=== PATIENT | female | born 1985 | race Caucasian/White ===

== ENCOUNTER → 2018-03-26 14:10 | Outpatient (CLI) | payer MEDICAID, SELFPAY ==
[2018-03-26 15:50] LABS: Absolute Lymphocyte Count 3.08 X10^3/ul (0.83-4.51); Basophil# 0.02 X10^3/uL; Basophil% 0.2 % (0-1); Eosinophil# 0.15 X10^3/uL; Eosinophils% 1.3 % (0-5); Hematocrit 43.6 % (37-47); Hemoglobin 14.5 g/dl (12.0-15.0); Lymphocyte # 3.08 X10^3/ul (4.0); Lymphocyte % 25.8 % (19-41); Mean Corp Hgb Conc 33.3 g/gl (32-36); Mean Corpuscular Hgb 30.7 pg (27.0-32.0); Mean Corpuscular Volume 92.4 fL (81-99); Mean Platelet Vol. 10.1 fl (6.2-12.0); Monocyte# 0.68 X10^3/uL; Monocyte% 5.7 % (0-10); Neutrophil # 7.98 X10^3/uL (2.7-7.7); Neutrophil % 66.6 % (47-70); POSITIVE COUNT NO; POSITIVE DIFFERENTIAL NO; POSITIVE MORPHOLOGY NO; Platelet Count 293 K/mm3 (150-450); RBC Distribution Width CV 13.2 % (11.6-14.6); RBC Distribution Width SD 43.8 fl (35.1-43.9); Red Blood Count 4.72 M/mm3 (4.2-5.4)
[2018-03-26 18:23] LABS: BUN 8 mg/dL (7-18); BUN/Creat Ratio 12.9 RATIO (10-20); Creatinine, Serum 0.62 mg/dL (0.55-1.02); EST Glomerular Filtration Rate 119 mL/min (>60); Est Glom Filt Rate - Afr Amer 144 mL/min (>60); Glucose 74 mg/dL (74-106); Protein, Total 7.3 g/dL (6.4-8.2)
[2018-03-26 18:24] LABS: ALB/GLOB Ratio 1.1 RATIO (0.9-2.4); AST(SGOT) 23 U/L (15-37); Alanine Aminotransfer ALT/SGPT 23 U/L (13-56); Albumin, Serum 3.8 g/dL (3.2-5.0); Alkaline Phosphatase 111 U/L (45-117); Anion Gap 10 (5-15); Calcium,Total 8.8 mg/dL (8.5-10.1); Chloride 106 mmol/L (98-107); Globulin 3.5 g/dL (2.2-4.2); Potassium 4.2 mmol/L (3.5-5.1); Sodium Level 140 mmol/L (136-145); Thyroid Stim Hormone (TSH) 4.31 uIU/mL (0.358-3.74)
[2018-03-29 11:41] LABS: EBV Acute VCA IgM < 36.0 U/mL (0.0-35.9)
[2018-03-29 11:42] LABS: EBV Early Antigen IgG <9.0 U/mL (0.0-8.9); EBV Nuclear Antigen IgG 70.6 U/mL (0.0-17.9); EBV-VCA IgG > 600.0 U/mL (0.0-17.9)
== END ==
PROVIDERS: Family Provider Family Medicine; PCP Family Medicine; Visit Provider Family Medicine
DX: R53.83 Other fatigue (principal)
CPT/HCPCS: 36415; 80053; 82306; 84443; 85025; 86663; 86664; 86665

== ENCOUNTER → 2018-03-27 10:20 | Outpatient (CLI) | payer MEDICAID, SELFPAY ==
--- NOTE | 2018-03-27 10:26 | RAD_ITS ---
STUDY: X-RAY - LUMBAR SPINE REASON FOR EXAM: Female, 32 years old. Pain and stiffness TECHNIQUE: 5 view(s) of the lumbar spine were obtained. COMPARISON: None FINDINGS: Normal lumbar lordosis. There is no substantial scoliosis. There is a normal alignment of the vertebrae. Normal vertebral bodies and endplates. Normal disc space heights. The soft tissue structures are unremarkable. RAD/L/S Spine Min 4 Views IMPRESSION: Normal x-ray examination of the lumbar spine. If patient's symptomology persists or there is continuing clinical concern consider CT or MRI to further evaluate. Electronically Signed: Yobani Magana, at 4:31 EDT Tel , Service support ,
--- NOTE | 2018-03-27 10:26 | RAD_ITS ---
STUDY: X-RAY - CERVICAL SPINE REASON FOR EXAM: Female, 32 years old. Pain and stiffness TECHNIQUE: 5 view(s) of the cervical spine were obtained. COMPARISON: None FINDINGS: Normal anterior atlantoaxial articulation. Normal odontoid process. There is straightening of the normal cervical lordosis. Normal vertebral bodies and endplates. Normal disc space heights. Normal visualized intervertebral neuroforamina. The soft tissue structures are unremarkable. RAD/Cerv Spine 4 or 5 Views IMPRESSION: Normal x-ray examination of the visualized cervical spine. If patient's symptomology persists or there is continuing clinical concern correlate with MRI or CT scan. Electronically Signed: Yobani Magana, at 4:32 EDT Tel , Service support ,
== END ==
PROVIDERS: Family Provider Family Medicine; PCP Family Medicine; Visit Provider Chiropractor
DX: M54.12 Radiculopathy, cervical region (principal); S39.012A Strain of muscle, fascia and tendon of lower back, initial encounter; X58.XXXA Exposure to other specified factors, initial encounter
CPT/HCPCS: 72050; 72110

== ENCOUNTER → 2018-04-15 06:33 | Outpatient (CLI) | payer MEDICAID, SELFPAY ==
--- OUTSIDE RECORDS SUMMARY | 2018-04-15 06:36 | XMS RPT_ITS ---
:1985 Author Organization OHIP Care Team Providers Name Role Phone MikeDyllan Attending Unavailable Dyllan Wyman Primary Care Unavailable Ron Bowen Attending Unavailable Ron Bowen Referring Unavailable Dyllan Wyman Primary Care Unavailable Dyllan Wyman Attending Unavailable Dyllan Wyman Referring Unavailable Dyllan Wyman Primary Care Unavailable Jaren Dubon Attending Unavailable Jaren Dubon Attending Unavailable Dyllan Wyman Primary Care Unavailable Yobani Dawkins Attending Unavailable Jaren Dubon Attending Unavailable Dyllan Wyman Primary Care Unavailable Jaren Dubon Attending Unavailable PROBLEMS PROBLEMS DATE TYPE CONDITION / ATTENDING STATUS SOURCE CODE 03/27/2018 Unknown M54.12 - Ron Bowen Active [facility] Radiculopathy, [facility] cervical region Hospital / Repository M54.12(ICD-10) 03/27/2018 Unknown S33.5XXA - Ron Bowen Active [facility] Sprain of [facility] lumbar spine, Repository initial encounter / S33.5XXA(ICD-10 ) 03/26/2018 Unknown R53.83 - Other Dyllan Wyman Active [facility] fatigue / Community R53.83(ICD-10) Hospital Repository 08/16/2017 Admitting Unknown / Jacky Dubon Medical diagnosis UNK(Unknown) [facility] Repository PROCEDURES PROCEDURES No Procedure Records FoundRESULTS RESULTS L/S SPINE MIN 4 Observed: 03/27/2018 Status: F Source: [place] VIEWS 10:26 AM [facility] [id number] [place], [place] [address]O/S Spine Min 4 ViewsMR#: [id number] Acct: [id number]: ALEAH WYMAN Rep #: [id number]: 1985 F 32 From: Yobani Magana MDPCP: Dyllan Wyman MD Status: REG CLIStudy: L/S Spine Min 4 Views Date of Exam: 03/27/18Exam# [id number] Ordering Dr: Kashif BowenTUDY: X-RAY - LUMBAR SPINEREASON FOR EXAM: Female, 32 years old. Pain and stiffnessTECHNIQUE: 5 view(s) of the lumbar spine were obtained.COMPARISON: None FINDINGS:Normal lumbar lordosis. There is no substantial scoliosis. There is anormal alignment of the vertebrae.Normal vertebral bodies and endplates. Normal disc space heights.The soft tissue structures are unremarkable. ORDER #: [id number] RAD/L/S Spine Min 4 ViewsIMPRESSION:Normal x-ray examination of the lumbar spine. If patient's symptomologypersists or there is continuing clinical concern consider CT or MRI tofurther evaluate.Electronically Signed:Yobani Magana, at 4:31 EDTTel , Service support , JT: Ron Bowen; Dyllan Wyman MD Oven Drier Tender:Signed CERV SPINE 4 OR 5 Observed: 03/27/2018 Status: F Source: [place] VIEWS 10:26 AM [facility] RE[facility]ITORY [facility] [id number] [place] [address]Epqs Spine 4 or 5 ViewsMR#: [id number] Acct: [id number]: ALEAH WYMAN Rep #: [id number]: 1985 F 32 From: Yobani Magana MDPCP: Dyllan Wyman MD Status: REG CLIStudy: Cerv Spine 4 or 5 Views Date of Exam: 03/27/18Exam# [id number] Ordering Dr: Kashif BowenTUDY: X-RAY - CERVICAL SPINEREASON FOR EXAM: Female, 32 years old. Pain and stiffnessTECHNIQUE: 5 view(s) of the cervical spine were obtained.COMPARISON: None FINDINGS:Normal anterior atlantoaxial articulation. Normal odontoid process.There is straightening of the normal cervical lordosis. Normal vertebralbodies and endplates. Normal disc space heights. Normal visualizedintervertebral neuroforamina.The soft tissue structures are unremarkable. ORDER #: [id number] RAD/Cerv Spine 4 or 5 ViewsIMPRESSION:Normal x-ray examination of the visualized cervical spine. If patient'ssymptomology persists or there is continuing clinical concern correlatewith MRI or CT scan.Electronically Signed:Yobani Magana, at 4:32 EDTTel , Service support , WG: Ron Bowen; Dyllan Wyman MD Oven Drier Tender:Signed CBC W/DIFF, AUTOMATED Collected: 03/26/2018 Status: F Source: [place] 2:12 PM [facility] REPOSITORY TYPE CODE TESTS RESULT OUT OF RANGE REFERENCE UNITS LAB L100.1000 High 4.4-11.0 K/mm3 WBC 12.0 LAB L100.1200 Normal 4.2-5.4 M/mm3 RBC 4.72 LAB L100.1300 Normal 12.0-15.0 g/dl HGB 14.5 LAB L100.1400 Normal 37-47 % HCT 43.6 LAB L100.1500 Normal 81-99 fL MCV 92.4 LAB L100.1600 Normal 27.0-32.0 pg MCH 30.7 LAB L100.1700 Normal 32-36 g/gl MCHC 33.3 LAB L100.1810 Normal 11.6-14.6 % RDW 13.2 CV LAB L100.1820 Normal 35.1-43.9 fl RDW 43.8 SD LAB L100.1900 Normal 150-450 K/mm3 PLT 293 LAB L100.2000 Normal 6.2-12.0 fl MPV 10.1 LAB L100.2100 Normal 47-70 % NEUT% 66.6 LAB L100.2200 Normal 19-41 % LY% 25.8 LAB L100.2300 Normal 0-10 % MONO% 5.7 LAB L100.2400 Normal 0-5 % EO% 1.3 LAB L100.2500 Normal 0-1 % BASO% 0.2 LAB L100.2550 Normal 0.0-0.9 % IM 0.400 GRAN % Result Comment: IG% - Immature Granulocytes (promyelocytes, myelocytes andmetamyelocytes) > 1% indicates that a LEFT SHIFT is Present. LAB L100.2620 High 2.0-7.7 X10 3/uL Absolute Neut 8.0 LAB L100.2720 Normal 0.83-4.51 X10 3/ul Absolute Lymph 3.08 Performed By: #### L100.0100 ####[facility] [id number] [place], [address] COMPREHENSIVE METABOLIC Collected: 03/26/2018 Status: F Source: [facility] 2:12 PM [facility] REPOSITORY TYPE CODE TESTS RESULT OUT OF RANGE REFERENCE UNITS LAB L501.0100 Normal 74-106 mg/dL GLU 74 Result Comment: Please note revised GLUCOSE reference range apwztxrbm30/02/2018. LAB L501.1000 Normal 7-18 mg/dL BUN 8 LAB L501.1100 Normal 0.55-1.02 mg/dL CREAT,SERUM 0.62 Result Comment: The validity of the calculated GFR AND GFRAA in patients over70 years has not been determined. Clinical correlation isessential. LAB L501.1110 Normal >60 mL/min EST GFR 119 LAB L501.1115 Normal >60 mL/min EST GFR - AA 144 LAB L501.1300 Normal 10-20 RATIO BUN/CRE 12.9 LAB L501.1500 Normal 6.4-8.2 g/dL T PROT 7.3 LAB L501.1800 Normal 3.2-5.0 g/dL ALB 3.8 LAB L501.1950 Normal 2.2-4.2 g/dL GLOB 3.5 LAB L501.2000 Normal 0.9-2.4 RATIO A/G 1.1 LAB L501.2200 Normal 8.5-10.1 mg/dL CA 8.8 LAB L501.4100 Normal 15-37 U/L AST 23 LAB L501.4305 Normal 45-117 U/L ALK P 111 LAB L501.4405 Normal 13-56 U/L ALT 23 LAB L501.4600 Normal 0.20-1.00 mg/dL T BILI 0.20 LAB L501.5300 Normal 136-145 mmol/L NA 140 LAB L501.5600 Normal 3.5-5.1 mmol/L K 4.2 LAB L501.5900 Normal 98-107 mmol/L CL 106 LAB L501.6100 Normal 21.0-32.0 mmol/L CO2 24.0 LAB L501.6200 Normal 5-15 GAP 10 Performed By: #### L500.4050, L501.9520 ####[facility] [id number] [facility]. [place], [place], [address] THYROID STIM HORMONE Collected: 03/26/2018 Status: F Source: [place] (TSH) 2:12 PM [facility] REPOSITORY TYPE CODE TESTS RESULT OUT OF RANGE REFERENCE UNITS LAB L501.9520 High 0.358-3.74 uIU/mL TSH 4.31 Performed By: #### L500.4050, L501.9520 ####[facility] [address] [place], [address] VITAMIN D,25 HYDROXY Collected: 03/26/2018 Status: F Source: [place] 2:12 PM [facility] REPOSITORY TYPE CODE TESTS RESULT OUT OF REFERENCE UNITS RANGE LAB L506.1000 Low 29.95-100.01 ng/mL Vitamin D 28.0 25-OH Result Comment: Vitamin D 25(OH) Status Range Deficiency <20 ng/mL (50nmol/L) Insuffciency 20 - 30 ng/mL (50 - 75 nmol/L) Sufficiency 30 - 100 ng/mL (75 - 250 nmol/L) Toxicity >100 ng/mL (>250 nmol/L) Performed By: #### L506.1000 ####[facility] [address] [place], [place], [address] EBV ACUTE PROF IGG Collected: 03/26/2018 Status: F Source: ALANA / IGM 2:12 PM [facility] REPOSITORY TYPE CODE TESTS RESULT OUT OF RANGE REFERENCE UNITS LAB L3100.5900 Normal 0.0-35.9 U/mL < EB-VCA 36.0 [id number] Result Comment: Negative <36.0 Equivocal 36.0 - 43.9 Positive >43.9 LAB L3100.6000 Normal 0.0-8.9 U/mL <9.0 EB-EA IgG 60361 Result Comment: Negative < 9.0 Equivocal 9.0 - 10.9 Positive >10.9 LAB L3100.6100 High 0.0-17.9 U/mL EB-VCA [id number] > 600.0 Result Comment: Negative <18.0 Equivocal 18.0 - 21.9 Positive >21.9 LAB L3100.6200 High 0.0-17.9 U/mL EB-NAg [id number] 70.6 Result Comment: Negative <18.0 Equivocal 18.0 - 21.9 Positive >21.9 LAB L3100.6300 Normal . INTERPRETATION Comment Result Comment: EBV Interpretation ChartInterpretation EBV-IgM EA(D)-IgG VCA-IgG EBNA-IgGEBV Seronegative - - - -Early Phase + - - - Acute Primary + +or- + -InfectionConvalescence/Past - +or- + +InfectionReactivated +or- + + +Infection + Antibody Present - Antibody AbsentPerformed at: - [facility] [address] [id number] Director: Toni Monzon PhD, Phone: [phone] Performed By: #### L3100.5850 ####[facility] (refer to report for specific site)refer to report for address and phone number FLUOROSCOPY IN OR/PAIN Observed: 09/06/2017 Status: F Source: [facility] MGT 10:30 AM [facility] FLUOROSCOPY IN OR/PAIN MGTOrdering Physician: Jaren Dubon DO09/06/2017 10:30 AMFLUOROSCOPYClinical Statement: PainComparison: NoneFINDINGS: Two spot fluoroscopic images were saved demonstratingneedle placement at the right sacroiliac joint. A total of 20.5seconds fluoroscopy time was utilized. Please see the orderingclinicians report for full details.IMPRESSION:Documentation of fluoroscopy. ---- Electronic Signature on File ----Signed By: Ivon [email or web address]: 09/06/2017 11: 02 AMSigned: 09/06/2017 11:03 AM Reported By: TRICIA LAZO M.D. Signed By: TRICIA LAZO M.D. ALLERGIES ALLERGIES DATE TYPE / CODE NAME / CODE REACTION SEVERITY SOURCE 04/17/2015 Drug Penicillins/ Unknown Unknown [facility]160 [id number](R [facility] 74324(SNOMED XNORM) Repository CT) 04/17/2015 Drug sulfamethoxa Unknown Unknown [facility] Allergy/4160 zole/[id number] Hospital 62994(SNOMED 827(RXNORM) Repository CT) 04/17/2015 Drug trimethoprim Unknown Unknown [facility] Allergy/4160 /[id number]( Hospital 43735(SNOMED RXNORM) Repository CT) ENCOUNTERS ENCOUNTERS ADMIT/DISCHARGE ACCOUNT ADMITTING ENCOUNTER LOCATION SOURCE NUMBER CLASS 04/15/2018 [id number] [place] [facility] ing:MRI Repository 03/27/2018 [id number] Ambulatory [place] 1 [facility] ing:RAD Repository 03/26/2018 [id number] Ambulatory [place] 2 [facility] ing:MFPLAB Repository 02/20/2018 [id number] Inpatient [facility] 9 [facility]counter [facility] g:H.PM Repository 02/12/2018 [id number] Ambulatory [facility] 1 [facility] g:H.PM Repository 11/14/2017 [id number] Ambulatory [facility] 5 [facility] g:H.PM Repository 09/06/2017 [id number] Inpatient [facility] 0 Encounter [facility] Jack g:H.PM Repository 08/16/2017 [id number] Ambulatory [facility] 3 [facility] g:H.PM Repository PAYERS PAYERS ENCOUNTER GUARANTOR PAYER SUBSCRIBER SOURCE 04/15/2018 ALEAH L Primary ALEAH L [facility] [id number] 1/2 N Insurance:CARESOURCEP MILLERDOB: Critical access hospital [id number] [id number] Repository [address]Bip: (330) Date:2018-04-09P O [phone] () [address]ATTN: [place] [address]YL: 04/15/2018 Secondary NOT GIVENUNK [place] Insurance:SELF PAY [facility] Number: Effective Repository Date:2018-04-09 03/27/2018 ALEAH L Primary ALEAH L [place] [id number] 1/2 N Insurance:CARESOURCEP MILLERDOB: Critical access hospital Number: [id number] [id number] Repository [address]Ixb: ([phone]) Date:2018-03-27P O [phone] () [address]ATTN: [place] [address]XB: 03/27/2018 Secondary NOT GIVENUNK [place] Insurance:SELF PAY [facility] Number: Effective Repository Date:2018-03-27 03/26/2018 ALEAH L Primary ALEAH L [facility] [id number] N Insurance:CARESOURCEP MILLERDOB: Critical access hospital Number: [id number] [id number] Repository [address]Kmw: (330) Date:2018-03-26P O [phone] () [address]ATTN: [place] [address]HV: 03/26/2018 Secondary NOT GIVENUNK [facility] Insurance:SELF PAY [facility] Number: Effective Repository Date:2018-03-26 02/20/2018 ALEAH L Primary [facility] [id number] N Insurance:[facility] Number: Repository [place] [id number]: ([phone]) Date:2015-05-23P.O. [phone] (HP) [address] [place] [address]AY: 02/12/2018 ALEAH L Primary ALEAH [facility] [id number] N Insurance:[facility] Number: Repository [place], [place] [id number]: (330) Date:2015-05-23P.O. [phone] (HP) [address] [place] [address]CN: 11/14/2017 ALEAH L Primary ALEAH [facility] [id number] N Insurance:[facility] Number: Repository [place], [place] [id number] [address]Xly: (330) Date:2015-05-23P.O. [phone] (HP) [address] [place] [address]XO: 09/06/2017 ALEAH L Primary ALEAH [facility] [id number] N Insurance:[facility] Number: Repository [place], [place] [id number]: (330) Date:2015-05-23P.O. [phone] (HP) [address] [place] [address]BX: 08/16/2017 ALEAH L Primary ALEAH [facility] [id number] N Insurance:[facility] Number: [place]ository [place] [id number]: ([phone]) Date:2015-05-23P.O. [phone] (HP) [address] [place] [address]YU:
--- NOTE | 2018-04-15 06:39 | MRI_ITS ---
STUDY: MRI BRAIN WITH AND WITHOUT CONTRAST REASON FOR EXAM: Female, 32 years old. Frequent headaches. Neck pain. Posterior headache and pressure behind eyes. TECHNIQUE: Standardized multiplanar fat and water weighted pulse sequences were obtained. 7 ml of Gadavist contrast material was administered intravenously for the contrast portion of the examination. COMPARISON: None. FINDINGS: Normal size of the ventricles and extra-axial spaces for the patient's age. Normal white matter tracts of the supratentorial brain. Normal bilateral basal ganglia. Normal thalami. There is no extra-axial fluid accumulation. Normal flow voids within the major intracranial circulation suggesting patency by spin echo criteria. Normal venous enhancement. There is no enhancing intra-axial or extra-axial abnormality. Normal sella turcica, pituitary gland, infundibular stalk, optic chiasm and hypothalamus. Normal tectal plate and pineal gland. Normal midbrain, lucien and medulla. Normal cerebellum. Normal basal cisterns. Normal bilateral temporal bones. Normal bilateral internal auditory canals. No demonstrated orbital abnormality, within the constraints of a routine brain study. Normal visualized paranasal sinuses. Normal calvarium and skull base. Normal visualized soft tissue structures. Normal visualized upper cervical spine. MRI/Brain W/WO Contrast IMPRESSION: Normal unenhanced and enhanced MRI of the brain. Electronically Signed: Raudel Robles MD at 14:17 EDT , Service support ,
== END ==
PROVIDERS: Family Provider Family Medicine; PCP Family Medicine; Visit Provider Family Medicine
DX: R51 Headache (principal)
CPT/HCPCS: 70553; A9585

== ENCOUNTER → 2018-06-25 10:15 | Outpatient (CLI) | payer MEDICAID, SELFPAY ==
[2013-08-27 13:35] VITALS: BMI 29.5
[2018-06-25 13:10] LABS: Thyroid Stim Hormone (TSH) 0.16 uIU/mL (0.358-3.74)
== END ==
PROVIDERS: Family Provider Family Medicine; PCP Family Medicine; Visit Provider Family Medicine
DX: E03.9 Hypothyroidism, unspecified (principal)
CPT/HCPCS: 36415; 84443

== ENCOUNTER 2018-08-03 00:28 | Emergency (ER) | payer MEDICAID, SELFPAY ==
[2018-08-03 00:29] VITALS: BP 95/82; PULSE 74; RESP 16; TEMP 36.5; O2SAT 96; BMI 27.4
--- NOTE | 2018-08-03 00:35 | EKG12_ITS ---
Test Reason : CP Blood Pressure : / mmHG Vent. Rate : 067 BPM Atrial Rate : 067 BPM P-R Int : 134 ms QRS Dur : 078 ms QT Int : 392 ms P-R-T Axes : 036 031 020 degrees QTc Int : 414 ms Normal sinus rhythm Low voltage QRS Borderline ECG Confirmed by VINH POON, DIAN ([id number]), makeup editor CHARLENE WYMAN ([id number]) on 08/06/2018 4:36:38 PM Referred By: ELIO Confirmed By:DIAN JUSTICE MD
--- NOTE | 2018-08-03 00:35 | RAD_ITS ---
HISTORY: PT STATED SOB CHEST PAIN RT SIDE UNDER BREAST TONIGHT STATED DX WITH BRONCHITIS FOR 3 WKS COUGH CONGESTION FOR 5 WKSSMOKER 1/2 PPD NO SX PT SHIELDED EXAM: XR Chest 2 Views: COMPARISON: None FINDINGS: EKG leads in place. Normal heart size. No vascular congestion, pleural effusion, or acute pulmonary infiltration. No pneumothorax. The bony thorax appears intact. IMPRESSION: No acute cardiopulmonary disease. at 0144 Reported and signed by: Judson Castellanos MD Electronically Signed: Judson Castellanos, at 1:43 EST Tel , Service support , RAD/Chest PA and Lateral
[2018-08-03 01:08] LABS: Absolute Lymphocyte Count 6.34 X10^3/ul (0.83-4.51); Absolute Neutrophil Count 8.4 X10^3/uL (2.0-7.7); Basophil# 0.05 X10^3/uL; Basophil% 0.3 % (0-1); Differential Indicated SCAN CRITERIA MET; Eosinophil# 0.09 X10^3/uL; Eosinophils% 0.6 % (0-5); Hematocrit 41.9 % (37-47); Hemoglobin 13.6 g/dl (12.0-15.0); Lymphocyte # 6.34 X10^3/ul (4.0); Lymphocyte % 39.3 % (19-41); Mean Corp Hgb Conc 32.5 g/gl (32-36); Mean Corpuscular Hgb 30.4 pg (27.0-32.0); Mean Corpuscular Volume 93.5 fL (81-99); Mean Platelet Vol. 9.3 fl (6.2-12.0); Monocyte# 1.08 X10^3/uL; Monocyte% 6.7 % (0-10); Neutrophil # 8.37 X10^3/uL (2.7-7.7); Neutrophil % 51.8 % (47-70); POSITIVE COUNT NO; POSITIVE DIFFERENTIAL YES; POSITIVE MORPHOLOGY NO; Platelet Count 325 K/mm3 (150-450); RBC Distribution Width CV 14.1 % (11.6-14.6); RBC Distribution Width SD 47.6 fl (35.1-43.9); Red Blood Count 4.48 M/mm3 (4.2-5.4); White Blood Count 16.1 K/mm3 (4.4-11.0)
[2018-08-03] MEDS: Naproxen 500 MG Tablet PO (01:08)
[2018-08-03 01:18] LABS: Anion Gap 8 (5-15); BUN 14 mg/dL (7-18); BUN/Creat Ratio 19.7 RATIO (10-20); Calcium,Total 8.7 mg/dL (8.5-10.1); Chloride 105 mmol/L (98-107); Creatinine, Serum 0.71 mg/dL (0.55-1.02); EST Glomerular Filtration Rate 101 mL/min (>60); Est Glom Filt Rate - Afr Amer 122 mL/min (>60); Estimated Creatinine Clearance 98.23 ml/min; Glucose 92 mg/dL (74-106); Potassium 3.8 mmol/L (3.5-5.1); Sodium Level 140 mmol/L (136-145)
[2018-08-03 01:30] VITALS: BP 134/84; PULSE 87; RESP 16; O2SAT 98
--- NOTE | 2018-08-03 01:37 | ED.DCSUM_ITS ---
- ER Visit Summary Date of Service: 08/03/18 Chief Complaint: Chest pain History of Present Illness: The patient is a 32 F presenting for evaluation secondary to chest pain. Patient reports that over the course of approximately the last month she has been dealing with a respiratory infection. She reports that she let it go too long and it settled in her chest. It has been associated with cough. She went and saw a urgent care about 2 weeks ago who placed her on a course of amoxicillin Tessalon prednisone and albuterol. She reports that she did not really have any improvement, and went back for a subsequent visit and had a negative chest x-ray and was recommended to continue on her albuterol. Patient states that in the course of the last 2 days however she has had worsening chest pain that is worse with taking a deep breath and coughing. It is sharp. She denies any association with hemoptysis. She has no history of PE. She is a smoker. She denies any PE or cardiovascular risk factors. Physical Examination: Vital signs are within normal limits, patient is afebrile. General: Patient is well-nourished well-developed and in no acute distress. Head: Normocephalic, atraumatic Eyes: Pupils equal round and reactive bilaterally, extra occular motion intact bialterally ENT: Moist mucous membranes Neck: Supple, no lymphadenopathy, no JVD, no meningismus CVS: Heart regular rate and rhythm, no murmurs, rubs or gallops, radial pulses 2+ bilaterally Resp: Respirations nondistressed, lung sounds clear bilaterally, chest tenderness just directly under the patient's right breast without any evidence of crepitus or step-offs. This extends somewhat medially towards the sternum. Abdomen: Soft, nontender, nondistended, no palpable masses, normal bowel sounds Back: Nontender Extremities: Nontender, atraumatic, active full range of motion, no peripheral edema Skin: warm, no rashes, no petechia Neuro: Alert and oriented x 4, CN 2-12 intact, no lateralizing neurological defecits Psyc: Normal affect Test Results: EKG demonstrates sinus rhythm [address] segments normal T waves no evidence of acute ischemia or arrhythmia. CBC shows leukocytosis. Chemistry and troponin are found to be negative. Chest x-ray shows no evidence of pneumothorax rib fracture or pneumonia. Emergency Department Course and Treatment: Patient presented secondary to chest wall pain. This seems to be clearly reproducible with palpation movement and coughing. Patient has normal oxygenation and normal heart rate and EKG that shows no signs of PE, so I do not believe the d-dimer is indicated. Patient had a leukocytosis consistent with her prednisone use. Chest x-ray was negative. This point the patient likely has an element of a rib sprain secondary to coughing. Patient will be treated with an incentive spirometer and lidocaine patches. Patient's heart score is low risk. Patient will follow up with her primary care physician next week. Disposition: Discharge Impression: 1. Chest wall pain This note was generated with Mompery dictation software. It may contain incorrect words, spelling, and punctuation that were not noted in review of the chart antonina or to signing ED Disposition - Plan for ED Patient: Disposition: Home or Assisted Living Chief Complaint: Chest Pain Diagnosis: Chest wall pain Instructions: ED Strain Chest Wall Prescriptions: Lidocaine [Lidoderm Patch] 1 patch TOPICAL DAILY #10 patch Referrals: Dyllan Mckeon MD [Primary Care Provider] - 3-5 Days
[2018-08-03 02:04] LABS: Atypical Lymphocyte RARE %; Differential Comment SCANNED; Reactive Lymphocyte RARE
[2018-08-03 02:06] LABS: Platelet Estimate ADEQUATE (ADEQ)
[2018-08-03 02:38] VITALS: BP 118/85; BP 119/85; PULSE 85; RESP 16; O2SAT 98
[2018-08-03] MEDS: Lidocaine 5% Patch 1 PATCH TOPICAL (02:44)
[2018-08-05 14:46] LABS: Pathologist Review Reviewed
== END 2018-08-03 02:45 | disposition home or self-care (01) ==
PROVIDERS: Emergency Provider Emergency Medicine; Family Provider Family Medicine; PCP Family Medicine
DX: R07.89 Other chest pain (principal); F17.200 Nicotine dependence, unspecified, uncomplicated
CPT/HCPCS: 71046; 80048; 84484; 85025; 93005; 99284; A4216

== ENCOUNTER → 2018-08-23 10:56 | Outpatient (CLI) | payer MEDICAID, SELFPAY ==
[2018-08-03 00:29] VITALS: BMI 27.4
[2018-08-23 12:00] LABS: Erythrocyte Sedimentation Rate 17 mm/hr (0-20)
[2018-08-23 12:03] LABS: Absolute Lymphocyte Count 2.51 X10^3/ul (0.83-4.51); Absolute Neutrophil Count 4.4 X10^3/uL (2.0-7.7); Basophil# 0.02 X10^3/uL; Basophil% 0.3 % (0-1); Eosinophil# 0.12 X10^3/uL; Eosinophils% 1.6 % (0-5); Hematocrit 41.8 % (37-47); Hemoglobin 13.4 g/dl (12.0-15.0); Lymphocyte # 2.51 X10^3/ul (4.0); Lymphocyte % 33.2 % (19-41); Mean Corp Hgb Conc 32.1 g/gl (32-36); Mean Corpuscular Hgb 29.6 pg (27.0-32.0); Mean Corpuscular Volume 92.5 fL (81-99); Mean Platelet Vol. 9.2 fl (6.2-12.0); Monocyte# 0.47 X10^3/uL; Monocyte% 6.2 % (0-10); Neutrophil # 4.42 X10^3/uL (2.7-7.7); Neutrophil % 58.6 % (47-70); Platelet Count 332 K/mm3 (150-450); RBC Distribution Width CV 13.3 % (11.6-14.6); RBC Distribution Width SD 45.5 fl (35.1-43.9); Red Blood Count 4.52 M/mm3 (4.2-5.4); White Blood Count 7.6 K/mm3 (4.4-11.0)
[2018-08-23 12:04] LABS: POSITIVE COUNT NO; POSITIVE DIFFERENTIAL NO; POSITIVE MORPHOLOGY NO
== END ==
PROVIDERS: Family Provider Family Medicine; PCP Family Medicine; Visit Provider Family Medicine
DX: D72.829 Elevated white blood cell count, unspecified (principal)
CPT/HCPCS: 36415; 85025; 85652

== ENCOUNTER → 2018-09-02 12:35 | Outpatient (CLI) | payer MEDICAID, SELFPAY ==
[2013-08-27 13:35] VITALS: BMI 29.5
--- NOTE | 2018-09-02 12:38 | CT_ITS ---
STUDY: CT CHEST WITH CONTRAST REASON FOR EXAM: Female, 32 years old. Chest wall pain RADIATION DOSAGE (If Supplied By Facility): CTDIvol = ( 9.86 ) mGy, DLP = ( 499.39 ) mGycm TECHNIQUE: Transaxial imaging was performed following intravenous administration of 100CC ml of Isovue 300 contrast material. Individualized dose optimization techniques were used for this CT. COMPARISON: None. FINDINGS: TRACHEA, THYROID, ESOPHAGUS: No tracheomalacia,stricture or wall thickening. Thyroid and esophagus are normal CARDIOVASCULAR SYSTEM: The thoracic aorta is normal with no focal aneurysm or dissection. There are no abnormal calcifications/metallic densities at the aortic root. The pulmonary trunk and the left and right pulmonary arteries and their lobar and segmental branches all fail to show any abnormal and persistent filling defects to indicate the presence of pulmonary embolism. The heart is normal in size with no demonstration of any right ventricular strain. No developmental vascular anomalies are seen. JARRED AND LYMPH NODES: No hilar masses and no mediastinal, hilar, axillary or supraclavicular adenopathy LUNGS, LOW-ATTENUATION: No traction bronchiectasis, honeycombing,emphysema, lung cysts or cavitations LUNGS, HIGH ATTENUATION: No nodules/masses, ground glass opacities/consolidations or increased interstitial markings. A small 2.1 x 0.8 cm density in the right middle lobe. It is most likely from fibrosis LUNGS, MOSAIC/CRAZY PAVING: Not evident PLEURA AND CHEST WALL: No plural effusions, pneumothoraces,rib fractures or any osteolytic/osteoblastic changes . The soft tissue chest wall including the breasts are normal UPPER ABDOMEN: Unremarkable .. CT/Chest WITH Contrast IMPRESSION: The thoracic aorta is normal. No evidence of pulmonary embolism. A 2.1 x 0.8 cm density in the right middle lobe with features suggestive of fibrosis Electronically Signed: Alfredito Townsend MD at 0:24 EST Tel , Service support ,
== END ==
PROVIDERS: Family Provider Family Medicine; PCP Family Medicine; Referring Provider Family Medicine; Visit Provider Family Medicine
DX: R07.89 Other chest pain (principal)
CPT/HCPCS: 71260; Q9967

== ENCOUNTER → 2020-05-26 | Outpatient (CLI) | payer MEDICAID, SELFPAY | END | disposition home or self-care (01) | LOC: LABSPEC 12:27 | PROVIDERS: PCP Family Medicine; Visit Provider Family Medicine | DX: J01.90 Acute sinusitis, unspecified (principal) | CPT/HCPCS: 87635; U0003 ==

== ENCOUNTER → 2020-12-13 11:40 | Outpatient (CLI) | payer MEDICAID, SELFPAY ==
--- NOTE | 2020-12-13 11:46 | RAD_ITS ---
STUDY: X-RAY - CERVICAL SPINE REASON FOR EXAM: Female, 35 years old. PAIN TECHNIQUE: 5 view(s) of the cervical spine were obtained. COMPARISON: None FINDINGS: Normal anterior atlantoaxial articulation. Normal odontoid process. Normal cervical lordosis. Normal vertebral bodies and endplates. Normal disc space heights. Normal visualized intervertebral neuroforamina. The soft tissue structures are unremarkable. RAD/Cerv Spine 4 or 5 Views IMPRESSION: Normal x-ray examination of the visualized cervical spine. Electronically Signed: Suki Moon MD at 7:40 EDT Tel , Service support ,
[2020-12-13 15:34] LABS: Erythrocyte Sedimentation Rate 38 mm/hr (0-30)
[2020-12-13 15:35] LABS: Vitamin B12 712 pg/mL (211-911)
[2020-12-13 15:36] LABS: Absolute Lymphocyte Count 3.62 X10^3/uL (0.83-4.51); Absolute Neutrophil Count 7.5 X10^3/uL (2.0-7.7); Basophil# 0.06 X10^3/uL; Basophil% 0.5 % (0-1); Eosinophil# 0.23 X10^3/uL; Eosinophils% 1.9 % (0-5); Hematocrit 41.4 % (37-47); Hemoglobin 13.7 g/dL (12.0-15.0); Lymphocyte # 3.62 X10^3/ul (0.83-4.51); Lymphocyte % 29.6 % (19-41); Mean Corp Hgb Conc 33.1 g/dL (32-36); Mean Corpuscular Volume 90.8 fL (81-99); Mean Platelet Vol. 9.6 fl (6.2-12.0); Monocyte# 0.74 X10^3/uL; Monocyte% 6.1 % (0-10); NRBC Flagged by Analyzer 0 % (0-5); Neutrophil # 7.54 X10^3/uL (2.7-7.7); Neutrophil % 61.7 % (47-70); Platelet Count 334 K/mm3 (150-450); RBC Distribution Width CV 13.3 % (11.6-14.6); RBC Distribution Width SD 44.3 fl (35.1-43.9); Red Blood Count 4.56 M/mm3 (4.2-5.4); White Blood Count 12.2 K/mm3 (4.4-11.0)
[2020-12-14 01:37] LABS: ALB/GLOB Ratio 0.9 RATIO (0.9-2.4); AST(SGOT) 18 U/L (15-37); Alanine Aminotransfer ALT/SGPT 21 U/L (13-56); Albumin, Serum 3.5 g/dL (3.2-5.0); Alkaline Phosphatase 125 U/L (45-117); Anion Gap 7 (5-15); BUN 10 mg/dL (7-18); Calcium,Total 9.1 mg/dL (8.5-10.1); Chloride 106 mmol/L (98-107); Cholesterol 255 mg/dL (200); Creatinine, Serum 0.62 mg/dL (0.55-1.02); EST Glomerular Filtration Rate 115 mL/min (>60); Est Glom Filt Rate - Afr Amer 140 mL/min (>60); Globulin 3.8 g/dL (2.2-4.2); Glucose 63 mg/dL (74-106); High Density Lipoprotein 44 mg/dL; Potassium 3.8 mmol/L (3.5-5.1); Protein, Total 7.3 g/dL (6.4-8.2); Rheumatoid Factor < 10.0 IU/mL (<15); Sodium Level 136 mmol/L (136-145); Thyroid Stim Hormone (TSH) 3.99 uIU/mL (0.358-3.74); Triglycerides 117 mg/dL; Very Low Density Lipoprotein 23 mg/dL (5-40)
[2020-12-16 16:51] LABS: CCP IgG Antibodies 3 units (0-19)
[2020-12-16 17:14] LABS: ANTINUCLEAR ANTIBODIES DIRECT Negative (Negative)
== END ==
PROVIDERS: PCP Family Medicine; Referring Provider Family Medicine; Visit Provider Family Medicine
DX: Z13.220 Encounter for screening for lipoid disorders (principal); M13.0 Polyarthritis, unspecified; M54.2 Cervicalgia; R53.83 Other fatigue
CPT/HCPCS: 36415; 72050; 80053; 80061; 82607; 84443; 85025; 85652; 86038; 86140; 86200; 86431

== ENCOUNTER 2021-09-26 11:32 | Outpatient (CLI) | payer MEDICAID, SELFPAY ==
[2021-09-26 15:20] LABS: Absolute Lymphocyte Count 2.94 X10^3/uL (0.83-4.51); Absolute Neutrophil Count 5.5 X10^3/uL (2.0-7.7); Basophil# 0.05 X10^3/uL; Basophil% 0.5 % (0-1); Eosinophil# 0.12 X10^3/uL; Eosinophils% 1.3 % (0-5); Hemoglobin 13.1 g/dL (12.0-15.0); Lymphocyte # 2.94 X10^3/ul (0.83-4.51); Lymphocyte % 32.3 % (19-41); Mean Corp Hgb Conc 32.8 g/dL (32-36); Mean Corpuscular Hgb 30.2 pg (27.0-32.0); Mean Corpuscular Volume 92.2 fL (81-99); Mean Platelet Vol. 9.3 fl (6.2-12.0); Monocyte# 0.53 X10^3/uL; Monocyte% 5.8 % (0-10); NRBC Flagged by Analyzer 0 % (0-5); Neutrophil # 5.45 X10^3/uL (2.7-7.7); Neutrophil % 59.9 % (47-70); Platelet Count 301 K/mm3 (150-450); RBC Distribution Width CV 13.2 % (11.6-14.6); RBC Distribution Width SD 45.1 fl (35.1-43.9); Red Blood Count 4.34 M/mm3 (4.2-5.4); White Blood Count 9.1 K/mm3 (4.4-11.0)
[2021-09-26 16:00] LABS: Anion Gap 5 (5-15); BUN 10 mg/dL (7-18); BUN/Creat Ratio 13.6 RATIO (10-20); Chloride 108 mmol/L (98-107); Creatinine, Serum 0.73 mg/dL (0.55-1.02); EST Glomerular Filtration Rate 95 mL/min (>60); Est Glom Filt Rate - Afr Amer 115 mL/min (>60); Glucose 77 mg/dL (74-106); Sodium Level 137 mmol/L (136-145); Thyroid Stim Hormone (TSH) 3.14 uIU/mL (0.358-3.74)
== END 2021-09-26 23:59 | disposition home or self-care (01) ==
LOC: MTLAB 11:33
PROVIDERS: Referring Provider Nurse Practitioner Family; Visit Provider Nurse Practitioner Family
DX: E03.9 Hypothyroidism, unspecified (principal)
CPT/HCPCS: 36415; 80048; 84443; 85025

== ENCOUNTER → 2021-10-26 10:20 | Outpatient (CLI) | payer MEDICAID, SELFPAY ==
--- NOTE | 2021-10-26 10:30 | RAD_ITS ---
STUDY: X-RAY - LEFT ELBOW REASON FOR EXAM: Female, 36 years old. One-month history of pain. No known injury. TECHNIQUE: 3 view(s) of the elbow. COMPARISON: None. FINDINGS: Normal visualized humerus, radius and ulna. Normal radiocapitellar and ulnotrochlear articulations. The soft tissue structures are unremarkable. RAD/Elbow min 3 Views IMPRESSION: Normal x-ray examination of the elbow. Electronically Signed: Cuco Noe MD at 15:24 EDT ,
== END ==
DX: G89.4 Chronic pain syndrome (principal)
CPT/HCPCS: 73080

== ENCOUNTER → 2022-05-04 | Outpatient (CLI) | payer MEDICAID, SELFPAY ==
[2022-05-04 15:50] LABS: Thyroid Stim Hormone (TSH) 1.74 uIU/mL (0.358-3.74)
== END | disposition home or self-care (01) ==
LOC: MFPLAB 12:01
PROVIDERS: PCP Nurse Practitioner Family; Referring Provider Nurse Practitioner Family; Visit Provider Nurse Practitioner Family
DX: E03.9 Hypothyroidism, unspecified (principal)
CPT/HCPCS: 36415; 84443

== ENCOUNTER → 2023-08-08 | Outpatient (CLI) | payer OTHER, SELFPAY ==
--- OUTSIDE RECORDS SUMMARY | 2023-08-08 12:04 | XMS RPT_ITS | CCD ---
Author Name Unknown Address [address] [place] [id number] Organization [facility] Care Team Providers [facility] Name Role Phone Dyllan Wyman MD Primary Care Provider [phone] Unavailable Primary Care Provider UnavailLOAN Arias Attending Unavailable JAREN ALTAMIRANO Attending Unavailable CONNOR MADRIGAL Attending Unavailable JAREN ALTAMIRANO Admitting Unavailable JAREN ALTAMIRANO Attending Unavailable LOAN ALMAGUER Attending Unavailable LOAN ALMAGUER Attending Unavailable SELF Referring Unavailable SELF Referring Unavailable Allergies Allergy Classification Reported Allergen(s) Allergy Type Date of Onset Reaction(s) Facility (4 sources) Penicillins; Translations: [PENICILLINS] Propensity to adverse reactions 5 Vomiting [facility] (20 sources) Sulfamethoxazole / Trimethoprim; Translations: [SULFAMETHOXAZOLE-TR IMETHOPRIM] Drug Allergy 5 [facility] (20 sources) Penicillins Propensity to adverse reactions 5 [facility] (20 sources) Codeine; Translations: [CODEINE] Drug Allergy 6 Swelling [facility] (20 sources) Sulfamethoxazole; Translations: [SULFAMETHOXAZOLE] Drug Allergy 9 [facility] (13 sources) Trimethoprim; Translations: [TRIMETHOPRIM] Drug Allergy 9 Unknown [facility] Medications Current Medications Medication Drug Class(es) Dates Sig (Normalized) Sig (Original) baclofen 10 mg oral tablet (15 sources) gamma-Aminobutyri c Acid-ergic Agonist Start: 01-18-2023 End: 09-16-2023 take 1 tablet by mouth every eight hours as needed baclofen 10 mg tablet Take 1 tablet by mouth three times a day as needed. 90 tablet 2 06/18/2023 09/16/2023 Active Completed/Discontinued Medications Medication Drug Class(es) Dates Sig (Normalized) Sig (Original) acetaminophen 300 mg / codeine phosphate 30 mg oral tablet (1 source) Opioid Agonist Start: 08-27-2013 End: 10-18-2022 acetaminophen-codei ne (TYLENOL-COD #3) 300-30 mg per tablet Take by mouth. 0 08/27/2013 10/18/2022 Discontinued Problems Active Problems Problem Classification Problem Date Documented Date Episodic/Chronic Headache; including migraine (14 sources) Chronic tension-type headache; Translations: [Chronic tension-type headache, not intractable] Onset: 08-02-2015 10-18-2022 Chronic Other connective tissue disease (20 sources) Myofascial pain syndrome; Translations: [Myalgia, other site] Onset: 02-15-2022 02-15-2022 Episodic Other nervous system disorders (20 sources) Chronic pain syndrome; Translations: [Chronic pain syndrome] Onset: 03-30-2022 Chronic Other nervous system disorders (1 source) Chronic pain syndrome; Translations: [Chronic pain syndrome] Onset: 03-30-2022 Chronic Other non-traumatic joint disorders (14 sources) Snapping right hip; Translations: [Other specific joint derangements of right hip, not elsewhere classified] Onset: 06-24-2015 10-18-2022 Chronic Spondylosis; intervertebral disc disorders; other back problems (20 sources) Degeneration of lumbar intervertebral disc; Translations: [Other intervertebral disc degeneration, lumbar region] Onset: 03-30-2022 03-30-2022 Chronic Substance-related disorders (14 sources) Opioid dependence; Translations: [Opioid dependence, uncomplicated] Onset: 06-24-2015 10-18-2022 Chronic Past or Other Problems Problem Classification Problem Date Documented Da te Episodic/Chronic Nausea and vomiting (14 sources) Nausea, vomiting and diarrhea; Translations: [Nausea with vomiting, unspecified] Onset: 10-18-2022 10-18-2022 Episodic Nonspecific chest pain (14 sources) Chest wall pain; Translations: [Other chest pain] Onset: 10-18-2022 10-18-2022 Episodic Other acquired deformities (14 sources) Acquired unequal leg length; Translations: [Unequal limb length (acquired), unspecified site] Onset: 06-24-2015 10-18-2022 Episodic Other aftercare (20 sources) Taking high risk medication; Translations: [Other termite renewal inspector (current) drug therapy] Onset: 03-30-2022 03-30-2022 Episodic Other aftercare (7 sources) Patient encounter status; Translations: [intermediate (current) use of opiate analgesic] Onset: 07-31-2016 10-18-2022 Episodic Other aftercare (1 source) Other termite renewal inspector (current) drug therapy; Translations: [High risk medication use] Onset: 03-30-2022 Episodic Other connective tissue disease (1 source) Myalgia, other site; Translations: [Myofascial pain syndrome] Onset: 02-15-2022 Episodic Spondylosis; intervertebral disc disorders; other back problems (20 sources) Lumbar radiculopathy; Translations: [Radiculopathy, lumbar region] Onset: 04-04-2017 03-30-2022 Episodic Results Test Name Value Interpretation Reference Range Facil ity Vital Signs Date Time Vital Sign Value Performing Clinician Faci lity 03-21-2023 14:01-0400 Diastolic blood pressure 74 mm[Hg] Jaren Jagdish DO Work Phone: [facility] 03-21-2023 14:01-0400 Systolic blood pressure 130 mm[Hg] Vasquezhuber Altamirano DO Work Phone: [facility] 03-21-2023 14:00-0400 Heart rate 79 /min Vasquezhuber Altamirano DO Work Phone: [facility] 03-21-2023 14:00-0400 Respiratory rate 16 /min Vasquezhuber Altamirano DO Work Phone: [facility] 03-21-2023 14:00-0400 SaO2% (BldA) [Mass fraction] 100 % Vasquezhuber Altamirano DO Work Phone: [facility] 03-21-2023 13:46-0400 Body temperature 98.6 [degF] Jaren Jagdish DO Work Phone: [facility] 02-28-2023 13:27-0400 Body height 164.6 cm [facility] COMPLIANCE REVIEW OFFICER.SEALING MACHINE OPERATOR Work Phone: [facility] 02-28-2023 13:27-0400 Body weight 90.54 kg [facility] COMPLIANCE REVIEW OFFICER.SEALING MACHINE OPERATOR Work Phone: [facility] 02-28-2023 13:27-0400 Diastolic blood pressure 82 mm[Hg] [facility] [place] COMPLIANCE REVIEW OFFICER.SEALING MACHINE OPERATOR Work Phone: [facility] 02-28-2023 13:27-0400 Heart rate 80 /min Loan [place] COMPLIANCE REVIEW OFFICER.SEALING MACHINE OPERATOR Work Phone: [facility] 02-28-2023 13:27-0400 Respiratory rate 18 /min [facility] [place] COMPLIANCE REVIEW OFFICER.SEALING MACHINE OPERATOR Work Phone: [facility] 02-28-2023 13:27-0400 SaO2% (BldA) [Mass fraction] 95 % Loan [place] COMPLIANCE REVIEW OFFICER.SEALING MACHINE OPERATOR Work Phone: [facility] 02-28-2023 13:27-0400 Systolic blood pressure 126 mm[Hg] Loan [place] COMPLIANCE REVIEW OFFICER.SEALING MACHINE OPERATOR Work Phone: [facility] 01-18-2023 10:50-0400 Body height 164.6 cm [facility] [place] COMPLIANCE REVIEW OFFICER.SEALING MACHINE OPERATOR Work Phone: [facility] 01-18-2023 10:50-0400 Body weight 81.65 kg [facility] [place] COMPLIANCE REVIEW OFFICER.SEALING MACHINE OPERATOR Work Phone: [facility] 01-18-2023 10:50-0400 Diastolic blood pressure 92 mm[Hg] Loan [place] COMPLIANCE REVIEW OFFICER.SEALING MACHINE OPERATOR Work Phone: [facility] 01-18-2023 10:50-0400 Heart rate 82 /min Loan [place] COMPLIANCE REVIEW OFFICER.SEALING MACHINE OPERATOR Work Phone: [facility] 01-18-2023 10:50-0400 Respiratory rate 19 /min [facility] [place] COMPLIANCE REVIEW OFFICER.SEALING MACHINE OPERATOR Work Phone: [facility] 01-18-2023 10:50-0400 SaO2% (BldA) [Mass fraction] 98 % Loan [place] COMPLIANCE REVIEW OFFICER.SEALING MACHINE OPERATOR Work Phone: [facility] 01-18-2023 10:50-0400 Systolic blood pressure 143 mm[Hg] [facility] [place] COMPLIANCE REVIEW OFFICER.SEALING MACHINE OPERATOR Work Phone: [facility] 10-18-2022 10:25-0400 Body height 164.6 cm [facility] [place] COMPLIANCE REVIEW OFFICER.SEALING MACHINE OPERATOR Work Phone: [facility] 10-18-2022 10:25-0400 Body weight 88.91 kg [facility] [place] COMPLIANCE REVIEW OFFICER.SEALING MACHINE OPERATOR Work Phone: [facility] 10-18-2022 10:25-0400 Diastolic blood pressure 90 mm[Hg] [facility] [place] COMPLIANCE REVIEW OFFICER.SEALING MACHINE OPERATOR Work Phone: [facility] 10-18-2022 10:25-0400 Heart rate 87 /min [facility] [place] COMPLIANCE REVIEW OFFICER.SEALING MACHINE OPERATOR Work Phone: [facility] 10-18-2022 10:25-0400 Respiratory rate 19 /min [facility] [place] COMPLIANCE REVIEW OFFICER.SEALING MACHINE OPERATOR Work Phone: [facility] 10-18-2022 10:25-0400 SaO2% (BldA) [Mass fraction] 95 % [facility] [place] COMPLIANCE REVIEW OFFICER.SEALING MACHINE OPERATOR Work Phone: [facility] 10-18-2022 10:25-0400 Systolic blood pressure 154 mm[Hg] [facility] [place] COMPLIANCE REVIEW OFFICER.SEALING MACHINE OPERATOR Work Phone: [facility] 10-12-2022 13:42-0400 Diastolic blood pressure 78 mm[Hg] Jaren Altamirano DO Work Phone: [facility] 10-12-2022 13:42-0400 Heart rate 82 /min Jaren Altamirano DO Work Phone: [facility] 10-12-2022 13:42-0400 Respiratory rate 16 /min Jaren Altamirano DO Work Phone: [facility] 10-12-2022 13:42-0400 SaO2% (BldA) [Mass fraction] 98 % Jaren Altamirano DO Work Phone: [facility] 10-12-2022 13:42-0400 Systolic blood pressure 132 mm[Hg] Jaren Altamirano DO Work Phone: [facility] 10-12-2022 13:09-0400 Body temperature 98.1 [degF] Jaren Altamirano DO Work Phone: [facility] 07-27-2022 13:06-0500 Diastolic blood pressure 85 mm[Hg] [place] COMPLIANCE REVIEW OFFICER.SEALING MACHINE OPERATOR Work Phone: [facility] 07-27-2022 13:06-0500 Heart rate 85 /min [facility] COMPLIANCE REVIEW OFFICER.SEALING MACHINE OPERATOR Work Phone: [facility] 07-27-2022 13:06-0500 SaO2% (BldA) [Mass fraction] 97 % [facility] COMPLIANCE REVIEW OFFICER.SEALING MACHINE OPERATOR Work Phone: [facility] 07-27-2022 13:06-0500 Systolic blood pressure 131 mm[Hg] [facility] COMPLIANCE REVIEW OFFICER.SEALING MACHINE OPERATOR Work Phone: [facility] Encounters Encounter Date Encounter Type Care Provider Facility Start: 07-25-2023 End: 07-25-2023 ambulatory CONNOR MADRIGAL Facility:[id number] Start: 07-03-2023 Telephone encounter Connor Madrigal MD Work Phone: Pain Management Procedures Date Procedure Procedure Detail Performing Clinician Start: 03-21-2023 End: 03-21-2023 Injection single/vascular surgery physician trigger point 3/> muscles Jaren Altamirano DO Work Phone: Start: 10-12-2022 End: 10-12-2022 Injection single/vascular surgery physician trigger point 3/> muscles Jaren Altamirano DO Work Phone: Plan of Treatment Date Care Activity Detail Author Start: 03-23-[address] [facility] Start: 01-18-2023 End: 03-20-2023 TOXASSURE FLEX 23, URINE TOXASSURE FLEX 23, URINE Lab Routine High risk medication use Expected: 01/18/2023, Expires: 03/20/2023 [facility] Work Phone: Immunizations Immunization Date Immunization Notes Care Provider Rebecca bergman 02-06-2006 tetanus toxoid, redu stacie diphtheria toxoid, and acellular pertussis vaccine, adsorbed Loan Almaguer Work Phone: [facility] Payers Date Payer Category Payer Unknown DELFINO CORONEL TODD [id number] 2023-Present [phone] [address] [place] [address] Indemnity [id number] 2023 Unknown [id number] 2022 Medicaid [id number] 2020 Medicaid [employer] [id number] 2020-Present [phone] [address] [place] [address] Medicaid [id number] 2020 Medicaid [id number] 2010 Medicaid [place] [employer] [employer] [id number] 2010-Present [phone] [address] [place] [address] Medicaid [id number] Social History Date Type Detail Facility Start: 10-13-2013 End: 03-30-2022 Tobacco smoking status ALIS Smokes tobacco daily [facility] Start: 02-13-2015 End: 04-23-2023 Alcohol intake Current non-drinker of alcohol (finding) [facility] Start: 1985 Sex Assigned At Not on file [facility] Start: 01-16-2022 End: 01-26-2022 Exposure to SARS-CoV-2 (event) Not sure [facility] Start: 10-13-2013 End: 03-30-2022 Tobacco use and exposure Smokeless tobacco non-user [facility] Start: 03-30-2022 Tobacco Comment patient smokes 1-2 cigarettes/day since she became , used to smoke 1 ppd [facility] Start: 01-18-2023 End: 04-23-2023 History of Social function [facility] Start: 01-18-2023 End: 04-23-2023 Tobacco use panel [facility] National Score (1-10 0), lower number is lower risk 71 [facility] Clinical Notes 07-31-2016 to 07-25-2023 Telephone Encounter - Connor Madrigal MD - 07/03/2023 4:01 PM ESTTelephone Encounter - Polly Lopez RN - 07/03/2023 1:24 PM ESTTelephone Encounter - Dea Nielson RN - 06/18/2023 1:07 PM EST Note Date & Type Note Facility 07-25-2023 Note HNO ID: [id number] Author: Connor Madrigal MD Service: ? Author Type: Anesthesiologist Type: Progress Notes Filed: 07/25/2023 2:04 PM Note Text: Oly was used to dictate this note and therefore there may be some typographical errors. I attest to the fact that I spent a total of 20 min with the patient to include: Face to face time and non face to face time such as: Reviewing test's, reviewing medical records, reviewing imaging studies, ordering tests, etc. Patient was last seen on 04/23/[address] Altamirano. This patient has been followed by Dr. Altamirano and her staff. This is a first visit for this patient with me. According to notes, patient is been maintained on tramadol 5 tablets a day, continue with chiropractor, order cervical x-rays, continue TENS unit, try baclofen, and consider cervical MRI in the future. This again is first visit for this patient with me. PE:. Alert and oriented in some discomfort. Mood and affect within normal limits. Vital signs indicated. Tenderness palpation along the cervical paraspinous muscles. Negative Spurling sign bilaterally. 5/5 strength upper extremities. Dx: Cervical DDD, cervical DJD, cervical facet arthropathy, cervical facet syndrome, cervical spondylosis, cervical pain, psoriasis with psoriatic arthritis, myofascial pain syndrome, chronic pain syndrome. Patient is on the above analgesic regimen. Patient denies any systemic side effects. Patient believes the pain meds have helped (as indicated by VAS). Patient has signed Medication Management Agreement and Informed Consent Form ( contract ). I have also utilized the Intractable Pain and Drug Prescription Checklist as promulgated by [facility]. Furthermore, I have adhered to the [facility] Administrative Code 4731-11. The medication clearly improves this patient's functionality and quality of life as evidence by improved social, recreational activities. There is no evidence of any: drug abuse, drug addiction nor drug diversion. The patient has never called in early for a refill, is not particularly focused on pain medication, has never shown up in our office unexpectedly without appointment, nor called in stating a lost prescription. The patient has been instructed not to drive if any SEALING MACHINE OPERATOR side effects to pain medication. The patient has been informed that the analgesics are potentially addicting and need to be taken strictly as prescribed. I have checked an OARRS on this patient which came back as expected. The patient has received an opioid education handout and filled out an opioid screener (SOAPP). I have had the patient submit a random urine drug screen AND the patient does have biological markers which would corroborate and substantiate chronic pain (see prior imaging studies). Additionally I did discuss Narcan with the patient and informed the patient that Narcan is now available at their pharmacy if they so request. Plan: As above, the patient was last seen on 04/23/[address] Altamirano. This patient has been followed by Dr. Altamirano and her staff. This is a first visit for this patient with me. According to notes, patient is been maintained on tramadol 5 tablets a day, continue with chiropractor, order cervical x-rays, continue TENS unit, try baclofen, and consider cervical MRI in the future. This again is first visit for this patient with me. Patient did have cervical x-rays done 01/19/2023. Applied and failed 8 or 9 sessions of chiropractic treatment. She probably does have a cervical MRI scheduled 08/21/2023. She is seeing me next week for trigger point injections. She will follow-up with Flavio early August to review his cervical MRI with her at that time. We may then consider cervical medial branch blocks possible precursor to RFA or even possibly Botox injections depending what the cervical MRI shows. Continue on tramadol and baclofen as prescribed. 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 [facility] 07-03-2023 Miscellaneous Notes Formattin g of this note might be different from the original. ordered Pt calling asking if she would be able to get scheduled for TPI. She had last TPI with Dr Altamirano on 03/21/23. Pt noted that she has been getting headaches due to the stiffness in her neck area. Pt was transferred to to schedule MRI that Dr Altamirano ordered at last office visit on 04/23/23. Polly Lopez RN July 03, 2023 1:38 PM documented in this encounter [facility] 06-18-2023 Miscellaneous Notes Formattin g of this note is different from the original. Patient phones requesting refills as follows: Requested Prescriptions Pending Prescriptions Disp Refills traMADol (ULTRAM) 50 mg tablet 150 tablet 0 Sig: Take 1 tablet by mouth as directed for 30 days. q4-6 hr prn max 5 day baclofen 10 mg tablet 90 tablet 2 Sig: Take 1 tablet by mouth three times a day as needed. Last UDS: No specialty comments available. Summary Report Date Value Ref Range Status 01/18/2023 FINAL Final Comment: == Tapentadol, MS, Ur, RFX Tramadol, MS, Ur RFX Acetaminophen, MS, Ur RFX ToxAssure Flex 23, Ur == Test Result Flag Units Drug Present Tramadol >46648 ng/mg creat O-Desmethyltramadol >43170 ng/mg creat N-Desmethyltramadol >90716 ng/mg creat Source of tramadol is a prescription medication. O-desmethyltramadol and N-desmethyltramadol are expected metabolites of tramadol. Acetaminophen PRESENT == Test Result Flag Units Ref Range Creatinine 42 mg/dL >=20 == Declared Medications: Medication list was not provided. == For clinical consultation, please call . == @FLOW([id number])@ Lab Results Component Value Date SUMM FINAL 01/18/2023 No results found for: SUMMAR Please review and advise. Dea Nielson RN documented in this encounter [facility] 05-20-2023 Miscellaneous Notes Formattin g of this note is different from the original. The following approved medication requests have been transmitted electronically. Requested Prescriptions Pending Prescriptions Disp Refills traMADol (ULTRAM) 50 mg tablet 150 tablet 0 Sig: Take 1 tablet by mouth as directed for 30 days. q4-6 hr prn max 5 day Jaren Altamirano DO Patient phones requesting refills as follows: Requested Prescriptions Pending Prescriptions Disp Refills traMADol (ULTRAM) 50 mg tablet 150 tablet 0 Sig: Take 1 tablet by mouth as directed for 30 days. q4-6 hr prn max 5 day Last UDS: No specialty comments available. Summary Report Date Value Ref Range Status 01/18/2023 FINAL Final Comment: == Tapentadol, MS, Ur, RFX Tramadol, MS, Ur RFX Acetaminophen, MS, Ur RFX ToxAssure Flex 23, Ur == Test Result Flag Units Drug Present Tramadol >74521 ng/mg creat O-Desmethyltramadol >01863 ng/mg creat N-Desmethyltramadol >22201 ng/mg creat Source of tramadol is a prescription medication. O-desmethyltramadol and N-desmethyltramadol are expected metabolites of tramadol. Acetaminophen PRESENT == Test Result Flag Units Ref Range Creatinine 42 mg/dL >=20 == Declared Medications: Medication list was not provided. == For clinical consultation, please call . == @FLOW([id number])@ Lab Results Component Value Date SUMM FINAL 01/18/2023 No results found for: SUMMAR Please review and advise. Dea Nielson RN documented in this encounter [facility] 04-23-2023 Note HNO ID: [id number] Author: Jaren Altamirano, DO Service: ? Author Type: Physician Type: Progress Notes Filed: 04/24/2023 8:02 AM Note Text: Summary: Pain Management follow-up DATE: April 23, 2023 Chief Complaint: back of neck, shoulders _ History of Present Illness: Chelsea Wyman is a 37 year old female being seen at [facility] for a evaluation and/or management of their chronic pain. The patient was last seen in the office on 01/18/2023 by Loan Almaguer NP, and the plan of care was as follows: Continue Tramadol, max 5 tabs per day. This helps patient perform ADL, interact with familly and friends.OARRS reviewed and consistent. UDS reviewed and consistent Order UDS Encouraged to continue with chiropractor Order cervical spine xray Plan to order MRI cervical spine after has enough chiropractor treatments Continue Cymbalta.from PCP Continue TENS use DC zanaflex. Prescribe baclofen 10mg one tab three times a day as needed Followup in 2-3 months She had TPI on 03/21/2023 with 50% relief. She had TPI in 09/2022 with 75% relief. She followed with her chiropractor which is on hold. She had completed a total of 6 chiropractic sessions. She believes her insurance requires her to complete 12 chiropractic sessions in order to have the MRI of her cervical spine completed. We discussed restarting chiropractor as scheduled. She takes the Tramadol and Baclofen with benefit. She denies any side effects. She takes the Cymbalta with benefit from PCP. She continues to use the TENS unit with benefit. Pain level: 09/29 Location: back of neck, shoulder Denies any ED visits or hospitalizations since last office visit Reports pain worse with caring for family and home Reports pain better with laying down,medications,TENS, TPI Describes pain in neck pain as constant ache with hot and tight.Burning. neck stiffness. States pain radiates to both arms and into hands. States has numbness in hands. Weakness: denies. Denies dropping objects with hands. Denies difficulty opening jars. Denies falls. Denies stumbling TENS use 1-2/week with minimal to moderate relief Last UDS: consistent Summary Report Date Value Ref Range Status 01/18/2023 FINAL Final Comment: == Tapentadol, MS, Ur, RFX Tramadol, MS, Ur RFX Acetaminophen, MS, Ur RFX ToxAssure Flex 23, Ur == Test Result Flag Units Drug Present Tramadol >27977 ng/mg creat O-Desmethyltramadol >39585 ng/mg creat N-Desmethyltramadol >67604 ng/mg creat Source of tramadol is a prescription medication. O-desmethyltramadol and N-desmethyltramadol are expected metabolites of tramadol. Acetaminophen PRESENT == Test Result Flag Units Ref Range Creatinine 42 mg/dL >=20 == Declared Medications: Medication list was not provided. == For clinical consultation, please call . == No results found for: SUMMAR Chronic Pain Functional Assessment Tools Pain Disability Index: No flowsheet data found. Pain Enjoyment of Life and General Activity Scale (0-10): PEG: A Three-Item Scale Assessing Pain Intensity and Interference What number best describes your pain on average in the past week?: 7 (02/28/2023 1:00 PM) What number best describes how, during the past week, pain has interfered with your enjoyment of life?: 10 - Completely interferes (02/28/2023 1:00 PM) What number best describes how, during the past week, pain has interfered with your general activity?: 9 (02/28/2023 1:00 PM) REVIEW OF SYSTEMS: GENERAL: No weight loss, malaise or fevers RESPIRATORY: Negative for cough, hemoptysis, wheezing, COPD, dyspnea or shortness of breath. CARDIOVASCULAR: Negative for chest pain, leg swelling, hypertension, CHF or palpitations GI: No nausea, vomiting, or diarrhea. MUSCULOSKELETAL: back of neck, shoulder ____ PAST MEDICAL HISTORY Diagnosis Date Anemia Arthritis Asthma Depression PAST SURGICAL HISTORY Procedure Laterality Date INJECTION right hip- numbing injection TUBAL LIGATION, 2007 FAMILY HISTORY Problem Relation Age of Onset Diabetes Father Heart Father Heart Attack Father Colon Cancer Mother Heart Maternal Grandmother Diabetes Maternal Grandmother (more content not included)... [facility] 04-20-2023 Miscellaneous Notes Formattin g of this note might be different from the original. Items addressed in this encounter: Prior Authorization Tramadol approval letter indexed Able to close encounter. Carrie Prado MA April 20, 2023 1:39 PM 1:39 PM documented in this encounter [facility] 03-21-2023 Surgical operatio n note Summary: Trigger Point Injections PROCEDURE: Trigger point injection at ___B/L cervical paraspinal mm, b/l trapezius mm and rhomboid mm. and b/l supraspinatus mm group . DATE OF SERVICE:March 21, 2023 PREPROCEDURE DIAGNOSIS: 1.Myofascial pain syndrome. POSTPROCEDURE DIAGNOSIS: Same. ANESTHESIA: Local. COMPLICATIONS: None. CONSENT: Risks of the procedure including bleeding, infection, nerve damage, seizure, abscess formation, hematoma formation, headache, failure of the pain to improve and potential worsening of the pain, were explained in full to the patient who verbalized understanding and wishes to proceed with the injection at this time. Written informed consent was thereby obtained. BRIEF HISTORY: See charts. DESCRIPTION OF PROCEDURE: After informed consent was obtained, the patient was taken to the procedure room and placed in the __seated___ position. The patient's muscle groups, described above, were identified and the tender trigger points within the muscles were marked with surgical pen. The muscle groups were then prepped and draped in sterile fashion with ___Chloroprep swabs . A ___25 gauge 1 inch needle was attached to a syringe containing ____25 ml 0.25% Marcaine mixed with Kenalog 40 mg . The tip of the needle was then advanced into the belly of the taut muscle band (trigger point) identified previously and repositioned such that the myofascial pain was maximal. After negative aspiration, a total of __25 ml 0.25% Marcaine and Kenalog 40mg of the above solution was injected into the previously identified muscle groups. The patient tolerated the procedure well and all needles were removed intact. The patient s vitals were monitored for an appropriate time interval and remained stable. The documentation for this encounter was entered by Jessica Young medical insurance collector, for Dr. Jaren Altamirano on March 21, 2023. I, Dr. Jaren Altamirano, personally performed the services described in this documentation. All medical record entries made by the scribe were at my direction and in my presence. I have reviewed the chart and discharge instructions and agree that the record reflects my personal performance and is accurate and complete. Electronically Signed: Dr. Altamirano. March 21, 2023. documented in this encounter [facility] 02-28-2023 Note HNO ID: [id number] Author: Loan Almaguer APRN.SEALING MACHINE OPERATOR Service: ? Author Type: Clinical Nurse Specialist Type: Progress Notes Filed: 02/28/2023 2:05 PM Note Text: SUBJECTIVE: Chelsea Wyman presents to [facility] Department for a follow-up appointment for neck pain Last seen by me on 01/18/23 with following plan of care: Continue Tramadol, max 5 tabs per day. This helps patient perform ADL, interact with familly and friends.OARRS reviewed and consistent. UDS reviewed and consistent Order UDS Encouraged to continue with chiropractor Order cervical spine xray Plan to order MRI cervical spine after has enough chiropractor treatments Continue Cymbalta.from PCP Continue TENS use DC zanaflex. Prescribe baclofen 10mg one tab three times a day as needed Followup in 2-3 months 02/22/23 phone note: request TPI. Told to make an earlier appointment. Last procedure 10/12/22 TPI 75% relief Pain level: 4-5/10 States she had 6 sessions of chiropractor care for neck. Got letter for private care source which is [facility]. Denies any ED visits or hospitalizations since last office visit Reports pain worse with every day life Reports pain better with TPI, laying down,medications,TENS Describes pain in neck pain as constant ache with hot and tight. Sensation States one vertebra feels out of place States pain radiates to both arms States has numbness in hands at times Denies falls TENS use 1-2/week with minimal to modearte relief REVIEW OF SYSTEMS: GENERAL: No weight loss, malaise or fevers. HEENT: Negative for frequent or significant headaches. RESPIRATORY: Negative for cough, wheezing or shortness of breath. CARDIOVASCULAR: Negative for chest pain, leg swelling or palpitations. GI: Negative for abdominal discomfort, blood in stools or black stools or change in bowel habits. :Denies issues Past Medical History: PAST MEDICAL HISTORY Diagnosis Date Anemia Arthritis Asthma Depression Past Surgical History: PAST SURGICAL HISTORY Procedure Laterality Date INJECTION right hip- numbing injection TUBAL LIGATION, 2007 Family History: FAMILY HISTORY Problem Relation Age of Onset Diabetes Father Heart Father Heart Attack Father Colon Cancer Mother Heart Maternal Grandmother Diabetes Maternal Grandmother Diabetes Paternal Grandmother Diabetes Other Social History: Social History Tobacco Use Smoking status: Every Day Types: Cigarettes Smokeless tobacco: Never Tobacco comments: patient smokes 1-2 cigarettes/day since she became , used to smoke 1 ppd Substance Use Topics Alcohol use: No Drug use: No OBJECTIVE: BP 126/82 Pulse 80 Resp 18 Ht 5' 4.803 (1.65m) Wt 199 lb 9.6 oz (90.5kg) SpO2 95% LMP 12/10/2013 BMI 33.42 kg/(m2). PHYSICAL EXAMINATION: General appearance: Well appearing, in no acute distress, alert. Psych: Mood and affect appropriate. Skin: Skin color, texture, turgor normal, no rashes or lesions. Pulm: no conversational shortness of breath or cough GI: Abdomen soft and non-tender. Musculoskeletal: Cervical spine range of motion without restriction but complaints of tenderness. Negative cervical facet tenderness bilaterally. Negative Spurling sign bilaterally. Firm equal graspl 5/5 upper extremity muscle strength. Positive trigger point tenderness in thoracic paraspinal, rhomboid and trapezius muscles bilaterally ASSESSMENT: (M47.812) Arthropathy of cervical facet joint (M54.12) Cervical radiculopathy (M79.18) Myofascial pain syndrome (G89.4) Chronic pain syndrome (Z79.899) High risk medication use PLAN: Continue Tramadol, max 5 tabs per day. This helps patient perform ADL, interact with familly and friends.OARRS reviewed and consistent. UDS reviewed and consistent Sign Pain contract Continue Cymbalta.from PCP Continue TENS use Continue baclofen as needed PA and order TPI Followup in 3 months The above plan and management options were discussed at length with the patient. The patient is in agreement with the above and verbalized understanding. Loan Almaguer APRN.SEALING MACHINE OPERATOR February 28, 2023 [facility] 02-28-2023 Instructions Loan Almaguer APRN.SEALING MACHINE OPERATOR - 02/28/2023 1:48 PM EDT Continue Tramadol, max 5 tabs per day. This helps patient perform ADL, interact with familly and friends.OARRS reviewed and consistent. UDS reviewed and consistent Sign Pain contract Continue Cymbalta.from PCP Continue TENS use Continue baclofen as needed PA and order TPI 01/18/23 cervical spine xray-Straightening of the normal cervical lordosis with multilevel facet arthropathy. Followup in 3 months documented in this encounter [facility] 02-28-2023 History of Presen t illness Narrative SUBJECTIVE: Chelsea Wyman presents to [facility] Department for a follow-up appointment for neck pain Last seen by me on 01/18/23 with following plan of care: Continue Tramadol, max 5 tabs per day. This helps patient perform ADL, interact with familly and friends.OARRS reviewed and consistent. UDS reviewed and consistent Order UDS Encouraged to continue with chiropractor Order cervical spine xray Plan to order MRI cervical spine after has enough chiropractor treatments Continue Cymbalta.from PCP Continue TENS use DC zanaflex. Prescribe baclofen 10mg one tab three times a day as needed Followup in 2-3 months 02/22/23 phone note: request TPI. Told to make an earlier appointment. Last procedure 10/12/22 TPI 75% relief Pain level: 4-5/10 States she had 6 sessions of chiropractor care for neck. Got letter for private care source which is [facility]. Denies any ED visits or hospitalizations since last office visit Reports pain worse with every day life Reports pain better with TPI, laying down,medications,TENS Describes pain in neck pain as constant ache with hot and tight. Sensation States one vertebra feels out of place States pain radiates to both arms States has numbness in hands at times Denies falls TENS use 1-2/week with minimal to modearte relief REVIEW OF SYSTEMS: GENERAL: No weight loss, malaise or fevers. HEENT: Negative for frequent or significant headaches. RESPIRATORY: Negative for cough, wheezing or shortness of breath. CARDIOVASCULAR: Negative for chest pain, leg swelling or palpitations. GI: Negative for abdominal discomfort, blood in stools or black stools or change in bowel habits. :Denies issues Past Medical History: PAST MEDICAL HISTORY Diagnosis Date Anemia Arthritis Asthma Depression Past Surgical History: PAST SURGICAL HISTORY Procedure Laterality Date INJECTION right hip- numbing injection TUBAL LIGATION, 2007 Family History: FAMILY HISTORY Problem Relation Age of Onset Diabetes Father Heart Father Heart Attack Father Colon Cancer Mother Heart Maternal Grandmother Diabetes Maternal Grandmother Diabetes Paternal Grandmother Diabetes Other Social History: Social History Tobacco Use Smoking status: Every Day Types: Cigarettes Smokeless tobacco: Never Tobacco comments: patient smokes 1-2 cigarettes/day since she became , used to smoke 1 ppd Substance Use Topics Alcohol use: No Drug use: No OBJECTIVE: BP 126/82 Pulse 80 Resp 18 Ht 5' 4.803 (1.65m) Wt 199 lb 9.6 oz (90.5kg) SpO2 95% LMP 12/10/2013 BMI 33.42 kg/(m^2). PHYSICAL EXAMINATION: General appearance: Well appearing, in no acute distress, alert. Psych: Mood and affect appropriate. Skin: Skin color, texture, turgor normal, no rashes or lesions. Pulm: no conversational shortness of breath or cough GI: Abdomen soft and non-tender. Musculoskeletal: Cervical spine range of motion without restriction but complaints of tenderness. Negative cervical facet tenderness bilaterally. Negative Spurling sign bilaterally. Firm equal graspl 5/5 upper extremity muscle strength. Positive trigger point tenderness in thoracic paraspinal, rhomboid and trapezius muscles bilaterally ASSESSMENT: (M47.812) Arthropathy of cervical facet joint (M54.12) Cervical radiculopathy (M79.18) Myofascial pain syndrome (G89.4) Chronic pain syndrome (Z79.899) High risk medication use PLAN: Continue Tramadol, max 5 tabs per day. This helps patient perform ADL, interact with familly and friends.OARRS reviewed and consistent. UDS reviewed and consistent Sign Pain contract Continue Cymbalta.from PCP Continue TENS use Continue baclofen as needed PA and order TPI Followup in 3 months The above plan and management options were discussed at length with the patient. The patient is in agreement with the above and verbalized understanding. Loan Almaguer APRN.CNS February 28, 2023 documented in this encounter [facility] 02-22-2023 Miscellaneous Notes Formattin g of this note is different from the original. The following approved medication requests have been transmitted electronically. Requested Prescriptions Signed Prescriptions Disp Refills baclofen 10 mg tablet 90 tablet 0 Sig: Take 1 tablet by mouth three times daily as needed. YAS alarcon Authorizing Provider: LOAN ALMAGUER APRN.CNS Patient phones requesting refills as follows: Requested Prescriptions Pending Prescriptions Disp Refills baclofen 10 mg tablet 90 tablet 0 Sig: Take 1 tablet by mouth three times daily as needed. YAS alarcon Last UDS: Summary Report Date Value Ref Range Status 01/18/2023 FINAL Final Comment: == Tapentadol, MS, Ur, RFX Tramadol, MS, Ur RFX Acetaminophen, MS, Ur RFX ToxAssure Flex 23, Ur == Test Result Flag Units Drug Present Tramadol >84725 ng/mg creat O-Desmethyltramadol >49116 ng/mg creat N-Desmethyltramadol >85737 ng/mg creat Source of tramadol is a prescription medication. O-desmethyltramadol and N-desmethyltramadol are expected metabolites of tramadol. Acetaminophen PRESENT == Test Result Flag Units Ref Range Creatinine 42 mg/dL >=20 == Declared Medications: Medication list was not provided. == For clinical consultation, please call . == @FLOW([id number])@ Lab Results Component Value Date SUMM FINAL 01/18/2023 No results found for: SUMMAR Please review and advise. Polly Lopez RN documented in this encounter [facility] 02-22-2023 Miscellaneous Notes Formattin g of this note might be different from the original. Pt called and notified. Call transferred to cinder pitman. Polly Lopez RN February 22, 2023 1:47 PM She will need earlier appointment to have physical assessment to go along with request for TPI Pt last TPI was 09/2022, she reports 90% x 2.5 months, she said she started chiropractic therapy per recommendation to get MRI approved was advised that it would likely help her pain/discomfort as well, pt reports that chiropractic therapy is not helping her pain as well as TPI, she would like to get TPI, please advise Dea Nielson RN February 22, 2023 1:11 PM documented in this encounter [facility] 02-16-2023 Miscellaneous Notes Formattin g of this note is different from the original. The following approved medication requests have been transmitted electronically. Requested Prescriptions Signed Prescriptions Disp Refills traMADol (ULTRAM) 50 mg tablet 150 tablet 0 Sig: Take 1 tablet by mouth as directed for 30 days. q4-6 hr prn max 5 day Do not start before February 20, 2023. Authorizing Provider: LOAN ALMAGUER APRN.SEALING MACHINE OPERATOR Patient phones requesting refills as follows: Requested Prescriptions Pending Prescriptions Disp Refills traMADol (ULTRAM) 50 mg tablet 150 tablet 0 Sig: Take 1 tablet by mouth as directed for 30 days. q4-6 hr prn max 5 day Last UDS: Summary Report Date Value Ref Range Status 01/18/2023 FINAL Final Comment: == Tapentadol, MS, Ur, RFX Tramadol, MS, Ur RFX Acetaminophen, MS, Ur RFX ToxAssure Flex 23, Ur == Test Result Flag Units Drug Present Tramadol >88751 ng/mg creat O-Desmethyltramadol >37112 ng/mg creat N-Desmethyltramadol >55265 ng/mg creat Source of tramadol is a prescription medication. O-desmethyltramadol and N-desmethyltramadol are expected metabolites of tramadol. Acetaminophen PRESENT == Test Result Flag Units Ref Range Creatinine 42 mg/dL >=20 == Declared Medications: Medication list was not provided. == For clinical consultation, please call . == @FLOW([id number])@ Lab Results Component Value Date SUMM FINAL 01/18/2023 No results found for: SUMMAR Please review and advise. Polly Lopez RN documented in this encounter [facility] 01-18-2023 Note HNO ID: [id number] Author: RT Issa(R) Service: Radiology Author Type: Technologist Type: Progress Notes Filed: 01/18/2023 12:09 PM Note Text: Summary: CERVICAL SPINE Radiology Service Progress Note PATIENT NAME: Chelsea Wyman DATE OF SERVICE: January 18, 2023 TIME: 12:09 PM PATIENT IDENTITY VERIFICATION COMPLETED USING TWO (2) IDENTIFIERS: Name and Date of confirmed by patient verbally. FALL SCREENING: Has the patient had 2 falls in the last year or 1 fall with injury or currently using an Ambulatory Assistive Device (Walker, Cane, Wheelchair, Crutches, etc.)? No PATIENT GENDER DATA: Female. status: : No status: NO. PATIENT RELEVANT IMPLANT DATA REVIEWED: Not Applicable RADIOLOGY DEPARTMENT: General X-ray: Exam(s) Completed: Spine X-Ray(s): Cervical AP / LAT / OBL PERIPHERAL IV DATA: Not applicable SIGNED BY: RT Issa(R) January 18, 2023 12:09 PM [facility] 01-18-2023 Note HNO ID: [id number] Author: Loan Almaguer APRN.SEALING MACHINE OPERATOR Service: ? Author Type: Clinical Nurse Specialist Type: Progress Notes Filed: 01/18/2023 11:17 AM Note Text: SUBJECTIVE: Chelsea Wyman presents to [facility] for a follow-up appointment for neck pain Last seen by me on 10/18/22 with following plan of care: Continue Tramadol, max 5 tabs per day. This helps patient perform ADL, interact with familly and friends. No misuse or aberrant behaviors detected. OARRS reviewed and consistent. UDS reviewed and consistent Continue Cymbalta.from PCP Continue TENS use Continue Zanaflex 4 mg TID PRN. Followup in 3 months Last procedure 10/12/22 TPI 75% relief Pain level: States went to chiropractor yesterday which irritated her neck pain Denies any ED visits or hospitalizations since last office visit Reports pain worse with caring for family and home Reports pain better with laying down,medications,TENS, TPI Describes pain in neck pain as constant ache with hot and tight. States one vertebra is out of place States pain radiates to both arms States has numbness in hands at times Denies falls TENS use 1-2/week with minimal to modearte relief REVIEW OF SYSTEMS: GENERAL: No weight loss, malaise or fevers. HEENT: Negative for frequent or significant headaches. RESPIRATORY: Negative for cough, wheezing or shortness of breath. CARDIOVASCULAR: Negative for chest pain, leg swelling or palpitations. GI: Negative for abdominal discomfort, blood in stools or black stools or change in bowel habits. :denies issues Past Medical History: PAST MEDICAL HISTORY Diagnosis Date Anemia Arthritis Asthma Depression Past Surgical History: PAST SURGICAL HISTORY Procedure Laterality Date INJECTION right hip- numbing injection TUBAL LIGATION, 2007 Family History: FAMILY HISTORY Problem Relation Age of Onset Diabetes Father Heart Father Heart Attack Father Colon Cancer Mother Heart Maternal Grandmother Diabetes Maternal Grandmother Diabetes Paternal Grandmother Diabetes Other Social History: Social History Tobacco Use Smoking status: Every Day Types: Cigarettes Smokeless tobacco: Never Tobacco comments: patient smokes 1-2 cigarettes/day since she became , used to smoke 1 ppd Substance Use Topics Alcohol use: No Drug use: No OBJECTIVE: BP 143/92 Pulse 82 Resp 19 Ht 5' 4.8 (1.65m) Wt 180 lb (81.6kg) SpO2 98% LMP 12/10/2013 BMI 30.14 kg/(m2). PHYSICAL EXAMINATION: General appearance: Well appearing, in no acute distress, alert. Psych: Mood and affect appropriate. Skin: Skin color, texture, turgor normal, no rashes or lesions. Pulm: no conversational shortness of breath or cough GI: Abdomen soft and non-tender. Musculoskeletal: Cervical spine range of motion without restriction but complaints of tenderness. Negative cervical facet tenderness bilaterally. Negative Spurling sign bilaterally. Firm equal graspl 5/5 upper extremity muscle strength. No trigger point tenderness in thoracic muscles or trapezius muscles. ASSESSMENT: (M54.2) Cervicalgia (M54.12) Cervical radiculopathy (G89.4) Chronic pain syndrome (Z79.899) High risk medication use PLAN: Continue Tramadol, max 5 tabs per day. This helps patient perform ADL, interact with familly and friends. No misuse or aberrant behaviors detected. OARRS reviewed and consistent. UDS reviewed and consistent Continue Cymbalta.from PCP Continue TENS use Continue Zanaflex 4 mg TID PRN. Followup in 3 months The above plan and management options were discussed at length with the patient. The patient is in agreement with the above and verbalized understanding. Loan Almaguer APRN.KAZ January 18, 2023 [facility] 01-18-2023 History of Presen t illness Narrative Summary: CERVICAL SPINE Radiology Service Progress Note PATIENT NAME: Chelsea Wyman DATE OF SERVICE: January 18, 2023 TIME: 12:09 PM PATIENT IDENTITY VERIFICATION COMPLETED USING TWO (2) IDENTIFIERS: Name and Date of confirmed by patient verbally. FALL SCREENING: Has the patient had 2 falls in the last year or 1 fall with injury or currently using an Ambulatory Assistive Device (Walker, Cane, Wheelchair, Crutches, etc.)? No PATIENT GENDER DATA: Female. status: : No status: NO. PATIENT RELEVANT IMPLANT DATA REVIEWED: Not Applicable RADIOLOGY DEPARTMENT: General X-ray: Exam(s) Completed: Spine X-Ray(s): Cervical AP / LAT / OBL PERIPHERAL IV DATA: Not applicable SIGNED BY: RT Issa(R) January 18, 2023 12:09 PM documented in this encounter [facility] 01-18-2023 Instructions Loan Almaguer APRN.SEALING MACHINE OPERATOR - 01/18/2023 11:07 AM EDT Continue Tramadol, max 5 tabs per day. This helps patient perform ADL, interact with familly and friends.OARRS reviewed and consistent. UDS reviewed and consistent Order UDS Encouraged to continue with chiropractor Order cervical spine xray Plan to order MRI cervical spine after has enough chiropractor treatments Continue Cymbalta.from PCP Continue TENS use DC zanaflex. Prescribe baclofen 10mg one tab three times a day as needed Followup in 2-3 months documented in this encounter [facility] 01-18-2023 History of Presen t illness Narrative SUBJECTIVE: Chelsea Wyman presents to [facility] Department for a follow-up appointment for neck pain Last seen by me on 10/18/22 with following plan of care: Continue Tramadol, max 5 tabs per day. This helps patient perform ADL, interact with familly and friends. No misuse or aberrant behaviors detected. OARRS reviewed and consistent. UDS reviewed and consistent Continue Cymbalta.from PCP Continue TENS use Continue Zanaflex 4 mg TID PRN. Followup in 3 months Last procedure 10/12/22 TPI 75% relief Pain level: States went to chiropractor yesterday which irritated her neck pain Denies any ED visits or hospitalizations since last office visit Reports pain worse with caring for family and home Reports pain better with laying down,medications,TENS, TPI Describes pain in neck pain as constant ache with hot and tight. States one vertebra is out of place States pain radiates to both arms States has numbness in hands at times Denies falls TENS use 1-2/week with minimal to modearte relief REVIEW OF SYSTEMS: GENERAL: No weight loss, malaise or fevers. HEENT: Negative for frequent or significant headaches. RESPIRATORY: Negative for cough, wheezing or shortness of breath. CARDIOVASCULAR: Negative for chest pain, leg swelling or palpitations. GI: Negative for abdominal discomfort, blood in stools or black stools or change in bowel habits. :denies issues Past Medical History: PAST MEDICAL HISTORY Diagnosis Date Anemia Arthritis Asthma Depression Past Surgical History: PAST SURGICAL HISTORY Procedure Laterality Date INJECTION right hip- numbing injection TUBAL LIGATION, 2007 Family History: FAMILY HISTORY Problem Relation Age of Onset Diabetes Father Heart Father Heart Attack Father Colon Cancer Mother Heart Maternal Grandmother Diabetes Maternal Grandmother Diabetes Paternal Grandmother Diabetes Other Social History: Social History Tobacco Use Smoking status: Every Day Types: Cigarettes Smokeless tobacco: Never Tobacco comments: patient smokes 1-2 cigarettes/day since she became , used to smoke 1 ppd Substance Use Topics Alcohol use: No Drug use: No OBJECTIVE: BP 143/92 Pulse 82 Resp 19 Ht 5' 4.8 (1.65m) Wt 180 lb (81.6kg) SpO2 98% LMP 12/10/2013 BMI 30.14 kg/(m^2). PHYSICAL EXAMINATION: General appearance: Well appearing, in no acute distress, alert. Psych: Mood and affect appropriate. Skin: Skin color, texture, turgor normal, no rashes or lesions. Pulm: no conversational shortness of breath or cough GI: Abdomen soft and non-tender. Musculoskeletal: Cervical spine range of motion without restriction but complaints of tenderness. Negative cervical facet tenderness bilaterally. Negative Spurling sign bilaterally. Firm equal graspl 5/5 upper extremity muscle strength. No trigger point tenderness in thoracic muscles or trapezius muscles. ASSESSMENT: (M54.2) Cervicalgia (M54.12) Cervical radiculopathy (G89.4) Chronic pain syndrome (Z79.899) High risk medication use PLAN: Continue Tramadol, max 5 tabs per day. This helps patient perform ADL, interact with familly and friends. No misuse or aberrant behaviors detected. OARRS reviewed and consistent. UDS reviewed and consistent Continue Cymbalta.from PCP Continue TENS use Continue Zanaflex 4 mg TID PRN. Followup in 3 months The above plan and management options were discussed at length with the patient. The patient is in agreement with the above and verbalized understanding. Loan Almaguer APRN.CNS January 18, 2023 documented in this encounter [facility] 12-20-2022 Miscellaneous Notes Formattin g of this note is different from the original. The following approved medication requests have been transmitted electronically. Requested Prescriptions Signed Prescriptions Disp Refills traMADol (ULTRAM) 50 mg tablet 150 tablet 0 Sig: Take 1 tablet by mouth as directed for 30 days. q4-6 hr prn max 5 day Do not start before December 22, 2022. Authorizing Provider: LOAN ALMAGUER APRN.SEALING MACHINE OPERATOR Patient phones requesting refills as follows: Requested Prescriptions Pending Prescriptions Disp Refills traMADol (ULTRAM) 50 mg tablet 150 tablet 0 Sig: Take 1 tablet by mouth as directed for 30 days. q4-6 hr prn max 5 day Last UDS: Summary Report Date Value Ref Range Status 07/27/2022 FINAL Final Comment: == Tapentadol, MS, Ur, RFX Tramadol, MS, Ur RFX ToxAssure Flex 23, Ur == Test Result Flag Units Drug Present Tramadol >79605 ng/mg creat O-Desmethyltramadol >67756 ng/mg creat N-Desmethyltramadol >25773 ng/mg creat Source of tramadol is a prescription medication. O-desmethyltramadol and N-desmethyltramadol are expected metabolites of tramadol. == Test Result Flag Units Ref Range Creatinine 28 mg/dL >=20 == Declared Medications: Medication list was not provided. == For clinical consultation, please call . == @FLOW([id number])@ Lab Results Component Value Date SUMM FINAL 07/27/2022 No results found for: SUMMAR Please review and advise. Mirna Ralph RN documented in this encounter [facility] 10-18-2022 Note HNO ID: [id number] Author: Loan Almaguer APRN.SEALING MACHINE OPERATOR Service: ? Author Type: Clinical Nurse Specialist Type: Progress Notes Filed: 10/18/2022 10:40 AM Note Text: SUBJECTIVE: Chelsea Wyman presents to [facility] for a follow-up appointment for back and left elbow pain Last seen by me on 07/27/22 with plan of care tramadol, pain contract, TPI, cymbalta from PCP, TENS, zanaflex, UDS Last procedure 10/12/22 TPI Pain level: States at least 75% relief from TPI Denies any ED visits or hospitalizations since last office visit Reports pain worse with activity, keeping up with kids Reports pain better with laying down,medications, massager, TENS, TPI Describes pain in lower back as constant ache with pinching sensation on right side at times States pain radiates to right hip extending to right knee at times States has numbness in feet and hands Denies falls TENS use 1-2/week with minimal to modearte relief REVIEW OF SYSTEMS: GENERAL: No weight loss, malaise or fevers. HEENT: Negative for frequent or significant headaches. RESPIRATORY: Negative for cough, wheezing or shortness of breath. Sinus nasal drainage after did yard work over weekend CARDIOVASCULAR: Negative for chest pain, leg swelling or palpitations. GI: Negative for abdominal discomfort, blood in stools or black stools or change in bowel habits. : denies issues Past Medical History: PAST MEDICAL HISTORY Diagnosis Date Anemia Arthritis Asthma Depression Past Surgical History: PAST SURGICAL HISTORY Procedure Laterality Date INJECTION right hip- numbing injection TUBAL LIGATION, 2008 Family History: FAMILY HISTORY Problem Relation Age of Onset Diabetes Father Heart Father Heart Attack Father Colon Cancer Mother Heart Maternal Grandmother Diabetes Maternal Grandmother Diabetes Paternal Grandmother Diabetes Other Social History: Social History Tobacco Use Smoking status: Every Day Types: Cigarettes Smokeless tobacco: Never Tobacco comments: patient smokes 1-2 cigarettes/day since she became , used to smoke 1 ppd Substance Use Topics Alcohol use: No Drug use: No OBJECTIVE: BP 154/90 Pulse 87 Resp 19 Ht 5' 4.8 (1.65m) Wt 196 lb (88.9kg) SpO2 95% LMP 12/10/2013 BMI 32.81 kg/(m2). PHYSICAL EXAMINATION: General appearance: Well appearing, in no acute distress, alert. Psych: Mood and affect appropriate. Skin: pink, warm, and dry Pulm: no conversational shortness of breath GI: Abdomen soft and non-tender. Musculoskeletal: +5 of 5 motor strength BLE Normal hip flexion to 90?. Negative Vanesa's test bilaterally. Lumbar flexion is 90 degrees and lumbar extension is 10 degrees. Negative trigger points noted at bilateral trapezius and left rhomboid muscle and paraspinal muscles. The cervical paraspinal muscles are improved. Negative toe and heel raise Negative knee bend. tennderness at the right SI joint and right lumbar paraspinal muscle region Unable to see actual sites of trigger point injections. No swelling ASSESSMENT: (M51.36) DDD (degenerative disc disease), lumbar (primary encounter diagnosis) (M47.816) Lumbar facet arthropathy (M54.16) Radiculopathy, lumbar region (G89.4) Chronic pain syndrome (M79.18) Myofascial pain syndrome (Z79.899) High risk medication use PLAN: Continue Tramadol, max 5 tabs per day. This helps patient perform ADL, interact with familly and friends. No misuse or aberrant behaviors detected. OARRS reviewed and consistent. UDS reviewed and consistent Continue Cymbalta.from PCP Continue TENS use Continue Zanaflex 4 mg TID PRN. Followup in 3 months The above plan and management options were discussed at length with the patient. The patient is in agreement with the above and verbalized understanding. Loan Almaguer APRN.CNS October 18, 2022 [facility] 10-18-2022 Instructions Loan Almaguer APRN.CNS - 10/18/2022 10:33 AM EDT Continue Tramadol, max 5 tabs per day. This helps patient perform ADL, interact with familly and friends. No misuse or aberrant behaviors detected. OARRS reviewed and consistent. UDS reviewed and consistent Continue Cymbalta.from PCP Continue TENS use Continue Zanaflex 4 mg TID PRN. Followup in 3 months documented in this encounter [facility] 10-18-2022 History of Presen t illness Narrative SUBJECTIVE: Chelsea Wyman presents to [facility] for a follow-up appointment for back and left elbow pain Last seen by me on 07/27/22 with plan of care tramadol, pain contract, TPI, cymbalta from PCP, TENS, zanaflex, UDS Last procedure 10/12/22 TPI Pain level: States at least 75% relief from TPI Denies any ED visits or hospitalizations since last office visit Reports pain worse with activity, keeping up with kids Reports pain better with laying down,medications, massager, TENS, TPI Describes pain in lower back as constant ache with pinching sensation on right side at times States pain radiates to right hip extending to right knee at times States has numbness in feet and hands Denies falls TENS use 1-2/week with minimal to modearte relief REVIEW OF SYSTEMS: GENERAL: No weight loss, malaise or fevers. HEENT: Negative for frequent or significant headaches. RESPIRATORY: Negative for cough, wheezing or shortness of breath. Sinus nasal drainage after did yard work over weekend CARDIOVASCULAR: Negative for chest pain, leg swelling or palpitations. GI: Negative for abdominal discomfort, blood in stools or black stools or change in bowel habits. : denies issues Past Medical History: PAST MEDICAL HISTORY Diagnosis Date Anemia Arthritis Asthma Depression Past Surgical History: PAST SURGICAL HISTORY Procedure Laterality Date INJECTION right hip- numbing injection TUBAL LIGATION, 2007 Family History: FAMILY HISTORY Problem Relation Age of Onset Diabetes Father Heart Father Heart Attack Father Colon Cancer Mother Heart Maternal Grandmother Diabetes Maternal Grandmother Diabetes Paternal Grandmother Diabetes Other Social History: Social History Tobacco Use Smoking status: Every Day Types: Cigarettes Smokeless tobacco: Never Tobacco comments: patient smokes 1-2 cigarettes/day since she became , used to smoke 1 ppd Substance Use Topics Alcohol use: No Drug use: No OBJECTIVE: BP 154/90 Pulse 87 Resp 19 Ht 5' 4.8 (1.65m) Wt 196 lb (88.9kg) SpO2 95% LMP 12/10/2013 BMI 32.81 kg/(m^2). PHYSICAL EXAMINATION: General appearance: Well appearing, in no acute distress, alert. Psych: Mood and affect appropriate. Skin: pink, warm, and dry Pulm: no conversational shortness of breath GI: Abdomen soft and non-tender. Musculoskeletal: +5 of 5 motor strength BLE Normal hip flexion to 90 . Negative Vanesa's test bilaterally. Lumbar flexion is 90 degrees and lumbar extension is 10 degrees. Negative trigger points noted at bilateral trapezius and left rhomboid muscle and paraspinal muscles. The cervical paraspinal muscles are improved. Negative toe and heel raise Negative knee bend. tennderness at the right SI joint and right lumbar paraspinal muscle region Unable to see actual sites of trigger point injections. No swelling ASSESSMENT: (M51.36) DDD (degenerative disc disease), lumbar (primary encounter diagnosis) (M47.816) Lumbar facet arthropathy (M54.16) Radiculopathy, lumbar region (G89.4) Chronic pain syndrome (M79.18) Myofascial pain syndrome (Z79.899) High risk medication use PLAN: Continue Tramadol, max 5 tabs per day. This helps patient perform ADL, interact with familly and friends. No misuse or aberrant behaviors detected. OARRS reviewed and consistent. UDS reviewed and consistent Continue Cymbalta.from PCP Continue TENS use Continue Zanaflex 4 mg TID PRN. Followup in 3 months The above plan and management options were discussed at length with the patient. The patient is in agreement with the above and verbalized understanding. Loan Almaguer APRN.CNS October 18, 2022 documented in this encounter [facility] 10-12-2022 Surgical operatio n note Summary: Trigger Point Injections Physician Signature: Jaren Altamirano DO PROCEDURE: Trigger point injection at ___B/L cervical paraspinal mm, b/l trapezius mm and rhomboid mm. and b/l supraspinatus mm group . DATE OF SERVICE:October 12, 2022 PREPROCEDURE DIAGNOSIS: 1.Myofascial pain syndrome. POSTPROCEDURE DIAGNOSIS: Same. ANESTHESIA: Local. COMPLICATIONS: None. CONSENT: Risks of the procedure including bleeding, infection, nerve damage, seizure, abscess formation, hematoma formation, headache, failure of the pain to improve and potential worsening of the pain, were explained in full to the patient who verbalized understanding and wishes to proceed with the injection at this time. Written informed consent was thereby obtained. BRIEF HISTORY: See charts. DESCRIPTION OF PROCEDURE: After informed consent was obtained, the patient was taken to the procedure room and placed in the __seated___ position. The patient's muscle groups, described above, were identified and the tender trigger points within the muscles were marked with surgical pen. The muscle groups were then prepped and draped in sterile fashion with ___Chloroprep swabs . A ___25 gauge 1 inch needle was attached to a syringe containing ____25 ml 0.25% Marcaine mixed with Kenalog 40 mg . The tip of the needle was then advanced into the belly of the taut muscle band (trigger point) identified previously and repositioned such that the myofascial pain was maximal. After negative aspiration, a total of __25 ml 0.25% Marcaine and Kenalog 40mg of the above solution was injected into the previously identified muscle groups. The patient tolerated the procedure well and all needles were removed intact. The patient s vitals were monitored for an appropriate time interval and remained stable. POST-PROCEDURE ORDERS: Progressive ambulation as tolerated Condition: Stable Diet as tolerated Disposition: DC IV prior to discharge Additional Blocks Give patient homegoing instructions Additional: Discharge according to approved criteria The documentation for this encounter was entered by Jessica Young, medical insurance collector, for Dr. Jaren Altamirano on October 12, 2022. I, Dr. Jaren Altamirano, personally performed the services described in this documentation. All medical record entries made by the scribe were at my direction and in my presence. I have reviewed the chart and discharge instructions and agree that the record reflects my personal performance and is accurate and complete. Electronically Signed: Dr. Altamirano. October 12, 2022. documented in this encounter [facility] 2022 Miscellaneous Notes Formattin g of this note might be different from the original. TPI built Meir Wing received appeal approval for TPI's please build a case so she can be added for October 12 at 1:00. Thank you, Vivien 2022 8:24 AM documented in this encounter [facility] 09-20-2022 Miscellaneous Notes Formattin g of this note is different from the original. The following approved medication requests have been transmitted electronically. Requested Prescriptions Signed Prescriptions Disp Refills traMADol (ULTRAM) 50 mg tablet 150 tablet 0 Sig: Take 1 tablet by mouth as directed for 30 days. q4-6 hr prn max 5 day Do not start before September 23, 2022. Authorizing Provider: LOAN ALMAGUER APRN.CNS Patient phones requesting refills as follows: Requested Prescriptions Pending Prescriptions Disp Refills traMADol (ULTRAM) 50 mg tablet 150 tablet 0 Sig: Take 1 tablet by mouth as directed for 30 days. q4-6 hr prn max 5 day Last UDS: Summary Report Date Value Ref Range Status 07/27/2022 FINAL Final Comment: == Tapentadol, MS, Ur, RFX Tramadol, MS, Ur RFX ToxAssure Flex 23, Ur == Test Result Flag Units Drug Present Tramadol >15989 ng/mg creat O-Desmethyltramadol >89584 ng/mg creat N-Desmethyltramadol >06317 ng/mg creat Source of tramadol is a prescription medication. O-desmethyltramadol and N-desmethyltramadol are expected metabolites of tramadol. == Test Result Flag Units Ref Range Creatinine 28 mg/dL >=20 == Declared Medications: Medication list was not provided. == For clinical consultation, please call . == @FLOW(,)@ Lab Results Component Value Date SUMM FINAL 07/27/2022 No results found for: SUMMAR Please review and advise. Tiara Guaman RN documented in this encounter [facility] 07-27-2022 Instructions Loan Almaguer APRN.SEALING MACHINE OPERATOR - 07/27/2022 1:23 PM EST Continue Tramadol, max 5 tabs per day. This helps patient perform ADL, interact with familly and friends. No misuse or aberrant behaviors detected. OARRS reviewed and consistent. UDS reviewed and consistent Order UDS Sign Pain contract PA and schedule TPI last done with great relief and patient upset that her insurance will not approve this procedure for her chronic pain needs about every 3 months Continue Cymbalta.from PCP Continue TENS use Continue Zanaflex 4 mg TID PRN. Followup in 3 months documented in this encounter [facility] 07-27-2022 History of Presen t illness Narrative SUBJECTIVE: Chelsea Wyman presents to [facility] for a follow-up appointment for back and left elbow pain Last seen by me on 03/30/22 Last procedure 02/26/22 TPI Pain level:5-7/10 States chronic pain in back is improved with TPI helping patient be able to care for her children and maintain house Denies any ED visits or hospitalizations since last office visit Reports pain worse with activity, keeping up with kids Reports pain better with laying down,medications, massager, TENS, TPI Describes pain in lower back as constant ache with pinching sensation on right side at times States pain radiates to right hip extending to right knee at times States has numbness in feet. Hands at times Denies falls TENS use 2/week with minimal to modearte relief REVIEW OF SYSTEMS: GENERAL: No weight loss, malaise or fevers. HEENT: Negative for frequent or significant headaches. RESPIRATORY: Negative for cough, wheezing or shortness of breath. CARDIOVASCULAR: Negative for chest pain, leg swelling or palpitations. GI: Negative for abdominal discomfort, blood in stools or black stools or change in bowel habits. :denies issues Past Medical History: PAST MEDICAL HISTORY Diagnosis Date Anemia Arthritis Asthma Depression Past Surgical History: PAST SURGICAL HISTORY Procedure Laterality Date INJECTION right hip- numbing injection TUBAL LIGATION, 2007 Family History: FAMILY HISTORY Problem Relation Age of Onset Diabetes Father Heart Father Heart Attack Father Colon Cancer Mother Heart Maternal Grandmother Diabetes Maternal Grandmother Diabetes Paternal Grandmother Diabetes Other Social History: Social History Tobacco Use Smoking status: Every Day Types: Cigarettes Smokeless tobacco: Never Tobacco comments: patient smokes 1-2 cigarettes/day since she became , used to smoke 1 ppd Substance Use Topics Alcohol use: No Drug use: No OBJECTIVE: LMP 12/10/2013 PHYSICAL EXAMINATION: General appearance: Well appearing, in no acute distress, alert. Accompanied by her Psych: Mood and affect appropriate. Skin: Skin color, texture, turgor normal, no rashes or lesions. Pulm: no conversational shortness of breath GI: Abdomen soft and non-tender. Musculoskeletal: +5 of 5 motor strength BLE Normal hip flexion to 90 . Negative Vanesa's test bilaterally. Lumbar flexion is 90 degrees and lumbar extension is 10 degrees. Trigger points noted at bilateral trapezius and left rhomboid muscle and paraspinal muscles. This extends to cervical paraspinal muscles. Negative toe and heel raise Negative knee bend. tennderness at the right SI joint and right lumbar paraspinal muscle region ASSESSMENT: Visit dx Ddd (degenerative disc disease), lumbar (primary encounter diagnosis) Myofascial pain syndrome Radiculopathy, lumbar region Chronic pain syndrome High risk medication use PLAN: Continue Tramadol, max 5 tabs per day. This helps patient perform ADL, interact with familly and friends. No misuse or aberrant behaviors detected. OARRS reviewed and consistent. UDS reviewed and consistent Order UDS Sign Pain contract PA and schedule TPI last done with great relief and patient upset that her insurance will not approve this procedure for her chronic pain needs about every 3 months Continue Cymbalta.from PCP Continue TENS use Continue Zanaflex 4 mg TID PRN. Followup in 3 months The above plan and management options were discussed at length with the patient. The patient is in agreement with the above and verbalized understanding. Loan Almaguer APRN.CNS July 27, 2022 documented in this encounter [facility] 07-25-2022 Miscellaneous Notes Formattin g of this note is different from the original. The following approved medication requests have been transmitted electronically. Requested Prescriptions Signed Prescriptions Disp Refills traMADol (ULTRAM) 50 mg tablet 150 tablet 0 Sig: Take 1 tablet by mouth as directed for 30 days. q4-6 hr prn max 5 day Authorizing Provider: LOAN ALMAGUER APRN.CNS Patient phones requesting refills as follows: Requested Prescriptions Pending Prescriptions Disp Refills traMADol (ULTRAM) 50 mg tablet 75 tablet 0 Sig: Take 1 tablet by mouth as directed for 15 days. q4-6 hr prn max 5 day Please review and advise. Tiara Guaman RN documented in this encounter [facility] 07-13-2022 Miscellaneous Notes Formattin g of this note might be different from the original. Please contact the patient and let her know that her insurance is denying the trigger point injection because she has not had a physical exam within 3 months of her request for trigger point. Therefore, when she sees Loan in the office on July 27 this can be addressed. Please asked the patient to file a complaint against her insurance company that is truly delaying her medical care. Per Dr. Altamirano Pt notified of the above information, TPI's cancelled for 07/26/22. Mirna Ralph RN July 13, 2022 1:15 PM documented in this encounter [facility] 07-05-2022 Miscellaneous Notes Formattin g of this note is different from the original. The following approved medication requests have been transmitted electronically. Requested Prescriptions Signed Prescriptions Disp Refills traMADol (ULTRAM) 50 mg tablet 75 tablet 0 Sig: Take 1 tablet by mouth as directed for 15 days. q4-6 hr prn max 5 day Do not start before July 10, 2022. Authorizing Provider: LOAN ALMAGUER APRN.SEALING MACHINE OPERATOR Patient phones requesting refills as follows: Requested Prescriptions Pending Prescriptions Disp Refills traMADol (ULTRAM) 50 mg tablet 75 tablet 0 Sig: Take 1 tablet by mouth as directed for 15 days. q4-6 hr prn max 5 day Please review and advise. Polly Lopez RN documented in this encounter [facility] 06-21-2022 Miscellaneous Notes Formattin g of this note is different from the original. The following approved medication requests have been transmitted electronically. Requested Prescriptions Signed Prescriptions Disp Refills traMADol (ULTRAM) 50 mg tablet 75 tablet 0 Sig: Take 1 tablet by mouth as directed for 15 days. q4-6 hr prn max 5 day Do not start before June 25, 2022. Authorizing Provider: LOAN ALMAGUER APRN.SEALING MACHINE OPERATOR Patient phones requesting refills as follows: Requested Prescriptions Pending Prescriptions Disp Refills traMADol (ULTRAM) 50 mg tablet 75 tablet 0 Sig: Take 1 tablet by mouth as directed for 15 days. q4-6 hr prn max 5 day Please review and advise. Dea Nielson RN documented in this encounter [facility] 06-21-2022 Miscellaneous Notes Formattin g of this note might be different from the original. Case put in for TPI with Dr Altamirano Summary: call from pt Pt states that she has had 50% improvement until this week and is currently @ 20% improvement from 02-15-22 TPI with steroids. She is requesting to have another TPI. Please place order if within POC. Thank you. Shayna Rodas RN documented in this encounter [facility] 06-07-2022 Miscellaneous Notes Formattin g of this note is different from the original. The following approved medication requests have been transmitted electronically. Requested Prescriptions Signed Prescriptions Disp Refills traMADol (ULTRAM) 50 mg tablet 75 tablet 0 Sig: Take 1 tablet by mouth as directed for 15 days. q4-6 hr prn max 5 day Do not start before June 10, 2022. Authorizing Provider: LOAN ALMAGUER APRN.SEALING MACHINE OPERATOR Patient phones requesting refills as follows: Requested Prescriptions Pending Prescriptions Disp Refills traMADol (ULTRAM) 50 mg tablet 150 tablet 0 Sig: Take 1 tablet by mouth as directed for 30 days. q4-6 hr prn max 5 day Please review and advise. Polly Lopez RN documented in this encounter [facility] 06-06-2022 Miscellaneous Notes Formattin g of this note might be different from the original. Left voicemail for patient to call to reschedule appointment that was cancelled for 06/29/22 due to Provider Loan Almaguer will be out of office. Jeannie Candelario MA June 06, 2022 1:22 PM documented in this encounter [facility] 05-08-2022 Miscellaneous Notes Formattin g of this note is different from the original. The following approved medication requests have been transmitted electronically. Requested Prescriptions Signed Prescriptions Disp Refills traMADol (ULTRAM) 50 mg tablet 150 tablet 0 Sig: Take 1 tablet by mouth as directed for 30 days. q4-6 hr prn max 5 day Authorizing Provider: LOAN ALMAGUER APRN.SEALING MACHINE OPERATOR Patient called the office stating she has had multiple issues with her Tramadol 50mg rx. Written for max 5/day, 15 day supply #90. However, the last rx was written for #90 for 30 day supply with instructions to take max of 5 /day or one tab q 4-6 hours prn. Pharmacy is not refilling the Tramadol since last rx was sent for a 30 day supply. How would you like to correct this? Should the patient have a 30 day supply with #180? Please advise. A new rx will need sent to pharmacy. Tiara Guaman RN documented in this encounter [facility] 03-13-2022 Miscellaneous Notes Formattin g of this note is different from the original. The following approved medication requests have been transmitted electronically. Requested Prescriptions Signed Prescriptions Disp Refills traMADol (ULTRAM) 50 mg tablet 90 tablet 1 Sig: Take 1 tablet by mouth as directed for 15 days. q4-6 hr prn max 5 day Do not start before March 19, 2022. Authorizing Provider: LOAN ALMAGUER APRN.SEALING MACHINE OPERATOR Patient phones requesting refills as follows: Requested Prescriptions Pending Prescriptions Disp Refills traMADol (ULTRAM) 50 mg tablet 90 tablet 1 Sig: Take 1 tablet by mouth as directed for 15 days. q4-6 hr prn max 5 day Please review and advise. Clare Lu RN documented in this encounter [facility] 02-20-2022 Miscellaneous Notes noted Segun pharmacist from [facility] called to say that he updated [facility] for the extra 90 tablets of Tramadol patient received from the refill on 02/13/22 script. Patient will not be due for refill until 02/17/22. Clare Lu RN documented in this encounter [facility] 02-14-2022 Miscellaneous Notes Noted Segun from [facility] called in today just wanting you to know that he thinks the pt. Received an extra Tramadol fill of 90 tabs, he is going to call the pt and will let our office know. Pt received 90 tabs on 01/13, 01/26, 01/31 and 02/13. Just FYI. Mirna Ralph RN documented in this encounter [facility] 02-13-2022 Miscellaneous Notes The following approved medication requests have been transmitted electronically. Signed Prescriptions Disp Refills traMADol (ULTRAM) 50 mg tablet 90 tablet 1 Sig: Take 1 tablet by mouth as directed for 15 days. q4-6 hr prn max 5 day BELLA Class: C-IV Authorizing Provider: LOAN ALMAGUER APRN.CNS Patient phones requesting refills as follows: Pending Prescriptions Disp Refills TRAMADOL 50 MG TABLET 90 tablet 1 Sig: Take 1 tablet by mouth as directed for 15 days. q4-6 hr prn max 5 day BELLA Class: C-IV Please review and advise. Clare Lu RN documented in this encounter [facility] documented as of this encounter (statuses as of 02/28/2023) [facility] History of Past illness Narrative* Problem Noted Date Diagnosed Date Resolved Date Encounter for long-term methadone use 07/31/2016 02/28/2023 documented as of this encounter (statuses as of 03/22/2023) [facility] History of Past illness Narrative* Problem Noted Date Diagnosed Date Resolved Date Encounter for long-term methadone use 07/31/2016 02/28/2023 documented as of this encounter (statuses as of 04/21/2023) [facility] History of Past illness Narrative* Problem Noted Date Diagnosed Date Resolved Date Encounter for long-term methadone use 07/31/2016 02/28/2023 documented as of this encounter (statuses as of 04/21/2023) [facility] History of Past illness Narrative* Problem Noted Date Diagnosed Date Resolved Date Encounter for long-term methadone use 07/31/2016 02/28/2023 documented as of this encounter (statuses as of 05/20/2023) [facility] History of Past illness Narrative* Problem Noted Date Diagnosed Date Resolved Date Encounter for long-term methadone use 07/31/2016 02/28/2023 documented as of this encounter (statuses as of 06/19/2023) [facility] History of Past illness Narrative* Problem Noted Date Diagnosed Date Resolved Date Encounter for long-term methadone use 07/31/2016 02/28/2023 documented as of this encounter (statuses as of 07/04/2023) [facility] Chronic pain syndrome- Primary Myofascial pain syndrome Mylagia and myositis, unspecified [facility] Diagnosis Chronic pain syndrome [facility] Diagnosis Chronic pain syndrome documented in this encounter [facility] note* Diagnosis Myofascial pain syndrome- Primary Mylagia and myositis, unspecified Myofascial pain syndrome Mylagia and myositis, unspecified documented in this encounter [facility] note* Diagnosis Chronic pain syndrome Myofascial pain syndrome Mylagia and myositis, unspecified documented in this encounter [facility] note* Diagnosis DDD (degenerative disc disease), lumbar- Primary Degeneration of lumbar or lumbosacral intervertebral disc Myofascial pain syndrome Mylagia and myositis, unspecified Radiculopathy, lumbar region Thoracic or lumbosacral neuritis or radiculitis, unspecified Chronic pain syndrome High risk medication use Encounter for long-term (current) use of other medications Myofascial pain syndrome Mylagia and myositis, unspecified documented in this encounter [facility] note* Diagnosis Myofascial pain syndrome- Primary Mylagia and myositis, unspecified Myofascial pain syndrome Mylagia and myositis, unspecified documented in this encounter [facility] note* Diagnosis DDD (degenerative disc disease), lumbar- Primary Degeneration of lumbar or lumbosacral intervertebral disc Lumbar facet arthropathy Lumbosacral spondylosis without myelopathy Radiculopathy, lumbar region Thoracic or lumbosacral neuritis or radiculitis, unspecified Chronic pain syndrome Myofascial pain syndrome Mylagia and myositis, unspecified High risk medication use Encounter for long-term (current) use of other medications documented in this encounter [facility] note* Diagnosis Chronic pain syndrome [facility]* Diagnosis Cervicalgia Cervical radiculopathy Brachial neuritis or radiculitis nos Chronic pain syndrome High risk medication use Encounter for long-term (current) use of other medications documented in this encounter [facility] note* Diagnosis Cervicalgia Cervical radiculopathy Brachial neuritis or radiculitis nos documented in this encounter [facility] note* Diagnosis Chronic pain syndrome documented in this encounter [facility] note* Diagnosis Arthropathy of cervical facet joint Cervical spondylosis without myelopathy Cervical radiculopathy Brachial neuritis or radiculitis nos Myofascial pain syndrome Mylagia and myositis, unspecified Chronic pain syndrome High risk medication use Encounter for long-term (current) use of other medications Myofascial pain syndrome Mylagia and myositis, unspecified [facility] Chronic pain syndrome [facility] Diagnosis Myofascial pain syndrome- Primary Mylagia and myositis, unspecified documented in this encounter [facility] for referral (narrative)* Diagnostic Procedure Only (Routine) - Closed Specialty Diagnoses / Procedures Referred By Contac t Referred To Contact XR IMAGING Diagnoses Cervicalgia Cervical radiculopathy Procedures XR CERV OTHER 4V AP/LAT/FLX/EXT RADEX SPINE CERVICAL 4 OR 5 VIEWS Loan Almaguer APRN.SEALING MACHINE OPERATOR [address] [place] [address] Xr Imaging Referral ID Status Reason Start Date Expiration Date V isits Requested Visits Authorized [id number] Closed Auto-Generate d Referral 01/18/2023 02/17/2024 1 1 [facility] for referral (narrative)* Diagnostic Procedure Only (Routine) - Closed Specialty Diagnoses / Procedures Referred By Contac t Referred To Contact XR IMAGING Diagnoses Cervicalgia Cervical radiculopathy Procedures XR CERV OTHER 4V AP/LAT/FLX/EXT RADEX SPINE CERVICAL 4 OR 5 VIEWS Loan Almaguer APRN.SEALING MACHINE OPERATOR [address] [place] [address] Xr Imaging Referral ID Status Reason Start Date Expiration Date V isits Requested Visits Authorized [id number] Closed Auto-Generate d Referral 01/18/2023 02/17/2024 1 1 [facility] for visit Narrative* Diagnostic Procedure Only (Routine) - Closed Specialty Diagnoses / Procedures Referred By Contac t Referred To Contact XR IMAGING Diagnoses Cervicalgia Cervical radiculopathy Procedures XR CERV OTHER 4V AP/LAT/FLX/EXT RADEX SPINE CERVICAL 4 OR 5 VIEWS Loan Almaguer, COMPLIANCE REVIEW OFFICER.SEALING MACHINE OPERATOR [address] [place] [address] Xr Imaging Referral ID Status Reason Start Date Expiration Date V isits Requested Visits Authorized [id number] Closed Auto-Generate d Referral 01/18/2023 02/17/2024 1 1 [facility] Summary Purpose Family History No Family History Records FoundNo Family History Records Found Advance Directives No Advanced Directives Records FoundDocuments on File Type Date Recorded 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 Expl anation Advance Directive(s) 01/26/2022 9:32 AM Documents on File Type Date Recorded 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 Expl anation Advance Directive(s) 01/26/2022 9:32 AM Reason for Referral Specialty Diagnoses / Procedures Referred By Contac t Referred To Contact Diagnoses Chronic pain syndrome Loan Almaguer, COMPLIANCE REVIEW OFFICER.SEALING MACHINE OPERATOR [address] [place] [address] Referral ID Status Reason Start Date Expiration Date Visits Re quested Visits Authorized [id number] Closed 1 1 Referral ID Status Reason Start Date Expiration Date Visits Re quested Visits Authorized [id number] Closed 1 1 Additional Source Comments Source Comments (unrecognize d section and content) In the event this informatio n is protected by the Federal Confidentiality of Alcohol and Drug Abuse Patient Records regulations: The Federal rules restrict any use of the information to criminally investigate or prosecute any alcohol or drug abuse patient.[facility] event this information is protected by the Federal Confidentiality of Alcohol and Drug Abuse Patient Records regulations: The Federal rules restrict any use of the information to criminally investigate or prosecute any alcohol or drug abuse patient.[facility] the event this information is protected by the Federal Confidentiality of Alcohol and Drug Abuse Patient Records regulations: The Federal rules restrict any use of the information to criminally investigate or prosecute any alcohol or drug abuse patient.[facility] the event this information is protected by the Federal Confidentiality of Alcohol and Drug Abuse Patient Records regulations: The Federal rules restrict any use of the information to criminally investigate or prosecute any alcohol or drug abuse patient.[facility] the event this information is protected by the Federal Confidentiality of Alcohol and Drug Abuse Patient Records regulations: The Federal rules restrict any use of the information to criminally investigate or prosecute any alcohol or drug abuse patient.[facility] the event this information is protected by the Federal Confidentiality of Alcohol and Drug Abuse Patient Records regulations: The Federal rules restrict any use of the information to criminally investigate or prosecute any alcohol or drug abuse patient.[facility] the event this information is protected by the Federal Confidentiality of Alcohol and Drug Abuse Patient Records regulations: The Federal rules restrict any use of the information to criminally investigate or prosecute any alcohol or drug abuse patient.[facility] the event this information is protected by the Federal Confidentiality of Alcohol and Drug Abuse Patient Records regulations: The Federal rules restrict any use of the information to criminally investigate or prosecute any alcohol or drug abuse patient.[facility] the event this information is protected by the Federal Confidentiality of Alcohol and Drug Abuse Patient Records regulations: The Federal rules restrict any use of the information to criminally investigate or prosecute any alcohol or drug abuse patient.[facility] the event this information is protected by the Federal Confidentiality of Alcohol and Drug Abuse Patient Records regulations: The Federal rules restrict any use of the information to criminally investigate or prosecute any alcohol or drug abuse patient.[facility] the event this information is protected by the Federal Confidentiality of Alcohol and Drug Abuse Patient Records regulations: The Federal rules restrict any use of the information to criminally investigate or prosecute any alcohol or drug abuse patient.[facility] the event this information is protected by the Federal Confidentiality of Alcohol and Drug Abuse Patient Records regulations: The Federal rules restrict any use of the information to criminally investigate or prosecute any alcohol or drug abuse patient.[facility] the event this information is protected by the Federal Confidentiality of Alcohol and Drug Abuse Patient Records regulations: The Federal rules restrict any use of the information to criminally investigate or prosecute any alcohol or drug abuse patient.[facility] the event this information is protected by the Federal Confidentiality of Alcohol and Drug Abuse Patient Records regulations: The Federal rules restrict any use of the information to criminally investigate or prosecute any alcohol or drug abuse patient.[facility] the event this information is protected by the Federal Confidentiality of Alcohol and Drug Abuse Patient Records regulations: The Federal rules restrict any use of the information to criminally investigate or prosecute any alcohol or drug abuse patient.[facility] the event this information is protected by the Federal Confidentiality of Alcohol and Drug Abuse Patient Records regulations: The Federal rules restrict any use of the information to criminally investigate or prosecute any alcohol or drug abuse patient.[facility] the event this information is protected by the Federal Confidentiality of Alcohol and Drug Abuse Patient Records regulations: The Federal rules restrict any use of the information to criminally investigate or prosecute any alcohol or drug abuse patient.[facility] the event this information is protected by the Federal Confidentiality of Alcohol and Drug Abuse Patient Records regulations: The Federal rules restrict any use of the information to criminally investigate or prosecute any alcohol or drug abuse patient.[facility] the event this information is protected by the Federal Confidentiality of Alcohol and Drug Abuse Patient Records regulations: The Federal rules restrict any use of the information to criminally investigate or prosecute any alcohol or drug abuse patient.[facility] the event this information is protected by the Federal Confidentiality of Alcohol and Drug Abuse Patient Records regulations: The Federal rules restrict any use of the information to criminally investigate or prosecute any alcohol or drug abuse patient.[facility] the event this information is protected by the Federal Confidentiality of Alcohol and Drug Abuse Patient Records regulations: The Federal rules restrict any use of the information to criminally investigate or prosecute any alcohol or drug abuse patient.[facility] the event this information is protected by the Federal Confidentiality of Alcohol and Drug Abuse Patient Records regulations: The Federal rules restrict any use of the information to criminally investigate or prosecute any alcohol or drug abuse patient.[facility] the event this information is protected by the Federal Confidentiality of Alcohol and Drug Abuse Patient Records regulations: The Federal rules restrict any use of the information to criminally investigate or prosecute any alcohol or drug abuse patient.[facility] the event this information is protected by the Federal Confidentiality of Alcohol and Drug Abuse Patient Records regulations: The Federal rules restrict any use of the information to criminally investigate or prosecute any alcohol or drug abuse patient.[facility] the event this information is protected by the Federal Confidentiality of Alcohol and Drug Abuse Patient Records regulations: The Federal rules restrict any use of the information to criminally investigate or prosecute any alcohol or drug abuse patient.[facility] the event this information is protected by the Federal Confidentiality of Alcohol and Drug Abuse Patient Records regulations: The Federal rules restrict any use of the information to criminally investigate or prosecute any alcohol or drug abuse patient.[facility] the event this information is protected by the Federal Confidentiality of Alcohol and Drug Abuse Patient Records regulations: The Federal rules restrict any use of the information to criminally investigate or prosecute any alcohol or drug abuse patient.[facility] the event this information is protected by the Federal Confidentiality of Alcohol and Drug Abuse Patient Records regulations: The Federal rules restrict any use of the information to criminally investigate or prosecute any alcohol or drug abuse patient.[facility] the event this information is protected by the Federal Confidentiality of Alcohol and Drug Abuse Patient Records regulations: The Federal rules restrict any use of the information to criminally investigate or prosecute any alcohol or drug abuse patient.[facility] the event this information is protected by the Federal Confidentiality of Alcohol and Drug Abuse Patient Records regulations: The Federal rules restrict any use of the information to criminally investigate or prosecute any alcohol or drug abuse patient.[facility] the event this information is protected by the Federal Confidentiality of Alcohol and Drug Abuse Patient Records regulations: The Federal rules restrict any use of the information to criminally investigate or prosecute any alcohol or drug abuse patient.[facility] the event this information is protected by the Federal Confidentiality of Alcohol and Drug Abuse Patient Records regulations: The Federal rules restrict any use of the information to criminally investigate or prosecute any alcohol or drug abuse patient.[facility] the event this information is protected by the Federal Confidentiality of Alcohol and Drug Abuse Patient Records regulations: The Federal rules restrict any use of the information to criminally investigate or prosecute any alcohol or drug abuse patient.[facility] the event this information is protected by the Federal Confidentiality of Alcohol and Drug Abuse Patient Records regulations: The Federal rules restrict any use of the information to criminally investigate or prosecute any alcohol or drug abuse patient.[facility] Care Teams (unrecognized sec tion and content) [employer] Relationship Specialty Start Date End Date Dyllan Wyman MD PCP - General 03/01/05 [employer] Relationship Specialty Start Date End Date Dyllan Wyman MD PCP - General 03/01/05 [employer] Relationship Specialty Start Date End Date Dyllan Wyman MD PCP - General 03/01/05 [employer] Relationship Specialty Start Date End Date Dyllan Wyman MD PCP - General 03/01/05 [employer] Relationship Specialty Start Date End Date Dyllan Wyman MD PCP - General 03/01/05 [employer] Relationship Specialty Start Date End Date Dyllan Wyman MD PCP - General 03/01/05 [employer] Relationship Specialty Start Date End Date Dyllan Wyman MD PCP - General 03/01/05 [employer] Relationship Specialty Start Date End Date Dyllan Wyman MD PCP - General 03/01/05 [employer] Relationship Specialty Start Date End Date Dyllan Wyman MD PCP - General 03/01/05 [employer] Relationship Specialty Start Date End Date Dyllan Wyman MD PCP - General 03/01/05 INFORMATION SOURCE (unrecogn ized section and content) DATE CREATED AUTHOR AUTHOR'S ORGANIZ ATION 07/30/2023 [facility] Reason for Visit (unrecogniz ed section and content) Reason Comments Medication Problem Reason Comments Patient Update Reason Onset Date Comments Refill Request 03/13/2022 Reason Onset Date Comments medication issue 05/08/2022 Reason Comments Appointment Reason Onset Date Comments Refill Request 06/07/2022 Reason Onset Date Comments Refill Request 06/21/2022 Reason Comments Patient Question Reason Onset Date Comments Refill Request 07/05/2022 Reason Onset Date Comments Refill Request 07/25/2022 Reason Comments left elbow pain Reason Onset Date Comments Refill Request 09/19/2022 Reason Comments Case Needed Specialty Diagnoses / Procedures Referred By Kavita morgan Referred To Contact Diagnoses Myofascial pain syndrome Procedures TRIGGER POINT INJECTION MULTI 3+ MUSCLE GRP INJECTION TRIGGER POINT THREE OR MORE MUSCLES [facility] [address] [place] [address] Referral ID Status Reason Start Date Expiration Date Visits Re quested Visits Authorized [id number] 1 1 Reason Comments Back Pain Reason Onset Date Comments Refill Request 12/20/2022 Reason Comments Neck Pain Pain (Shoulder Pain) Reason Onset Date Comments Refill Request 02/16/2023 Reason Comments pt inquiring about getting TPI Reason Onset Date Comments Refill Request 02/22/2023 Reason Comments Neck Pain Referral ID Status Reason Start Date Expiration Date Visits Re quested Visits Authorized [id number] 1 1 Reason Comments indexed tramadol approval letter Reason Onset Date Comments Refill Request 05/18/2023 Reason Onset Date Comments Refill Request 06/18/2023 Reason Comments Pt asking for TPI PRN Active and Recently Administ ered Medications (unrecognized section and content) PRN Medication Order 03/19/2023 03/20/2023 03/21/2023 bupivacaine (PF) 0.25 % (2.5 mg/mL) injection (SENSORCAINE MPF) (CANCELED) X (OR/PROCEDURE) PRN, Starting on Sun03/21/23 at 1400, Until Sun03/21/23 at 1401, Intraprocedure 1400 (Given - Provid er: Jaren Altamirano DO) triamcinolone acetonide injection (KeNALog 40) (CANCELED) X (OR/PROCEDURE) PRN, Starting on Sun03/21/23 at 1400, Until Sun03/21/23 at 1401, Intraprocedure 1400 (Given - Provid er: Jaren Altamirano DO) FOR RECORDS PERTAINING TO PATIENTS WHO ARE OR HAVE BEEN ENROLLED IN A CHEMICAL DEPENDENCY/SUBSTANCEABUSE PROGRAM, SOME INFORMATION MAY BE OMITTED. This clinical summary was aggregated from multiple sources. Caution should be exercised in using it in the provision of clinical care. This summary normalizes information from multiple sources, and as a consequence, information in this document may materially change the coding, format and clinical context of patient data. In addition, data may be omitted in some cases. CLINICAL DECISIONS SHOULD BE BASED ON THE PRIMARY CLINICAL RECORDS. [employer] provides no warranty or guarantee of the accuracy or completeness of information in this document.
[2023-08-08 15:15] LABS: Absolute Lymphocyte Count 2.38 X10^3/uL (0.83-4.51); Absolute Neutrophil Count 4.6 X10^3/uL (2.0-7.7); Basophil# 0.06 X10^3/uL; Basophil% 0.8 % (0-1); Eosinophil# 0.07 X10^3/uL; Eosinophils% 0.9 % (0-5); Hematocrit 40.7 % (37-47); Hemoglobin 13.1 g/dL (12.0-15.0); Lymphocyte # 2.38 X10^3/ul (0.83-4.51); Lymphocyte % 31.4 % (19-41); Mean Corp Hgb Conc 32.2 g/dL (32-36); Mean Corpuscular Hgb 29.9 pg (27.0-32.0); Mean Corpuscular Volume 92.9 fL (81-99); Mean Platelet Vol. 9.3 fl (6.2-12.0); Monocyte# 0.45 X10^3/uL; Monocyte% 5.9 % (0-10); NRBC Flagged by Analyzer 0 % (0-5); Neutrophil % 60.9 % (47-70); Platelet Count 344 K/mm3 (150-450); RBC Distribution Width CV 13.4 % (11.6-14.6); RBC Distribution Width SD 45.5 fl (35.1-43.9); Red Blood Count 4.38 M/mm3 (4.2-5.4); White Blood Count 7.6 K/mm3 (4.4-11.0)
[2023-08-08 16:04] LABS: Hemoglobin A1c 5.2 % (3.8-5.6)
[2023-08-08 16:19] LABS: AST(SGOT) 18 U/L (15-37); Alanine Aminotransfer ALT/SGPT 21 U/L (13-56); Albumin, Serum 3.4 g/dL (3.2-5.0); Alkaline Phosphatase 108 U/L (45-117); Anion Gap 5 (5-15); BUN 10 mg/dL (7-18); BUN/Creat Ratio 14.6 RATIO (10-20); Calcium,Total 8.9 mg/dL (8.5-10.1); Chloride 107 mmol/L (98-107); Cholesterol 271 mg/dL (200); Creatinine, Serum 0.68 mg/dL (0.55-1.02); EST Glomerular Filtration Rate 102 mL/min (>60); Est Glom Filt Rate - Afr Amer 124 mL/min (>60); Ferritin 29 ng/mL (8-252); Globulin 3.5 g/dL (2.2-4.2); Glucose 75 mg/dL (74-106); High Density Lipoprotein 51 mg/dL; Protein, Total 6.9 g/dL (6.4-8.2); Sodium Level 139 mmol/L (136-145); T4 Free Direct 0.78 ng/dL (0.76-1.46); Thyroid Stim Hormone (TSH) 2.53 uIU/mL (0.358-3.74); Triglycerides 115 mg/dL; Very Low Density Lipoprotein 23 mg/dL (5-40)
[2023-08-08 16:50] LABS: Vitamin B12 590 pg/mL (211-911); Vitamin D,25 Hydroxy 42.4 ng/mL
== END | disposition home or self-care (01) ==
LOC: MFPLAB 11:51
PROVIDERS: PCP Family Medicine; Visit Provider Family Medicine
DX: E03.9 Hypothyroidism, unspecified (principal); E55.9 Vitamin D deficiency, unspecified; R53.83 Other fatigue
CPT/HCPCS: 36415; 80053; 80061; 82306; 82607; 82728; 83036; 83735; 84439; 84443; 85025

== ENCOUNTER 2023-12-18 12:30 | Outpatient (RCR) | payer OTHER, SELFPAY ==
--- NOTE | 2023-10-29 12:30 | HP.PTEVAL ---
Patient's Visit Information Visit Information Visit Information: ALEAH WYMAN is a 38 year old F referred to Physical Therapy by MAI DAVIS with a diagnosis of NECK PAIN. Date of Evaluation: 10/29/23 Physical Therapist: Vasquez Roland, PT, Cert MDT, OCS Visit Plan Plan: PT INTERVENTIONS POSTURAL EX' S,STRENGTHENING ,HORACE EX'S ,MANUAL THERAPY ( CERVICAL TRACTION) AND MODALITIES NEEDED Subjective Subjective: This 38 y/o female presents to physical therapy with cervical pain right > left.. Patient has neck pain many years with symptoms worsening. Patient has symptoms located occiput to scapular and paresthesia in arms. Seen pain management recommend PT and want to do MRI but denied but needs PT .Patient has pain management for past 4 years. Patient medication tramadol and baclofen. Patient has had x-rays showed DDD. Patient seen chiropractor but stopped ~ 2years. No MRI ever. PT in past made symptoms worse. Aggravating turning ,lifting ,flexion of neck working bending forward and driving.Alleviating factors ice/heat. Patient c/o SNOWDEN frontal ,denies dizziness ,nausea. Patient has not seen staffing operations manager. Patient pain affects sleeping. Patient condition affects QOL and function housework tasks. Patient goals to decrease pain. SOCIAL: VOCATION: home Pain Bilateral Neck: Pain Intensity (Out of 10): 5 Pain Intensity Range: 10 Objective Objective: POSTURE: mild forward posture NEURO: c/o paresthesia in right arm ,reflexes C5-6-7 2/3 PALPATION: tender OA/occiput AROM SHOULDERS: AROM WFL MMT: grossly 4/5 CERVICAL ROM: flexion ,extension ,lateral flexion ,retraction ,rotation WFL Special Tests C/S Radiculapathy - Left Upper limb tension test: Negative C/S Radiculapathy - Right Upper limb tension test: Negative C/S Radiculapathy - Left Spurlings: Negative C/S Radiculapathy - Right Spurlings: Positive C/S Radiculapathy - Left Cervical distraction: Negative C/S Radiculapathy - Right Cervical distraction: Negative C/S Radiculapathy - Left Relief test: Negative C/S Radiculapathy - Right Relief test: Negative C/S Radiculapathy - Valsalva: Negative Sharp Kip: Negative Vertebral Artery Test: Negative Alar Ligament Test: Negative Cervical Sitting: Protrusion - Mechanical Response: No effect Cervical Sitting: Protrusion - Symptoms During Testing: Increases Cervical Sitting: Protrusion - Symptoms After Testing: No worse Cervical Sitting: Retraction - Symptoms During Testing: Increases Cervical Sitting: Retraction - Symptoms After Testing: No worse Cervical Sitting: Retraction-Extension - Mechanical Response: No effect Cerv Sitting: Retraction-Extension - Symptoms During Testing: Increases Cerv Sitting: Retraction-Extension - Symptoms After Testing: No worse Cervical Sitting: Sidebend Right - Mechanical Response: No effect Cervical Sitting: Sidebend Right - Symptoms During Testing: Increases Cervical Sitting: Sidebend Right - Symptoms After Testing: No worse Cervical Sitting: Sidebend Left - Mechanical Response: No effect Cervical Sitting: Sidebend Left - Symptoms During Testing: Increases Cervical Sitting: Sidebend Left - Symptoms After Testing: No effect Cervical Sitting: Rotation Right - Mechanical Response: No effect Cervical Sitting: Rotation Right - Symptoms During Testing: Increases Cervical Sitting: Rotation Right - Symptoms After Testing: No worse Cervical Sitting: Rotation Left - Mechanical Response: No effect Cervical Sitting: Rotation Left - Symptoms During Testing: Increases Cervical Sitting: Rotation Left - Symptoms After Testing: No worse Cervical Sitting: Flexion - Mechanical Response: No effect Cervical Sitting: Flexion - Symptoms During Testing: Increases Cervical Sitting: Flexion - Symptoms After Testing: No worse Balance/Special Test Scores Oswestry Neck Score: 24 Goals Goal 1:: Patient to be I with HEP for cervical Goal Time Frame: 4-6 Weeks Goal 2:: Patient to improve cervical ROM for function of recovery for driving Goal Time Frame: 4-6 Weeks Goal 3:: Patient to demonstrate 50% improvement with less pain and symptom in [place] improved function Goal Time Frame: 4-6 Weeks Goal 4:: Patient to improve neck oswestry score by 5 points to improve QOL and function. Goal Time Frame: 4-6 Weeks Goal 5:: Patient to reduce SNOWDEN by 50$ Goal Time Frame: 4-6 Weeks Rehabilitation Potential Physical Therapy Diagnosis: This patient has cervical pain with possible derangement with pain with positioning and motion testing along with SNOWDEN and numbness in right arm thusb benefit from skilled PT Rehabilitation Potential: Good Anticipated Interventions Therapeutic Exercise to Include: Strength training, Body mechanics, Postural training, Passive ROM, Horace Exercises and Scapular Strength/Stabilization For the Purpose of:: To decrease pain, To improve muscle performance and motor function, To increase tolerance to activity/condition/position, To improve performance and independence with ADL's, To improve ability of physical actions for home/community/work/leisure, To improve health of tissue, To decrease soft tissue restriction and To increase flexibility/ROM Manual Therapy Techniques to Include: Mobilization Comment: CERVICAL TRACTION For the Purpose of:: To decrease pain, To increase ROM, To improve health of tissue and To decrease soft tissue restriction TENS: Yes IF ES: Yes Cryotherapy (ice pack, ice massage): Yes Thermo therapy (hot pack): Yes Ultrasound (thermal/non thermal): Yes Intermittent cervical traction: Yes For the Purpose of:: To decrease pain, To increase ROM, To improve health of tissue, To decrease soft tissue restriction and To increase flexibility/ROM Text: Thank you for the opportunity to evaluate your patient. For Medicare and Medicare HMO plans, please review the plan of care and approve it. It will need to be FAXED BACK to us at [phone] for Medicare purposes. For Medicare only, by signing this I certify the plan of care. Please let me know if there are questions or concerns regarding this plan of care. Physician Signature: Date:
--- NOTE | 2023-12-18 13:14 | HP.PTDCSUM ---
Discharge Summary D/C summary: It has been my pleasure to treat ALEAH WYMAN referred by MAI DAVIS, with the diagnosis of NECK PAIN for a total of 12 visit(s). Discharge Date: Please see the following information for a summary of their discharge status. Subjective Subjective: No better overall .. Plan to pain management Patient gets paresthesia/tingling in hand intermittent Patient gets tightness Pain Bilateral Neck: Pain Intensity (Out of 10): 7 Overall Improvement % Improvement: 15 Objective Objective/Function: POSTURE: mild forward posture NEURO: occasionally paresthesia in right arm ,reflexes C5-6-7 2/3 PALPATION: tender occiput AROM SHOULDERS: AROM WFL MMT: grossly 4/5 CERVICAL ROM: flexion ,extension ,lateral flexion ,retraction ,rotation WFL Special Tests C/S Radiculapathy - Left Upper limb tension test: Negative C/S Radiculapathy - Right Upper limb tension test: Negative C/S Radiculapathy - Left Spurlings: Negative C/S Radiculapathy - Right Spurlings: Positive C/S Radiculapathy - Left Cervical distraction: Negative C/S Radiculapathy - Right Cervical distraction: Negative C/S Radiculapathy - Left Relief test: Negative Goals Goal 1:: Patient to be I with HEP for cervical Goal Progress: Progressing Goal 2:: Patient to improve cervical ROM for function of recovery for driving Goal Progress: Progressing Goal 3:: Patient to demonstrate 50% improvement with less pain and symptom in [place] improved function Goal Progress: Progressing Goal 4:: Patient to improve neck oswestry score by 5 points to improve QOL and function. Goal Progress: Progressing Goal 5:: Patient to reduce SNOWDEN by 50$ Goal Progress: Progressing Plan Plan: RTD possible MRI D/C Information d/c sentence: If there are questions or concerns regarding this patient's physical therapy, please feel free to call me at [phone]. Thank you for the referral of this patient. Sincerely, Vasquez Roland, PT, Cert MDT, OCS Balance/Gait/Functional tests Balance/Special Test Scores Oswestry Neck Score: 24 Improvement % Improvement: 15
== END 2023-12-18 19:00 | disposition home or self-care (01) ==
LOC: PT 12:30
PROVIDERS: PCP Family Medicine
DX: M54.2 Cervicalgia (principal)
CPT/HCPCS: 97012; 97035; 97110; 97140; 97162; 97530

== ENCOUNTER → 2025-02-06 | Outpatient (CLI) | payer OTHER, SELFPAY ==
[2025-02-06 17:52] LABS: Hematocrit 40.4 % (37-47); Hemoglobin 13.1 g/dL (12.0-15.0); Immature Granulocytes Count 0.020 X10^3/uL (0.0-0.0); Mean Corp Hgb Conc 32.4 g/dL (32-36); Mean Corpuscular Volume 88.8 fL (81-99); Mean Platelet Vol. 9.2 fl (6.2-12.0); NRBC Flagged by Analyzer 0 % (0-5); Platelet Count 374 K/mm3 (150-450); RBC Distribution Width CV 13.4 % (11.6-14.6); RBC Distribution Width SD 43.8 fl (35.1-43.9); Red Blood Count 4.55 M/mm3 (4.2-5.4); White Blood Count 9.5 K/mm3 (4.4-11.0)
[2025-02-06 18:42] LABS: Cholesterol 288 mg/dL (<=200); Follicle Stimulating Hormone 8.3 mIU/mL; Low Density Lipoprotein Calc. 208 mg/dL; Triglycerides 99 mg/dL; Very Low Density Lipoprotein 20 mg/dL (5-40); Vitamin B12 527 pg/mL (180-914); Vitamin D,25 Hydroxy 33.8 ng/mL (30-100); cholesterol:hdl ratio screen 4.74
[2025-02-06 18:45] LABS: AST(SGOT) 23 U/L (<=31); Alanine Aminotransfer ALT/SGPT 19 U/L (<=34); Albumin, Serum 4.3 g/dL (3.5-5.0); Alkaline Phosphatase 124 U/L (35-104); Anion Gap 12 (5-15); BUN 10 mg/dL (4-19); BUN/Creat Ratio 14.6 RATIO (10-20); Calcium,Total 9.2 mg/dL (7.6-11.0); Carbon Dioxide 23.4 mmol/L (21.0-32.0); Chloride 103 mmol/L (98-108); Globulin 2.9 g/dL (2.2-4.2); Glucose 90 mg/dL (70-99); Potassium 4.0 mmol/L (3.3-5.1)
[2025-02-10 21:07] LABS: Estrogen, Total, Serum 265 pg/mL (.)
== END | disposition home or self-care (01) ==
LOC: MFPLAB 16:05
PROVIDERS: PCP Family Medicine; Referring Provider Family Medicine; Visit Provider Family Medicine
DX: E03.9 Hypothyroidism, unspecified (principal); E78.00 Pure hypercholesterolemia, unspecified; N91.1 Secondary amenorrhea; N95.1 Menopausal and female climacteric states; Z13.1 Encounter for screening for diabetes mellitus
CPT/HCPCS: 36415; 80053; 80061; 82306; 82607; 82672; 83001; 83002; 83036; 84443; 85025

== ENCOUNTER 2025-06-26 23:02 | Emergency (ER) | payer OTHER, SELFPAY ==
[2025-06-26 23:03] VITALS: PULSE 90; RESP 18; TEMP 36.6; O2SAT 100; BMI 35.2
[2025-06-26] MEDS: Tetracaine 0.5% Ophthalmic Bottle 1 DRP RIGHT EYE (23:35)
--- OUTSIDE RECORDS SUMMARY | 2025-06-26 23:38 | XMS RPT_ITS | CCD ---
Author Organization [facility] Care Team Providers Care Radio Mechanic Apprentice Name Role Phone Dyllan Wyman MD Primary Care Provider [phone] Unavailable Primary Care Provider Unavailabl e Unavailable Primary Care Provider Unavailabl e MAI DAVIS Referring Unavailable Matt Forrest MD Primary Care Provider Matt Forrest MD Primary Care Provider Matt Forrest MD Attending Provider Matt Forrest MD Referring Provider Matt Forrest Referring Unavailable Matt Forrest Attending Unavailable Judah, Chalon Primary Care Unavailable MAI DAVIS Attending Unavailable MAI DAVIS Referring Unavailable MAI DAVIS Attending Unavailable CONNOR TORRES Referring Unavailable JUDAH, CHALON Primary Care Unavailable MAI DAVIS Attending Unavailable MAI DAVIS Referring Unavailable JUDAH, CHALON Primary Care Unavailable MAI DAVIS Attending Unavailable LIZETTE DAVISE M Referring Unavailable JUDAH, CHALON Primary Care Unavailable Allergies Allergy Classification Reported Allergen(s) Allergy Type Date of Onset Reaction(s) Facility (6 sources) Penicillins; Translations: [PENICILLINS] Propensity to adverse reactions 06-16-20 05 Vomiting [facility] (20 sources) Sulfamethoxazole / Trimethoprim; Translations: [SULFAMETHOXAZOLE-TR IMETHOPRIM] Drug Allergy 06-16-20 05 [facility] (20 sources) Penicillins Propensity to adverse reactions 06-16-20 05 Vomiting [facility] (20 sources) Codeine; Translations: [CODEINE] Drug Allergy 08-02-19 16 Swelling [facility] (20 sources) Sulfamethoxazole; Translations: [SULFAMETHOXAZOLE] Drug Allergy 08-03-19 19 Unknown [facility] (15 sources) Trimethoprim Drug Allergy 08-03-19 19 Unknown [facility] (3 sources) Amoxicillin Drug Allergy 03-13-20 19 Rash [facility] (3 sources) Penicillins Allergy to substance 03-13-20 Unknown [facility] (8 sources) Penicillins Propensity to adverse reactions 06-16-20 05 Vomiting [facility] (1 source) Amoxicillin Drug Allergy 03-13-20 [facility] (1 source) Penicillins Drug allergy (disorder) 03-13-20 [facility] (1 source) Sulfamethoxazole Drug Allergy 03-13-20 [facility] (1 source) Trimethoprim Drug Allergy 03-13-20 [facility] Medications Current Medications Medication Drug Class(es) Dates Sig (Normalized) Sig (Original) acetaminophen 325 mg / oxyCODONE hydrochloride 5 mg oral tablet (1 source) Opioid Agonist Start: 03-17-2024 End: 03-21-2024 oxyCODONE-acetaminoph en (PERCOCET) 5-325 mg tablet Indications: Cervical disc disorder with radiculopathy Take 1 tablet by mouth every 6 hours as needed for up to 4 days. For postprocedural pain . max of 4/day x 4 days and off. After stop Percocet, resume tramadol. 16 tablet 03/17/2024 03/21/2024 Active Albuterol Sulfate (Proair Hfa) 8.5 GM Hfa.Aer.Ad (3 sources) Start: 08-20-2013 Albuterol Sulfate (Proair Hfa) 8.5 GM Hfa.Aer.Ad Active 1 - 2 SPRAYS NASAL NEEDED as needed for ALLERGY August 20, 2013 1:00am Start: 08-20-2013 Albuterol Sulf ate (Proair Hfa) 8.5 GM Hfa.Aer.Ad Active 1 - 2 SPRAYS NASAL NEEDED August 20, 2013 12:00am Start: 08-20-2013 Albuterol Sulf ate (Proair Hfa) 8.5 GM Hfa.Aer.Ad Active 1 - 2 SPRAYS NASAL NEEDED August 20, 2013 1:00am baclofen 20 mg oral tablet (20 sources) gamma-Aminobutyric Acid-ergic Agonist Start: 01-01-2024 End: 03-09-2025 take 1 tablet by mouth three times daily as needed baclofen 20 mg tablet Indications: Chronic pain syndrome , Spinal stenosis of cervical region , DDD (degenerative disc disease), cervical Take 1 tablet by mouth three times a day as needed. 90 tablet 2 03/09/2025 Active Start: 01-18-2023 End: 02-12-2024 take 1 tablet by mouth every eight hours as needed baclofen 10 mg tablet Take 1 tablet by mouth three times a day as needed. 90 tablet 2 11/14/2023 01/01/2024 Discontinued (Course of therapy completed) Comment on above: Take 1 tablet by millicent th three times daily as needed. DC zanaflex Take 1 tablet by millicent th three times daily as needed. Take 1 tablet by millicent th three times a day as needed. cefdinir 300 mg oral capsule (20 sources) Cephalosporin Antibacterial Start: 4 take 1 capsule by mouth every twelve hours cefdinir (OMNICEF) 300 mg capsule Take 1 capsule by mouth every 12 hours. 01/14/2024 Active DULoxetine 60 mg delayed release oral capsule (20 sources) Serotonin and Norepinephrine Reuptake Inhibitor Start: 2 DULoxetine (CYMBALTA) 60 mg capsule 03/12/2022 Active Start: 04-17-2015 take 2 capsules by m outh once daily Duloxetine 60 MG capsule Active 120 mg PO DAILY April 17, 2015 12:00am Start: 04-17-2015 take 120 mg by mouth once arthur y Duloxetine Active 120 MG PO DAILY April 16, 2015 11:00pm Start: 08-20-2013 take 3 capsules by m outh at bedtime Duloxetine 30 MG capsule Active 90 mg PO AT BEDTIME August 20, 2013 1:00am Start: 08-20-2013 take 90 mg by mouth at bedtime Duloxetine Active 90 MG PO AT BEDTIME August 20, 2013 12:00am End: 03-21-2022 DULOXETINE HCL (CYMBALTA ORA L) Take 90 mg by mouth. 0 03/21/2022 Discontinued DULOXETINE HCL ( CYMBALTA ORAL) Take 90 mg by mouth. 0 Active Comment on above: Take 90 mg by mouth. levothyroxine sodium 0.05 mg oral tablet (20 sources) l-Thyroxine Start: 2 take 1 tablet by mouth once daily levothyroxine (SYNTHROID) 50 mcg tablet Take 50 mcg by mouth once daily. 02/07/2022 Active Comment on above: Take 50 mcg by mouth once daily. lidocaine 0.05 mg/mg medicated patch (20 sources) Antiarrhythmic, Amide Local Anesthetic Start: 9 lidocaine (LIDODERM) 5 % Apply to affected area. 08/03/2018 Active Start: 08-03-2018 Lidocaine 1 PA TCH patch Active 1 NMA TOPICAL DAILY 10 0 August 03, 2018 1:00am Start: 08-03-2018 apply 1 dose topically once da marilynn Lidocaine Active 1 PATCH TOPICAL DAILY August 03, 2018 12:00am Comment on above: Apply to affected ar ea. loratadine 10 mg oral tablet (20 sources) Start: 08-20-2013 loratadine (CLARITIN) 10 mg tablet Take by mouth. 08/20/2013 Active Start: 08-20-2013 Loratadine 10 MG tablet Active 1 {tbl} PO NEEDED as needed for ALLERGY August 20, 2013 1:00am Start: 08-20-2013 Loratadine Act eladio 1 TABLET PO NEEDED August 20, 2013 12:00am Comment on above: Take by mouth. piroxicam 10 mg oral capsule (20 sources) Nonsteroidal Anti-inflammatory Drug Start: 08-20-19 14 piroxicam (FELDENE) 10 mg capsule Take by mouth. 08/20/2013 Active Comment on above: Take by mouth. rosuvastatin calcium 5 mg oral tablet (20 sources) HMG-CoA Reductase Inhibitor Start: 11-12-19 24 rosuvastatin (CRESTOR) 5 mg tablet 11/12/2023 Active traMADol hydrochloride 50 mg oral tablet (20 sources) Opioid Agonist Start: 01-17-20 25 take 1 tablet by mouth every four to six hours as needed traMADol (ULTRAM) 50 mg tablet Indications: Chronic pain syndrome Take 1 tablet by mouth as directed for 30 days. q4-6 hr prn max 5 day Patient should start on January 16, 2025. 150 tablet 2 01/16/2025 Active Start: 01-16-2025 End: 01-09-2025 take 1 tablet by mouth every four to six hours as needed traMADol (ULTRAM) 50 mg tablet Indications: Chronic pain syndrome Take 1 tablet by mouth as directed for 30 days. q4-6 hr prn max 5 day Patient should start on January 16, 2025. 150 tablet 2 01/16/2025 01/09/2025 Discontinued Start: 01-16-2025 End: 02-15-2025 take 1 tablet by mouth every four to six hours as needed traMADol (ULTRAM) 50 mg tablet Indications: Chronic pain syndrome Take 1 tablet by mouth as directed for 30 days. q4-6 hr prn max 5 day Patient should start on January 16, 2025. 150 tablet 2 01/16/2025 02/15/2025 Active Start: 09-15-2024 End: 01-08-2025 take 1 tablet by mouth every four to six hours as needed traMADol (ULTRAM) 50 mg tablet Indications: Chronic pain syndrome Take 1 tablet by mouth as directed for 30 days. q4-6 hr prn max 5 day Patient should start on October 15, 2024. 150 tablet 2 10/15/2024 01/08/2025 Discontinued Start: 03-13-2024 End: 09-12-2024 take 1 tablet by mouth every four to six hours as needed traMADol (ULTRAM) 50 mg tablet Indications: Chronic pain syndrome Take 1 tablet by mouth as directed for 30 days. q4-6 hr prn max 5 day Patient should start on June 14, 2024. 150 tablet 2 06/14/2024 09/12/2024 Discontinued Start: 03-13-2024 End: 02-28-2024 take 1 tablet by mouth every four to six hours as needed traMADol (ULTRAM) 50 mg tablet Indications: Chronic pain syndrome Take 1 tablet by mouth as directed for 30 days. q4-6 hr prn max 5 day Patient should start on March 13, 2024. 150 tablet 0 03/13/2024 02/28/2024 Discontinued Start: 10-16-2023 End: 04-12-2024 take 1 tablet by mouth every four to six hours as needed traMADol (ULTRAM) 50 mg tablet Indications: Chronic pain syndrome Take 1 tablet by mouth as directed for 30 days. q4-6 hr prn max 5 day Patient should start on March 13, 2024. 150 tablet 0 03/13/2024 04/12/2024 Active Start: 08-15-2023 End: 10-14-2023 traMADol (ULTRAM) 50 mg tabl et Indications: Chronic pain syndrome Take 1 tablet by mouth as directed for 30 days. q4-6 hr prn max 5 day 150 tablet 0 09/14/2023 10/10/2023 Discontinued Start: 12-22-2022 End: 07-18-2023 traMADol (ULTRAM) 50 mg tabl et Indications: Chronic pain syndrome Take 1 tablet by mouth as directed for 30 days. q4-6 hr prn max 5 day 150 tablet 0 06/18/2023 07/18/2023 Active Start: 06-10-2022 End: 12-20-2022 traMADol (ULTRAM) 50 mg tabl et Indications: Chronic pain syndrome Take 1 tablet by mouth as directed for 30 days. q4-6 hr prn max 5 day Do not start before November 22, 2022. 150 tablet 0 11/22/2022 12/20/2022 Discontinued Start: 04-17-2015 End: 06-07-2022 traMADol (ULTRAM) 50 mg tabl et Indications: Chronic pain syndrome Take 1 tablet by mouth as directed for 30 days. q4-6 hr prn max 5 day 150 tablet 0 05/08/2022 06/07/2022 Discontinued Start: 08-20-2013 take 2 tablets by mo [facility] once daily Tramadol (Ultram Er) 100 MG tablet extended release 24 hr Active 50 mg PO DAILY August 20, 2013 1:00am Start: 08-20-2013 take 1 tablet by millicent th once daily Tramadol (Ultram Er) 100 MG Tab.Er.24h Active 50 MG PO DAILY August 20, 2013 1:00am End: 02-13-2022 TRAMADOL HCL (TRAMADOL ORAL) Take by mouth twice daily. 0 02/13/2022 Discontinued TRAMADOL HCL (TR AMADOL ORAL) Take by mouth twice daily. 0 Active Comment on above: Take by mouth twice daily. Take 1 tablet by millicent th as directed for 15 days. q4-6 hr prn max 5 day Take 1 tablet by millicent th as directed for 15 days. q4-6 hr prn max 5 day Do not start before March 19, 2022. Take 1 tablet by millicent th as directed for 30 days. q4-6 hr prn max 5 day Take 1 tablet by millicent th as directed for 15 days. q4-6 hr prn max 5 day Do not start before June 10, 2022. Take 1 tablet by [facility] as directed for 15 days. q4-6 hr prn max 5 day Do not start before June 25, 2022. Take 1 tablet by [facility] as directed for 15 days. q4-6 hr prn max 5 day Do not start before July 10, 2022. Take 1 tablet by [facility] as directed for 30 days. q4-6 hr prn max 5 day Do not start before August 24, 2022. Take 1 tablet by [facility] as directed for 30 days. q4-6 hr prn max 5 day Do not start before September 23, 2022. Take 1 tablet by [facility] as directed for 30 days. q4-6 hr prn max 5 day Do not start before October 23, 2022. Take 1 tablet by [facility] as directed for 30 days. q4-6 hr prn max 5 day Do not start before December 22, 2022. Take 1 tablet by [facility] as directed for 30 days. q4-6 hr prn max 5 day Do not start before November 22, 2022. Take 1 tablet by [facility] as directed for 30 days. q4-6 hr prn max 5 day Do not start before January 21, 2023. Take 1 tablet by [facility] as directed for 30 days. q4-6 hr prn max 5 day Do not start before February 20, 2023. Take 1 tablet by [facility] as directed for 30 days. q4-6 hr prn max 5 day Do not start before March 22, 2023. Take 1 tablet by [facility] as directed for 30 days. q4-6 hr prn max 5 day Do not start before April 21, 2023. Take 1 tablet by [facility] as directed for 30 days. q4-6 hr prn max 5 day Do not start before October 16, 2023. Completed/Discontinued Medications Medication Drug Class(es) Dates Sig (Normalized) Sig (Original) acetaminophen 300 mg / codeine phosphate 30 mg oral tablet (4 sources) Opioid Agonist Start: 08-27-2013 End: 10-18-2022 acetaminophen-codei ne (TYLENOL-COD #3) 300-30 mg per tablet Take by mouth. 0 08/27/2013 10/18/2022 Discontinued Start: 08-27-2013 Acetaminophen- Codeine 1 TABLET tablet Active 1 - 2 {tbl} PO EVERY 6 HOURS NEEDED as needed for Pain 30 0 August 27, 2013 1:00am Start: 08-27-2013 take 1 tablet by millicent th every six hours as needed Acetaminophen-Codeine Active 1 - 2 TABLE T PO EVERY 6 HOURS NEEDED August 27, 2013 12:00am Comment on above: Take by mouth. ALPRAZolam 0.5 mg oral tablet (1 source) Benzodiazepine Start: 03-17-2024 End: 03-17-2024 take 1 dose by mouth once 1.5 mg, ORAL, ONCE, 1 dose, On Sun03/17/24 at 1400 Start: 03-17-2024 End: 03-17-2024 take 1 dose by mouth once 1.5 mg, ORAL, ONCE, 1 dose, On Sun03/17/24 at 1400 meloxicam 15 mg oral tablet (8 sources) Nonsteroidal Anti-inflammatory Drug meloxicam (MOBIC) 15 mg tablet Take 15 mg by mouth as needed. 0 Active Comment on above: Take 15 mg by mouth as needed. tiZANidine 4 mg oral tablet (14 sources) Central alpha-2 Adrenergic Agonist Start: 03-30-20 End: 01-19-20 23 take 1 tablet by mouth every eight hours as needed tiZANidine (ZANAFLEX) 4 mg tablet Take 1 tablet by mouth three times daily as needed. 90 tablet 1 07/27/2022 01/18/2023 Discontinued Comment on above: Take 1 tablet by millicent th three times daily as needed. Problems Active Problems Problem Classification Problem Date Documented Date Episodic/Chronic Headache; including migraine (20 sources) Chronic tension-type headache; Translations: [Chronic tension-type headache, not intractable] Onset: 08-02-2015 10-18-2022 Chronic Other nervous system disorders (20 sources) Chronic pain syndrome; Translations: [Chronic pain syndrome] Onset: 03-30-2022 Chronic Other nervous system disorders (20 sources) Chronic pain; Translations: [Other chronic pain] Onset: 03-30-2022 10-11-2023 Chronic Other nervous system disorders (1 source) Chronic pain syndrome; Translations: [Chronic pain syndrome] Onset: 01-01-2024 Chronic Other nervous system disorders (1 source) Other chronic pain; Translations: [Other chronic pain] Onset: 10-11-2023 Chronic Other non-traumatic joint disorders (20 sources) Snapping right hip; Translations: [Other specific joint derangements of right hip, not elsewhere classified] Onset: 06-24-2015 10-18-2022 Chronic Spondylosis; intervertebral disc disorders; other back problems (20 sources) Degeneration of lumbar intervertebral disc; Translations: [Other intervertebral disc degeneration, lumbar region] Onset: 03-30-2022 03-30-2022 Chronic Substance-related disorders (20 sources) Opioid dependence; Translations: [Opioid dependence, uncomplicated] Onset: 06-24-2015 10-18-2022 Chronic Thyroid disorders (1 source) Hypothyroidism, unspecified; Translations: [Hypothyroidism, unspecified] Onset: 02-11-2025 Chronic Unclassified (2 sources) Autogenerated Problem Onset: 03-09-2025 03-09-2025 Past or Other Problems Problem Classification Problem Date Documented Da te Episodic/Chronic Nausea and vomiting (20 sources) Nausea, vomiting and diarrhea; Translations: [Nausea with vomiting, unspecified] Onset: 10-18-2022 10-18-2022 Episodic Nonspecific chest pain (20 sources) Chest wall pain; Translations: [Other chest pain] Onset: 10-18-2022 10-18-2022 Episodic Other acquired deformities (20 sources) Acquired unequal leg length; Translations: [Unequal limb length (acquired), unspecified site] Onset: 06-24-2015 10-18-2022 Episodic Other aftercare (20 sources) Taking high risk medication; Translations: [Other remote computer terminal operator (current) drug therapy] Onset: 03-30-2022 03-30-2022 Episodic Other aftercare (20 sources) Patient encounter status; Translations: [senior care (current) use of opiate analgesic] Onset: 07-31-2016 10-18-2022 Episodic Other aftercare (1 source) Other remote computer terminal operator (current) drug therapy; Translations: [High risk medication use] Onset: 03-30-2022 Episodic Other aftercare (1 source) Encounter for therapeutic drug level monitoring; Translations: [Encounter for therapeutic drug level monitoring] Onset: 10-11-2023 Episodic Other connective tissue disease (20 sources) Myofascial pain syndrome; Translations: [Myalgia, other site] Onset: 02-15-2022 2 Episodic Other connective tissue disease (1 source) Myalgia, other site; Translations: [Myofascial pain syndrome] Onset: 02-15-2022 Episodic Spondylosis; intervertebral disc disorders; other back problems (20 sources) Lumbar radiculopathy; Translations: [Radiculopathy, lumbar region] Onset: 04-04-2017 03-30-2022 Episodic Results Test Name Value Interpretation Reference Range Facility [facility] 04-28-2025 CNOV Office Visit (NEAL) ---- CHELSEA WYMAN ([id number]) 1985 F T Date Time Provider Department 04/28/25 1:00 PM MAI DAVIS During your visit today, we recorded the following information about you: Pulse Blood pressure Weight Height 92/minute 148/87 90.7 kg 1.626 m Mai Davis, CLASSROOM TECHNOLOGY COACH.METAL FLOW COORDINATOR 04/28/2025 1:41 PM Signed Chief Complaint: Pain History of Present Illness: Chelsea Wyman is a 39 year old year old female being seen at [facility] for a evaluation and/or management of their chronic pain. She states that since the last visit symptoms have been persistent. I last saw this patient in December 2024. The plan following her appointment with me was for her to undergo a C6-C7 cervical epidural injection on as-needed basis. Patient reports she had 60% improvement in pain following the cervical epidural in February 2024. Patient had this improvement for greater than 3 months. Patient reports that her neck pain was a 10/10 and improved to 4/10 for greater than 3 months. Patient reports her neck pain is well controlled. Patient denies any weakness in bilateral upper extremities. Patient denies any imbalance. At this patient's last office visit she was experiencing right sided posterior hip pain. Due to this an SI joint injection was ordered. She reports she has undergone right SI joint injections in the past with greater than 75% improvement for greater than 3 months. Patient reports that her right posterior hip pain has improved overall and therefore she decided not to undergo the injection that I previously ordered at her last office visit. Patient currently rates her pain overall a 2 out of 10. Patient has been evaluated by neurosurgery. No surgical intervention is recommended at this time regarding her neck . Patient is currently also being treated with tramadol and baclofen. Patient is taking these medications without any side effects. Patient reports that the medications are effective in treating her pain. Patient took a dose of Tramadol earlier today. Last UDS: Ordered. Summary Report Date Value Ref Range Status 05/28/2024 FINAL Final Comment: Tramadol, MS, Ur RFX ToxAssure Flex 23, Ur Test Result Flag Units Drug Present Tramadol >2463 ng/mg creat O-Desmethyltramadol >2463 ng/mg creat N-Desmethyltramadol >2463 ng/mg creat Source of tramadol is a prescription medication. O-desmethyltramadol and N-desmethyltramadol are expected metabolites of tramadol. Test Result Flag Units Ref Range Creatinine 203 mg/dL >=20 Declared Medications: Medication list was not provided. For clinical consultation, please call . Lab Results Component Value Date SUMM FINAL 05/28/2024 No results found for: [place] PDMP website checked and validated. [place] report reviewed on 04/28/2025 by Mai Davis APRN.CNP and is consistent with the patients medical history and medication intake. ROS: Review of Systems Constitutional: Negative. Cardiovascular: Negative. Respiratory: Negative. Musculoskeletal: Positive for neck pain and stiffness. Neurological: Negative. Psychiatric/Behavio ral: Negative. 01/08/2025 04/28/2025 Pain Disability Index Family/Home Responsibilities: This category includes chores or duties performed around the house (e.g. yard work), errands or favors for other family members (e.g. driving the children to school) 6 9 Recreation: This category includes hobbies, sports, and other similar leisure time activities 3 0 No disability Social Activity: This category refers to activities which involve participation with friends and acquaintances, other than family members. It includes parties, theater, concerts, dinning out, and other social functions 0 No disability 0 No disability Occupation: This category refers to activities that are a part of or directly related to ones' job. This includes non-paying jobs as well, such as that of a housewife or volunteer worker 8 9 Sexual Behavior: This category refers to the frequency and quality of one's sex life 2 0 No disability Self Care: This category includes activities which involve personal maintenance and independent daily living (e.g. taking a shower, driving, getting dress, etc) 0 No disability 0 No disability Life Support Activity: This category refers to basic-life supporti (more content not included)... [facility] 03-17-2025 KEZIAN Telephone (NEAL) ---- CHELSEA WYMAN ([id number]) 1985 [facility] Date Time Provider Department 03/17/25 MAI DAVIS During your visit today, we recorded the following information about you: Vivien Llanos 03/17/2025 1:34 PM Signed Flavio, Please review the denial below and advise as to how you would like to proceed. Thanks, Vivien Llanos March 17, 2025 1:32 PM May I know when case was denied?: 03/12/2025 Is the peer to peer available? Yes May I have the P2P ph# along with prompts? [phone] opt 1 What is the time frame for the peer to peer? 5 business days Would the peer to peer timeframe cover all services or is it specific for a type of service (surgery - office visit - injections)? N/A Does the P2P have to be scheduled or is it done right away? LVM asking for a call back Is it required for the provider to schedule the P2P or can this be done by his medical office specialist? Anyone from the Dr?s office Who can complete the P2P (Doctor, PA, BELT REPAIRER)? Doctor PA, BELT REPAIRER Would the peer to peer be available if services have been rendered? Yes Is the appeal available? Yes Reason for Denial: Your request for a repeat pain shot (sacroiliac joint injection) cannot be approved. You are 39 years old. You have low back (sacroiliac) pain. The notes show you had a previous pain shot in the same area. They do not show you had significant improvement (75% decrease in pain) of your pain from the previous shot. The request does not meet the guidelines. Mai Davis APRN.KEZIA 03/17/2025 1:52 PM Signed Care source denied this procedure as they indicated that I did not document that the patient had greater than 75% improvement in pain with her last SI joint injection. Please contact patient and find out if she had greater than a 75% improvement in pain. If so then I will complete the peer to peer and we will also have documentation indicating that the patient had greater than a 75% improvement in pain. Please inform me of the patient's response. Thanks Vivien Llanos 03/17/2025 2:03 PM Signed Flavio, I spoke to Chelsea and she stated when Dr Dubon did her last SI Joint injection which was 09/16/2020 she received 95% relief. She stated the pain started again 2 months ago. Thanks, Vivien Llanos March 17, 2025 2:03 PM Mai Davis APRN.[facility] 03/17/2025 4:39 PM Signed [id number] has been scheduled for 03/19/2025 between 3:30 PM and 4 PM with .--- Awaiting call from this physician. Mai Davis APRN.[facility] 03/19/2025 3:23 PM Signed [id number] completed. This procedure has been approved. Vivien Llanos 03/19/2025 3:32 PM Signed I email PAVE and [email or web address] regarding the approval. Vivien Llanos March 19, 2025 3:32 PM Allergies As of Date: 03/17/2025 Noted Allergy Reaction CODEINE 08/02/2015 7 - Swelling PENICILLINS 06/16/2005 11 - Vomiting SEPTRA (SULFAMETHOXAZOLE-T RIMETHO*06/16/2005 Comments: faint, dizziness SULFAMETHOXAZOLE 08/03/2018 16 - Unknown Date Reviewed: 01/08/2025 Reviewed by: Ryan, Jefferie M, CLASSROOM TECHNOLOGY COACH.METAL FLOW COORDINATOR - Fully Assessed Reason for Visit: April 08 procedure denied [Other] Prescriptions as of 03/19/2025 - baclofen 20 mg tablet Take 1 tablet by mouth three times a day as needed. - traMADol (ULTRAM) 50 mg tablet Take 1 tablet by mouth as directed for 30 days. q4-6 hr prn max 5 day Patient should start on January 16, 2025. - cefdinir (OMNICEF) 300 mg capsule Take 1 capsule by mouth every 12 hours. - rosuvastatin (CRESTOR) 5 mg tablet - lidocaine (LIDODERM) 5 % Apply to affected area. - loratadine (CLARITIN) 10 mg tablet Take by mouth. - piroxicam (FELDENE) 10 mg capsule Take by mouth. - levothyroxine (SYNTHROID) 50 mcg tablet Take 50 mcg by mouth once daily. 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] 06/24/2015 Sacroiliac joint dysfunction [M53.3] 04/04/2017 Opioid dependence (HCC) [F11.20] 06/24/2015 Nausea, vomiting, and diarrhea [R11.2, R19.7] 10/18/2022 Encounter for therapeutic drug level monitoring*07/31/19 17 Chronic tension headache [G44.229] 08/02/2015 Chest wall pain [R07.89] 10/18/2022 Arthropathy of cervical facet joint [M47.812] 02/28/2023 Neck pain [M54.2] 10/11/2023 Chronic pain syndrome [G89.4] 01/01/2024 Spinal stenosis of cervical region [M48.02] 01/01/2024 DDD (degenerative disc disease), cervical [M50.*01/01/2024 Radiculopathy, cervical region [M54.12] 01/01/2024 Encounter Number: [id number] (more content not included)... Normal [facility] Estrogen, Total, Serumon ESTROGENS,TOTAL 265 pg/mL Normal . [facility] Comment on above: Order Comment: Order Date: 02/06/25 Order Info: 2254-1 - EST N Result Comment: Prep ubertal < 40 Female Cycle: 1-10 Days 16 - 328 11-20 Days 34 - 501 21-30 Days 48 - 350 Post-Menopausal 40 - 244 Performed at: [facility] [id number] Ekg/Ecg Technician: Pj Rivera MD, Phone: [phone] Performed By: #### L [id number], L501.9985, L3400.0200, L500.4050, L100.0100, L3100.5055, L500.4100 #### [facility] [address] [place], [address] Absolute lymphocyte countOrd ered By: Matt Forrest on 02-06-2025 Lymphocytes Auto (Unsp spec) [#/Vol] 1.94 10*3/uL 0.83-4.51 [facility] Absolute neutrophil countOrd ered By: Matt Forrest on 02-06-2025 Neutrophils (Bld) [#/Vol] 7.0 10*3/uL 2.0-7.7 [facility] Anion gap in Serum or Plasma Ordered By: Matt Forrest on 02-06-2025 Anion gap [Moles/Vol] 12 mmol/L 5-15 [facility] Automated lymphocyte count a s percentage of total leukocytesOrdered By: Matt Forrest on 02-06-2025 Lymphocytes/100 WBC Auto (Unsp spec) 20.5 % 19-41 [facility] BUN/creatinine ratioOrdered By: Matt Forrest on 02-06-2025 Urea nitrogen/Creatinine [Mass ratio] 14.6 mg/mg 10-20 [facility] Basophil percentageOrdered B y: Matt Forrest on 02-06-2025 Basophils/100 WBC (Bld) 0.4 % 0-1 [facility] Bilirubin, totalOrdered By: Matt Forrest on 02-06-2025 Bilirubin [Mass/Vol] mg/dL 0.00-1.30 [facility] CBC W/Diff, Automatedon 01-20 Absolute Lymph 1.94 X10 3/uL Normal 0.83-4.51 [facility] Comment on above: Order Comment: Order Date: 02/06/25 Order Info: 0184-1 - CBCD Performed By: #### L [id number], L501.9985, L3400.0200, L500.4050, L100.0100, L3100.5055, L500.4100 #### [facility] [address] [place], [address] Absolute Neut 7.0 X10 3/uL Normal 2.0-7.7 [facility] Comment on above: Order Comment: Order Date: 02/06/25 Order Info: 0184-1 - CBCD Performed By: #### L [id number], L501.9985, L3400.0200, L500.4050, L100.0100, L3100.5055, L500.4100 #### [facility] [address] [place], [address] Basophils/100 WBC (Bld) 0.4 % Normal 0-1 [facility] Comment on above: Order Comment: Order Date: 02/06/25 Order Info: 0184-1 - CBCD Performed By: #### L [id number], L501.9985, L3400.0200, L500.4050, L100.0100, L3100.5055, L500.4100 #### [facility] [address] [place], [address] Eosinophils/100 WBC (Bld) 0.3 % Normal 0-5 [facility] Comment on above: Order Comment: Order Date: 02/06/25 Order Info: 0184-1 - CBCD Performed By: #### L [id number], L501.9985, L3400.0200, L500.4050, L100.0100, L3100.5055, L500.4100 #### [facility] [address] [place], [address] Erythrocyte distribution width (RBC) [Ratio] 13.4 % Normal 11.6-14.6 [facility] Comment on above: Order Comment: Order Date: 02/06/25 Order Info: 0184- - CBCD Performed By: #### L [id number], L501.9985, L3400.0200, L500.4050, L100.0100, L3100.5055, L500.4100 #### [facility] [address] [place], [place], [phone] (954) Hematocrit (Bld) [Volume fraction] 40.4 % Normal 37-47 [facility] Comment on above: Order Comment: Order Date: 02/06/25 Order Info: 0184- - CBCD Performed By: #### L [id number], L501.9985, L3400.0200, L500.4050, L100.0100, L3100.5055, L500.4100 #### [facility] [address] [place], [address] Hemoglobin (Bld) [Mass/Vol] 13.1 g/dL Normal 12.0-15.0 [facility] Comment on above: Order Comment: Order Date: 02/06/25 Order Info: 0184-1 - CBCD Performed By: #### L [id number], L501.9985, L3400.0200, L500.4050, L100.0100, L3100.5055, L500.4100 #### [facility] [address] [place], [address] IG% 0.200 Normal 0.0-0.9 [facility] Comment on above: Order Comment: Order Date: 02/06/25 Order Info: 0184-1 - CBCD Result Comment: IG% - Immature Granulocytes (promyelocytes, myelocytes and metamyelocytes) > 1% indicates that a LEFT SHIFT is Present. Performed By: #### L 501.9520, L501.9985, L3400.0200, L500.4050, L100.0100, L3100.5055, L500.4100 #### [facility] [address] [place], [address] Lymphocytes/100 WBC (Bld) 20.5 % Normal 19-41 [facility] Comment on above: Order Comment: Order Date: 02/06/25 Order Info: 0184-1 - CBCD Performed By: #### L [id number], L501.9985, L3400.0200, L500.4050, L100.0100, L3100.5055, L500.4100 #### [facility] [address] [place], [address] MCH (RBC) [Entitic mass] 28.8 pg Normal 27.0-32.0 [facility] Comment on above: Order Comment: Order Date: 02/06/25 Order Info: 0184-1 - CBCD Performed By: #### L 501.9520, L501.9985, L3400.0200, L500.4050, L100.0100, L3100.5055, L500.4100 #### [facility] [address] [place], [address] MCHC (RBC) [Mass/Vol] 32.4 g/dL Normal 32-36 [facility] Comment on above: Order Comment: Order Date: 02/06/25 Order Info: 0184-1 - CBCD Performed By: #### L 501.9520, L501.9985, L3400.0200, L500.4050, L100.0100, L3100.5055, L500.4100 #### [facility] [address] [place], [address] MCV (RBC) [Entitic vol] 88.8 fL Normal 81-99 [facility] Comment on above: Order Comment: Order Date: 02/06/25 Order Info: 0184-1 - CBCD Performed By: #### L 501.9520, L501.9985, L3400.0200, L500.4050, L100.0100, L3100.5055, L500.4100 #### [facility] [address] [place], [address] Monocytes/100 WBC (Bld) 4.8 % Normal 0-10 [facility] Comment on above: Order Comment: Order Date: 02/06/25 Order Info: 0184- - CBCD Performed By: #### L 501.9520, L501.9985, L3400.0200, L500.4050, L100.0100, L3100.5055, L500.4100 #### [facility] [address] [facility] [place], [address] Neutrophils/100 WBC (Bld) 73.8 % High 47-70 [facility] Comment on above: Order Comment: Order Date: 02/06/25 Order Info: 0184- - CBCD Performed By: #### L 501.9520, L501.9985, L3400.0200, L500.4050, L100.0100, L3100.5055, L500.4100 #### [facility] [address] [place], [address] Nucleated RBC (Bld) [#/Vol] 0 10*3/uL Normal 0-5 [facility] Comment on above: Order Comment: Order Date: 02/06/25 Order Info: 0184-1 - CBCD Performed By: #### L 501.9520, L501.9985, L3400.0200, L500.4050, L100.0100, L3100.5055, L500.4100 #### [facility] [address] [place], [address] Platelet mean volume (Bld) [Entitic vol] 9.2 fL Normal 6.2-12.0 [facility] Comment on above: Order Comment: Order Date: 02/06/25 Order Info: 0184-1 - CBCD Performed By: #### L 501.9520, L501.9985, L3400.0200, L500.4050, L100.0100, L3100.5055, L500.4100 #### [facility] [address] [place], [address] Platelets (Bld) [#/Vol] 374 10*3/uL Normal 150-450 [facility] Comment on above: Order Comment: Order Date: 02/06/25 Order Info: 0184- - CBCD Performed By: #### L [id number], L501.9985, L3400.0200, L500.4050, L100.0100, L3100.5055, L500.4100 #### [facility] [address] [place], [place], [id number] RBC (Bld) [#/Vol] 4.55 10*6/uL Normal 4.2-5.4 [facility] Comment on above: Order Comment: Order Date: 02/06/25 Order Info: 0184-1 - CBCD Performed By: #### L 501.9520, L501.9985, L3400.0200, L500.4050, L100.0100, L3100.5055, L500.4100 #### [facility] [address] [place], [address] RDW SD 43.8 fl Normal 35.1-43.9 [facility] Comment on above: Order Comment: Order Date: 02/06/25 Order Info: 0184-1 - CBCD Performed By: #### L 501.9520, L501.9985, L3400.0200, L500.4050, L100.0100, L3100.5055, L500.4100 #### [facility] [address] [place], [address] WBC (Bld) [#/Vol] 9.5 10*3/uL Normal 4.4-11.0 [facility] Comment on above: Order Comment: Order Date: 02/06/25 Order Info: 0184-1 - CBCD Performed By: #### L 501.9520, L501.9985, L3400.0200, L500.4050, L100.0100, L3100.5055, L500.4100 #### [facility] [address] [place], [address] Calculated very low density lipoprotein (VLDL) cholesterol measurementOrdered By: Matt Forrest on 02-06-2025 Calculated very low density lipoprotein (VLDL) cholesterol measurement 20 mg/dL 5-40 [facility] Carbon dioxide, total [Moles /volume] in Central venous bloodOrdered By: Matt Forrest on 02-06-2025 CO2 [Moles/Vol] 23.4 mmol/L 21.0-32.0 [facility] Chloride assayOrdered By: Ravindra Forrest on 02-06-2025 Chloride [Moles/Vol] 103 mmol/L 98-108 [facility] Comprehensive Metabolic Prof ilon 02-06-2025 Albumin [Mass/Vol] 4.3 g/dL Normal 3.5-5.0 [facility] Comment on above: Order Comment: Order Date: 02/06/25 Order Info: 0786-1 - CMP Order Info: [id number] - LIPID Order Info: 3016-3 - TSH Order Info: 0553-1 - FSHLH Performed By: #### L 501.9520, L501.9985, L3400.0200, L500.4050, L100.0100, L3100.5055, L500.4100 #### [facility] [address] [place], [place], [address] Albumin/Globulin [Mass ratio] 1.5 {ratio} Normal 0.9-2.4 [facility] Comment on above: Order Comment: Order Date: 02/06/25 Order Info: 86-1 - CMP Order Info: - LIPID Order Info: 3015-09 - TSH Order Info: 53-1 - FSHLH Performed By: #### L 501.9520, L501.9985, L3400.0200, L500.4050, L100.0100, L3100.5055, L500.4100 #### [facility] [address] [place], [address] ALK PHOS 124 U/L High 35-104 [facility] Comment on above: Order Comment: Order Date: 02/06/25 Order Info: 86-1 - CMP Order Info: - LIPID Order Info: 3015-09 - TSH Order Info: 53- - FSHLH Performed By: #### L 501.9520, L501.9985, L3400.0200, L500.4050, L100.0100, L3100.5055, L500.4100 #### [facility] [address] [place], [address] ALT [Catalytic activity/Vol] 19 U/L Normal <=34 [facility] Comment on above: Order Comment: Order Date: 02/06/25 Order Info: 785-1 - CMP Order Info: - LIPID Order Info: 3015-09 - TSH Order Info: 53-1 - FSHLH Performed By: #### L 501.9520, L501.9985, L3400.0200, L500.4050, L100.0100, L3100.5055, L500.4100 #### [facility] [address] [place], [address] AST [Catalytic activity/Vol] 23 U/L Normal <=31 [facility] Comment on above: Order Comment: Order Date: 02/06/25 Order Info: 86-1 - CMP Order Info: - LIPID Order Info: 3015-09 - TSH Order Info: 53-1 - FSHLH Performed By: #### L 501.9520, L501.9985, L3400.0200, L500.4050, L100.0100, L3100.5055, L500.4100 #### [facility] [address] [place], [place], [phone] (006) BUN/CRE 14.6 RATIO Normal 10-20 [facility] Comment on above: Order Comment: Order Date: 02/06/25 Order Info: 86- - CMP Order Info: - LIPID Order Info: 3 - TSH Order Info: 53-1 - FSHLH Performed By: #### L 501.9520, L501.9985, L3400.0200, L500.4050, L100.0100, L3100.5055, L500.4100 #### [facility] [address] [place], [place], [phone] (465) Calcium [Mass/Vol] 9.2 mg/dL Normal 7.6-11.0 [facility] Comment on above: Order Comment: Order Date: 02/06/25 Order Info: 785-07 - CMP Order Info: - LIPID Order Info: 3015-09 - TSH Order Info: 53-1 - FSHLH Performed By: #### L 501.9520, L501.9985, L3400.0200, L500.4050, L100.0100, L3100.5055, L500.4100 #### [facility] [address] [place], [address] Chloride [Moles/Vol] 103 mmol/L Normal 98-108 [facility] Comment on above: Order Comment: Order Date: 02/06/25 Order Info: 785- - CMP Order Info: [id number] - LIPID Order Info: 3 - TSH Order Info: 53-1 - FSHLH Performed By: #### L 501.9520, L501.9985, L3400.0200, L500.4050, L100.0100, L3100.5055, L500.4100 #### [facility] [address] [place], [place], [id number] CO2 [Moles/Vol] 23.4 mmol/L Normal 21.0-32.0 [facility] Comment on above: Order Comment: Order Date: 02/06/25 Order Info: 86-1 - CMP Order Info: [id number] - LIPID Order Info: 3016-3 - TSH Order Info: 0553-1 - FSHLH Performed By: #### L 501.9520, L501.9985, L3400.0200, L500.4050, L100.0100, L3100.5055, L500.4100 #### [facility] [address] [place], [place], [id number] Creatinine [Mass/Vol] 0.68 mg/dL Low 0.70-1.20 [facility] Comment on above: Order Comment: Order Date: 02/06/25 Order Info: 785- - CMP Order Info: [id number] - LIPID Order Info: 3 - TSH Order Info: 0553-1 - FSHLH Performed By: #### L 501.9520, L501.9985, L3400.0200, L500.4050, L100.0100, L3100.5055, L500.4100 #### [facility] [address] [place], [place], [address] GAP 12 Normal 5-15 [facility] Comment on above: Order Comment: Order Date: 02/06/25 Order Info: 785-1 - CMP Order Info: [id number] - LIPID Order Info: 3016-3 - TSH Order Info: 0553-1 - FSHLH Performed By: #### L 501.9520, L501.9985, L3400.0200, L500.4050, L100.0100, L3100.5055, L500.4100 #### [facility] [address] [place], [place], [address] GFR/1.73 sq M.predicted among non-blacks MDRD (S/P/Bld) [Vol rate/Area] 113 mL/min/{1.73_m2} Normal >60 [facility] Comment on above: Order Comment: Order Date: 02/06/25 Order Info: 07 - CMP Order Info: [id number] - LIPID Order Info: 3015-3 - TSH Order Info: 53-1 - FSHLH Result Comment: mL/m in/1.73m2 CKD-EPI Creatinine Equation (2020) Performed By: #### L 501.9520, L501.9985, L3400.0200, L500.4050, L100.0100, L3100.5055, L500.4100 #### [facility] [address] [place], [place], [address] Globulin (S) [Mass/Vol] 2.9 g/dL Normal 2.2-4.2 [facility] Comment on above: Order Comment: Order Date: 02/06/25 Order Info: 785-07 - CMP Order Info: [id number] - LIPID Order Info: 3 - TSH Order Info: 53-1 - FSHLH Performed By: #### L 501.9520, L501.9985, L3400.0200, L500.4050, L100.0100, L3100.5055, L500.4100 #### [facility] [address] [place], [place], [address] Glucose [Mass/Vol] 90 mg/dL Normal 70-99 [facility] Comment on above: Order Comment: Order Date: 02/06/25 Order Info: 785-07 - CMP Order Info: [id number] - LIPID Order Info: 3 - TSH Order Info: 0553-1 - FSHLH Performed By: #### L 501.9520, L501.9985, L3400.0200, L500.4050, L100.0100, L3100.5055, L500.4100 #### [facility] [address] [place], [place], [phone] (273) Potassium [Moles/Vol] 4.0 mmol/L Normal 3.3-5.1 [facility] Comment on above: Order Comment: Order Date: 02/06/25 Order Info: 86-1 - CMP Order Info: [id number] - LIPID Order Info: 3015-3 - TSH Order Info: 53-1 - FSHLH Performed By: #### L 501.9520, L501.9985, L3400.0200, L500.4050, L100.0100, L3100.5055, L500.4100 #### [facility] [address] [place], [address] Sodium [Moles/Vol] 138 mmol/L Normal 133-145 [facility] Comment on above: Order Comment: Order Date: 02/06/25 Order Info: 785- - CMP Order Info: - LIPID Order Info: [id number] - TSH Order Info: 53-1 - FSHLH Performed By: #### L 501.9520, L501.9985, L3400.0200, L500.4050, L100.0100, L3100.5055, L500.4100 #### [facility] [address] [place], [address] T BILI < 0.15 Normal 0.00-1.30 [facility] Comment on above: Order Comment: Order Date: 02/06/25 Order Info: 785- - CMP Order Info: [id number] - LIPID Order Info: 3015-3 - TSH Order Info: 53-1 - FSHLH Performed By: #### L 501.9520, L501.9985, L3400.0200, L500.4050, L100.0100, L3100.5055, L500.4100 #### [facility] [address] [place], [address] T PROT 7.3 g/dL Normal 5.9-8.4 [facility] Comment on above: Order Comment: Order Date: 02/06/25 Order Info: 785-07 - CMP Order Info: - LIPID Order Info: [id number] - TSH Order Info: 552-07 - FSHLH Performed By: #### L 501.9520, L501.9985, L3400.0200, L500.4050, L100.0100, L3100.5055, L500.4100 #### [facility] [address] [place], [address] Urea nitrogen [Mass/Vol] 10 mg/dL Normal - [facility] Comment on above: Order Comment: Order Date: 02/06/25 Order Info: 785-07 - CMP Order Info: - LIPID Order Info: [id number] - TSH Order Info: 552-07 - FSHLH Performed By: #### L 501.9520, L501.9985, L3400.0200, L500.4050, L100.0100, L3100.5055, L500.4100 #### [facility] [address] [place], [address] Eosinophil percentageOrdered By: Matt Forrest on 02-06-2025 Eosinophils/100 WBC (Bld) 0.3 % 0-5 [facility] Erythrocyte distribution wid th ratioOrdered By: Matt Forrest on 02-06-2025 Erythrocyte distribution width (RBC) [Ratio] 13.4 % 11.6-14.6 [facility] Erythrocyte distribution wid th standard deviationOrdered By: Matt Forrest on 02-06-2025 Erythrocyte distribution width (RBC) [Ratio] 43.8 fl 35.1-43.9 [facility] FSH and LHon 02-06-2025 FSH 8.3 mIU/mL Normal [facility] Comment on above: Order Comment: Order Date: 02/06/25 Order Info: 0786 - CMP Order Info: [id number] - LIPID Order Info: [id number] - TSH Order Info: 552-07 - FSHLH Result Comment: FEMA LE: Follicular: 1.4 - 18.1 mIU/mL Midcycle: 3.4 - 33.4 mIU/mL Luteal: 1.5 - 9.1 mIU/mL Post Menopause: 23.0 - 116.3 mIU/mL MALE: 1.4 - 18.1 mIU/mL Performed By: #### L 501.9520, L501.9985, L3400.0200, L500.4050, L100.0100, L3100.5055, L500.4100 #### [facility] [address] [place], [address] LH 15.7 mIU/mL Normal [facility] Comment on above: Order Comment: Order Date: 02/06/25 Order Info: 0786-1 - CMP Order Info: [id number] - LIPID Order Info: 3016-3 - TSH Order Info: 0553-1 - FSHLH Result Comment: FEMA LE: Follicular: 1.9-12.5 mIU/mL Midcycle: 8.7-76.3 mIU/mL Luteal: 0.5-16.9 mIU/mL Post Menopause: 15.9-54.0 mIU/mL MALE: 20-70 Years: 1.5-9.3 mIU/mL >70 Years: 3.1-34.6 mIU/mL Performed By: #### L 501.9520, L501.9985, L3400.0200, L500.4050, L100.0100, L3100.5055, L500.4100 #### [facility] [address] [place], [place], [phone] Glomerular filtration rate ( GFR) estimation/1.73 sq m using serum, plasma, or whole bOrdered By: Matt Forrest on 02-06-2025 GFR/1.73 sq M.predicted among non-blacks MDRD (S/P/Bld) [Vol rate/Area] 113 mL/min/{1.73_m2} >60 [facility] Comment on above: mL/min/1.73m2 CKD-EP I Creatinine Equation (2020) Hematocrit Auto (Bld) [Volum e fraction]Ordered By: Matt Forrest on 02-06-2025 Hematocrit (Bld) [Volume fraction] 40.4 % 37-47 [facility] Hemoglobin A1con 02-06-2025 HbA1c (Bld) [Mass fraction] 5.5 % Normal <=5.6 [facility] Comment on above: Order Comment: Order Date: 02/06/25 Order Info: [id number] - A1C Result Comment: Norm al < 5.7 % Prediabetic 5.7 - 6.4 % Diabetic >or= 6.5 % Please note range changes. Performed By: #### L 501.9520, L501.9985, L3400.0200, L500.4050, L100.0100, L3100.5055, L500.4100 #### [facility] [address] [place] [place], [address] Hemoglobin A1c percentageOrd ered By: Matt Forrest on 02-06-2025 HbA1c (Bld) [Mass fraction] 5.5 % <5.7 [facility] Comment on above: Normal < 5.7 % Predi abetic 5.7 - 6.4 % Diabetic >or= 6.5 % Please note range changes. Hemoglobin measurementOrdere d By: Matt Forrest on 02-06-2025 Hemoglobin (Bld) [Mass/Vol] 13.1 g/dL 12.0-15.0 [facility] Immature granulocytes/100 WB C Auto (Bld)Ordered By: Matt Forrest on 02-06-2025 Immature granulocytes/100 WBC (Bld) 0.200 % 0.0-0.9 [facility] Comment on above: IG% - Immature Granu locytes (promyelocytes, myelocytes and metamyelocytes) > 1% indicates that a LEFT SHIFT is Present. LDL calc ser/plasOrdered By: Matt Forrest on 02-06-2025 Cholesterol in LDL [Mass/Vol] 208 mg/dL [facility] Comment on above: Usxwllzekz=409-675 m g/dL & Higher Agkn=175 mg/dL or greater LH ser/plasOrdered By: Chuck Forrest on 02-06-2025 Lutropin Qn 15.7 m[IU]/mL [facility] Comment on above: FEMALE:Follicular: 1 .9-12.5 mIU/mLMidcycle: 8.7-76.3 mIU/mLLuteal: 0.5-16.9 mIU/mLPost Menopause: 15.9-54.0 mIU/mLMALE:20-70 Years: 1.5-9.3 mIU/mL>70 Years: 3.1-34.6 mIU/mL Laboratory - Chemistry and C hemistry - challengeOrdered By: Matt Forrest on 02-06-2025 AST [Catalytic activity/Vol] 23 U/L <32 [facility] Lipid Profileon 02-06-2025 CHOL:HDL 4.74 Normal [facility] Comment on above: Order Comment: Order Date: 02/06/25 Order Info: 0786-1 - CMP Order Info: [id number] - LIPID Order Info: [id number] - TSH Order Info: 0553-1 - FSHLH Performed By: #### L [id number], L501.9985, L3400.0200, L500.4050, L100.0100, L3100.5055, L500.4100 #### [facility] [address] [place], [address] Cholesterol [Mass/Vol] 288 mg/dL High <=200 [facility] Comment on above: Order Comment: Order Date: 02/06/25 Order Info: [id number] - CMP Order Info: [id number] - LIPID Order Info: 3 - TSH Order Info: 0553-1 - FSHLH Result Comment: Chol esterol level, Desirable <200 mg/dL Borderline high cholesterol 200-239 mg/dL High cholesterol >=240 mg/dL Recommendations of the NCEP Adult Treatment Panel for the following risk-cutoff thresholds for the [place] Stateless population. Performed By: #### L [id number], L501.9985, L3400.0200, L500.4050, L100.0100, L3100.5055, L500.4100 #### [facility] [address] [place], [address] Cholesterol in HDL [Mass/Vol] 61 mg/dL Normal [facility] Comment on above: Order Comment: Order Date: 02/06/25 Order Info: [id number] - CMP Order Info: - LIPID Order Info: [id number] - TSH Order Info: [id number] - FSHLH Result Comment: Misty onal Cholesterol Education Program (NCEP) guidelines: <40 mg/dL: Low HDL-cholesterol (major risk factor for CHD) >= 60 mg/dL: High HDL-cholesterol (negative risk factor for CHD) HDL-cholesterol is affected by a number of factors, e.g. smoking, exercise, hormones, sex and age. Performed By: #### L [id number], L501.9985, L3400.0200, L500.4050, L100.0100, L3100.5055, L500.4100 #### [facility] [address] [place], [address] Cholesterol in LDL [Mass/Vol] 208 mg/dL Normal [facility] Comment on above: Order Comment: Order Date: 02/06/25 Order Info: [id number] - CMP Order Info: - LIPID Order Info: [id number] - TSH Order Info: [id number] - FSHLH Result Comment: Bord arjxpk=277-788 mg/dL Higher Unpw=806 mg/dL or greater Performed By: #### L [id number], L501.9985, L3400.0200, L500.4050, L100.0100, L3100.5055, L500.4100 #### [facility] [address] [place], [place], [id number] (925) Cholesterol in VLDL [Mass/Vol] 20 mg/dL Normal 5-40 [facility] Comment on above: Order Comment: Order Date: 02/06/25 Order Info: [id number] - CMP Order Info: - LIPID Order Info: [id number] - TSH Order Info: [id number] - FSHLH Performed By: #### L [id number], L501.9985, L3400.0200, L500.4050, L100.0100, L3100.5055, L500.4100 #### [facility] [address] [place], [place], [address] Triglyceride [Mass/Vol] 99 mg/dL Normal [facility] Comment on above: Order Comment: Order Date: 02/06/25 Order Info: [id number] - CMP Order Info: [id number] - LIPID Order Info: [id number] - TSH Order Info: [id number] - FSHLH Result Comment: The drugs N-Acetylcysteine and Metamizole may falsely depress this assay. Normal range: <150 mg/dL Borderline High: 150-199 mg/dL High: 200-499 mg/dL Very High: >500 mg/dL Performed By: #### L [id number], L501.9985, L3400.0200, L500.4050, L100.0100, L3100.5055, L500.4100 #### [facility] [address] [place], [address] MCV (mean corpuscular volume ) determinationOrdered By: Matt Forrest on 02-06-2025 MCV (RBC) [Entitic vol] 88.8 fL 81-99 [facility] Mean corpuscular hemoglobin (MCH) determinationOrdered By: Matt Forrest on 02-06-2025 MCH (RBC) [Entitic mass] 28.8 pg 27.0-32.0 [facility] Mean corpuscular hemoglobin concentration (MCHC) determinationOrdered By: Matt Forrest on 02-06-2025 MCHC (RBC) [Mass/Vol] 32.4 g/dL 32-36 [facility] Mean platelet volume determi nationOrdered By: Matt Forrest on 02-06-2025 Platelet mean volume (Bld) [Entitic vol] 9.2 fL 6.2-12.0 [facility] Monocyte percentageOrdered B y: Matt Forrest on 02-06-2025 Monocytes/100 WBC (Bld) 4.8 % 0-10 [facility] Neutrophil percentageOrdered By: Matt Forrest on 02-06-2025 Neutrophils/100 WBC (Bld) 73.8 % High 47-70 [facility] Nucleated red blood cell per centageOrdered By: Matt Forrest on 02-06-2025 Nucleated RBC/100 WBC (Bld) [Ratio] 0 % 0-5 [facility] Platelet countOrdered By: Ravindra Forrest on 02-06-2025 Platelets (Bld) [#/Vol] 374 10*3/uL 150-450 [facility] Potassium measurement (mass/ volume)Ordered By: Matt Forrest on 02-06-2025 Potassium (Unsp spec) [Mass/Vol] 4.0 mmol/L 3.3-5.1 [facility] RBC Auto (Bld) [#/Vol]Ordere d By: Matt Forrest on 02-06-2025 RBC (Bld) [#/Vol] 4.55 10*6/uL 4.2-5.4 [facility] Screening total cholesterol/ high density lipoprotein (HDL) cholesterol ratioOrdered By: Matt Forrest on 02-06-2025 Cholesterol.total/Cholest gordo in HDL [Mass ratio] 4.74 {ratio} [facility] Serum creatinine measurement (mass/volume)Ordered By: Matt Forrest on 02-06-2025 Creatinine [Mass/Vol] 0.68 mg/dL Low 0.70-1.20 [facility] Serum globulin measurementOr dered By: Matt Forrest on 02-06-2025 Globulin (S) [Mass/Vol] 2.9 g/dL 2.2-4.2 [facility] Serum glucose measurement (m ass/volume)Ordered By: Matt Forrest on 02-06-2025 Glucose [Mass/Vol] 90 mg/dL 70-99 [facility] Serum or plasma alanine hu otransferase (ALT) measurementOrdered By: Matt Forrest on 02-06-2025 ALT [Catalytic activity/Vol] 19 U/L <35 [facility] Serum or plasma albumin taiwo urement (mass/volume)Ordered By: Matt Forrest on 02-06-2025 Albumin [Mass/Vol] 4.3 g/dL 3.5-5.0 [facility] Serum or plasma albumin/glob ulin mass ratioOrdered By: Matt Forrest on 02-06-2025 Albumin/Globulin [Mass ratio] 1.5 {ratio} 0.9-2.4 [facility] Serum or plasma alkaline hailey sphatase measurementOrdered By: Matt Forrest on 02-06-2025 ALP [Catalytic activity/Vol] 124 U/L High 35-104 [facility] Serum or plasma calcium taiwo urement (mass/volume)Ordered By: Matt Forrest on 02-06-2025 Calcium [Mass/Vol] 9.2 mg/dL 7.6-11.0 [facility] Serum or plasma cholesterol in HDL measurement (mass/volume)Ordered By: Matt Forrest on 02-06-2025 Cholesterol in HDL [Mass/Vol] 61 mg/dL >40 [facility] Comment on above: National Cholesterol Education Program (NCEP) guidelines:<40 mg/dL: Low HDL-cholesterol (major risk factor for CHD)>= 60 mg/dL: High HDL-cholesterol (negative risk factor for CHD)HDL-cholesterol is affected by a number of factors, e.g. smoking, exercise, hormones, sex and age. Serum or plasma cholesterol measurement (mass/volume)Ordered By: Matt Forrest on 02-06-2025 Cholesterol [Mass/Vol] 288 mg/dL High <201 [facility] Comment on above: Cholesterol level, D esirable <200 mg/dLBorderline high cholesterol 200-239 mg/dLHigh cholesterol >=240 mg/dLRecommendations of the NCEP Adult Treatment Panel for the following risk-cutoff thresholds for the [place] Stateless population. Serum or plasma estrogen romaine surement (mass/volume)Ordered By: Matt Forrest on 02-06-2025 Estrogen [Mass/Vol] 265 pg/mL . [facility] Comment on above: Prepubertal < 40 Fem jaqueline Cycle: 1-10 Days 16 - 328 11-20 Days 34 - 501 21-30 Days 48 - 350 Post-Menopausal 40 - 244Performed at: [facility] [id number] Director: Pj Rivera MD, Phone: [phone] Serum or plasma urea nitroge n measurement (mass/volume)Ordered By: Matt Forrest on 02-06-2025 Urea nitrogen [Mass/Vol] 10 mg/dL 4-19 [facility] Sodium levelOrdered By: Breezy Forrest on 02-06-2025 Sodium [Moles/Vol] 138 mmol/L 133-145 [facility] TSH DL <= 0.005 mIU/L QnOrde red By: Matt Forrest on 02-06-2025 TSH Qn 4.660 uIU/mL High 0.300-4.200 [facility] Thyroid Stim Hormone (TSH)on 02-06-2025 TSH 4.660 uIU/mL High 0.300-4.200 [facility] Comment on above: Order Comment: Order Date: 02/06/25 Order Info: [id number] - CMP Order Info: - LIPID Order Info: [id number] - TSH Order Info: [id number] - FSHLH Performed By: #### L [id number], L501.9985, L3400.0200, L500.4050, L100.0100, L3100.5055, L500.4100 #### [facility] [address] [place], [place], [address] Total proteinOrdered By: Lynda Forrest on 02-06-2025 Protein [Mass/Vol] 7.3 g/dL 5.9-8.4 [facility] Triglycerides measurementOrd ered By: Matt Forrest on 02-06-2025 Triglyceride [Mass/Vol] 99 mg/dL <199 [facility] Comment on above: The drugs N-Acetylcy steine and Metamizole may falsely depress this assay. Normal range: <150 mg/dLBorderline High: 150-199 mg/dLHigh: 200-499 mg/dLVery High: >500 mg/dL Vitamin B12on 02-06-2025 Cobalamin (Vitamin B12) [Mass/Vol] 527 pg/mL Normal 180-914 [facility] Comment on above: Order Comment: Order Date: 02/06/25 Order Info: [id number] - CMP Order Info: - LIPID Order Info: [id number] - TSH Order Info: [id number] - FSHLH Performed By: #### L 506.1001, L503.0106 #### [facility] [address] [place], [place], [address] Vitamin B12 ser/plasOrdered By: Matt Forrest on 02-06-2025 Cobalamin (Vitamin B12) [Mass/Vol] 527 pg/mL 180-914 [facility] Vitamin D,25 Hydroxyon 02-06 Vitamin D 25-OH 33.8 ng/mL Normal 30-100 [facility] Comment on above: Order Comment: Order Date: 02/06/25 Order Info: [id number] - CMP Order Info: [id number] - LIPID Order Info: [id number] - TSH Order Info: [id number] - FSHLH Result Comment: Corina min D Status Deficiency: <20 ng/mL (50nmol/L) Insufficiency: 20-30 ng/mL (50-75 nmol/L) Sufficiency: 30-100 ng/mL (75-250 nmol/L) Toxicity: >100 ng/mL (>250 nmol/L) Performed By: #### L 506.1001, L503.0106 #### [facility] [address] [place], [place], [address] White blood cell (WBC) count Ordered By: Matt Forrest on 02-06-2025 WBC (Bld) [#/Vol] 9.5 10*3/uL 4.4-11.0 [facility] CHELSEA WYMAN ([id number]) 1985 F CHT Date Time Provider Department 01/09/25 MAI DAVIS During your visit today, we recorded the following information about you: Jeannie Candelario MA 01/09/2025 6:20 AM Signed Tramadol 50mg Pa approved via [facility] Prior authorization approved [facility] Note from payer: Approved. Approval Details Authorized from December 08, 2024 to July 10, 2025 Electronic appeal: Not supported Jeannie Candelario MA January 09, 2025 6:20 AM Allergies As of Date: 01/09/2025 Noted Allergy Reaction CODEINE 08/02/2015 7 - Swelling PENICILLINS 06/16/2005 11 - Vomiting SEPTRA (SULFAMETHOXAZOLE-T RIMETHO*06/16/2005 Comments: faint, dizziness SULFAMETHOXAZOLE 08/03/2018 16 - Unknown Date Reviewed: 01/08/2025 Reviewed by: Mai Davis APRN.METAL FLOW COORDINATOR - Fully Assessed Reason for Visit: tramadol PA approval [Other] Prescriptions as of 01/09/2025 - traMADol (ULTRAM) 50 mg tablet Take 1 tablet by mouth as directed for 30 days. q4-6 hr prn max 5 day Patient should start on January 16, 2025. - baclofen 20 mg tablet Take 1 tablet by mouth three times a day as needed. - cefdinir (OMNICEF) 300 mg capsule Take 1 capsule by mouth every 12 hours. - rosuvastatin (CRESTOR) 5 mg tablet - lidocaine (LIDODERM) 5 % Apply to affected area. - loratadine (CLARITIN) 10 mg tablet Take by mouth. - piroxicam (FELDENE) 10 mg capsule Take by mouth. - levothyroxine (SYNTHROID) 50 mcg tablet Take 50 mcg by mouth once daily. 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] 06/24/2015 Sacroiliac joint dysfunction [M53.3] 04/04/2017 Opioid dependence (HCC) [F11.20] 06/24/2015 Nausea, vomiting, and diarrhea [R11.2, R19.7] 10/18/2022 Encounter for therapeutic drug level monitoring*07/31/19 17 Chronic tension headache [G44.229] 08/02/2015 Chest wall pain [R07.89] 10/18/2022 Arthropathy of cervical facet joint [M47.812] 02/28/2023 Neck pain [M54.2] 10/11/2023 Chronic pain syndrome [G89.4] 01/01/2024 Spinal stenosis of cervical region [M48.02] 01/01/2024 DDD (degenerative disc disease), cervical [M50.*01/01/2024 Radiculopathy, cervical region [M54.12] 01/01/2024 Encounter Status:Closed by JEANNIE CANDELARIO on 01/09/25 [facility] CNPN Telephone (NEAL) ---- CHELSEA WYMAN ([id number]) 1985 F T Date Time Provider Department 01/09/25 MAI DAVIS During your visit today, we recorded the following information about you: Shayna Rodas RN 01/09/2025 1:46 PM Signed Returned call to pt from [facility] careline message requesting call back about pharmacy: Pt states that [facility] in [place] is closing on 01-16-25. Pt requests tramadol 'script be sent to [facility] in [place]. Please resend 'script. Thank you, Shayna Rodas RN January 09, 2025 1:46 PM Danielle Mitchell PA-C 01/09/2025 4:11 PM Signed Prescription sent to the [facility]. Please cancel the prescription at [facility] Thanks Clare Carmona RN 01/12/2025 12:39 PM Signed Called and cancelled script at [facility] Clare Carmona RN Allergies As of Date: 01/09/2025 Noted Allergy Reaction CODEINE 08/02/2015 7 - Swelling PENICILLINS 06/16/2005 11 - Vomiting SEPTRA (SULFAMETHOXAZOLE-T RIMETHO*06/16/2005 Comments: faint, dizziness SULFAMETHOXAZOLE 08/03/2018 16 - Unknown Date Reviewed: 01/08/2025 Reviewed by: Mai Davis APRN.METAL FLOW COORDINATOR - Fully Assessed Reason for Visit: Patient Update [1234] Medication Problem [65] Visit Diagnosis:Chronic pain syndrome [G89.4] Order(s):[START ON 01/16/2025] traMADol (ULTRAM) 50 mg tabletTake 1 tablet by mouth as directed for 30 days. q4-6 hr prn max 5 day Patient should start on January 16, 2025.Disp: 150 tabletRfl: 2 Prescriptions as of 01/12/2025 - traMADol (ULTRAM) 50 mg tablet Take 1 tablet by mouth as directed for 30 days. q4-6 hr prn max 5 day Patient should start on January 16, 2025. - baclofen 20 mg tablet Take 1 tablet by mouth three times a day as needed. - cefdinir (OMNICEF) 300 mg capsule Take 1 capsule by mouth every 12 hours. - rosuvastatin (CRESTOR) 5 mg tablet - lidocaine (LIDODERM) 5 % Apply to affected area. - loratadine (CLARITIN) 10 mg tablet Take by mouth. - piroxicam (FELDENE) 10 mg capsule Take by mouth. - levothyroxine (SYNTHROID) 50 mcg tablet Take 50 mcg by mouth once daily. 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] 06/24/2015 Sacroiliac joint dysfunction [M53.3] 04/04/2017 Opioid dependence (HCC) [F11.20] 06/24/2015 Nausea, vomiting, and diarrhea [R11.2, R19.7] 10/18/2022 Encounter for therapeutic drug level monitoring*07/31/19 17 Chronic tension headache [G44.229] 08/02/2015 Chest wall pain [R07.89] 10/18/2022 Arthropathy of cervical facet joint [M47.812] 02/28/2023 Neck pain [M54.2] 10/11/2023 Chronic pain syndrome [G89.4] 01/01/2024 Spinal stenosis of cervical region [M48.02] 01/01/2024 DDD (degenerative disc disease), cervical [M50.*01/01/2024 Radiculopathy, cervical region [M54.12] 01/01/2024 Prescriptions ordered this encounter Disp Refills Start End TRAMADOL 50 MG TABLET 150 * 2 01/16/2025 02/15/2025 Route: PO Sig: Take 1 tablet by mouth as directed for 30 days. q4-6 hr prn max 5 day Patient should start on January 16, 2025. Medications Discontinued During This Encounter Prescriptions - traMADol (ULTRAM) 50 mg tablet (Discontinued) Take 1 tablet by mouth as directed for 30 days. q4-6 hr prn max 5 day Patient should start on January 16, 2025. Encounter Status:Closed by CLARE CARMONA on 01/12/25 [facility] Marielena 01-08-2025 CNOV Office Visit (NEAL) ---- CHELSEA WYMAN ([id number]) 1985 F CHT Date Time Provider Department 01/08/25 1:00 PM MAI DAVIS During your visit today, we recorded the following information about you: Pulse Blood pressure 75/minute 118/73 Mai Davis APRN.[facility] 01/08/2025 1:42 PM Signed Chief Complaint: Pain History of Present Illness: Chelsea Wyman is a 39 year old year old female being seen at [facility] [place] for a evaluation and/or management of their chronic pain. She states that since the last visit symptoms have been persistent. I last saw this patient in September 2024. The plan following her appointment with me was for her to undergo a C6-C7 cervical epidural injection. This procedure was scheduled for her to undergo in November 2024 however the patient then canceled this procedure. Patient reports she had 60% improvement in pain following the cervical epidural in February 2024. Patient had this improvement for greater than 3 months. Patient reports that her neck pain was a 10/10 and improved to 4/10 for greater than 3 months. Patient reports her neck pain rains well controlled. Patient denies any weakness in bilateral upper extremities. Patient denies any imbalance. Patient reports she is currently having right posterior hip pain. She reports she has undergone right SI joint injections in the past with greater than 50% improvement for greater than 3 months. Patient reports the right posterior hip pain is a 3/10 but it gets much worse at times. Patient has been evaluated by neurosurgery. No surgical intervention is recommended at this time regarding her neck . Patient is currently also being treated with tramadol and baclofen. Patient is taking these medications without any side effects. Patient reports that the medications are effective in treating her pain. Last UDS: Reviewed, consistent. Summary Report Date Value Ref Range Status 05/28/2024 FINAL Final Comment: Tramadol, MS, Ur RFX ToxAssure Flex 23, Ur Test Result Flag Units Drug Present Tramadol >2463 ng/mg creat O-Desmethyltramadol >2463 ng/mg creat N-Desmethyltramadol >2463 ng/mg creat Source of tramadol is a prescription medication. O-desmethyltramadol and N-desmethyltramadol are expected metabolites of tramadol. Test Result Flag Units Ref Range Creatinine 203 mg/dL >=20 Declared Medications: Medication list was not provided. For clinical consultation, please call . Lab Results Component Value Date SUMM FINAL 05/28/2024 No results found for: [facility] checked and validated. OARRS report reviewed on 01/08/2025 by Mai Davis APRN.[facility] and is consistent with the patients medical history and medication intake. ROS: Review of Systems Constitutional: Negative. Cardiovascular: Negative. Respiratory: Negative. Musculoskeletal: Positive for neck pain and stiffness. Neurological: Negative. Psychiatric/Behavio ral: Negative. 10/09/2024 01/08/2025 Pain Disability Index Family/Home Responsibilities: This category includes chores or duties performed around the house (e.g. yard work), errands or favors for other family members (e.g. driving the children to school) 7 6 Recreation: This category includes hobbies, sports, and other similar leisure time activities 4 3 Social Activity: This category refers to activities which involve participation with friends and acquaintances, other than family members. It includes parties, theater, concerts, dinning out, and other social functions 0 No disability 0 No disability Occupation: This category refers to activities that are a part of or directly related to ones' job. This includes non-paying jobs as well, such as that of a housewife or volunteer worker 7 8 Sexual Behavior: This category refers to the frequency and quality of one's sex life 0 No disability 2 Self Care: This category includes activities which involve personal maintenance and independent daily living (e.g. taking a shower, driving, getting dress, etc) 0 No disability 0 No disability Life Support Activity: This category refers to basic-life supporting behaviors such as eating, sleeping, and breathing 3 0 No disability PDI Score 21 19 PAST MEDICAL HISTORY Diagnosis Date (more content not included)... [facility] Alvin 01-08-2025 JEREMI Telephone (NEAL) ---- CHELSEA WYMAN ([id number]) 1985 F T Date Time Provider Department 01/08/25 MAI DAVIS During your visit today, we recorded the following information about you: eJannie Candelario MA 01/08/2025 2:38 PM Signed Pa submitted via [email or web address] for tramadol Jeannie Candelario MA January 08, 2025 2:38 PM Allergies As of Date: 01/08/2025 Noted Allergy Reaction CODEINE 08/02/2015 7 - Swelling PENICILLINS 06/16/2005 11 - Vomiting SEPTRA (SULFAMETHOXAZOLE-T RIMETHO*06/16/2005 Comments: faint, dizziness SULFAMETHOXAZOLE 08/03/2018 16 - Unknown Date Reviewed: 01/08/2025 Reviewed by: Mai Davis, CLASSROOM TECHNOLOGY COACH.METAL FLOW COORDINATOR - Fully Assessed Reason for Visit: pa submitted tramadol [Other] Prescriptions as of 01/08/2025 - traMADol (ULTRAM) 50 mg tablet Take 1 tablet by mouth as directed for 30 days. q4-6 hr prn max 5 day Patient should start on January 16, 2025. - baclofen 20 mg tablet Take 1 tablet by mouth three times a day as needed. - cefdinir (OMNICEF) 300 mg capsule Take 1 capsule by mouth every 12 hours. - rosuvastatin (CRESTOR) 5 mg tablet - lidocaine (LIDODERM) 5 % Apply to affected area. - loratadine (CLARITIN) 10 mg tablet Take by mouth. - piroxicam (FELDENE) 10 mg capsule Take by mouth. - levothyroxine (SYNTHROID) 50 mcg tablet Take 50 mcg by mouth once daily. 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] 06/24/2015 Sacroiliac joint dysfunction [M53.3] 04/04/2017 Opioid dependence (HCC) [F11.20] 06/24/2015 Nausea, vomiting, and diarrhea [R11.2, R19.7] 10/18/2022 Encounter for therapeutic drug level monitoring*07/31/19 17 Chronic tension headache [G44.229] 08/02/2015 Chest wall pain [R07.89] 10/18/2022 Arthropathy of cervical facet joint [M47.812] 02/28/2023 Neck pain [M54.2] 10/11/2023 Chronic pain syndrome [G89.4] 01/01/2024 Spinal stenosis of cervical region [M48.02] 01/01/2024 DDD (degenerative disc disease), cervical [M50.*01/01/2024 Radiculopathy, cervical region [M54.12] 01/01/2024 Encounter Status:Closed by JEANNIE CANDELARIO on 01/08/25 [facility] Marielena 10-09-2024 [facility] Office Visit (NEAL) ---- CHELSEA WYMAN ([id number]) 1985 F T Date Time Provider Department 10/09/24 9:30 AM MAI DAVIS During your visit today, we recorded the following information about you: Pulse Blood pressure 95/minute 129/84 Mai Davis, CLASSROOM TECHNOLOGY COACH.METAL FLOW COORDINATOR 10/09/2024 10:05 AM Signed Chief Complaint: Pain History of Present Illness: Chelsea Wyman is a 39 year old year old female being seen at [facility] for a evaluation and/or management of their chronic pain. She states that since the last visit symptoms have been improving. I last saw this patient in May 2024. The plan following her appointment with me was for her to undergo a C6-C7 cervical epidural injection on as needed basis for the management of cervical radicular symptoms. Patient reports she had 60% improvement in pain following the cervical epidural in February 2024. Patient had this improvement for greater than 3 months. Patient reports that her neck pain was a 10/10 and improved to 4/10 for greater than 3 months. Reports that pain is now starting to recur. Patient reports that she is having neck pain that radiates into bilateral upper extremities. Patient denies any weakness in bilateral upper extremities. Patient denies any imbalance. Following the last office visit the patient did get evaluated by neurosurgery for her neck pain. No surgical intervention is recommended at this time Patient is currently also being treated with tramadol and baclofen. Patient is taking these medications without any side effects. Patient reports that the medications are effective in treating her pain. Last UDS: Reviewed, consistent. Summary Report Date Value Ref Range Status 05/28/2024 FINAL Final Comment: Tramadol, MS, Ur RFX ToxAssure Flex 23, Ur Test Result Flag Units Drug Present Tramadol >2463 ng/mg creat O-Desmethyltramadol >2463 ng/mg creat N-Desmethyltramadol >2463 ng/mg creat Source of tramadol is a prescription medication. O-desmethyltramadol and N-desmethyltramadol are expected metabolites of tramadol. Test Result Flag Units Ref Range Creatinine 203 mg/dL >=20 Declared Medications: Medication list was not provided. For clinical consultation, please call . Lab Results Component Value Date SUMM FINAL 05/28/2024 No results found for: [place] PDMP website checked and validated. OARRS report reviewed on 10/09/2024 by Mai Davis APRN.CNP and is consistent with the patients medical history and medication intake. ROS: Review of Systems Constitutional: Negative. Cardiovascular: Negative. Respiratory: Negative. Musculoskeletal: Positive for neck pain and stiffness. Neurological: Negative. Psychiatric/Behavio ral: Negative. 05/28/2024 10/09/2024 Pain Disability Index Family/Home Responsibilities: This category includes chores or duties performed around the house (e.g. yard work), errands or favors for other family members (e.g. driving the children to school) 10 Total Disability 7 Recreation: This category includes hobbies, sports, and other similar leisure time activities 10 Total disability 4 Social Activity: This category refers to activities which involve participation with friends and acquaintances, other than family members. It includes parties, theater, concerts, dinning out, and other social functions 10 Total disability 0 No disability Occupation: This category refers to activities that are a part of or directly related to ones' job. This includes non-paying jobs as well, such as that of a housewife or volunteer worker 10 Total disability 7 Sexual Behavior: This category refers to the frequency and quality of one's sex life 0 No disability 0 No disability Self Care: This category includes activities which involve personal maintenance and independent daily living (e.g. taking a shower, driving, getting dress, etc) 0 No disability 0 No disability Life Support Activity: This category refers to basic-life supporting behaviors such as eating, sleeping, and breathing 8 3 PDI Score 48 21 PAST MEDICAL HISTORY Diagnosis Date Anemia Arthritis Asthma Depression PAST SURGICAL HISTORY Procedure Laterality Date INJECTION right hip- numbing injection TUBAL LIGATI (more content not included)... [facility] 06-25-2024 JEREMI Telephone (NEAL) ---- CHELSEA WYMAN ([id number]) 1985 F [facility] Date Time Provider Department 06/25/24 CONNOR TORRES During your visit today, we recorded the following information about you: Cass Egan RN 06/25/2024 2:58 PM Signed Pre- Procedure Telephone Instructions Patient called to remind them of their appointment on 07/01/2024 with Patient instructed to arrive at 12:45 PM Spoke with: Patient Instructions given: 1. If you take insulin, contact your prescribing physician for specific instructions if adjustments need to be made. 2. Take routine medications, including heart, blood pressure, or seizure medications with water. 3. Are you currently taking Antibiotics: Yes or No 4. Please reschedule if you are ill, have an infection, a fever, or cannot make the appointment by calling [phone] (Option 5) Allergies As of Date: 06/25/2024 Noted Allergy Reaction CODEINE 08/02/2015 7 - Swelling PENICILLINS 06/16/2005 11 - Vomiting SEPTRA (SULFAMETHOXAZOLE-T RIMETHO*06/16/2005 Comments: faint, dizziness SULFAMETHOXAZOLE 08/03/2018 16 - Unknown Date Reviewed: 05/28/2024 Reviewed by: Michaela Ballesteros MA - Fully Assessed Prescriptions as of 06/25/2024 - traMADol (ULTRAM) 50 mg tablet Take 1 tablet by mouth as directed for 30 days. q4-6 hr prn max 5 day Patient should start on June 14, 2024. - baclofen 20 mg tablet Take 1 tablet by mouth three times a day as needed. - cefdinir (OMNICEF) 300 mg capsule Take 1 capsule by mouth every 12 hours. - rosuvastatin (CRESTOR) 5 mg tablet - lidocaine (LIDODERM) 5 % Apply to affected area. - loratadine (CLARITIN) 10 mg tablet Take by mouth. - piroxicam (FELDENE) 10 mg capsule Take by mouth. - levothyroxine (SYNTHROID) 50 mcg tablet Take 50 mcg by mouth once daily. 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] 06/24/2015 Sacroiliac joint dysfunction [M53.3] 04/04/2017 Opioid dependence (HCC) [F11.20] 06/24/2015 Nausea, vomiting, and diarrhea [R11.2, R19.7] 10/18/2022 Encounter for therapeutic drug level monitoring*07/31/19 17 Chronic tension headache [G44.229] 08/02/2015 Chest wall pain [R07.89] 10/18/2022 Arthropathy of cervical facet joint [M47.812] 02/28/2023 Neck pain [M54.2] 10/11/2023 Chronic pain syndrome [G89.4] 01/01/2024 Spinal stenosis of cervical region [M48.02] 01/01/2024 DDD (degenerative disc disease), cervical [M50.*01/01/2024 Radiculopathy, cervical region [M54.12] 01/01/2024 Encounter Status:Closed by CASS EGAN on 06/25/24 [facility] 06-10-2024 JEREMI Telephone (NEAL) ---- CHELSEA WYMAN ([id number]) 1985 F [facility] Date Time Provider Department 06/10/24 CONNOR TORRES During your visit today, we recorded the following information about you: Mirna Ralph, RN 06/10/2024 11:29 AM Signed Pre- Procedure Telephone Instructions Patient called to remind them of their appointment on 06/17/2024 with Patient instructed to arrive at 1:00 Spoke with:Patient Instructions given: 1. If you take insulin, contact your prescribing physician for specific instructions if adjustments need to be made. 2. Take routine medications, including heart, blood pressure, or seizure medications with water. 3. Are you currently taking Antibiotics: Yes or No 4. Please reschedule if you are ill, have an infection, a fever, or cannot make the appointment by calling [phone] (Option 5) Mirna Ralph RN June 10, 2024 11:29 AM Allergies As of Date: 06/10/2024 Noted Allergy Reaction CODEINE 08/02/2015 7 - Swelling PENICILLINS 06/16/2005 11 - Vomiting SEPTRA (SULFAMETHOXAZOLE-T RIMETHO*06/16/2005 Comments: faint, dizziness SULFAMETHOXAZOLE 08/03/2018 16 - Unknown Date Reviewed: 05/28/2024 Reviewed by: Michaela Ballesteros MA - Fully Assessed Reason for Visit: Pre-procedure call [Other] Prescriptions as of 06/10/2024 - traMADol (ULTRAM) 50 mg tablet Take 1 tablet by mouth as directed for 30 days. q4-6 hr prn max 5 day Patient should start on June 14, 2024. - baclofen 20 mg tablet Take 1 tablet by mouth three times a day as needed. - cefdinir (OMNICEF) 300 mg capsule Take 1 capsule by mouth every 12 hours. - rosuvastatin (CRESTOR) 5 mg tablet - lidocaine (LIDODERM) 5 % Apply to affected area. - loratadine (CLARITIN) 10 mg tablet Take by mouth. - piroxicam (FELDENE) 10 mg capsule Take by mouth. - levothyroxine (SYNTHROID) 50 mcg tablet Take 50 mcg by mouth once daily. 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] 06/24/2015 Sacroiliac joint dysfunction [M53.3] 04/04/2017 Opioid dependence (HCC) [F11.20] 06/24/2015 Nausea, vomiting, and diarrhea [R11.2, R19.7] 10/18/2022 Encounter for therapeutic drug level monitoring*07/31/19 17 Chronic tension headache [G44.229] 08/02/2015 Chest wall pain [R07.89] 10/18/2022 Arthropathy of cervical facet joint [M47.812] 02/28/2023 Neck pain [M54.2] 10/11/2023 Chronic pain syndrome [G89.4] 01/01/2024 Spinal stenosis of cervical region [M48.02] 01/01/2024 DDD (degenerative disc disease), cervical [M50.*01/01/2024 Radiculopathy, cervical region [M54.12] 01/01/2024 Encounter Status:Closed by MIRNA RALPH on 06/10/24 [facility] Marielena 05-28-2024 [facility] Office Visit (NEAL) ---- CHELSEA WYMAN ([id number]) 1985 F [facility] Date Time Provider Department 05/28/24 1:30 PM MAI DAVIS During your visit today, we recorded the following information about you: Pulse Respiration Blood pressure Weight 82/minute 16/minute 124/86 88.2 kg Height 1.626 m Mai Davis, CLASSROOM TECHNOLOGY COACH.METAL FLOW COORDINATOR 05/28/2024 2:02 PM Signed Chief Complaint: Pain History of Present Illness: Chelsea Wyman is a 38 year old year old female being seen at [facility] for a evaluation and/or management of their chronic pain. She states that since the last visit symptoms have been improving. I last saw this patient in December 2023. I last saw this patient in February 2024. The plan following her appointment with me was for her to undergo a C7- T1 cervical epidural injection for the management of cervical radicular symptoms. Patient reports that since undergoing the cervical epidural that she is no longer experiencing radiation of the pain from her neck into her bilateral upper extremities. Patient reports she had 60% improvement in pain following the cervical epidural. Patient reports that her neck pain was a 10/10 and improved to 4/10. Patient reports that although the radicular symptoms into bilateral upper extremities have resolved since undergoing this an epidural that she is still experiencing significant amount of muscular soreness and tenderness of the cervical paraspinal muscles and shoulder stabilizer muscle groups bilaterally. Patient has undergone trigger point injections with steroids in the past and experienced significant proved in pain. Patient would like to undergo trigger point injections with steroids to the cervical paraspinals and shoulder stabilizer muscle groups. Patient does currently take tramadol and baclofen for chronic pain and tolerates this medication without any side effects. Patient reports this medication is partially effective. Following the last office visit the patient did get evaluated by neurosurgery for her neck pain. No surgical intervention is recommended at this time Last UDS: Reviewed, consistent. Summary Report Date Value Ref Range Status 10/10/2023 FINAL Final Comment: Tramadol, MS, Ur RFX Acetaminophen, MS, Ur RFX ToxAssure Flex 23, Ur Test Result Flag Units Drug Present Tramadol >11222 ng/mg creat O-Desmethyltramadol >06537 ng/mg creat N-Desmethyltramadol >97257 ng/mg creat Source of tramadol is a prescription medication. O-desmethyltramadol and N-desmethyltramadol are expected metabolites of tramadol. Acetaminophen PRESENT Test Result Flag Units Ref Range Creatinine 42 mg/dL >=20 Declared Medications: Medication list was not provided. For clinical consultation, please call . Lab Results Component Value Date SUMM FINAL 10/10/2023 No results found for: [place] PDMP website checked and validated. OARRS report reviewed on May by Mai Davis APRN.METAL FLOW COORDINATOR and is consistent with the patients medical history and medication intake. ROS: Review of Systems Constitutional: Negative. Cardiovascular: Negative. Respiratory: Negative. Musculoskeletal: Positive for neck pain and stiffness. Neurological: Negative. Psychiatric/Behavio ral: Negative. 07/25/2023 02/26/2024 Pain Disability Index Family/Home Responsibilities: This category includes chores or duties performed around the house (e.g. yard work), errands or favors for other family members (e.g. driving the children to school) 7 2 Recreation: This category includes hobbies, sports, and other similar leisure time activities 7 2 Social Activity: This category refers to activities which involve participation with friends and acquaintances, other than family members. It includes parties, theater, concerts, dinning out, and other social functions 7 2 Occupation: This category refers to activities that are a part of or directly related to ones' job. This includes non-paying jobs as well, such as that of a housewife or volunteer worker 0 No disability 2 Sexual Behavior: This category refers to the frequency and quality of one's sex life 7 2 Self Care: This category includes activities which involve personal maintenance and independent daily living (e.g. taking a shower, driving, getting dress, etc) 7 2 Life Support Ac (more content not included)... [facility] 05-28-2024 KEZIA Telephone (NEAL) ---- CHELSEA WYMAN ([id number]) 1985 [facility] Date Time Provider Department 05/28/24 MAI DAVIS During your visit today, we recorded the following information about you: José Manuel West MA 05/28/2024 1:56 PM Signed Tramadol pa sent through the hub. José Manuel West MA May 28, 2024 1:56 PM Allergies As of Date: 05/28/2024 Noted Allergy Reaction CODEINE 08/02/2015 7 - Swelling PENICILLINS 06/16/2005 11 - Vomiting SEPTRA (SULFAMETHOXAZOLE-T RIMETHO*06/16/2005 Comments: faint, dizziness SULFAMETHOXAZOLE 08/03/2018 16 - Unknown Date Reviewed: 05/28/2024 Reviewed by: Michaela Ballesteros MA - Fully Assessed Reason for Visit: tramadol pa [Other] Prescriptions as of 05/28/2024 - traMADol (ULTRAM) 50 mg tablet Take 1 tablet by mouth as directed for 30 days. q4-6 hr prn max 5 day Patient should start on June 14, 2024. - baclofen 20 mg tablet Take 1 tablet by mouth three times a day as needed. - cefdinir (OMNICEF) 300 mg capsule Take 1 capsule by mouth every 12 hours. - rosuvastatin (CRESTOR) 5 mg tablet - lidocaine (LIDODERM) 5 % Apply to affected area. - loratadine (CLARITIN) 10 mg tablet Take by mouth. - piroxicam (FELDENE) 10 mg capsule Take by mouth. - levothyroxine (SYNTHROID) 50 mcg tablet Take 50 mcg by mouth once daily. 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] 06/24/2015 Sacroiliac joint dysfunction [M53.3] 04/04/2017 Opioid dependence (HCC) [F11.20] 06/24/2015 Nausea, vomiting, and diarrhea [R11.2, R19.7] 10/18/2022 Encounter for therapeutic drug level monitoring*07/31/19 17 Chronic tension headache [G44.229] 08/02/2015 Chest wall pain [R07.89] 10/18/2022 Arthropathy of cervical facet joint [M47.812] 02/28/2023 Neck pain [M54.2] 10/11/2023 Chronic pain syndrome [G89.4] 01/01/2024 Spinal stenosis of cervical region [M48.02] 01/01/2024 DDD (degenerative disc disease), cervical [M50.*01/01/2024 Radiculopathy, cervical region [M54.12] 01/01/2024 Encounter Status:Closed by JOSÉ MANUEL WEST on 05/28/24 [facility] CNPN Telephone (NEAL) ---- CHELSEA WYMAN ([id number]) 1985 F [facility] Date Time Provider Department 05/28/24 MAI DAVIS During your visit today, we recorded the following information about you: Jeannie Candelario MA 05/28/2024 2:51 PM Signed Tramadol approved via [facility] Prior authorization approved Payer: [facility] Case ID: [id number] Note from payer: Approved. Approval Details Authorized from April 27, 2024 to November 25, 2024 Jeannie Candelario MA May 28, 2024 2:51 PM Allergies As of Date: 05/28/2024 Noted Allergy Reaction CODEINE 08/02/2015 7 - Swelling PENICILLINS 06/16/2005 11 - Vomiting SEPTRA (SULFAMETHOXAZOLE-T RIMETHO*06/16/2005 Comments: faint, dizziness SULFAMETHOXAZOLE 08/03/2018 16 - Unknown Date Reviewed: 05/28/2024 Reviewed by: Michaela Ballesteros MA - Fully Assessed Reason for Visit: tramadol approved [Other] Prescriptions as of 05/28/2024 - traMADol (ULTRAM) 50 mg tablet Take 1 tablet by mouth as directed for 30 days. q4-6 hr prn max 5 day Patient should start on June 14, 2024. - baclofen 20 mg tablet Take 1 tablet by mouth three times a day as needed. - cefdinir (OMNICEF) 300 mg capsule Take 1 capsule by mouth every 12 hours. - rosuvastatin (CRESTOR) 5 mg tablet - lidocaine (LIDODERM) 5 % Apply to affected area. - loratadine (CLARITIN) 10 mg tablet Take by mouth. - piroxicam (FELDENE) 10 mg capsule Take by mouth. - levothyroxine (SYNTHROID) 50 mcg tablet Take 50 mcg by mouth once daily. 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] 06/24/2015 Sacroiliac joint dysfunction [M53.3] 04/04/2017 Opioid dependence (HCC) [F11.20] 06/24/2015 Nausea, vomiting, and diarrhea [R11.2, R19.7] 10/18/2022 Encounter for therapeutic drug level monitoring*07/31/19 17 Chronic tension headache [G44.229] 08/02/2015 Chest wall pain [R07.89] 10/18/2022 Arthropathy of cervical facet joint [M47.812] 02/28/2023 Neck pain [M54.2] 10/11/2023 Chronic pain syndrome [G89.4] 01/01/2024 Spinal stenosis of cervical region [M48.02] 01/01/2024 DDD (degenerative disc disease), cervical [M50.*01/01/2024 Radiculopathy, cervical region [M54.12] 01/01/2024 Encounter Status:Closed by JEANNIE CANDELARIO on 05/28/24 [facility] MRI CERVICAL SPINE WO IVCONo n 02-06-2024 MRI CERVICAL SPINE WO IVCON * * *Final Report* * * DATE OF EXAM: Feb 06 2024 3:00PM LDM 0297 - MRI CERVICAL SPINE WO IVCON / PROCEDURE REASON: multiple diagnoses * * * * Physician Interpretation * * * * EXAMINATION: MRI CERVICAL SPINE WO IVCON CLINICAL HISTORY: Spinal stenosis of cervical region DDD (degenerative disc disease), cervical TECHNIQUE: Routine cervical spine MR protocol without gadolinium. MQ: [id number] COMPARISON: None. RESULT: Counting reference: Craniocervical junction. Anatomic Variants: None. Localizer images: Unremarkable. Alignment: There is straightening of the normal cervical spine curvature. Craniocervical junction: Craniocervical junction is normal. Cord: The visualized cord is within normal limits of signal intensity and morphology. Bone marrow signal/fracture: No evidence of pathologic marrow infiltration. No evidence of prior fracture. Cervical soft tissues: The paraspinal soft tissues are within normal limits. C2-3: The central canal is maintained. There is mild left foraminal stenosis secondary to facet and uncovertebral joint hypertrophy. The right neural foramen is patent. C3-4: There is mild facet hypertrophy. No significant central canal or foraminal stenosis. C4-5: Unremarkable. C5-6: There is a subtle disc bulge indenting the thecal sac. The central canal is maintained. There is mild to moderate left foraminal stenosis secondary to facet and uncovertebral joint hypertrophy. The right neural foramen is patent. C6-7: There is a disc bulge indenting the thecal sac. The central canal is maintained. Foramina widely patent. C7-T1: Unremarkable. IMPRESSION: Mild spondylosis resulting in foraminal narrowing of varying degrees as outlined above. No evidence of a focal disc herniation or high-grade central canal stenosis at any level. Intrinsic cord signal is normal. Anatomic Variant: None. Assume 7 cervical vertebrae with counting from the craniocervical junction. [employer] Accounts Supervisor: PSCB Transcribe Date/Time: Feb 07 2024 7:52A Dictated by : ANNE VYAS MD This examination was interpreted and the report reviewed and electronically signed by: ANNE VYAS MD on Feb 07 2024 7:54AM EST [id number] Normal [facility] Absolute lymphocyte countOrd ered By: Sania Pérez on 08-08-2023 Lymphocytes Auto (Unsp spec) [#/Vol] 2.38 10*3/uL 0.83-4.51 [facility] Automated lymphocyte count a s percentage of total leukocytesOrdered By: Sania Pérez on 08-08-2023 Lymphocytes/100 WBC Auto (Unsp spec) 31.4 % 19-41 [facility] Basophil percentageOrdered B y: Sania Pérez on 08-08-2023 Basophils/100 WBC (Bld) 0.8 % 0-1 [facility] Bilirubin [Mass/Vol] 0.20 mg/dL 0.20-1.00 [facility] Comment on above: For patients on eltr ombopag therapy, use of Dimension [place] TBIL is not recommended. Chloride [Moles/Vol] 107 mmol/L 98-107 [facility] Cholesterol [Mass/Vol] 271 mg/dL <200 [facility] Comment on above: <200 mg/dL Desirable 200-240 mg/dL Borderline >240 mg/dL High Risk Eosinophils/100 WBC (Bld) 0.9 % 0-5 [facility] Glucose [Mass/Vol] 75 mg/dL 74-106 [facility] Hemoglobin (Bld) [Mass/Vol] 13.1 g/dL 12.0-15.0 [facility] Monocytes/100 WBC (Bld) 5.9 % 0-10 [facility] Neutrophils (Bld) [#/Vol] 4.6 10*3/uL 2.0-7.7 [facility] Neutrophils/100 WBC (Bld) 60.9 % 47-70 [facility] Potassium [Moles/Vol] 4.0 mmol/L 3.5-5.1 [facility] Protein [Mass/Vol] 6.9 g/dL 6.4-8.2 [facility] Sodium [Moles/Vol] 139 mmol/L 136-145 [facility] Triglyceride [Mass/Vol] 115 mg/dL <199 [facility] Comment on above: The drugs N-Acetylcy steine and Metamizole may falsely depress this assay.Serum Triglycerides Reference Interval Normal <150 mg/dL Borderline high 150 - 199 mg/dL High 200 - 499 mg/dL Very High > or = 500 mg/dL WBC (Bld) [#/Vol] 7.6 10*3/uL 4.4-11.0 [facility] Determination of erythrocyte mean corpuscular volume (MCV)Ordered By: Sania Pérez on 08-08-2023 MCV (RBC) [Entitic vol] 92.9 fL 81-99 [facility] Erythrocyte distribution wid th ratioOrdered By: Sania Pérez on 08-08-2023 Erythrocyte distribution width (RBC) [Ratio] 13.4 % 11.6-14.6 [facility] Erythrocyte distribution wid th standard deviationOrdered By: Sania Pérez on 08-08-2023 Erythrocyte distribution width (RBC) [Entitic vol] 45.5 fL 35.1-43.9 [facility] Hematocrit Auto (Bld) [Volum e fraction]Ordered By: Sania Pérez on 08-08-2023 Hematocrit (Bld) [Volume fraction] 40.7 % 37-47 [facility] High density lipoprotein (HD L) measurementOrdered By: Sania Pérez on 08-08-2023 Cholesterol in HDL (Body fld) [Mass/Vol] 51 mg/dL >40 [facility] Comment on above: The drugs N-Acetylcy steine and Metamizole may falsely depress this assay. Reference Range HDL <40 mg/dL Low HDL Cholesterol HDL >or= 60 mg/dL High HDL Cholesterol Immature granulocytes/100 WB C Auto (Bld)Ordered By: Sania Pérez on 08-08-2023 Immature granulocytes/100 WBC (Bld) 0.100 % 0.0-0.9 [facility] Comment on above: IG% - Immature Granu locytes (promyelocytes, myelocytes and metamyelocytes) > 1% indicates that a LEFT SHIFT is Present. Laboratory - Chemistry and C hemistry - challengeOrdered By: Sania Pérez on 08-08-2023 Albumin/Globulin [Mass ratio] 1.0 {ratio} 0.9-2.4 [facility] ALP [Catalytic activity/Vol] 108 U/L 45-117 [facility] ALT [Catalytic activity/Vol] 21 U/L 13-56 [facility] CO2 [Moles/Vol] 27.0 mmol/L 21.0-32.0 [facility] Cobalamin (Vitamin B12) [Mass/Vol] 590 pg/mL 211-911 [facility] Ferritin [Mass/Vol] 29 ng/mL 8-252 [facility] Globulin (S) [Mass/Vol] 3.5 g/dL 2.2-4.2 [facility] Magnesium [Mass/Vol] 2.0 mg/dL 1.6-2.6 [facility] Urea nitrogen/Creatinine [Mass ratio] 14.6 mg/mg 10-20 [facility] Laboratory - Hematology and Cell countsOrdered By: Sania Pérez on 08-08-2023 MCH (RBC) [Entitic mass] 29.9 pg 27.0-32.0 [facility] MCHC (RBC) [Mass/Vol] 32.2 g/dL 32-36 [facility] Nucleated RBC/100 WBC (Bld) [Ratio] 0 % 0-5 [facility] Platelets (Bld) [#/Vol] 344 10*3/uL 150-450 [facility] Low density lipoprotein (LDL ) cholesterol measurementOrdered By: Sania Pérez on 08-08-2023 Cholesterol in LDL (Body fld) [Moles/Vol] 197 mg/dL 0-130 [facility] No Panel InformationOrdered By: Sania Pérez on 08-08-2023 Estimated GFR (MDRD) Amer 124 mL/min >60 [facility] Comment on above: GFR Calc Estimated GFR (MDRD) Non-Af Amer 102 mL/min >60 [facility] Comment on above: Non- GFR Calc Vitamin D 25-Hydroxy 42.4 ng/mL [facility] Comment on above: Vitamin D 25(OH) Sta tus Range Deficiency <20 ng/mL (50nmol/L) Insufficiency 20 - 30 ng/mL (50 - 75 nmol/L) Sufficiency 30 - 100 ng/mL (75 - 250 nmol/L) Toxicity >100 ng/mL (>250 nmol/L) Platelet mean volume Nick-Ec ker (Bld) [Entitic vol]Ordered By: Sania Pérez on 08-08-2023 Platelet mean volume (Bld) [Entitic vol] 9.3 fL 6.2-12.0 [facility] RBC Auto (Bld) [#/Vol]Ordere d By: Sania Pérez on 08-08-2023 RBC (Bld) [#/Vol] 4.38 10*6/uL 4.2-5.4 [facility] Serum or plasma calcium taiwo urement (mass/volume)Ordered By: Sania Pérez on 08-08-2023 Calcium [Mass/Vol] 8.9 mg/dL 8.5-10.1 [facility] Serum or plasma creatinine m easurement (mass/volume)Ordered By: Sania Pérez on 08-08-2023 Creatinine [Mass/Vol] 0.68 mg/dL 0.55-1.02 [facility] Comment on above: The validity of the calculated GFR & GFRAA in patients over 70 years has not been determined. Clinical correlation is essential. Serum or plasma thyroid stim ulating hormone (TSH) measurement (units/volume)Ordered By: Sania Pérez on 08-08-2023 TSH Qn 2.53 uIU/mL 0.358-3.74 [facility] Serum or plasma urea nitroge n measurement (mass/volume)Ordered By: Sania Pérez on 08-08-2023 Urea nitrogen [Mass/Vol] 10 mg/dL 7-18 [facility] Thin prep Papanicolaou smear with manual screeningOrdered By: Sania Pérez on 08-08-2023 Thin prep Papanicolaou smear with manual screening 3.4 g/dL 3.2-5.0 [facility] Thin prep Papanicolaou smear with manual screening 18 U/L 15-37 [facility] Thin prep Papanicolaou smear with manual screening 5 5-15 [facility] Thin prep Papanicolaou smear with manual screening 0.78 ng/dL 0.76-1.46 [facility] Very low density lipoprotein (VLDL) cholesterol measurementOrdered By: Sania Pérez on 08-08-2023 Cholesterol in VLDL Calc [Moles/Vol] 23 mg/dL 5-40 [facility] Whole blood hemoglobin A1c/t otal hemoglobin ratio (mass fraction)Ordered By: Sania Pérez on 08-08-2023 HbA1c (Bld) [Mass fraction] 5.2 % 3.8-5.6 [facility] Comment on above: Normal < 5.7 % Predi abetic 5.7 - 6.4 % Diabetic >or= 6.5 % Please note range changes. No Panel Informationon 05-04 Thyroid Stimulating Hormone (TSH) 1.74 uIU/mL 0.358-3.74 [facility] Work Phone: FLUOROSCOPY IN OR/PAIN MGTon 09-16-2020 FLUOROSCOPY IN OR/PAIN MGT FLUOROSCOPY IN OR/PAIN MGT Ordering Physician: Jaren Dubon DO 09/16/2020 11:30 AM FLUOROSCOPY Clinical Statement: Sacrococcygeal disorders Comparison: None FINDINGS: Two spot fluoroscopic images were saved demonstrating needle placement and contrast injection at the right sacroiliac joint. A total of 10.9 seconds fluoroscopy time was utilized. Please see the ordering clinicians report for full details. IMPRESSION: Documentation of fluoroscopy. ---- Electronic Signature on File ---- Signed By: Selina Watt MD [email or web address] Dictated: 09/16/2020 12:32 PM Signed: 09/16/2020 12:33 PM Reported By: SELINA WATT M.D. Signed By: SELINA WATT M.D. [facility] Vital Signs Date Time Vital Sign Value Performing Clinician Rachel armstrong 01-08-2025 13:07-0400 Diastolic blood pressure 73 mm[Hg] Mai Davis APRN.CNP Work Phone: [facility] 01-08-2025 13:07-0400 Heart rate 75 /min Mai Davis APRN.CNP Work Phone: [facility] 01-08-2025 13:07-0400 SaO2% (BldA) [Mass fraction] 98 % Mai Daivs APRN.CNP Work Phone: [facility] 01-08-2025 13:07-0400 Systolic blood pressure 118 mm[Hg] Mai Davis APRN.METAL FLOW COORDINATOR Work Phone: [facility] 10-09-2024 09:12-0400 Diastolic blood pressure 84 mm[Hg] Mai Davis APRN.METAL FLOW COORDINATOR Work Phone: [facility] 10-09-2024 09:12-0400 Heart rate 95 /min Mai Davis APRN.METAL FLOW COORDINATOR Work Phone: [facility] 10-09-2024 09:12-0400 SaO2% (BldA) [Mass fraction] 97 % Mai Davis [employer] TECHNOLOGY COACH.METAL FLOW COORDINATOR Work Phone: [facility] 10-09-2024 09:12-0400 Systolic blood pressure 129 mm[Hg] Mai Davis APRN.METAL FLOW COORDINATOR Work Phone: [facility] 05-28-2024 13:24-0500 Body height 162.6 cm Mai Davis APRN.METAL FLOW COORDINATOR Work Phone: [facility] 05-28-2024 13:24-0500 Body mass index (BMI) [Ratio] 33.37 kg/m2 Mai Davis APRN.METAL FLOW COORDINATOR Work Phone: [facility] 05-28-2024 13:24-0500 Body weight 88.18 kg Mai Davis APRN.METAL FLOW COORDINATOR Work Phone: [facility] 05-28-2024 13:24-0500 Diastolic blood pressure 86 mm[Hg] Mai Davis APRN.METAL FLOW COORDINATOR Work Phone: [facility] 05-28-2024 13:24-0500 Heart rate 82 /min Mai Davis APRN.METAL FLOW COORDINATOR Work Phone: [facility] 05-28-2024 13:24-0500 Respiratory rate 16 /min Mai Davis APRN.METAL FLOW COORDINATOR Work Phone: [facility] 05-28-2024 13:24-0500 SaO2% (BldA) [Mass fraction] 99 % Mai Davis APRN.METAL FLOW COORDINATOR Work Phone: [facility] 05-28-2024 13:24-0500 Systolic blood pressure 124 mm[Hg] Mai Davis APRN.METAL FLOW COORDINATOR Work Phone: [facility] 04-10-2024 15:01-0400 Body height 162.6 cm Lindsay Jewell MD Work Phone: [facility] 04-10-2024 15:01-0400 Body mass index (BMI) [Ratio] 33.3 kg/m2 Lindsay Jewell MD Work Phone: [facility] 04-10-2024 15:01-0400 Body weight 88 kg Lindsay Jewell MD Work Phone: [facility] 04-10-2024 15:01-0400 Heart rate 81 /min Lindsay Jewell MD Work Phone: [facility] 04-10-2024 15:01-0400 SaO2% (BldA) [Mass fraction] 97 % Lindsay Jewell MD Work Phone: [facility] 03-17-2024 14:58-0400 Diastolic blood pressure 70 mm[Hg] Connor Torres MD Work Phone: [facility] 03-17-2024 14:58-0400 Heart rate 73 /min Connor Torres MD Work Phone: [facility] 03-17-2024 14:58-0400 Respiratory rate 15 /min Connor Torres MD Work Phone: [facility] 03-17-2024 14:58-0400 SaO2% (BldA) [Mass fraction] 99 % Connor Torres MD Work Phone: [facility] 03-17-2024 14:58-0400 Systolic blood pressure 112 mm[Hg] Connor Torres MD Work Phone: [facility] 02-26-2024 10:26-0400 Body height 164.6 cm Mai Davis [employer]SROOM TECHNOLOGY COACH.METAL FLOW COORDINATOR Work Phone: [facility] 02-26-2024 10:26-0400 Body mass index (BMI) [Ratio] 32.48 kg/m2 Mai Davis APRN.METAL FLOW COORDINATOR Work Phone: [facility] 02-26-2024 10:26-0400 Body weight 88 kg Mai Davis APRN.METAL FLOW COORDINATOR Work Phone: [facility] 02-26-2024 10:26-0400 Diastolic blood pressure 85 mm[Hg] Mai Davis APRN.METAL FLOW COORDINATOR Work Phone: [facility] 02-26-2024 10:26-0400 Heart rate 80 /min Mai Davis APRN.METAL FLOW COORDINATOR Work Phone: [facility] 02-26-2024 10:26-0400 Respiratory rate 19 /min Mai Davis APRN.METAL FLOW COORDINATOR Work Phone: [facility] 02-26-2024 10:26-0400 SaO2% (BldA) [Mass fraction] 98 % Mai Davis APRN.METAL FLOW COORDINATOR Work Phone: [facility] 02-26-2024 10:26-0400 Systolic blood pressure 123 mm[Hg] Mai Davis APRN.METAL FLOW COORDINATOR Work Phone: [facility] 01-01-2024 09:23-0400 Body height 164.6 cm Mai Davis APRN.METAL FLOW COORDINATOR Work Phone: [facility] 01-01-2024 09:23-0400 Body mass index (BMI) [Ratio] 32.32 kg/m2 Mai Davis CL[employer]SROOM TECHNOLOGY COACH.METAL FLOW COORDINATOR Work Phone: [facility] 01-01-2024 09:23-0400 Body weight 87.54 kg Mai Davis APRN.METAL FLOW COORDINATOR Work Phone: [facility] 01-01-2024 09:23-0400 Diastolic blood pressure 83 mm[Hg] Mai Davis APRN.METAL FLOW COORDINATOR Work Phone: [facility] 01-01-2024 09:23-0400 Heart rate 86 /min Jefferie Ryan CLASSROOM TECHNOLOGY COACH.METAL FLOW COORDINATOR Work Phone: [facility] 01-01-2024 09:23-0400 Respiratory rate 19 /min Jefferie Ryan CLASSROOM TECHNOLOGY COACH.METAL FLOW COORDINATOR Work Phone: [facility] 01-01-2024 09:23-0400 SaO2% (BldA) [Mass fraction] 98 % Jefferie Ryan CLASSROOM TECHNOLOGY COACH.METAL FLOW COORDINATOR Work Phone: [facility] 01-01-2024 09:23-0400 Systolic blood pressure 152 mm[Hg] Jefferie Ryan CLASSROOM TECHNOLOGY COACH.METAL FLOW COORDINATOR Work Phone: [facility] 10-10-2023 16:23-0400 Diastolic blood pressure 78 mm[Hg] Jefferie Ryan CLASSROOM TECHNOLOGY COACH.METAL FLOW COORDINATOR Work Phone: [facility] 10-10-2023 16:23-0400 Heart rate 83 /min Jefferie Ryan CLASSROOM TECHNOLOGY COACH.METAL FLOW COORDINATOR Work Phone: [facility] 10-10-2023 16:23-0400 Respiratory rate 16 /min Jefferie Ryan CLASSROOM TECHNOLOGY COACH.METAL FLOW COORDINATOR Work Phone: [facility] 10-10-2023 16:23-0400 SaO2% (BldA) [Mass fraction] 98 % Jefferie Ryan CLASSROOM TECHNOLOGY COACH.METAL FLOW COORDINATOR Work Phone: [facility] 10-10-2023 16:23-0400 Systolic blood pressure 125 mm[Hg] Jefferie Ryan CLASSROOM TECHNOLOGY COACH.METAL FLOW COORDINATOR Work Phone: [facility] 03-21-2023 14:01-0400 Diastolic blood pressure 74 mm[Hg] Jaren Dubon DO Work Phone: [facility] 03-21-2023 14:01-0400 Systolic blood pressure 130 mm[Hg] Jaren Dubon DO Work Phone: [facility] 03-21-2023 14:00-0400 Heart rate 79 /min Jaren Dubon DO Work Phone: [facility] 03-21-2023 14:00-0400 Respiratory rate 16 /min Jaren Dubon DO Work Phone: [facility] 03-21-2023 14:00-0400 SaO2% (BldA) [Mass fraction] 100 % Jaren Dubon DO Work Phone: [facility] 03-21-2023 13:46-0400 Body temperature 98.6 [degF] Jaren Dubon DO Work Phone: [facility] 02-28-2023 13:27-0400 Body height 164.6 cm Mecca Lansdowne CLASSROOM TECHNOLOGY COACH.[employer] Work Phone: [facility] 02-28-2023 13:27-0400 Body weight 90.54 kg Mecca Rowena [employer]SROOM TECHNOLOGY COACH.[employer] Work Phone: [facility] 02-28-2023 13:27-0400 Diastolic blood pressure 82 mm[Hg] Mecca Lansdowne CLASSROOM TECHNOLOGY COACH.[employer] Work Phone: [facility] 02-28-2023 13:27-0400 Heart rate 80 /min Mecca Rowena [employer]SROOM TECHNOLOGY COACH.[employer] Work Phone: [facility] 02-28-2023 13:27-0400 Respiratory rate 18 /min Mecca Lansdowne CLASSROOM TECHNOLOGY COACH.[employer] Work Phone: [facility] 02-28-2023 13:27-0400 SaO2% (BldA) [Mass fraction] 95 % Mecca Rowena [employer]OOM TECHNOLOGY COACH.[employer] Work Phone: [facility] 02-28-2023 13:27-0400 Systolic blood pressure 126 mm[Hg] Mecca Rowena [employer]SROOM TECHNOLOGY COACH.[employer] Work Phone: [facility] 01-18-2023 10:50-0400 Body height 164.6 cm Mecca Lansdowne [employer]SROOM TECHNOLOGY COACH.[employer] Work Phone: [facility] 01-18-2023 10:50-0400 Body weight 81.65 kg Mecca Lansdowne [employer]SROOM TECHNOLOGY COACH.[employer] Work Phone: [facility] 01-18-2023 10:50-0400 Diastolic blood pressure 92 mm[Hg] Mecca Rowena [employer]SROOM TECHNOLOGY COACH.[employer] Work Phone: [facility] 01-18-2023 10:50-0400 Heart rate 82 /min Mecca Rowena [employer]SROOM TECHNOLOGY COACH.[employer] Work Phone: [facility] 01-18-2023 10:50-0400 Respiratory rate 19 /min Mecca Lansdowne CLASSROOM TECHNOLOGY COACH.[employer] Work Phone: [facility] 01-18-2023 10:50-0400 SaO2% (BldA) [Mass fraction] 98 % Mecca Rowena [employer]OOM TECHNOLOGY COACH.[employer] Work Phone: [facility] 01-18-2023 10:50-0400 Systolic blood pressure 143 mm[Hg] Mecca Lansdowne CLASSROOM TECHNOLOGY COACH.[employer] Work Phone: [facility] 10-18-2022 10:25-0400 Body height 164.6 cm [facility] Rowena [employer]SROOM TECHNOLOGY COACH.[employer] Work Phone: [facility] 10-18-2022 10:25-0400 Body weight 88.91 kg [facility] Lansdowne [employer]SROOM TECHNOLOGY COACH.[employer] Work Phone: [facility] 10-18-2022 10:25-0400 Diastolic blood pressure 90 mm[Hg] Mecca Lansdowne CL[employer]OOM TECHNOLOGY COACH.[employer] Work Phone: [facility] 10-18-2022 10:25-0400 Heart rate 87 /min Mecca Lansdowne CL[employer]SROOM TECHNOLOGY COACH.[employer] Work Phone: [facility] 10-18-2022 10:25-0400 Respiratory rate 19 /min Mecca Lansdowne CL[employer]SROOM TECHNOLOGY COACH.[employer] Work Phone: [facility] 10-18-2022 10:25-0400 SaO2% (BldA) [Mass fraction] 95 % Mecca Lansdowne [employer] TECHNOLOGY COACH.[employer] Work Phone: [facility] 10-18-2022 10:25-0400 Systolic blood pressure 154 mm[Hg] Mecca Rowena [employer] TECHNOLOGY COACH.[employer] Work Phone: [facility] 10-12-2022 13:42-0400 Diastolic blood pressure 78 mm[Hg] Jaren Dubon DO Work Phone: [facility] 10-12-2022 13:42-0400 Heart rate 82 /min Jaren Dubon DO Work Phone: [facility] 10-12-2022 13:42-0400 Respiratory rate 16 /min Jaren Dubon DO Work Phone: [facility] 10-12-2022 13:42-0400 SaO2% (BldA) [Mass fraction] 98 % Jaren Dubon DO Work Phone: [facility] 10-12-2022 13:42-0400 Systolic blood pressure 132 mm[Hg] Jaren Dubon DO Work Phone: [facility] 10-12-2022 13:09-0400 Body temperature 98.1 [degF] Jaren Dubon DO Work Phone: [facility] 07-27-2022 13:06-0500 Diastolic blood pressure 85 mm[Hg] Mecca Lansdowne CL[employer]SROOM TECHNOLOGY COACH.[employer] Work Phone: [facility] 07-27-2022 13:06-0500 Heart rate 85 /min Mecca Rowena CLASSROOM TECHNOLOGY COACH.[employer] Work Phone: [facility] 07-27-2022 13:06-0500 SaO2% (BldA) [Mass fraction] 97 % Mecca Rowena [employer]SROOM TECHNOLOGY COACH.[employer] Work Phone: [facility] 07-27-2022 13:06-0500 Systolic blood pressure 131 mm[Hg] Mecca Rowena CL[employer]SROOM TECHNOLOGY COACH.[employer] Work Phone: [facility] Encounters Encounter Date Encounter Type Care Provider Facility Start: 04-28-2025 End: 04-28-2025 ambulatory MAI DAVIS Facility:[id number] Start: 03-17-2025 End: 03-19-2025 Telephone encounter Mai Davis CLASSROOM TECHNOLOGY COACH.METAL FLOW COORDINATOR Work Phone: [facility] Management Comment on above: April 08 procedu re denied Start: 03-09-2025 End: 03-09-2025 Refill Mai Davis APRN.METAL FLOW COORDINATOR Work Phone: [facility] Management Comment on above: Refill Request Start: 02-06-2025 End: 02-06-2025 ambulatory Matt Forrest MD Work Phone: -Laboratory [facility] Start: 02-06-2025 End: 02-06-[address] Matt Forrest MD -Laboratory [facility] Start: 02-06-2025 End: 02-06-2025 ambulatory Matt Forrest Facility:[facility] Start: 01-09-2025 End: 01-12-2025 Telephone encounter Mai Davis APRN.[facility] Work Phone: Pain Management Comment on above: tramadol PA approval Patient Update; Medi cation Problem Start: 01-08-2025 End: 01-09-2025 Patient encounter procedure [facility] Provider [facility] Department Start: 01-08-2025 End: 01-09-2025 Refill Mai Davis APRN.[facility] Work Phone: Pain Management Comment on above: Med Change Request Start: 01-08-2025 End: 01-08-2025 Telephone encounter Mai Davis APRN.METAL FLOW COORDINATOR Work Phone: Pain Management Comment on above: pa submitted tramado l Start: 01-08-2025 End: 01-08-2025 Office outpatient visit 25 minutes Mai Davis APRN.METAL FLOW COORDINATOR Work Phone: Pain Management Comment on above: Other chronic pain ( Primary Dx); Chronic pain syndrome; Sacroiliitis; Radiculopathy, cervical region; Arthropathy of cervical facet joint; DDD (degenerative disc disease), cervical; High risk medication use Start: 01-08-2025 End: 01-08-2025 ambulatory MAI DAVIS Facility:[id number] Start: 10-09-2024 End: 10-09-2024 Office outpatient visit 25 minutes Mai Davis APRN.METAL FLOW COORDINATOR Work Phone: Pain Management Comment on above: Other chronic pain ( Primary Dx); Radiculopathy, cervical region; Chronic pain syndrome; Spinal stenosis of cervical region; DDD (degenerative disc disease), cervical; High risk medication use Start: 10-09-2024 End: 10-09-2024 ambulatory MAI DAVIS Facility:[id number] Start: 09-12-2024 End: 09-15-2024 Refill Mai Davis APRN.METAL FLOW COORDINATOR Work Phone: Pain Management Comment on above: Refill Request Start: 07-21-2024 End: 07-28-2024 Refill Mai Davis APRN.METAL FLOW COORDINATOR Work Phone: Pain Management Comment on above: Refill Request Start: 07-20-2024 End: 07-21-2024 Refill Mai Davis APRN.METAL FLOW COORDINATOR Work Phone: Pain Management Comment on above: Refill Request Start: 06-25-2024 End: 06-25-2024 Telephone encounter Connor Torres MD Work Phone: Pain Management Start: 06-10-2024 End: 06-10-2024 Telephone encounter Connor Torres MD Work Phone: Pain Management Comment on above: Pre-procedure call Start: 05-28-2024 End: 05-28-2024 Patient encounter procedure [facility] Provider [facility] Department Start: 05-28-2024 End: 05-28-2024 Telephone encounter Mai Davis APRN.METAL FLOW COORDINATOR Work Phone: Pain Management Comment on above: tramadol pa tramadol approved Start: 05-28-2024 End: 05-28-2024 Office outpatient visit 25 minutes Mai Davis APRN.METAL FLOW COORDINATOR Work Phone: Pain Management Comment on above: Other chronic pain ( Primary Dx); Chronic pain syndrome; Myofascial pain syndrome; Encounter for therapeutic drug level monitoring; Radiculopathy, cervical region; DDD (degenerative disc disease), cervical; High risk medication use Start: 05-28-2024 End: 05-28-2024 ambulatory LIZETTEVenkat Damian RYAN Facility:[id number] Start: 05-16-2024 End: 05-16-2024 Refill Mai Damian Ryan [employer] TECHN[employer]Y COACH.METAL FLOW COORDINATOR Work Phone: Pain Management Comment on above: Refill Request Start: 04-23-2024 End: 04-23-2024 Refill Mai Damian Ryan [employer] TECHNOLOGY COACH.METAL FLOW COORDINATOR Work Phone: Pain Management Comment on above: Refill Request Start: 04-14-2024 End: 04-15-2024 Refill Mai Damian Ryan [employer]OOM TECHNOLOGY COACH.METAL FLOW COORDINATOR Work Phone: Pain Management Comment on above: Refill Request Start: 04-10-2024 End: 04-10-2024 Office outpatient new 30 minutes Lindsay Cota MD Work Phone: [facility] [employer] [facility] Comment on above: Cervical disc disord er with radiculopathy Start: 04-10-2024 End: 04-10-2024 Subsequent hospital visit by physician [facility] Comment on above: Radiculopathy, cervi everardo region [M54.12] Start: 04-09-2024 End: 04-09-2024 Telephone encounter Lindsay Cota MD Work Phone: [facility] [employer] Comment on above: Appointment Start: 03-28-2024 End: 03-31-2024 Refill Flaviojacki Damian Ryan [employer]AS[employer]OOM TECHNOLOGY COACH.METAL FLOW COORDINATOR Work Phone: Pain Management Comment on above: Refill Request Start: 03-17-2024 End: 03-17-2024 Orders Only Connor Torres MD Work Phone: Pain Management Comment on above: Cervical disc disord er with radiculopathy (Primary Dx) Radiculopathy, cervi everardo region [M54.12] Start: 03-10-2024 End: 03-10-2024 Telephone encounter Connor Torres MD Work Phone: Pain Management Start: 02-28-2024 Telephone encounter Mai Davis APRN.CNP Work Phone: Pain Management Comment on above: Medication Problem Start: 02-26-2024 End: 02-26-2024 Office outpatient visit 25 minutes Mai Davis APRN.METAL FLOW COORDINATOR Work Phone: Pain Management Comment on above: Other chronic pain ( Primary Dx); Radiculopathy, cervical region; DDD (degenerative disc disease), cervical; Neck pain; Chronic pain syndrome; High risk medication use Start: 02-12-2024 Refill Mai ramirez APRN.CNP Work Phone: Pain Management Comment on above: Refill Request Start: 02-08-2024 Telephone encounter Mai Davis APRN.CNP Work Phone: Pain Management Comment on above: Results Start: 02-06-2024 [facility] Start: 02-06-2024 End: 02-06-2024 Subsequent hospital visit by physician [facility] Comment on above: Spinal stenosis of c ervical region [M48.02] Start: 01-01-2024 End: 01-01-2024 Office outpatient visit 25 minutes Mai Davis APRN.METAL FLOW COORDINATOR Work Phone: Pain Management Comment on above: Other chronic pain ( Primary Dx); Radiculopathy, cervical region; Chronic pain syndrome; Spinal stenosis of cervical region; DDD (degenerative disc disease), cervical; High risk medication use Start: 12-18-2023 Patient encounter procedure [facility] Provider [facility] Department Start: 12-11-2023 Refill Mai ramirez APRN.CNP Work Phone: Pain Management Comment on above: Refill Request Start: 11-14-2023 Refill Mai ramirez APRN.METAL FLOW COORDINATOR Work Phone: Pain Management Comment on above: Refill Request tramadol pa Other (Tramadol approved from October 20, 2023 to May 12, 2024) Start: 10-10-2023 End: 10-10-2023 Office outpatient visit 25 minutes Mai Davis [employer] TECHNOLOGY COACH.METAL FLOW COORDINATOR Work Phone: [facility] Comment on above: Other chronic pain ( Primary Dx); Chronic pain syndrome; Neck pain; Encounter for therapeutic drug level monitoring; Myofascial pain syndrome; High risk medication use Start: 09-14-2023 Refill Connor pacheco MD Work Phone: Pain Management Comment on above: Refill Request Start: 08-08-2023 End: 08-08-2023 ambulatory [facility] Work Phone: Start: 08-08-2023 End: 08-08-2023 Patient encounter procedure [facility] Start: 07-03-2023 Telephone encounter Connor Torres MD Work Phone: Pain Management Comment on above: Pt asking for TPI Start: 06-18-2023 Refill Connor pacheco MD Work Phone: Pain Management Comment on above: Refill Request Start: 05-18-2023 Refill Jaren Monsivais DO Work Phone: Pain Management Comment on above: Refill Request Start: 04-20-2023 Patient encounter procedure [facility] Provider [facility] Department Start: 04-20-2023 Telephone encounter Jaren Dubon DO Work Phone: Pain [facility] [place] Comment on above: indexed tramadol sherman roval letter Start: 03-21-2023 End: 03-21-2023 Subsequent hospital visit by physician Jaren Dubon DO Work Phone: MR PAIN MANAGEMENT Comment on above: Myofascial pain synd hayley [M79.18] Start: 02-28-2023 End: 02-28-2023 Office outpatient visit 25 minutes Mecca Guaman CLASSROOM TECHNOLOGY COACH.[employer] Work Phone: Pain Management Comment on above: Arthropathy of cervi everardo facet joint; Cervical radiculopathy; Myofascial pain syndrome; Chronic pain syndrome; High risk medication use Start: 02-22-2023 Telephone encounter Mecca altamirano APRN.[employer]ATORY [employer]ICI[employer] Work Phone: Pain Management Comment on above: pt inquiring about g etting TPI Refill Request Start: 02-16-2023 Refill Mecca Guaman APRN.[employer]ICI[employer] Work Phone: Pain Management Comment on above: Refill Request Start: 01-18-2023 End: 01-18-2023 Subsequent hospital visit by physician Xr [facility] 2 RADIO GEN [facility] Comment on above: Cervicalgia [M54.2] Start: 01-18-2023 End: 01-18-2023 Office outpatient visit 25 minutes Mecca Guaman APRN.[employer]ICAL [employer]ORATORY TE[employer]ICI[employer] Work Phone: Pain Management Comment on above: Cervicalgia; Cervical radiculopathy; Chronic pain syndrome; High risk medication use Start: 12-20-2022 Refill Mecca Guaman APRN.[employer]ICI[employer] Work Phone: Pain Management Comment on above: Refill Request Start: 10-18-2022 End: 10-18-2022 Office outpatient visit 25 minutes Mecca Guaman APRN.[employer]ORY [employer]ICI[employer] Work Phone: Pain Management Comment on above: DDD (degenerative di sc disease), lumbar (Primary Dx); Lumbar facet arthropathy; Radiculopathy, lumbar region; Chronic pain syndrome; Myofascial pain syndrome; High risk medication use Start: 10-12-2022 End: 10-12-2022 Subsequent hospital visit by physician Jaren Dubon DO Work Phone: MR PAIN MANAGEMENT Comment on above: Myofascial pain synd hayley [M79.18] Start: 2022 Telephone encounter Mecca altamirano APRN.[employer]ICI[employer] Work Phone: MR PAIN MANAGEMENT Comment on above: Case Needed Start: 09-19-2022 Refill Mecca Guaman APRN.[employer] Work Phone: Pain Management Comment on above: Refill Request Start: 07-27-2022 End: 07-27-2022 Office outpatient visit 25 minutes Mecca Guaman CLASSROOM TECHNOLOGY COACH.[employer] Work Phone: Pain Management Comment on above: DDD (degenerative di sc disease), lumbar (Primary Dx); Myofascial pain syndrome; Radiculopathy, lumbar region; Chronic pain syndrome; High risk medication use Start: 07-25-2022 Refill Mecca Guaman CLASSROOM TECHNOLOGY COACH.[employer] Work Phone: Pain Management Comment on above: Refill Request Start: 07-13-2022 Telephone encounter Jaren Dillon Jagdish DO Work Phone: Pain Management Comment on above: Patient Update Start: 07-05-2022 Refill Mecca Rowena CLASSROOM TECHNOLOGY COACH.[employer] Work Phone: Pain Management Comment on above: Refill Request Start: 06-21-2022 Refill Mecca Guaman CLASSROOM TECHNOLOGY COACH.[employer] Work Phone: Pain Management Comment on above: Refill Request Patient Question Start: 06-07-2022 Refill Mecca Lansdowne CLASSROOM TECHNOLOGY COACH.[employer]ATORY [employer]ICI[employer] Work Phone: Pain Management Comment on above: Refill Request Start: 06-06-2022 Telephone encounter Mecca altamirano CLASSROOM TECHNOLOGY COACH.[employer]IC[employer] Work Phone: Pain Management Comment on above: Appointment Start: 05-08-2022 Telephone encounter Mecca altamirano CLASSROOM TECHNOLOGY COACH.[employer] Work Phone: Pain Management Comment on above: medication issue Start: 05-04-2022 End: 05-04-2022 ambulatory [facility] Work Phone: Start: 05-04-2022 End: 05-04-2022 Patient encounter procedure [facility] Start: 03-21-2022 Chart abstracting Mecca farooq CLASSROOM TECHNOLOGY COACH.[employer]ORY [employer]IC[employer] Work Phone: Pain Management Start: 03-13-2022 Refill Mecca Guaman CLASSROOM TECHNOLOGY COACH.[employer] Work Phone: Pain Management Comment on above: Refill Request Start: 02-17-2022 Telephone encounter Mecca altamirano CLASSROOM TECHNOLOGY COACH.[employer] Work Phone: Pain Management Comment on above: Patient Update Start: 02-14-2022 Telephone encounter Mecca Iyerbryan altamirano APRN.[employer]ICAL [employer]ORY [employer]ICI[employer] Work Phone: Pain Management Comment on above: Medication Problem Start: 02-13-2022 Refill Mecca Guaman APRN.[employer]ORY [employer]ICI[employer] Work Phone: Pain Management Comment on above: Refill Request Start: 12-26-2021 End: 12-26-2021 Subsequent hospital visit by physician Mecca Guaman APRN.[employer]ICAL [employer]ATORY [employer]ICI[employer] Work Phone: [facility] Comment on above: FOLLOW UP Start: 10-24-2021 End: 10-24-2021 Subsequent hospital visit by physician Mecca Guaman APRN.[employer] Work Phone: [facility] Comment on above: FOLLOW UP Start: 07-26-2021 End: 07-26-2021 Subsequent hospital visit by physician Mecca Guaman Work Phone: [facility] Comment on above: FOLLOW UP Procedures Date Procedure Procedure Detail Performing Clinician Start: 02-06-2025 Follicle stimulating hormone measurement Matt Forrest MD Work Phone: Comment on above: FEMALE:Follicular: 1 .4 - 18.1 mIU/mLMidcycle: 3.4 - 33.4 mIU/mLLuteal: 1.5 - 9.1 mIU/mLPost Menopause: 23.0 - 116.3 mIU/mLMALE: 1.4 - 18.1 mIU/mL Start: 02-06-2025 Vitamin D, 25-hydrox y measurement Matt Forrest MD Work Phone: Comment on above: Vitamin D StatusDefi ciency: <20 ng/mL (50nmol/L)Insufficiency: 20-30 ng/mL (50-75 nmol/L)Sufficiency: 30-100 ng/mL (75-250 nmol/L)Toxicity: >100 ng/mL (>250 nmol/L) Start: 03-17-2024 End: 03-17-2024 Njx dx/ther sbst intrlmnr crv/thrc w/img gdn Connor Torres MD Work Phone: Start: 03-21-2023 End: 03-21-2023 Injection single/capsule filler trigger point 3/> muscles Jaren Santana Jagdish DO Work Phone: Start: 10-12-2022 End: 10-12-2022 Injection single/capsule filler trigger point 3/> muscles Jraen Dubon DO Work Phone: Plan of Treatment Date Care Activity Detail Author Start: 04-28-2025 End: 04-28-2025 Patient encounter procedure 04/28/2025 1:00 PM EDT Office Visit Pain Management [address] [place] [address] Mai Davis, CLASSROOM TECHNOLOGY COACH.METAL FLOW COORDINATOR [address] [place] [address] 3 month follow up Pain Management Comment on above: 3 month follow up Start: 04-08-2025 End: 04-08-2025 Admission to same day surgery center 04/08/2025 10:15 AM EDT - 04/08/2025 10:30 AM EDT Surgery [address] [place] [address] Anshul Key MD [address] [place] [address] Right SI joint injection [facility] Comment on above: Right SI joint injec tion Start: 04-08-2025 End: 04-08-2025 Inject si joint arthrgrphy&/anes/steroid w/thompson INJECTION SACROILIAC JOINT THERAPEUTIC ANESTHETIC / STEROID W/IMAGE GUIDANCE FLUORO OR CT W/ ARTHROGRAPHY Sacroiliitis 04/08/2025 10:15 AM EDT MR PAIN Start: 04-08-2025 Subsequent hospital visit by physician 04/08/2025 10:15 AM EDT Hospital Encounter [place] [address] [place] [address] Anshul Key MD [address] [place] [address] Sacroiliitis [M46.1] [facility] Comment on above: Sacroiliitis [M46.1] Start: 03-23-2025 Influenza vaccination [facility] Start: 01-08-2025 End: 01-08-2025 Patient encounter procedure 01/08/2025 1:00 PM EDT Office Visit Pain Management [address] [place] [address] Mai Davis, CAYETANO.METAL FLOW COORDINATOR [address] [place] [address] 3 month follow up Pain Management Comment on above: 3 month follow up Start: 12-11-2024 End: 12-11-2024 Admission to same day surgery center 12/11/2024 2:30 PM EDT - 12/11/2024 3:00 PM EDT Surgery MR PAIN MANAGEMENT [address] [place] [address] Anshul Key MD [address] [place] [address] C6-C7 CLARISSA MR PAIN MANAGEMENT Comment on above: C6-C7 CLARISSA Start: 12-11-2024 End: 12-11-2024 Njx dx/ther sbst intrlmnr crv/thrc w/img gdn CERVICAL EPIDURAL BLOCK W/INJECTION(S) NON NEUROLYTIC SUBSTANCE(S) W/IMAGE GUIDANCE Radiculopathy, cervical region 12/11/2024 2:30 PM EDT MR PAIN Start: 12-11-2024 Subsequent hospital visit by physician 12/11/2024 2:30 PM EDT Hospital Encounter MR PAIN MANAGEMENT [address] [place] [address] Anshul Key MD [address] [place] [address] Radiculopathy, cervical region [M54.12] MR PAIN MANAGEMENT Comment on above: Radiculopathy, cervi everardo region [M54.12] Start: 10-09-2024 End: 10-09-2024 Patient encounter procedure 10/09/2024 9:30 AM EDT Office Visit Pain Management [address] [place] [address] Mai Davis, CLASSROOM TECHNOLOGY COACH.METAL FLOW COORDINATOR [address] [place] [address] 3 month follow up Pain Management Comment on above: 3 month follow up Start: 09-02-2024 End: 09-02-2024 Patient encounter procedure 09/02/2024 2:00 PM EST Office Visit Pain Management [address] [place] [address] Mai Davis, CLASSROOM TECHNOLOGY COACH.METAL FLOW COORDINATOR [address] [place] [address] 3 month follow up Pain Management Comment on above: 3 month follow up Start: 07-01-2024 End: 07-01-2024 Admission to same day surgery center 07/01/2024 1:00 PM EST - 07/01/2024 1:15 PM EST Surgery MR PAIN MANAGEMENT [address] [place] [address] Connor Torres MD [address] [place] [address] Bilateral Trigger point injection with steroids of cervical parapsinal and shoulder stabilizer muscle groups. MR PAIN MANAGEMENT Comment on above: Bilateral Trigger po int injection with steroids of cervical parapsinal and shoulder stabilizer muscle groups. Start: 07-01-2024 End: 07-01-2024 Injection single/capsule filler trigger point 3/> muscles INJECTION TRIGGER POINT THREE OR MORE MUSCLES Myofascial pain syndrome 07/01/2024 1:00 PM EST MR PAIN Start: 07-01-2024 Subsequent hospital visit by physician 07/01/2024 1:00 PM EST Hospital Encounter MR PAIN MANAGEMENT [address] [place] [address] Connor Torres MD [address] [place] [address] Myofascial pain syndrome [M79.18] MR PAIN MANAGEMENT Comment on above: Myofascial pain synd hayley [M79.18] Start: 06-17-2024 End: 06-17-2024 Admission to same day surgery center 06/17/2024 1:15 PM EST - 06/17/2024 1:30 PM EST Surgery MR PAIN MANAGEMENT [address] [place] [address] Connor Torres MD [address] [place] [address] Bilateral Trigger point injection with steroids of cervical parapsinal and shoulder stabilizer muscle groups. MR PAIN MANAGEMENT Comment on above: Bilateral Trigger po int injection with steroids of cervical parapsinal and shoulder stabilizer muscle groups. Start: 06-17-2024 End: 06-17-2024 Injection single/capsule filler trigger point 3/> muscles INJECTION TRIGGER POINT THREE OR MORE MUSCLES Myofascial pain syndrome 06/17/2024 1:15 PM EST MR PAIN Start: 06-17-2024 Subsequent hospital visit by physician 06/17/2024 1:15 PM EST Hospital Encounter MR PAIN MANAGEMENT [address] [place] [address] Connor Torres MD [address] [place] [address] Myofascial pain syndrome [M79.18] MR PAIN MANAGEMENT Comment on above: Myofascial pain synd hayley [M79.18] Start: 06-04-2024 End: 09-03-2024 TOXASSURE FLEX 23, URINE TOXASSURE FLEX 23, URINE Lab Routine Chronic pain syndrome Myofascial pain syndrome Encounter for therapeutic drug level monitoring Other chronic pain Expected: 06/04/2024, Expires: 09/03/2024 [facility] Work Phone: Comment on above: Expected: 06/04/2024 , Expires: 09/03/2024 Start: 05-28-2024 End: 05-28-2024 Patient encounter procedure 05/28/2024 1:30 PM EST Office Visit Pain Management [address] [place] [address] Mai Davis, CLASSROOM TECHNOLOGY COACH.METAL FLOW COORDINATOR [address] [place] [address] Follow up Pain Management Comment on above: Follow up Start: 04-10-2024 End: 04-10-2024 Patient encounter procedure 04/10/2024 3:15 PM EDT Office Visit [facility] [address] [place] [address] Lindsay Jewell MD [address] [place] [address] Cervical disc disorder with radiculopathy [M50.10] [facility] Comment on above: Cervical disc disord er with radiculopathy [M50.10] Start: 03-23-2024 Covid-19 Vaccine ( season) Covid-19 Vaccine ( season) [facility] Start: 03-23-2024 Covid-19 Vaccine ( season) Covid-19 Vaccine ( season) [facility] Start: 03-23-2024 Influenza vaccination C [facility] Start: 03-17-2024 End: 03-17-2024 Admission to same day surgery center 03/17/2024 1:15 PM EDT - 03/17/2024 1:30 PM EDT Surgery MR PAIN MANAGEMENT [address] [place] [address] Connor Torres MD [address] [place] [address] C7-T1 cervical epidural injection MR PAIN MANAGEMENT Comment on above: C7-T1 cervical epidu ral injection Start: 03-17-2024 End: 03-17-2024 Njx dx/ther sbst intrlmnr crv/thrc w/img gdn MR PAIN Start: 03-17-2024 Subsequent hospital visit by physician 03/17/2024 1:15 PM EDT Hospital Encounter MR PAIN MANAGEMENT [address] [place] [address] Connor Torres MD [address] [place] [address] Radiculopathy, cervical region [M54.12] MR PAIN MANAGEMENT Comment on above: Radiculopathy, cervi everardo region [M54.12] Start: 03-11-2024 End: 03-11-2024 Patient encounter procedure 03/11/2024 10:00 AM EDT Office Visit Pain Management [address] [place] [address] Mai Davis, CLASSROOM TECHNOLOGY COACH.METAL FLOW COORDINATOR [address] [place] [address] Follow Up Pain Management Comment on above: Follow Up Start: 01-16-2024 End: 01-16-2024 Patient encounter procedure 01/16/2024 3:45 PM EDT Office Visit PAIN [facility] [address] [place] [address] Mai Davis, CLASSROOM TECHNOLOGY COACH.METAL FLOW COORDINATOR [address] [place] [address] follow up PAIN [facility] Comment on above: follow up Start: 01-01-2024 End: 01-01-2024 Patient encounter procedure 01/01/2024 9:30 AM EDT Office Visit Pain Management [address] [place] [address] Mai Davis, CLASSROOM TECHNOLOGY COACH.METAL FLOW COORDINATOR [address] [place] [address] follow up Pain Management Comment on above: follow up Start: 10-17-2023 End: 01-16-2024 TOXASSURE FLEX 23, URINE TOXASSURE FLEX 23, URINE Lab Routine Encounter for therapeutic drug level monitoring Expected: 10/17/2023, Expires: 01/16/2024 [facility] Work Phone: Comment on above: Expected: 10/17/2023 , Expires: 01/16/2024 Start: 07-23-2023 Behavioral Health Screening Behavioral Health Screening [facility] Start: 07-23-2023 Depression Assessment Depression Ass essment [facility] Start: 03-23-2023 Covid-19 Vaccine ( season) Covid-19 Vaccine ( season) [facility] Start: 03-23-2023 Influenza vaccination C [facility] Start: 01-18-2023 End: 03-20-2023 TOXASSURE FLEX 23, URINE TOXASSURE FLEX 23, URINE Lab Routine High risk medication use Expected: 01/18/2023, Expires: 03/20/2023 [facility] Work Phone: Comment on above: Expected: 01/18/2023 , Expires: 03/20/2023 Start: 07-27-2022 End: 09-26-2022 TOXASSURE FLEX 23, URINE TOXASSURE FLEX 23, URINE Lab Routine High risk medication use Expected: 07/27/2022, Expires: 09/26/2022 [facility] Work Phone: Comment on above: Expected: 07/27/2022 , Expires: 09/26/2022 Start: 07-23-2022 DEPRESSION ASSESSMENT DEPRESSION ASS [facility] Start: 03-23-2022 Influenza vaccination [facility] Start: 07-23-2021 [facility] Start: 03-23-2021 Influenza vaccination INFLUENZA (#1) [facility] Start: 10-13-2018 PAP TESTING PAP TESTING [facility] Start: 10-13-2018 Screening for malign ant neoplasm of cervix Pap Testing [facility] Start: 10-13-2016 Screening for malign ant neoplasm of cervix Cervical Cancer Screening [facility] Start: 02-07-2016 Urine microalbumin profile [facility] Start: 09-28-2015 HPV TESTING HPV TESTING [facility] Start: 09-28-2015 Screening for malign ant neoplasm of cervix HPV Testing [facility] Start: 2012 HPV Vaccine (1 - 3-d ose SCDM series) HPV Vaccine (1 - 3-dose SCDM series) [facility] Start: 2004 Hepatitis B Vaccine (1 of 3 - 19+ 3-dose series) Hepatitis B Vaccine (1 of 3 - 19+ 3-dose series) [facility] Start: 09-28-2003 Anxiety Screening Anxiety Screening [facility] Start: 09-28-2003 Depression Screening Depression Scre ening [facility] Start: 09-28-2003 HEPATITIS C SCREENING HEPATITIS C [facility] Start: 09-28-2003 Hepatitis C screening Hepatitis C [facility] Start: 09-28-2003 HIV SCREENING HIV SCREENING [facility] Start: 09-28-2003 HIV screening HIV Screening [facility] Start: 1997 Adult depression screening assessment DEPRESSION SCREENING [facility] Start: 09-28-1991 PNEUMOCOCCAL (1 - PCV) PNEUMOCOCCAL (1 - PCV) [facility] Start: 09-28-1991 Pneumococcal vaccination Pneum ococcal Vaccine (1 - PCV) [facility] Start: 1990 COVID-19 VACCINE (#1) COVID-19 VACCI NE (#1) [facility] Start: 1990 COVID-19 VACCINE (1) COVID-19 VACCIN E (1) [facility] Start: 03-30-1986 COVID-19 VACCINE (#1) COVID-19 VACCI NE (#1) [facility] Start: 1985 HEPATITIS B (1 of 3 - 3-dose series) HEPATITIS B (1 of 3 - 3-dose series) [facility] Start: 1985 Hepatitis B Vaccine (1 of 3 - 3-dose series) Hepatitis B Vaccine (1 of 3 - 3-dose series) [facility] End: 01-30-2025 MR Cervical spine WO contrast MRI CERVICAL SPINE WO IVCON Radiology Routine Spinal stenosis of cervical region DDD (degenerative disc disease), cervical 1 Occurrences starting 01/01/2024 until 01/30/2025 [facility] Work Phone: Comment on above: 1 Occurrences starti ng 01/01/2024 until 01/30/2025 MR Cervical spine WO contrast MRI CERVICAL SPINE WO IVCON Radiology Routine Spinal stenosis of cervical region DDD (degenerative disc disease), cervical 02/06/2024 3:00 PM EDT [facility] Work Phone: End: 02-17-2024 Radex spine cervical 4 or 5 views XR CERV OTHER 4V AP/LAT/FLX/EXT Radiology Routine Cervicalgia Cervical radiculopathy 1 Occurrences starting 01/18/2023 until 02/17/2024 [facility] Work Phone: Comment on above: 1 Occurrences starti ng 01/18/2023 until 02/17/2024 End: 01-18-2023 Radex spine cervical 4 or 5 views [facility] Work Phone: Comment on above: 1 Occurrences starti ng 01/18/2023 until 01/18/2023 XR CERV OTHER 4V AP/LAT/FLX/EXT XR CERV OTHER 4V AP/LAT/FLX/EXT Radiology Routine Radiculopathy, cervical region 04/10/2024 2:27 PM EDT [facility] Work Phone: [facility] MR PAIN [facility] MR PAIN [facility] Immunizations Immunization Date Immunization Notes Care Provider Rebecca bergman 02-06-2006 tetanus toxoid, redu stacie diphtheria toxoid, and acellular pertussis vaccine, adsorbed [facility] Work Phone: [facility] Payers Date Payer Category Payer Self-pay [id number] 2023 Private Health Insurance [facility] [id number] 2023 Unknown [employer]D [id number] 2023-Present [phone] [address] [place] [address] Indemnity [id number] 2023 Unknown [id number] 2020 Medicaid [employer] [id number] 2020-Present [phone] [address] [place] [address] Medicaid [id number] 2020 Medicaid [id number] 2010 Medicaid [place] [employer] [employer] [id number] 2010-Present [phone] [address] [place] [address] Medicaid [id number] Unknown [id number] Unknown [employer] [id number] [place] [id number] Unknown [id number] Social History Date Type Detail Facility Start: 10-13-2013 End: 08-02-2018 Tobacco smoking status WVIS Smokes tobacco daily [facility] Start: 02-13-2015 End: 01-08-2025 Alcohol intake Current non-drinker of alcohol (finding) [facility] Start: 1985 [facility] Start: 01-16-2022 End: 01-26-2022 Exposure to SARS-CoV-2 (event) Not sure [facility] Start: 10-13-2013 End: 03-30-2022 Tobacco use and exposure Smokeless tobacco non-user [facility] History of tobacco use Cigarette Smoker [facility] Start: 03-30-2022 Tobacco Comment patient smokes 1-2 cigarettes/day since she became , used to smoke 1 ppd [facility] Start: 12-08-2013 End: 08-03-2018 Tobacco smoking status WVIS Unknown if ever smoked [facility] Start: 1985 Sex Assigned At Female W [facility] Start: 01-18-2023 End: 01-08-2025 History of Social function [facility] Start: 01-18-2023 End: 01-08-2025 Tobacco use panel [facility] Start: 06-23-2012 National Score (1-100), lower number is lower risk 71 [facility] Start: 07-25-2023 Tobacco smoking status NHIS Ex-smoker [facility] History of tobacco use Current smoker [facility] Start: 07-25-2023 Tobacco use and exposure User of smokeless tobacco [facility] Start: 07-25-2023 Tobacco Comment vapepatient sm okes 1-2 cigarettes/day since she became , used to smoke 1 [facility] Goals Date Patient Goal Desired Activity /State Personal health goal Functional Status Date Assessment Result Facility 12-12-2013 Are you deaf, or do you have serious difficulty hearing No 12/12/2013 2:22 PM Odalys Hebert MA No [facility] 12-12-2013 Are you blind, or do you have serious difficulty seeing, even when wearing glasses No 12/12/2013 2:22 PM Odalys Hebert MA No [facility] 12-12-2013 Do you have serious difficulty walking or climbing stairs No 12/12/2013 2:22 PM Odalys Hebert MA No [facility] 12-12-2013 Do you have difficul ty dressing or bathing No 12/12/2013 2:22 PM Odalys Hebert MA No [facility] 12-12-2013 Because of a physica l, mental, or emotional condition, do you have difficulty doing errands alone such as visiting a physician's office or shopping No 12/12/2013 2:22 PM EDT Odalys Reese MA No [facility] Mental Status Date Assessment Result Facility 12-12-2013 Because of a physica l, mental, or emotional condition, do you have serious difficulty concentrating, remembering, or making decisions No 12/12/2013 2:22 PM EDT Odalys Reese MA No [facility] Clinical Notes 07-31-2016 to 04-28-2025 Telephone Encounter - Tameka Llanosmike Helton - 03/19/2025 3:32 PM EDTTelephone Encounter - DoyleblayneTamekaVivien K - 03/19/2025 3:32 PM EDTTelephone Encounter - Doyleblayne Vivien K - 03/17/2025 2:02 PM EDT Note Date & Type Note Facility 04-28-2025 Note HNO ID: [id number] Author: MAI DAVIS APRN.METAL FLOW COORDINATOR Service: ? Author Type: Nurse Practitioner Type: Progress Notes Filed: 04/28/2025 13:41 Note Text: Chief Complaint: Pain ___ History of Present Illness: Chelsea Wyman is a 39 year old year old female being seen at [facility] for a evaluation and/or management of their chronic pain. She states that since the last visit symptoms have been persistent. I last saw this patient in December 2024. The plan following her appointment with me was for her to undergo a C6-C7 cervical epidural injection on as-needed basis. Patient reports she had 60% improvement in pain following the cervical epidural in February 2024. Patient had this improvement for greater than 3 months. Patient reports that her neck pain was a 10/10 and improved to 4/10 for greater than 3 months. Patient reports her neck pain is well controlled. Patient denies any weakness in bilateral upper extremities. Patient denies any imbalance. At this patient's last office visit she was experiencing right sided posterior hip pain. Due to this an SI joint injection was ordered. She reports she has undergone right SI joint injections in the past with greater than 75% improvement for greater than 3 months. Patient reports that her right posterior hip pain has improved overall and therefore shedecided not to undergo the injection that I previously ordered at her last office visit. Patient currently rates her pain overall a 2 out of 10. Patient has been evaluated by neurosurgery. No surgical intervention is recommended at this time regarding her neck . Patient is currently also being treated with tramadol and baclofen. Patient is taking these medications without any side effects. Patient reports that the medications are effective in treating her pain. Patient took a dose of Tramadol earlier today. Last UDS: Ordered. Summary Report Date Value Ref Range Status 05/28/2024 FINAL Final Comment: ==== Tramadol, MS, Ur RFX ToxAssure Flex 23, Ur ==== Test Result Flag Units Drug Present Tramadol >2463 ng/mg creat O-Desmethyltramadol >2463 ng/mg creat N-Desmethyltramadol >2463 ng/mg creat Source of tramadol is a prescription medication. O-desmethyltramadol and N-desmethyltramadol are expected metabolites of tramadol. ==== Test Result Flag Units Ref Range Creatinine 203 mg/dL >=20 ==== Declared Medications: Medication list was not provided. ==== For clinical consultation, please call . ==== Lab Results Component Value Date SUMM FINAL 05/28/2024 No results found for: [place] PDMP website checked and validated. OARRS report reviewed on 04/28/2025 by Mai Davis APRN.METAL FLOW COORDINATOR and is consistent with the patients medical history and medication intake. ROS: Review of Systems Constitutional: Negative. Cardiovascular: Negative. Respiratory: Negative. Musculoskeletal: Positive for neck pain and stiffness. Neurological: Negative. Psychiatric/Behavioral: Negative. 01/08/2025 04/28/2025 Pain Disability Index Family/Home Responsibilities: This category includes chores or duties performed around the house (e.g. yard work), errands or favors for other family members (e.g. driving the children to school) 6 9 Recreation: This category includes hobbies, sports, and other similar leisure time activities 3 0 No disability Social Activity: This category refers to activities which involve participation with friends and acquaintances, other than family members. It includes parties, theater, concerts, dinning out, and other social functions 0 No disability 0 No disability Occupation: This category refers to activities that are a part of or directly related to ones' job. This includes non-paying jobs as well, such as that of a housewife or volunteer worker 8 9 Sexual Behavior: This category refers to the frequency and quality of one's sex life 2 0 No disability Self Care: This category includes activities which involve personal maintenance and independent daily living (e.g. taking a shower, driving, getting dress, etc) 0 No disability 0 No disability Life Support Activity: This category refers to basic-life supporting behaviors such as eating, sleeping, and breathing 0 No disability 0 No disability PDI Score 19 18 PAST MEDICAL HISTORY Diagnosis Date Anemia Arthritis Asthma (HCC) Depression (more content not included)... [facility] 03-19-2025 Telephone encounter Note I email JASON and Yuri regarding the approval. Vivien Llanos March 19, 2025 3:32 PM [facility] 03-19-2025 Miscellaneous Notes I email JASON and Yuri regarding the approval. Vivien Llanos March 19, 2025 3:32 PM [id number] completed. This procedure has been approved. Cymk-xs-dwag has been scheduled for 03/19/2025 between 3:30 PM and 4 PM with .--- Awaiting call from this physician. Flavio, I spoke to Chelsea and she stated when Dr Dubon did her last SI Joint injection which was 09/16/2020 she received 95% relief. She stated the pain started again 2 months ago. Thanks, Vivien Llanos March 17, 2025 2:03 PM Care source denied this procedure as they indicated that I did not document that the patient had greater than 75% improvement in pain with her last SI joint injection. Please contact patient and find out if she had greater than a 75% improvement in pain. If so then I will complete the peer to peer and we will also have documentation indicating that the patient had greater than a 75% improvement in pain. Please inform me of the patient's response. Thanks Flavio, Please review the denial below and advise as to how you would like to proceed. Thanks, Vivien Llanos March 17, 2025 1:32 PM May I know when case was denied?: 03/12/2025 Is the peer to peer available? Yes May I have the P2P ph# along with prompts? [phone] opt 1 What is the time frame for the peer to peer? 5 business days Would the peer to peer timeframe cover all services or is it specific for a type of service (surgery - office visit - injections)? N/A Does the P2P have to be scheduled or is it done right away? LVM asking for a call back Is it required for the provider to schedule the P2P or can this be done by his medical office specialist? Anyone from the Dr s office Who can complete the P2P (Doctor, PA, BELT REPAIRER)? LIONEL Feliz, BELT REPAIRER Would the peer to peer be available if services have been rendered? Yes Is the appeal available? Yes Reason for Denial: Your request for a repeat pain shot (sacroiliac joint injection) cannot be approved. You are 39 years old. You have low back (sacroiliac) pain. The notes show you had a previous pain shot in the same area. They do not show you had significant improvement (75% decrease in pain) of your pain from the previous shot. The request does not meet the guidelines. documented in this encounter [facility] 03-19-2025 Telephone encounter Note [id number] completed. This procedure has been approved. [facility] 03-17-2025 Telephone encounter Note Xdqw-si-buyx has been scheduled for 03/19/2025 between 3:30 PM and 4 PM with .--- Awaiting call from this physician. [facility] 03-17-2025 Telephone encounter Note Flavio, I spoke to Chelsea and she stated when Dr Dubon did her last SI Joint injection which was 09/16/2020 she received 95% relief. She stated the pain started again 2 months ago. Thanks, Vivien Llanos March 17, 2025 2:03 PM [facility] 03-17-2025 Telephone encounter Note Care source denied this procedure as they indicated that I did not document that the patient had greater than 75% improvement in pain with her last SI joint injection. Please contact patient and find out if she had greater than a 75% improvement in pain. If so then I will complete the peer to peer and we will also have documentation indicating that the patient had greater than a 75% improvement in pain. Please inform me of the patient's response. Thanks [facility] 03-17-2025 Telephone encounter Note Flavio, Please review the denial below and advise as to how you would like to proceed. ThanksVivien March 17, 2025 1:32 PM May I know when case was denied?: 03/12/2025 Is the peer to peer available? Yes May I have the P2P ph# along with prompts? [phone] opt 1 What is the time frame for the peer to peer? 5 business days Would the peer to peer timeframe cover all services or is it specific for a type of service (surgery - office visit - injections)? N/A Does the P2P have to be scheduled or is it done right away? LVM asking for a call back Is it required for the provider to schedule the P2P or can this be done by his medical office specialist? Anyone from the Dr s office Who can complete the P2P (Doctor, PA, BELT REPAIRER)? Doctor, PA, BELT REPAIRER Would the peer to peer be available if services have been rendered? Yes Is the appeal available? Yes Reason for Denial: Your request for a repeat pain shot (sacroiliac joint injection) cannot be approved. You are 39 years old. You have low back (sacroiliac) pain. The notes show you had a previous pain shot in the same area. They do not show you had significant improvement (75% decrease in pain) of your pain from the previous shot. The request does not meet the guidelines. [facility] 03-09-2025 Telephone encounter Note Patient phones requesting refills as follows: Requested Prescriptions Pending Prescriptions Disp Refills baclofen 20 mg tablet 90 tablet 2 Sig: Take 1 tablet by mouth three times a day as needed. Last UDS: last uds 05/28/24-consistent pain contract 02/26/24 [facility] Urine Drug Screen Summary Report Date Value Ref Range Status 05/28/2024 FINAL Final Comment: ==== Tramadol, MS, Ur RFX ToxAssure Flex 23, Ur ==== Test Result Flag Units Drug Present Tramadol >2463 ng/mg creat O-Desmethyltramadol >2463 ng/mg creat N-Desmethyltramadol >2463 ng/mg creat Source of tramadol is a prescription medication. O-desmethyltramadol and N-desmethyltramadol are expected metabolites of tramadol. ==== Test Result Flag Units Ref Range Creatinine 203 mg/dL >=20 ==== Declared Medications: Medication list was not provided. ==== For clinical consultation, please call . ==== [facility] Urine Drug Screen and Benzo Confirm Urine Panel: No results found for: UQCANN, UQBNZL, WTP5QUD, UQAMPH, UQMAMP, UQBUPRE, UQNORBUP, UQMTHD, UQEDDP, UQTRAM, UQDTRM, UQFNTL, UQNFTL, UQCODE, UQMORP, UQDCDN, UQHCOD, UQOXYC, UQHMOR, UQOXYM, UQCREA, UQPH, UQSPGR, UQOXID, UQSPQ Last Opioid agreement effective date: 01/08/2025 Recent Visits Date Type Provider Dept 01/08/25 Office Visit Mai Davis APRN.METAL FLOW COORDINATOR [facility] 10/09/24 Office Visit Mai Davis [employer] TECHNOLOGY COACH.METAL FLOW COORDINATOR [facility] 05/28/24 Office Visit Mai Davis APRN.METAL FLOW COORDINATOR [facility] 02/26/24 Office Visit Mai Davis APRN.METAL FLOW COORDINATOR [facility] 01/01/24 Office Visit Mai Davis APRN.METAL FLOW COORDINATOR [facility] 10/10/23 Office Visit Mai Davis APRN.METAL FLOW COORDINATOR [facility] Showing recent visits within past 540 days with a meds authorizing provider and meeting all other requirements Future Appointments Date Type Provider Dept 04/28/25 Appointment Mai Davis APRN.METAL FLOW COORDINATOR [facility] Showing future appointments within next 150 days with a meds authorizing provider and meeting all other requirements Please review and advise. Nimo Rojas MA T [facility] 03-09-2025 Miscellaneous Notes Patient phones requesting refills as follows: Requested Prescriptions Pending Prescriptions Disp Refills baclofen 20 mg tablet 90 tablet 2 Sig: Take 1 tablet by mouth three times a day as needed. Last UDS: last uds 05/28/24-consistent pain contract 02/26/24 [facility] Urine Drug Screen Summary Report Date Value Ref Range Status 05/28/2024 FINAL Final Comment: ==== Tramadol, MS, Ur RFX ToxAssure Flex 23, Ur ==== Test Result Flag Units Drug Present Tramadol >2463 ng/mg creat O-Desmethyltramadol >2463 ng/mg creat N-Desmethyltramadol >2463 ng/mg creat Source of tramadol is a prescription medication. O-desmethyltramadol and N-desmethyltramadol are expected metabolites of tramadol. ==== Test Result Flag Units Ref Range Creatinine 203 mg/dL >=20 ==== Declared Medications: Medication list was not provided. ==== For clinical consultation, please call . ==== [facility] Urine Drug Screen and Benzo Confirm Urine Panel: No results found for: UQCANN, UQBNZL, ONZ8ASR, UQAMPH, UQMAMP, UQBUPRE, UQNORBUP, UQMTHD, UQEDDP, UQTRAM, UQDTRM, UQFNTL, UQNFTL, UQCODE, UQMORP, UQDCDN, UQHCOD, UQOXYC, UQHMOR, UQOXYM, UQCREA, UQPH, UQSPGR, UQOXID, UQSPQ Last Opioid agreement effective date: 01/08/2025 Recent Visits Date Type Provider Dept 01/08/25 Office Visit Mai Davis APRN.METAL FLOW COORDINATOR [facility] 10/09/24 Office Visit Mai Davis APRN.METAL FLOW COORDINATOR [facility] 05/28/24 Office Visit Mai Davis APRN.METAL FLOW COORDINATOR [facility] 02/26/24 Office Visit Mai Davis APRN.METAL FLOW COORDINATOR [facility] 01/01/24 Office Visit Mai Davis APRN.METAL FLOW COORDINATOR [facility] 10/10/23 Office Visit Mai Davis APRN.METAL FLOW COORDINATOR [facility] Showing recent visits within past 540 days with a meds authorizing provider and meeting all other requirements Future Appointments Date Type Provider Dept 04/28/25 Appointment Mai Davis APRN.METAL FLOW COORDINATOR [facility] Showing future appointments within next 150 days with a meds authorizing provider and meeting all other requirements Please review and advise. Nimo Rojas MA documented in this encounter [facility] 01-12-2025 Telephone encounter Note [facility] 01-12-2025 Miscellaneous Notes Called and cancelled script at [facility] Clare Carmona RN Prescription sent to the [facility]. Please cancel the prescription at [facility] Thanks Summary: pharmacy closing Returned call to pt from [facility] message requesting call back about pharmacy: Pt states that [facility] in [place] is closing on 01-16-25. Pt requests tramadol 'script be sent to [facility] in [place]. Please resend 'script. Thank you, Shayna Rodas RN January 09, 2025 1:46 PM documented in this encounter [facility] 01-09-2025 Telephone encounter Note Prescription sent to the [facility]. Please cancel the prescription at [facility] Thanks [facility] 01-09-2025 Telephone encounter Note Summary: pharmacy closing Returned call to pt from [facility] message requesting call back about pharmacy: Pt states that [facility] in [place] is closing on 01-16-25. Pt requests tramadol 'script be sent to [facility] in [place]. Please resend 'script. Thank you, Shayna Rodas RN January 09, 2025 1:46 PM [facility] 01-09-2025 Telephone encounter Note Tramadol 50mg Pa approved via [facility] Prior authorization approved Payer: [facility] Note from payer: Approved. Approval Details Authorized from December 08, 2024 to July 10, 2025 Electronic appeal: Not supported Jeannie Candelario MA January 09, 2025 6:20 AM [facility] 01-09-2025 Miscellaneous Notes Tramadol 50mg Pa approved via [facility] Prior authorization approved Payer: Tony Note from payer: Approved. Approval Details Authorized from December 08, 2024 to July 10, 2025 Electronic appeal: Not supported Jeannie Candelario MA January 09, 2025 6:20 AM documented in this encounter [facility] 01-08-2025 Telephone encounter Note Pa submitted via [email or web address] for tramadol Jeannie Candelario MA January 08, 2025 2:38 PM [facility] 01-08-2025 Miscellaneous Notes Pa submitted via [email or web address] for tramadol Jeannie Candelario MA January 08, 2025 2:38 PM documented in this encounter [facility] 01-08-2025 Instructions Mai Davis, CAYETANO.METAL FLOW COORDINATOR - 01/08/2025 1:35 PM EDT [facility]arrs checked Patient did previously follow with Dr. Dubon and her staff. Low risk per ORT UDS consistent. Plan to repeat C6-C7 epidural injection as needed. Patient would like to hold off on this Patient is current experiencing right SI joint pain on exam. Patient reports she has undergone right SI joint injection in the past. Patient would like to repeat right SI joint injection. Order placed. Patient to schedule prior to leaving. If for some reason this does not improve her pain we will plan to obtain further imaging of right hip and low back. Continue Tramadol as prescribed. This medication helps improve the patient's daily functionality. Patient denies any side effects with current medication regimen. Continue baclofen 20 mg 3 times a day as needed. Patient to notify office with any questions or concerns Patient to follow up with me in office in 3 months. documented in this encounter [facility] 01-08-2025 History of Presen t illness Narrative Chief Complaint: Pain ___ History of Present Illness: Chelsea Wyman is a 39 year old year old female being seen at [facility] for a evaluation and/or management of their chronic pain. She states that since the last visit symptoms have been persistent. I last saw this patient in September 2024. The plan following her appointment with me was for her to undergo a C6-C7 cervical epidural injection. This procedure was scheduled for her to undergo in November 2024 however the patient then canceled this procedure. Patient reports she had 60% improvement in pain following the cervical epidural in February 2024. Patient had this improvement for greater than 3 months. Patient reports that her neck pain was a 10/10 and improved to 4/10 for greater than 3 months. Patient reports her neck pain rains well controlled. Patient denies any weakness in bilateral upper extremities. Patient denies any imbalance. Patient reports she is currently having right posterior hip pain. She reports she has undergone right SI joint injections in the past with greater than 50% improvement for greater than 3 months. Patient reports the right posterior hip pain is a 3/10 but it gets much worse at times. Patient has been evaluated by neurosurgery. No surgical intervention is recommended at this time regarding her neck . Patient is currently also being treated with tramadol and baclofen. Patient is taking these medications without any side effects. Patient reports that the medications are effective in treating her pain. Last UDS: Reviewed, consistent. Summary Report Date Value Ref Range Status 05/28/2024 FINAL Final Comment: ==== Tramadol, MS, Ur RFX ToxAssure Flex 23, Ur ==== Test Result Flag Units Drug Present Tramadol >2463 ng/mg creat O-Desmethyltramadol >2463 ng/mg creat N-Desmethyltramadol >2463 ng/mg creat Source of tramadol is a prescription medication. O-desmethyltramadol and N-desmethyltramadol are expected metabolites of tramadol. ==== Test Result Flag Units Ref Range Creatinine 203 mg/dL >=20 ==== Declared Medications: Medication list was not provided. ==== For clinical consultation, please call . ==== Lab Results Component Value Date SUMM FINAL 05/28/2024 No results found for: [place] PDMP website checked and validated. OARRS report reviewed on 01/08/2025 by Mai Davis APRN.CNP and is consistent with the patients medical history and medication intake. ROS: Review of Systems Constitutional: Negative. Cardiovascular: Negative. Respiratory: Negative. Musculoskeletal: Positive for neck pain and stiffness. Neurological: Negative. Psychiatric/Behavioral: Negative. 10/09/2024 01/08/2025 Pain Disability Index Family/Home Responsibilities: This category includes chores or duties performed around the house (e.g. yard work), errands or favors for other family members (e.g. driving the children to school) 7 6 Recreation: This category includes hobbies, sports, and other similar leisure time activities 4 3 Social Activity: This category refers to activities which involve participation with friends and acquaintances, other than family members. It includes parties, theater, concerts, dinning out, and other social functions 0 No disability 0 No disability Occupation: This category refers to activities that are a part of or directly related to ones' job. This includes non-paying jobs as well, such as that of a housewife or volunteer worker 7 8 Sexual Behavior: This category refers to the frequency and quality of one's sex life 0 No disability 2 Self Care: This category includes activities which involve personal maintenance and independent daily living (e.g. taking a shower, driving, getting dress, etc) 0 No disability 0 No disability Life Support Activity: This category refers to basic-life supporting behaviors such as eating, sleeping, and breathing 3 0 No disability PDI Score 21 19 PAST MEDICAL HISTORY Diagnosis Date Anemia Arthritis Asthma Depression PAST SURGICAL HISTORY Procedure Laterality Date INJECTION right hip- numbing injection TUBAL LIGATION, 2007 FAMILY HISTORY Problem Relation Age of Onset Diabetes Father Heart Father Heart Attack Father Colon Cancer Mother Heart Maternal Grandmother Diabetes Maternal Grandmother Diabetes Paternal Grandmother Diabetes Other Social History Tobacco Use Smoking status: Former Types: Cigarettes Smokeless tobacco: Current Tobacco comments: vape patient smokes 1-2 cigarettes/day since she became , used to smoke 1 ppd Substance Use Topics Alcohol use: No Drug use: No Allergies: Codeine Swelling Penicillins Vomiting Septra [Sulfamethox* Comment:faint, dizziness Sulfamethoxazole Unknown Current Outpatient Medications Medication Sig traMADol (ULTRAM) 50 mg tablet Take 1 tablet by mouth as directed for 30 days. q4-6 hr prn max 5 day Patient should start on October 15, 2024. baclofen 20 mg tablet Take 1 tablet by mouth three times a day as needed. cefdinir (OMNICEF) 300 mg capsule Take 1 capsule by mouth every 12 hours. rosuvastatin (CRESTOR) 5 mg tablet lidocaine (LIDODERM) 5 % Apply to affected area. loratadine (CLARITIN) 10 mg tablet Take by mouth. piroxicam (FELDENE) 10 mg capsule Take by mouth. levothyroxine (SYNTHROID) 50 mcg tablet Take 50 mcg by mouth once daily. DULoxetine (CYMBALTA) 60 mg capsule No current facility-administered medications for this visit. PHYSICAL EXAMINATION: Physical Exam Constitutional: General: She is not in acute distress. Appearance: Normal appearance. She is not ill-appearing, toxic-appearing or diaphoretic. Cardiovascular: Rate and Rhythm: Normal rate and regular rhythm. Pulses: Normal pulses. Heart sounds: Normal heart sounds. No murmur heard. Pulmonary: Effort: Pulmonary effort is normal. No respiratory distress. Breath sounds: Normal breath sounds. Abdominal: General: Bowel sounds are normal. Palpations: Abdomen is soft. Musculoskeletal: Comments: No spinal deformity. Patient does have tenderness upon palpation to cervical paraspinals and shoulder stabilizer muscle groups bilaterally. Negative Spurling test bilaterally. Patient has good range of motion of the cervical spine. 5 out of 5 strength in bilateral upper extremities Patient has tenderness over the right SI joint upon palpation. Positive Vanesa to the right side, positive Gaenslen's side to the right SI joint, positive right SI joint compression test to the right side. Skin: General: Skin is warm and dry. Capillary Refill: Capillary refill takes less than 2 seconds. Neurological: General: No focal deficit present. Mental Status: She is alert and oriented to person, place, and time. Cranial Nerves: No cranial nerve deficit. Sensory: No sensory deficit. Motor: No weakness. Coordination: Coordination normal. Gait: Gait normal. Deep Tendon Reflexes: Reflexes normal. Psychiatric: Mood and Affect: Mood normal. Behavior: Behavior normal. Thought Content: Thought content normal. Judgment: Judgment normal. ASSESSMENT: Patient is stable. Chronic pain is persistent. Medications are helping Chelsea Wyman to have an improved quality of life. Patient compliance with Opioid Contract: patient is compliant Encounter Diagnosis ICD-10-CM 1. Other chronic pain G89.29 2. Chronic pain syndrome G89.4 traMADol (ULTRAM) 50 mg tablet 3. Sacroiliitis M46.1 SURGICAL REQUEST - ELECTIVE (02/2020) 4. Radiculopathy, cervical region M54.12 5. Arthropathy of cervical facet joint M47.812 6. DDD (degenerative disc disease), cervical M50.30 7. High risk medication use Z79.899 PLAN: The patient understands the goal of our treatment is a reduction in pain and/or an improved level of functioning with activities of daily living. If at any time the patient does not feel the medications are helping them to achieve these goals, the medications may be discontinued. The patient reports a reduction in pain and/or an improved level of functioning with activities of daily living, denies any significant adverse effects, is compliant with the pain management agreement and there are no signs of medication misuse, abuse or diversion; therefore, the medications will be continued. Oarrs checked Patient did previously follow with Dr. Dubon and her staff. Low risk per ORT UDS consistent. Plan to repeat C6-C7 epidural injection as needed. Patient would like to hold off on this Patient is current experiencing right SI joint pain on exam. Patient reports she has undergone right SI joint injection in the past. Patient would like to repeat right SI joint injection. Order placed. Patient to schedule prior to leaving. If for some reason this does not improve her pain we will plan to obtain further imaging of right hip and low back. Continue Tramadol as prescribed. This medication helps improve the patient's daily functionality. Patient denies any side effects with current medication regimen. Continue baclofen 20 mg 3 times a day as needed. Patient to notify office with any questions or concerns Patient to follow up with me in office in 3 months. Mai Davis APRN.METAL FLOW COORDINATOR documented in this encounter [facility] 01-08-2025 Note HNO ID: [id number] Author: MAI DAVIS APRN.KEZIA Service: ? Author Type: Nurse Practitioner Type: Progress Notes Filed: 01/08/2025 13:42 Note Text: Chief Complaint: Pain ___ History of Present Illness: Chelsea Wyman is a 39 year old year old female being seen at [facility] for a evaluation and/or management of their chronic pain. She states that since the last visit symptoms have been persistent. I last saw this patient in September 2024. The plan following her appointment with me was for her to undergo a C6-C7 cervical epidural injection. This procedure was scheduled for her to undergo in November 2024 however the patient then canceled this procedure. Patient reports she had 60% improvement in pain following the cervical epidural in February 2024. Patient had this improvement for greater than 3 months. Patient reports that her neck pain was a 10/10 and improved to 4/10 for greater than 3 months. Patient reports her neck pain rains well controlled. Patient denies any weakness in bilateral upper extremities. Patient denies any imbalance. Patient reports she is currently having right posterior hip pain. She reports she has undergone right SI joint injections in the past with greater than 50% improvement for greater than 3 months. Patient reports the right posterior hip pain is a 3/10 but it gets much worse at times. Patient has been evaluated by neurosurgery. No surgical intervention is recommended at this time regarding her neck . Patient is currently also being treated with tramadol and baclofen. Patient is taking these medications without any side effects. Patient reports that the medications are effective in treating her pain. Last UDS: Reviewed, consistent. Summary Report Date Value Ref Range Status 05/28/2024 FINAL Final Comment: ==== Tramadol, MS, Ur RFX ToxAssure Flex 23, Ur ==== Test Result Flag Units Drug Present Tramadol >2463 ng/mg creat O-Desmethyltramadol >2463 ng/mg creat N-Desmethyltramadol >2463 ng/mg creat Source of tramadol is a prescription medication. O-desmethyltramadol and N-desmethyltramadol are expected metabolites of tramadol. ==== Test Result Flag Units Ref Range Creatinine 203 mg/dL >=20 ==== Declared Medications: Medication list was not provided. ==== For clinical consultation, please call . ==== Lab Results Component Value Date SUMM FINAL 05/28/2024 No results found for: SUMMAR PDMP website checked and validated. OARRS report reviewed on 01/08/2025 by Mai Davis APRN.METAL FLOW COORDINATOR and is consistent with the patients medical history and medication intake. ROS: Review of Systems Constitutional: Negative. Cardiovascular: Negative. Respiratory: Negative. Musculoskeletal: Positive for neck pain and stiffness. Neurological: Negative. Psychiatric/Behavioral: Negative. 10/09/2024 01/08/2025 Pain Disability Index Family/Home Responsibilities: This category includes chores or duties performed around the house (e.g. yard work), errands or favors for other family members (e.g. driving the children to school) 7 6 Recreation: This category includes hobbies, sports, and other similar leisure time activities 4 3 Social Activity: This category refers to activities which involve participation with friends and acquaintances, other than family members. It includes parties, theater, concerts, dinning out, and other social functions 0 No disability 0 No disability Occupation: This category refers to activities that are a part of or directly related to ones' job. This includes non-paying jobs as well, such as that of a housewife or volunteer worker 7 8 Sexual Behavior: This category refers to the frequency and quality of one's sex life 0 No disability 2 Self Care: This category includes activities which involve personal maintenance and independent daily living (e.g. taking a shower, driving, getting dress, etc) 0 No disability 0 No disability Life Support Activity: This category refers to basic-life supporting behaviors such as eating, sleeping, and breathing 3 0 No disability PDI Score 21 19 PAST MEDICAL HISTORY Diagnosis Date Anemia Arthritis Asthma Depression PAST SURGICAL HISTORY Procedure Laterality Date INJECTION right hip- numbing injection TUBAL LIGATION, 2007 FAMILY HISTORY Problem Relation Age of Onset Diabetes Father (more content not included)... [facility] 10-09-2024 Instructions Mai Davis APRN.KEZIA - 10/09/2024 9:55 AM EDT Oarrs checked Patient did previously follow with Dr. Dubon and her staff. Low risk per ORT UDS consistent. Plan to repeat C6-C7 epidural injection. Order placed. Patient to schedule prior to leaving office today. Continue Tramadol as prescribed. This medication helps improve the patient's daily functionality. Patient denies any side effects with current medication regimen. Continue baclofen 20 mg 3 times a day as needed. Patient to notify office with any questions or concerns Patient to follow up with me in office in 3 months. Procedure to be done: Epidurals- Cervical A utility worker driver is required: Yes If you are receiving oral sedation, you may eat a light meal. Clothing to wear: Back injections - elastic waist/jogging pants Neck injections - wide neck or button down shirt; please do not wear neck jewelry Plan to take it easy the rest of the day following your procedure. You may resume normal activities 24 hours following your procedure or as otherwise instructed. Please call our office prior to your injection if you are sick or on an antibiotic or have any change in the location of pain. Special Instructions - Blood Thinners - It is imperative that blood thinners be stopped prior to your procedure. There are many blood thinners, but the most common are : Plavix (7 days prior), Coumadin (7 days prior), Aspirin (7 days prior), Eliquis (3 days prior). These medications can NOT be stopped unless we have authorization from your prescribing physician. Anti-inflammatories must be held for 48 hours prior. All vitamins and herbal supplements must be held for 7 days prior. documented in this encounter [facility] 10-09-2024 History of Presen t illness Narrative Chief Complaint: Pain ___ History of Present Illness: Chelsea Wyman is a 39 year old year old female being seen at [facility] for a evaluation and/or management of their chronic pain. She states that since the last visit symptoms have been improving. I last saw this patient in May 2024. The plan following her appointment with me was for her to undergo a C6-C7 cervical epidural injection on as needed basis for the management of cervical radicular symptoms. Patient reports she had 60% improvement in pain following the cervical epidural in February 2024. Patient had this improvement for greater than 3 months. Patient reports that her neck pain was a 10/10 and improved to 4/10 for greater than 3 months. Reports that pain is now starting to recur. Patient reports that she is having neck pain that radiates into bilateral upper extremities. Patient denies any weakness in bilateral upper extremities. Patient denies any imbalance. Following the last office visit the patient did get evaluated by neurosurgery for her neck pain. No surgical intervention is recommended at this time Patient is currently also being treated with tramadol and baclofen. Patient is taking these medications without any side effects. Patient reports that the medications are effective in treating her pain. Last UDS: Reviewed, consistent. Summary Report Date Value Ref Range Status 05/28/2024 FINAL Final Comment: ==== Tramadol, MS, Ur RFX ToxAssure Flex 23, Ur ==== Test Result Flag Units Drug Present Tramadol >2463 ng/mg creat O-Desmethyltramadol >2463 ng/mg creat N-Desmethyltramadol >2463 ng/mg creat Source of tramadol is a prescription medication. O-desmethyltramadol and N-desmethyltramadol are expected metabolites of tramadol. ==== Test Result Flag Units Ref Range Creatinine 203 mg/dL >=20 ==== Declared Medications: Medication list was not provided. ==== For clinical consultation, please call . ==== Lab Results Component Value Date SUMM FINAL 05/28/2024 No results found for: [place] PDMP website checked and validated. OARRS report reviewed on 10/09/2024 by Mai Davis APRN.METAL FLOW COORDINATOR and is consistent with the patients medical history and medication intake. ROS: Review of Systems Constitutional: Negative. Cardiovascular: Negative. Respiratory: Negative. Musculoskeletal: Positive for neck pain and stiffness. Neurological: Negative. Psychiatric/Behavioral: Negative. 05/28/2024 10/09/2024 Pain Disability Index Family/Home Responsibilities: This category includes chores or duties performed around the house (e.g. yard work), errands or favors for other family members (e.g. driving the children to school) 10 Total Disability 7 Recreation: This category includes hobbies, sports, and other similar leisure time activities 10 Total disability 4 Social Activity: This category refers to activities which involve participation with friends and acquaintances, other than family members. It includes parties, theater, concerts, dinning out, and other social functions 10 Total disability 0 No disability Occupation: This category refers to activities that are a part of or directly related to ones' job. This includes non-paying jobs as well, such as that of a housewife or volunteer worker 10 Total disability 7 Sexual Behavior: This category refers to the frequency and quality of one's sex life 0 No disability 0 No disability Self Care: This category includes activities which involve personal maintenance and independent daily living (e.g. taking a shower, driving, getting dress, etc) 0 No disability 0 No disability Life Support Activity: This category refers to basic-life supporting behaviors such as eating, sleeping, and breathing 8 3 PDI Score 48 21 PAST MEDICAL HISTORY Diagnosis Date Anemia Arthritis Asthma Depression PAST SURGICAL HISTORY Procedure Laterality Date INJECTION right hip- numbing injection TUBAL LIGATION, 2007 FAMILY HISTORY Problem Relation Age of Onset Diabetes Father Heart Father Heart Attack Father Colon Cancer Mother Heart Maternal Grandmother Diabetes Maternal Grandmother Diabetes Paternal Grandmother Diabetes Other Social History Tobacco Use Smoking status: Former Types: Cigarettes Smokeless tobacco: Current Tobacco comments: vape patient smokes 1-2 cigarettes/day since she became , used to smoke 1 ppd Substance Use Topics Alcohol use: No Drug use: No Allergies: Codeine Swelling Penicillins Vomiting Septra [Sulfamethox* Comment:faint, dizziness Sulfamethoxazole Unknown Current Outpatient Medications Medication Sig traMADol (ULTRAM) 50 mg tablet Take 1 tablet by mouth as directed for 30 days. q4-6 hr prn max 5 day baclofen 20 mg tablet Take 1 tablet by mouth three times a day as needed. cefdinir (OMNICEF) 300 mg capsule Take 1 capsule by mouth every 12 hours. rosuvastatin (CRESTOR) 5 mg tablet lidocaine (LIDODERM) 5 % Apply to affected area. loratadine (CLARITIN) 10 mg tablet Take by mouth. piroxicam (FELDENE) 10 mg capsule Take by mouth. levothyroxine (SYNTHROID) 50 mcg tablet Take 50 mcg by mouth once daily. DULoxetine (CYMBALTA) 60 mg capsule No current facility-administered medications for this visit. PHYSICAL EXAMINATION: Physical Exam Constitutional: General: She is not in acute distress. Appearance: Normal appearance. She is not ill-appearing, toxic-appearing or diaphoretic. Cardiovascular: Rate and Rhythm: Normal rate and regular rhythm. Pulses: Normal pulses. Heart sounds: Normal heart sounds. No murmur heard. Pulmonary: Effort: Pulmonary effort is normal. No respiratory distress. Breath sounds: Normal breath sounds. Abdominal: General: Bowel sounds are normal. Palpations: Abdomen is soft. Musculoskeletal: Comments: No spinal deformity. Patient does have tenderness upon palpation to cervical paraspinals and shoulder stabilizer muscle groups bilaterally. Negative Spurling test bilaterally. Patient has good range of motion of the cervical spine. 5 out of 5 strength in bilateral upper extremities Skin: General: Skin is warm and dry. Capillary Refill: Capillary refill takes less than 2 seconds. Neurological: General: No focal deficit present. Mental Status: She is alert and oriented to person, place, and time. Cranial Nerves: No cranial nerve deficit. Sensory: No sensory deficit. Motor: No weakness. Coordination: Coordination normal. Gait: Gait normal. Deep Tendon Reflexes: Reflexes normal. Psychiatric: Mood and Affect: Mood normal. Behavior: Behavior normal. Thought Content: Thought content normal. Judgment: Judgment normal. ASSESSMENT: Patient is stable. Chronic pain is persistent. Medications are helping Chelsea Wyman to have an improved quality of life. Patient compliance with Opioid Contract: patient is compliant Encounter Diagnosis ICD-10-CM 1. Other chronic pain G89.29 2. Radiculopathy, cervical region M54.12 SURGICAL REQUEST - ELECTIVE (02/2020) 3. Chronic pain syndrome G89.4 traMADol (ULTRAM) 50 mg tablet baclofen 20 mg tablet 4. Spinal stenosis of cervical region M48.02 baclofen 20 mg tablet 5. DDD (degenerative disc disease), cervical M50.30 baclofen 20 mg tablet 6. High risk medication use Z79.899 PLAN: The patient understands the goal of our treatment is a reduction in pain and/or an improved level of functioning with activities of daily living. If at any time the patient does not feel the medications are helping them to achieve these goals, the medications may be discontinued. The patient reports a reduction in pain and/or an improved level of functioning with activities of daily living, denies any significant adverse effects, is compliant with the pain management agreement and there are no signs of medication misuse, abuse or diversion; therefore, the medications will be continued. Oarrs checked Patient did previously follow with Dr. Dubon and her staff. Low risk per ORT UDS consistent. Plan to repeat C6-C7 epidural injection. Order placed. Patient to schedule prior to leaving office today. Continue Tramadol as prescribed. This medication helps improve the patient's daily functionality. Patient denies any side effects with current medication regimen. Continue baclofen 20 mg 3 times a day as needed. Patient to notify office with any questions or concerns Patient to follow up with me in office in 3 months. Mai Davis APRN.METAL FLOW COORDINATOR documented in this encounter [facility] 10-09-2024 Note HNO ID: [id number] Author: MAI DAVIS APRN.METAL FLOW COORDINATOR Service: ? Author Type: Nurse Practitioner Type: Progress Notes Filed: 10/09/2024 10:05 Note Text: Chief Complaint: Pain ___ History of Present Illness: Chelsea Wyman is a 39 year old year old female being seen at [facility] for a evaluation and/or management of their chronic pain. She states that since the last visit symptoms have been improving. I last saw this patient in May 2024. The plan following her appointment with me was for her to undergo a C6-C7 cervical epidural injection on as needed basis for the management of cervical radicular symptoms. Patient reports she had 60% improvement in pain following the cervical epidural in February 2024. Patient had this improvement for greater than 3 months. Patient reports that her neck pain was a 10/10 and improved to 4/10 for greater than 3 months. Reports that pain is now starting to recur. Patient reports that she is having neck pain that radiates into bilateral upper extremities. Patient denies any weakness in bilateral upper extremities. Patient denies any imbalance. Following the last office visit the patient did get evaluated by neurosurgery for her neck pain. No surgical intervention is recommended at this time Patient is currently also being treated with tramadol and baclofen. Patient is taking these medications without any side effects. Patient reports that the medications are effective in treating her pain. Last UDS: Reviewed, consistent. Summary Report Date Value Ref Range Status 05/28/2024 FINAL Final Comment: ==== Tramadol, MS, Ur RFX ToxAssure Flex 23, Ur ==== Test Result Flag Units Drug Present Tramadol >2463 ng/mg creat O-Desmethyltramadol >2463 ng/mg creat N-Desmethyltramadol >2463 ng/mg creat Source of tramadol is a prescription medication. O-desmethyltramadol and N-desmethyltramadol are expected metabolites of tramadol. ==== Test Result Flag Units Ref Range Creatinine 203 mg/dL >=20 ==== Declared Medications: Medication list was not provided. ==== For clinical consultation, please call . ==== Lab Results Component Value Date SUMM FINAL 05/28/2024 No results found for: [place] PDMP website checked and validated. OARRS report reviewed on 10/09/2024 by Mai Davis APRN.CNP and is consistent with the patients medical history and medication intake. ROS: Review of Systems Constitutional: Negative. Cardiovascular: Negative. Respiratory: Negative. Musculoskeletal: Positive for neck pain and stiffness. Neurological: Negative. Psychiatric/Behavioral: Negative. 05/28/2024 10/09/2024 Pain Disability Index Family/Home Responsibilities: This category includes chores or duties performed around the house (e.g. yard work), errands or favors for other family members (e.g. driving the children to school) 10 Total Disability 7 Recreation: This category includes hobbies, sports, and other similar leisure time activities 10 Total disability 4 Social Activity: This category refers to activities which involve participation with friends and acquaintances, other than family members. It includes parties, theater, concerts, dinning out, and other social functions 10 Total disability 0 No disability Occupation: This category refers to activities that are a part of or directly related to ones' job. This includes non-paying jobs as well, such as that of a housewife or volunteer worker 10 Total disability 7 Sexual Behavior: This category refers to the frequency and quality of one's sex life 0 No disability 0 No disability Self Care: This category includes activities which involve personal maintenance and independent daily living (e.g. taking a shower, driving, getting dress, etc) 0 No disability 0 No disability Life Support Activity: This category refers to basic-life supporting behaviors such as eating, sleeping, and breathing 8 3 PDI Score 48 21 PAST MEDICAL HISTORY Diagnosis Date Anemia Arthritis Asthma Depression PAST SURGICAL HISTORY Procedure Laterality Date INJECTION right hip- numbing injection TUBAL LIGATION, 2007 FAMILY HISTORY Problem Relation Age of Onset Diabetes Father Heart Father Heart Attack Father Colon Cancer Mother Heart Maternal Grandmother Diabetes Maternal Grandmother Diabetes Paternal Grandmother (more content not included)... [facility] 09-12-2024 Telephone encounter Note Patient phones requesting refills as follows: Requested Prescriptions Pending Prescriptions Disp Refills traMADol (ULTRAM) 50 mg tablet 150 tablet 2 Sig: Take 1 tablet by mouth as directed for 30 days. q4-6 hr prn max 5 day Last UDS: last uds 01/18/23-consistent pain contract 02/28/23 Summary Report Date Value Ref Range Status 05/28/2024 FINAL Final Comment: ==== Tramadol, MS, Ur RFX ToxAssure Flex 23, Ur ==== Test Result Flag Units Drug Present Tramadol >2463 ng/mg creat O-Desmethyltramadol >2463 ng/mg creat N-Desmethyltramadol >2463 ng/mg creat Source of tramadol is a prescription medication. O-desmethyltramadol and N-desmethyltramadol are expected metabolites of tramadol. ==== Test Result Flag Units Ref Range Creatinine 203 mg/dL >=20 ==== Declared Medications: Medication list was not provided. ==== For clinical consultation, please call . ==== No results found for: UQNOTE, OPIATEPNMGT, DRUGSCRPAIN Urine Panel: No results found for: UQCANN, UQBNZL, VNN8SZF, UQAMPH, UQMAMP, UQBUPRE, UQNORBUP, UQMTHD, UQEDDP, UQTRAM, UQDTRM, UQFNTL, UQNFTL, UQCODE, UQMORP, UQDCDN, UQHCOD, UQOXYC, UQHMOR, UQOXYM, UQCREA, UQPH, UQSPGR, UQOXID, UQSPQ Lab Results Component Value Date SUMM FINAL 05/28/2024 No results found for: SUMMAR Last Opioid agreement effective date: 02/26/2024 Please review and advise. Shayna Rodas RN [facility] 09-12-2024 Miscellaneous Notes Patient phones requesting refills as follows: Requested Prescriptions Pending Prescriptions Disp Refills traMADol (ULTRAM) 50 mg tablet 150 tablet 2 Sig: Take 1 tablet by mouth as directed for 30 days. q4-6 hr prn max 5 day Last UDS: last uds 01/18/23-consistent pain contract 02/28/23 Summary Report Date Value Ref Range Status 05/28/2024 FINAL Final Comment: ==== Tramadol, MS, Ur RFX ToxAssure Flex 23, Ur ==== Test Result Flag Units Drug Present Tramadol >2463 ng/mg creat O-Desmethyltramadol >2463 ng/mg creat N-Desmethyltramadol >2463 ng/mg creat Source of tramadol is a prescription medication. O-desmethyltramadol and N-desmethyltramadol are expected metabolites of tramadol. ==== Test Result Flag Units Ref Range Creatinine 203 mg/dL >=20 ==== Declared Medications: Medication list was not provided. ==== For clinical consultation, please call . ==== No results found for: UQNOTE, OPIATEPNMGT, DRUGSCRPAIN Urine Panel: No results found for: UQCANN, UQBNZL, NCO9LPH, UQAMPH, UQMAMP, UQBUPRE, UQNORBUP, UQMTHD, UQEDDP, UQTRAM, UQDTRM, UQFNTL, UQNFTL, UQCODE, UQMORP, UQDCDN, UQHCOD, UQOXYC, UQHMOR, UQOXYM, UQCREA, UQPH, UQSPGR, UQOXID, UQSPQ Lab Results Component Value Date SUMM FINAL 05/28/2024 No results found for: SUMMAR Last Opioid agreement effective date: 02/26/2024 Please review and advise. Shayna Rodas RN documented in this encounter [facility] 07-21-2024 Telephone encounter Note Patient phones requesting refills as follows: Requested Prescriptions Pending Prescriptions Disp Refills baclofen 20 mg tablet 90 tablet 2 Sig: Take 1 tablet by mouth three times a day as needed. Last UDS: last uds 01/18/23-consistent pain contract 02/28/23 Summary Report Date Value Ref Range Status 05/28/2024 FINAL Final Comment: ==== Tramadol, MS, Ur RFX ToxAssure Flex 23, Ur ==== Test Result Flag Units Drug Present Tramadol >2463 ng/mg creat O-Desmethyltramadol >2463 ng/mg creat N-Desmethyltramadol >2463 ng/mg creat Source of tramadol is a prescription medication. O-desmethyltramadol and N-desmethyltramadol are expected metabolites of tramadol. ==== Test Result Flag Units Ref Range Creatinine 203 mg/dL >=20 ==== Declared Medications: Medication list was not provided. ==== For clinical consultation, please call . ==== No results found for: UQNOTE, OPIATEPNMGT, DRUGSCRPAIN Urine Panel: No results found for: UQCANN, UQBNZL, LQT8IKG, UQAMPH, UQMAMP, UQBUPRE, UQNORBUP, UQMTHD, UQEDDP, UQTRAM, UQDTRM, UQFNTL, UQNFTL, UQCODE, UQMORP, UQDCDN, UQHCOD, UQOXYC, UQHMOR, UQOXYM, UQCREA, UQPH, UQSPGR, UQOXID, UQSPQ @FLOW([id number])@ Lab Results Component Value Date SUMM FINAL 05/28/2024 No results found for: SUMMAR Last Opioid agreement effective date: 02/26/2024 Please review and advise. Clare Carmona RN [facility] 07-21-2024 Miscellaneous Notes Patient phones requesting refills as follows: Requested Prescriptions Pending Prescriptions Disp Refills baclofen 20 mg tablet 90 tablet 2 Sig: Take 1 tablet by mouth three times a day as needed. Last UDS: last uds 01/18/23-consistent pain contract 02/28/23 Summary Report Date Value Ref Range Status 05/28/2024 FINAL Final Comment: ==== Tramadol, MS, Ur RFX ToxAssure Flex 23, Ur ==== Test Result Flag Units Drug Present Tramadol >2463 ng/mg creat O-Desmethyltramadol >2463 ng/mg creat N-Desmethyltramadol >2463 ng/mg creat Source of tramadol is a prescription medication. O-desmethyltramadol and N-desmethyltramadol are expected metabolites of tramadol. ==== Test Result Flag Units Ref Range Creatinine 203 mg/dL >=20 ==== Declared Medications: Medication list was not provided. ==== For clinical consultation, please call . ==== No results found for: UQNOTE, OPIATEPNMGT, DRUGSCRPAIN Urine Panel: No results found for: UQCANN, UQBNZL, ARH8ASZ, UQAMPH, UQMAMP, UQBUPRE, UQNORBUP, UQMTHD, UQEDDP, UQTRAM, UQDTRM, UQFNTL, UQNFTL, UQCODE, UQMORP, UQDCDN, UQHCOD, UQOXYC, UQHMOR, UQOXYM, UQCREA, UQPH, UQSPGR, UQOXID, UQSPQ @FLOW([id number])@ Lab Results Component Value Date SUMM FINAL 05/28/2024 No results found for: SUMMAR Last Opioid agreement effective date: 02/26/2024 Please review and advise. Clare Carmona RN documented in this encounter [facility] 06-25-2024 Telephone encounter Note Summary: Pre Procedure Call Pre- Procedure Telephone Instructions Patient called to remind them of their appointment on 07/01/2024 with Patient instructed to arrive at 12:45 PM Spoke with: Patient Instructions given: 1. If you take insulin, contact your prescribing physician for specific instructions if adjustments need to be made. 2. Take routine medications, including heart, blood pressure, or seizure medications with water. 3. Are you currently taking Antibiotics: Yes or No 4. Please reschedule if you are ill, have an infection, a fever, or cannot make the appointment by calling [phone] (Option 5) [facility] 06-25-2024 Miscellaneous Notes Summary: Pre Procedure Call Pre- Procedure Telephone Instructions Patient called to remind them of their appointment on 07/01/2024 with Patient instructed to arrive at 12:45 PM Spoke with: Patient Instructions given: 1. If you take insulin, contact your prescribing physician for specific instructions if adjustments need to be made. 2. Take routine medications, including heart, blood pressure, or seizure medications with water. 3. Are you currently taking Antibiotics: Yes or No 4. Please reschedule if you are ill, have an infection, a fever, or cannot make the appointment by calling [phone] (Option 5) documented in this encounter [facility] 06-10-2024 Telephone encounter Note Pre- Procedure Telephone Instructions Patient called to remind them of their appointment on 06/17/2024 with Patient instructed to arrive at 1:00 Spoke with:Patient Instructions given: 1. If you take insulin, contact your prescribing physician for specific instructions if adjustments need to be made. 2. Take routine medications, including heart, blood pressure, or seizure medications with water. 3. Are you currently taking Antibiotics: Yes or No 4. Please reschedule if you are ill, have an infection, a fever, or cannot make the appointment by calling [phone] (Option 5) Mirna Rlaph RN June 10, 2024 11:29 AM [facility] 06-10-2024 Miscellaneous Notes Pre- Procedure Telephone Instructions Patient called to remind them of their appointment on 06/17/2024 with Patient instructed to arrive at 1:00 Spoke with:Patient Instructions given: 1. If you take insulin, contact your prescribing physician for specific instructions if adjustments need to be made. 2. Take routine medications, including heart, blood pressure, or seizure medications with water. 3. Are you currently taking Antibiotics: Yes or No 4. Please reschedule if you are ill, have an infection, a fever, or cannot make the appointment by calling [phone] (Option 5) Mirna Ralph RN June 10, 2024 11:29 AM documented in this encounter [facility] 05-28-2024 Telephone encounter Note Tramadol approved via hub Prior authorization approved [facility] Case ID: [id number] Note from payer: Approved. Approval Details Authorized from April 27, 2024 to November 25, 2024 Jeannie Candelario MA May 28, 2024 2:51 PM [facility] 05-28-2024 Miscellaneous Notes Tramadol approved via hub Prior authorization approved Payer: [employer]ose l Case ID: [id number] Note from payer: Approved. Approval Details Authorized from April 27, 2024 to November 25, 2024 Jeannie Candelario MA May 28, 2024 2:51 PM documented in this encounter [facility] 05-28-2024 Telephone encounter Note Tramadol pa sent through the hub. José Manuel West MA May 28, 2024 1:56 PM [facility] 05-28-2024 Miscellaneous Notes Tramadol pa sent through the hub. José Manuel West MA May 28, 2024 1:56 PM documented in this encounter [facility] 05-28-2024 Instructions Mai Davis APRN.METAL FLOW COORDINATOR - 05/28/2024 1:52 PM EST Oarrs checked Obtain UDS in office Plan to repeat C7-T1 epidural injection on as needed basis pending symptoms. Patient currently experiencing muscular soreness of cervical paraspinal and shoulder stabilizer muscle groups. Patient to undergo TPI of these muscle groups with steroids as she has undergone this in the past with significant improvement in pain. Patient to schedule prior to leaving today. Continue Tramadol as prescribed Continue baclofen 20 mg 3 times a day as needed. Patient to notify office with any questions or concerns Patient to follow up with me in office in 3 months. documented in this encounter [facility] 05-28-2024 History of Presen t illness Narrative Chief Complaint: Pain ___ History of Present Illness: Chelsea Wyman is a 38 year old year old female being seen at [facility] for a evaluation and/or management of their chronic pain. She states that since the last visit symptoms have been improving. I last saw this patient in December 2023. I last saw this patient in February 2024. The plan following her appointment with me was for her to undergo a C7- T1 cervical epidural injection for the management of cervical radicular symptoms. Patient reports that since undergoing the cervical epidural that she is no longer experiencing radiation of the pain from her neck into her bilateral upper extremities. Patient reports she had 60% improvement in pain following the cervical epidural. Patient reports that her neck pain was a 10/10 and improved to 4/10. Patient reports that although the radicular symptoms into bilateral upper extremities have resolved since undergoing this an epidural that she is still experiencing significant amount of muscular soreness and tenderness of the cervical paraspinal muscles and shoulder stabilizer muscle groups bilaterally. Patient has undergone trigger point injections with steroids in the past and experienced significant proved in pain. Patient would like to undergo trigger point injections with steroids to the cervical paraspinals and shoulder stabilizer muscle groups. Patient does currently take tramadol and baclofen for chronic pain and tolerates this medication without any side effects. Patient reports this medication is partially effective. Following the last office visit the patient did get evaluated by neurosurgery for her neck pain. No surgical intervention is recommended at this time Last UDS: Reviewed, consistent. Summary Report Date Value Ref Range Status 10/10/2023 FINAL Final Comment: ==== Tramadol, MS, Ur RFX Acetaminophen, MS, Ur RFX ToxAssure Flex 23, Ur ==== Test Result Flag Units Drug Present Tramadol >33077 ng/mg creat O-Desmethyltramadol >74664 ng/mg creat N-Desmethyltramadol >91409 ng/mg creat Source of tramadol is a prescription medication. O-desmethyltramadol and N-desmethyltramadol are expected metabolites of tramadol. Acetaminophen PRESENT ==== Test Result Flag Units Ref Range Creatinine 42 mg/dL >=20 ==== Declared Medications: Medication list was not provided. ==== For clinical consultation, please call . ==== Lab Results Component Value Date SUMM FINAL 10/10/2023 No results found for: SUMMAR PDMP website checked and validated. OARRS report reviewed on May by Mai Davis APRN.CNP and is consistent with the patients medical history and medication intake. ROS: Review of Systems Constitutional: Negative. Cardiovascular: Negative. Respiratory: Negative. Musculoskeletal: Positive for neck pain and stiffness. Neurological: Negative. Psychiatric/Behavioral: Negative. 07/25/2023 02/26/2024 Pain Disability Index Family/Home Responsibilities: This category includes chores or duties performed around the house (e.g. yard work), errands or favors for other family members (e.g. driving the children to school) 7 2 Recreation: This category includes hobbies, sports, and other similar leisure time activities 7 2 Social Activity: This category refers to activities which involve participation with friends and acquaintances, other than family members. It includes parties, theater, concerts, dinning out, and other social functions 7 2 Occupation: This category refers to activities that are a part of or directly related to ones' job. This includes non-paying jobs as well, such as that of a housewife or volunteer worker 0 No disability 2 Sexual Behavior: This category refers to the frequency and quality of one's sex life 7 2 Self Care: This category includes activities which involve personal maintenance and independent daily living (e.g. taking a shower, driving, getting dress, etc) 7 2 Life Support Activity: This category refers to basic-life supporting behaviors such as eating, sleeping, and breathing 7 2 PDI Score 42 14 PAST MEDICAL HISTORY Diagnosis Date Anemia Arthritis Asthma Depression PAST SURGICAL HISTORY Procedure Laterality Date INJECTION right hip- numbing injection TUBAL LIGATION, 2007 FAMILY HISTORY Problem Relation Age of Onset Diabetes Father Heart Father Heart Attack Father Colon Cancer Mother Heart Maternal Grandmother Diabetes Maternal Grandmother Diabetes Paternal Grandmother Diabetes Other Social History Tobacco Use Smoking status: Former Types: Cigarettes Smokeless tobacco: Current Tobacco comments: vape patient smokes 1-2 cigarettes/day since she became , used to smoke 1 ppd Substance Use Topics Alcohol use: No Drug use: No Allergies: Codeine Swelling Penicillins Vomiting Septra [Sulfamethox* Comment:faint, dizziness Sulfamethoxazole Unknown Current Outpatient Medications Medication Sig traMADol (ULTRAM) 50 mg tablet Take 1 tablet by mouth as directed for 30 days. q4-6 hr prn max 5 day baclofen 20 mg tablet Take 1 tablet by mouth three times a day as needed. cefdinir (OMNICEF) 300 mg capsule Take 1 capsule by mouth every 12 hours. rosuvastatin (CRESTOR) 5 mg tablet lidocaine (LIDODERM) 5 % Apply to affected area. loratadine (CLARITIN) 10 mg tablet Take by mouth. piroxicam (FELDENE) 10 mg capsule Take by mouth. levothyroxine (SYNTHROID) 50 mcg tablet Take 50 mcg by mouth once daily. DULoxetine (CYMBALTA) 60 mg capsule No current facility-administered medications for this visit. PHYSICAL EXAMINATION: Physical Exam Constitutional: General: She is not in acute distress. Appearance: Normal appearance. She is not ill-appearing, toxic-appearing or diaphoretic. Cardiovascular: Rate and Rhythm: Normal rate and regular rhythm. Pulses: Normal pulses. Heart sounds: Normal heart sounds. No murmur heard. Pulmonary: Effort: Pulmonary effort is normal. No respiratory distress. Breath sounds: Normal breath sounds. Abdominal: General: Bowel sounds are normal. Palpations: Abdomen is soft. Musculoskeletal: Comments: No spinal deformity. Patient does have tenderness upon palpation to cervical paraspinals and shoulder stabilizer muscle groups bilaterally. Negative Spurling test bilaterally. Patient has good range of motion of the cervical spine. 5 out of 5 strength in bilateral upper extremities Skin: General: Skin is warm and dry. Capillary Refill: Capillary refill takes less than 2 seconds. Neurological: General: No focal deficit present. Mental Status: She is alert and oriented to person, place, and time. Cranial Nerves: No cranial nerve deficit. Sensory: No sensory deficit. Motor: No weakness. Coordination: Coordination normal. Gait: Gait normal. Deep Tendon Reflexes: Reflexes normal. Psychiatric: Mood and Affect: Mood normal. Behavior: Behavior normal. Thought Content: Thought content normal. Judgment: Judgment normal. ASSESSMENT: Patient is stable. Chronic pain is persistent. Medications are helping Chelsea Wyman to have an improved quality of life. Patient compliance with Opioid Contract: patient is compliant Encounter Diagnosis ICD-10-CM 1. Other chronic pain G89.29 TOXASSURE FLEX 23, URINE 2. Chronic pain syndrome G89.4 traMADol (ULTRAM) 50 mg tablet TOXASSURE FLEX 23, URINE 3. Myofascial pain syndrome M79.18 SURGICAL REQUEST - ELECTIVE (02/2020) TOXASSURE FLEX 23, URINE 4. Encounter for therapeutic drug level monitoring Z51.81 TOXASSURE FLEX 23, URINE 5. Radiculopathy, cervical region M54.12 6. DDD (degenerative disc disease), cervical M50.30 7. High risk medication use Z79.899 PLAN: The patient understands the goal of our treatment is a reduction in pain and/or an improved level of functioning with activities of daily living. If at any time the patient does not feel the medications are helping them to achieve these goals, the medications may be discontinued. The patient reports a reduction in pain and/or an improved level of functioning with activities of daily living, denies any significant adverse effects, is compliant with the pain management agreement and there are no signs of medication misuse, abuse or diversion; therefore, the medications will be continued. Oarrs checked Patient did previously follow with Dr. Dubon and her staff. Low risk per ORT Obtain UDS in office Plan to repeat C7-T1 epidural injection on as needed basis pending symptoms. Patient currently experiencing muscular soreness of cervical paraspinal and shoulder stabilizer muscle groups. Patient to undergo TPI of these muscle groups with steroids as she has undergone this in the past with significant improvement in pain. Patient to schedule prior to leaving today. Continue Tramadol as prescribed. This medication helps improve the patient's daily functionality. Patient denies any side effects with current medication regimen. Continue baclofen 20 mg 3 times a day as needed. Patient to notify office with any questions or concerns Patient to follow up with me in office in 3 months. Mai Davis APRN.KEZIA documented in this encounter [facility] 05-28-2024 Note HNO ID: [id number] Author: MAI DAVIS APRN.KEZIA Service: ? Author Type: Nurse Practitioner Type: Progress Notes Filed: 05/28/2024 14:02 Note Text: Chief Complaint: Pain ___ History of Present Illness: Chelsea Wyman is a 38 year old year old female being seen at [facility] for a evaluation and/or management of their chronic pain. She states that since the last visit symptoms have been improving. I last saw this patient in December 2023. I last saw this patient in February 2024. The plan following her appointment with me was for her to undergo a C7- T1 cervical epidural injection for the management of cervical radicular symptoms. Patient reports that since undergoing the cervical epidural that she is no longer experiencing radiation of the pain from her neck into her bilateral upper extremities. Patient reports she had 60% improvement in pain following the cervical epidural. Patient reports that her neck pain was a 10/10 and improved to 4/10. Patient reports that although the radicular symptoms into bilateral upper extremities have resolved since undergoing this an epidural that she is still experiencing significant amount of muscular soreness and tenderness of the cervical paraspinal muscles and shoulder stabilizer muscle groups bilaterally. Patient has undergone trigger point injections with steroids in the past and experienced significant proved in pain. Patient would like to undergo trigger point injections with steroids to the cervical paraspinals and shoulder stabilizer muscle groups. Patient does currently take tramadol and baclofen for chronic pain and tolerates this medication without any side effects. Patient reports this medication is partially effective. Following the last office visit the patient did get evaluated by neurosurgery for her neck pain. No surgical intervention is recommended at this time Last UDS: Reviewed, consistent. Summary Report Date Value Ref Range Status 10/10/2023 FINAL Final Comment: ==== Tramadol, MS, Ur RFX Acetaminophen, MS, Ur RFX ToxAssure Flex 23, Ur ==== Test Result Flag Units Drug Present Tramadol >49801 ng/mg creat O-Desmethyltramadol >16503 ng/mg creat N-Desmethyltramadol >82847 ng/mg creat Source of tramadol is a prescription medication. O-desmethyltramadol and N-desmethyltramadol are expected metabolites of tramadol. Acetaminophen PRESENT ==== Test Result Flag Units Ref Range Creatinine 42 mg/dL >=20 ==== Declared Medications: Medication list was not provided. ==== For clinical consultation, please call . ==== Lab Results Component Value Date SUMM FINAL 10/10/2023 No results found for: SUMMAR PDMP website checked and validated. OARRS report reviewed on May by Mai Davis APRN.CNP and is consistent with the patients medical history and medication intake. ROS: Review of Systems Constitutional: Negative. Cardiovascular: Negative. Respiratory: Negative. Musculoskeletal: Positive for neck pain and stiffness. Neurological: Negative. Psychiatric/Behavioral: Negative. 07/25/2023 02/26/2024 Pain Disability Index Family/Home Responsibilities: This category includes chores or duties performed around the house (e.g. yard work), errands or favors for other family members (e.g. driving the children to school) 7 2 Recreation: This category includes hobbies, sports, and other similar leisure time activities 7 2 Social Activity: This category refers to activities which involve participation with friends and acquaintances, other than family members. It includes parties, theater, concerts, dinning out, and other social functions 7 2 Occupation: This category refers to activities that are a part of or directly related to ones' job. This includes non-paying jobs as well, such as that of a housewife or volunteer worker 0 No disability 2 Sexual Behavior: This category refers to the frequency and quality of one's sex life 7 2 Self Care: This category includes activities which involve personal maintenance and independent daily living (e.g. taking a shower, driving, getting dress, etc) 7 2 Life Support Activity: This category refers to basic-life supporting behaviors such as eating, sleeping, and breathing 7 2 PDI Score 42 14 PAST MEDICAL HISTORY Diagnosis Date Anemia Arthritis Asthma Depression PAST SURG (more content not included)... [facility] 05-16-2024 Telephone encounter Note The following approved medication requests have been transmitted electronically. Requested Prescriptions Signed Prescriptions Disp Refills traMADol (ULTRAM) 50 mg tablet 150 tablet 0 Sig: Take 1 tablet by mouth as directed for 30 days. q4-6 hr prn max 5 day Authorizing Provider: DANIELLE MITCHELL PA-C [facility] 05-16-2024 Miscellaneous Notes The following approved medication requests have been transmitted electronically. Requested Prescriptions Signed Prescriptions Disp Refills traMADol (ULTRAM) 50 mg tablet 150 tablet 0 Sig: Take 1 tablet by mouth as directed for 30 days. q4-6 hr prn max 5 day Authorizing Provider: DANIELLE MITCHELL PA-C Pt called again, says this is need over the weekend, will you fill Dea Nielson RN May 16, 2024 3:15 PM Patient phones requesting refills as follows: Requested Prescriptions Pending Prescriptions Disp Refills traMADol (ULTRAM) 50 mg tablet 150 tablet 0 Sig: Take 1 tablet by mouth as directed for 30 days. q4-6 hr prn max 5 day Last UDS: last uds 01/18/23-consistent pain contract 02/28/23 Summary Report Date Value Ref Range Status 10/10/2023 FINAL Final Comment: ==== Tramadol, MS, Ur RFX Acetaminophen, MS, Ur RFX ToxAssure Flex 23, Ur ==== Test Result Flag Units Drug Present Tramadol >15029 ng/mg creat O-Desmethyltramadol >29409 ng/mg creat N-Desmethyltramadol >18986 ng/mg creat Source of tramadol is a prescription medication. O-desmethyltramadol and N-desmethyltramadol are expected metabolites of tramadol. Acetaminophen PRESENT ==== Test Result Flag Units Ref Range Creatinine 42 mg/dL >=20 ==== Declared Medications: Medication list was not provided. ==== For clinical consultation, please call . ==== No results found for: UQNOTE, OPIATEPNMGT, DRUGSCRPAIN Urine Panel: No results found for: UQCANN, UQBNZL, [id number], UQAMPH, UQMAMP, UQBUPRE, UQNORBUP, UQMTHD, UQEDDP, UQTRAM, UQDTRM, UQFNTL, UQNFTL, UQCODE, UQMORP, UQDCDN, UQHCOD, UQOXYC, UQHMOR, UQOXYM, UQCREA, UQPH, UQSPGR, UQOXID, UQSPQ @FLOW([id number])@ Lab Results Component Value Date SUMM FINAL 10/10/2023 No results found for: SUMMAR Last Opioid agreement effective date: 02/26/2024 Please review and advise. Dea Nielson RN documented in this encounter [facility] 05-16-2024 Telephone encounter Note Pt called again, says this is need over the weekend, will you fill Dea Nielson RN May 16, 2024 3:15 PM [facility] 05-16-2024 Telephone encounter Note Patient phones requesting refills as follows: Requested Prescriptions Pending Prescriptions Disp Refills traMADol (ULTRAM) 50 mg tablet 150 tablet 0 Sig: Take 1 tablet by mouth as directed for 30 days. q4-6 hr prn max 5 day Last UDS: last uds 01/18/23-consistent pain contract 02/28/23 Summary Report Date Value Ref Range Status 10/10/2023 FINAL Final Comment: ==== Tramadol, MS, Ur RFX Acetaminophen, MS, Ur RFX ToxAssure Flex 23, Ur ==== Test Result Flag Units Drug Present Tramadol >29046 ng/mg creat O-Desmethyltramadol >08346 ng/mg creat N-Desmethyltramadol >14837 ng/mg creat Source of tramadol is a prescription medication. O-desmethyltramadol and N-desmethyltramadol are expected metabolites of tramadol. Acetaminophen PRESENT ==== Test Result Flag Units Ref Range Creatinine 42 mg/dL >=20 ==== Declared Medications: Medication list was not provided. ==== For clinical consultation, please call . ==== No results found for: UQNOTE, OPIATEPNMGT, DRUGSCRPAIN Urine Panel: No results found for: UQCANN, UQBNZL, CJN8ZUP, UQAMPH, UQMAMP, UQBUPRE, UQNORBUP, UQMTHD, UQEDDP, UQTRAM, UQDTRM, UQFNTL, UQNFTL, UQCODE, UQMORP, UQDCDN, UQHCOD, UQOXYC, UQHMOR, UQOXYM, UQCREA, UQPH, UQSPGR, UQOXID, UQSPQ @FLOW([id number])@ Lab Results Component Value Date SUMM FINAL 10/10/2023 No results found for: SUMMAR Last Opioid agreement effective date: 02/26/2024 Please review and advise. Dea Nielson RN [facility] 04-23-2024 Telephone encounter Note Patient phones requesting refills as follows: Requested Prescriptions Pending Prescriptions Disp Refills baclofen 20 mg tablet 90 tablet 0 Sig: Take 1 tablet by mouth three times a day as needed. Last UDS: last uds 01/18/23-consistent pain contract 02/28/23 Summary Report Date Value Ref Range Status 10/10/2023 FINAL Final Comment: ==== Tramadol, MS, Ur RFX Acetaminophen, MS, Ur RFX ToxAssure Flex 23, Ur ==== Test Result Flag Units Drug Present Tramadol >24630 ng/mg creat O-Desmethyltramadol >54021 ng/mg creat N-Desmethyltramadol >21233 ng/mg creat Source of tramadol is a prescription medication. O-desmethyltramadol and N-desmethyltramadol are expected metabolites of tramadol. Acetaminophen PRESENT ==== Test Result Flag Units Ref Range Creatinine 42 mg/dL >=20 ==== Declared Medications: Medication list was not provided. ==== For clinical consultation, please call . ==== No results found for: UQNOTE, OPIATEPNMGT, DRUGSCRPAIN Urine Panel: No results found for: UQCANN, UQBNZL, [id number], UQAMPH, UQMAMP, UQBUPRE, UQNORBUP, UQMTHD, UQEDDP, UQTRAM, UQDTRM, UQFNTL, UQNFTL, UQCODE, UQMORP, UQDCDN, UQHCOD, UQOXYC, UQHMOR, UQOXYM, UQCREA, UQPH, UQSPGR, UQOXID, UQSPQ @FLOW([id number])@ Lab Results Component Value Date SUMM FINAL 10/10/2023 No results found for: SUMMAR Last Opioid agreement effective date: 02/26/2024 Please review and advise. Dea Nielson RN [facility] 04-23-2024 Miscellaneous Notes Patient phones requesting refills as follows: Requested Prescriptions Pending Prescriptions Disp Refills baclofen 20 mg tablet 90 tablet 0 Sig: Take 1 tablet by mouth three times a day as needed. Last UDS: last uds 01/18/23-consistent pain contract 02/28/23 Summary Report Date Value Ref Range Status 10/10/2023 FINAL Final Comment: ==== Tramadol, MS, Ur RFX Acetaminophen, MS, Ur RFX ToxAssure Flex 23, Ur ==== Test Result Flag Units Drug Present Tramadol >06880 ng/mg creat O-Desmethyltramadol >43913 ng/mg creat N-Desmethyltramadol >97537 ng/mg creat Source of tramadol is a prescription medication. O-desmethyltramadol and N-desmethyltramadol are expected metabolites of tramadol. Acetaminophen PRESENT ==== Test Result Flag Units Ref Range Creatinine 42 mg/dL >=20 ==== Declared Medications: Medication list was not provided. ==== For clinical consultation, please call . ==== No results found for: UQNOTE, OPIATEPNMGT, DRUGSCRPAIN Urine Panel: No results found for: UQCANN, UQBNZL, [id number], UQAMPH, UQMAMP, UQBUPRE, UQNORBUP, UQMTHD, UQEDDP, UQTRAM, UQDTRM, UQFNTL, UQNFTL, UQCODE, UQMORP, UQDCDN, UQHCOD, UQOXYC, UQHMOR, UQOXYM, UQCREA, UQPH, UQSPGR, UQOXID, UQSPQ @FLOW([id number])@ Lab Results Component Value Date SUMM FINAL 10/10/2023 No results found for: SUMMAR Last Opioid agreement effective date: 02/26/2024 Please review and advise. Dea Nielson RN documented in this encounter [facility] 04-14-2024 Telephone encounter Note Patient phones requesting refills as follows: Requested Prescriptions Pending Prescriptions Disp Refills traMADol (ULTRAM) 50 mg tablet 150 tablet 0 Sig: Take 1 tablet by mouth as directed for 30 days. q4-6 hr prn max 5 day Last UDS: last uds 01/18/23-consistent pain contract 02/28/23 Summary Report Date Value Ref Range Status 10/10/2023 FINAL Final Comment: ==== Tramadol, MS, Ur RFX Acetaminophen, MS, Ur RFX ToxAssure Flex 23, Ur ==== Test Result Flag Units Drug Present Tramadol >63841 ng/mg creat O-Desmethyltramadol >65934 ng/mg creat N-Desmethyltramadol >72215 ng/mg creat Source of tramadol is a prescription medication. O-desmethyltramadol and N-desmethyltramadol are expected metabolites of tramadol. Acetaminophen PRESENT ==== Test Result Flag Units Ref Range Creatinine 42 mg/dL >=20 ==== Declared Medications: Medication list was not provided. ==== For clinical consultation, please call . ==== No results found for: UQNOTE, OPIATEPNMGT, DRUGSCRPAIN Urine Panel: No results found for: UQCANN, UQBNZL, [id number], UQAMPH, UQMAMP, UQBUPRE, UQNORBUP, UQMTHD, UQEDDP, UQTRAM, UQDTRM, UQFNTL, UQNFTL, UQCODE, UQMORP, UQDCDN, UQHCOD, UQOXYC, UQHMOR, UQOXYM, UQCREA, UQPH, UQSPGR, UQOXID, UQSPQ @FLOW([id number])@ Lab Results Component Value Date SUMM FINAL 10/10/2023 No results found for: SUMMAR Last Opioid agreement effective date: 02/26/2024 Please review and advise. Polly Lopez RN [facility] 04-14-2024 Miscellaneous Notes Patient phones requesting refills as follows: Requested Prescriptions Pending Prescriptions Disp Refills traMADol (ULTRAM) 50 mg tablet 150 tablet 0 Sig: Take 1 tablet by mouth as directed for 30 days. q4-6 hr prn max 5 day Last UDS: last uds 01/18/23-consistent pain contract 02/28/23 Summary Report Date Value Ref Range Status 10/10/2023 FINAL Final Comment: ==== Tramadol, MS, Ur RFX Acetaminophen, MS, Ur RFX ToxAssure Flex , Ur ==== Test Result Flag Units Drug Present Tramadol >11076 ng/mg creat O-Desmethyltramadol >08951 ng/mg creat N-Desmethyltramadol >27636 ng/mg creat Source of tramadol is a prescription medication. O-desmethyltramadol and N-desmethyltramadol are expected metabolites of tramadol. Acetaminophen PRESENT ==== Test Result Flag Units Ref Range Creatinine 42 mg/dL >=20 ==== Declared Medications: Medication list was not provided. ==== For clinical consultation, please call . ==== No results found for: UQNOTE, OPIATEPNMGT, DRUGSCRPAIN Urine Panel: No results found for: UQCANN, UQBNZL, [id number], UQAMPH, UQMAMP, UQBUPRE, UQNORBUP, UQMTHD, UQEDDP, UQTRAM, UQDTRM, UQFNTL, UQNFTL, UQCODE, UQMORP, UQDCDN, UQHCOD, UQOXYC, UQHMOR, UQOXYM, UQCREA, UQPH, UQSPGR, UQOXID, UQSPQ @FLOW([id number])@ Lab Results Component Value Date SUMM FINAL 10/10/2023 No results found for: SUMMAR Last Opioid agreement effective date: 02/26/2024 Please review and advise. Polly Lopez RN documented in this encounter [facility] 04-10-2024 History of Presen t illness Narrative Images from the original note were not included. [facility] New Patient Consultation Connor Torres [address] [place] [address] CC: Cervical pain Subjective History of Present Illness: Mrs. Wyman is a pleasant 38yo lady with a history of chronic cervical pain that radiates to her shoulder blades, shoulders and to the top of her head. She occasionally has pain radiated to her upper extremities with no specific dermatome. She has tried PT and pain management without success. She presents in our clinic today to discuss treatment options. Past Medical History: PAST MEDICAL HISTORY Diagnosis Date Anemia Arthritis Asthma Depression Past Surgical History: PAST SURGICAL HISTORY Procedure Laterality Date INJECTION right hip- numbing injection TUBAL LIGATION, 2007 Family History: FAMILY HISTORY Problem Relation Age of Onset Diabetes Father Heart Father Heart Attack Father Colon Cancer Mother Heart Maternal Grandmother Diabetes Maternal Grandmother Diabetes Paternal Grandmother Diabetes Other Social History Tobacco Use Smoking status: Former Types: Cigarettes Smokeless tobacco: Current Tobacco comments: vape patient smokes 1-2 cigarettes/day since she became , used to smoke 1 ppd Substance Use Topics Alcohol use: No Drug use: No Allergies: Codeine, Penicillins, Septra [Sulfamethoxazole-Trimethoprim], and Sulfamethoxazole Current Outpatient Medications Medication Sig baclofen 20 mg tablet Take 1 tablet by mouth three times a day as needed. traMADol (ULTRAM) 50 mg tablet Take 1 tablet by mouth as directed for 30 days. q4-6 hr prn max 5 day Patient should start on March 13, 2024. cefdinir (OMNICEF) 300 mg capsule Take 1 capsule by mouth every 12 hours. rosuvastatin (CRESTOR) 5 mg tablet lidocaine (LIDODERM) 5 % Apply to affected area. loratadine (CLARITIN) 10 mg tablet Take by mouth. piroxicam (FELDENE) 10 mg capsule Take by mouth. levothyroxine (SYNTHROID) 50 mcg tablet Take 50 mcg by mouth once daily. DULoxetine (CYMBALTA) 60 mg capsule No current facility-administered medications for this visit. Employed: N/A Review of systems: Constitutional: No recent fever or weight loss. Eyes: No history of glaucoma or cataracts. ENMT: No recent ear infection, nasal congestion, mouth sores or sore throat. CV: No history of chest pain, palpitations or leg swelling. Respiratory: No history of SOB, asthma or recent cough. Gastrointestinal: No history of nausea, vomiting, dysphagia or abdominal pain. Genitourinary: No history of hematuria or dysuria. Musculoskeletal: No complaint of arthritis, unstable gait or arm/leg weakness. Psychiatric: No history of hallucinations or depression or anxiety. ROS Neurological: No complaint of headache. No complaint of tinnitus. No complaint of decreased hearing. No complaint of diplopia. No complaints of decreased visual acuity. No complaint of arm/leg numbness. No problem with limb coordination. No complaint of syncope, seizures or disorientation. Objective Physical Exam: Pulse 81 Ht 162.6 cm (5' 4) Wt 88 kg (194 lb) LMP 12/10/2013 SpO2 97% BMI 33.30 kg/m Neurological: Higher integrative functions: Oriented to person, place & time. Memory: Good recent and remote. Attention Span and Concentration: Good. Language: Accurate naming of objects. Good comprehension. Fund of Knowledge: Good. 2nd CN: Full visual ortega. 3rd,4th,6th CN: Pupils (=), round, react to light, full extraocular movements. 5th CN: No decrease in facial sensation. 7th CN: Facial muscles symmetric and strong. 8th CN: Hears finger rub well bilaterally. 9th CN: Good gag. 10th CN: Spontaneous palate movement, full and symmetric. 11th CN: Full strength in shoulder shrug. 12th CN: Tongue protrusion full and midline. Sensation: No decrease in sensation in upper or lower limbs to touch. Musculoskeletal: Steady gait. Motor all limbs grade 5. Myotatic reflexes: 2/4 throughout and symmetrical. Babinski reflexes: Absent. Coordination: Rapid alternating movements fast and smooth all limbs. SLR negative bilateral Paraspinal tenderness on a palpation cervical spine Spurling negative Recinos negative Labs: Latest Ref Rng & Units 03/15/2005 08/21/2005 01/05/2006 CBC Hemoglobin, [place] 12.0 - 16.0 g/dL 13.9 12.3 13.9 MCV, [place] 81 - 99 fL 92.4 94.5 MCH, [place] 27 - 31 pg 31.7 31.6 MCHC, [place] 33 - 37 g/dL 34.3 33.5 RDW, [place] 11.5 - 14.5 % 12.7 12.6 MPV, [place] 7.4 - 10.4 fL 7.9 7.0 Neut%, [place] 42 - 75 % 70 Emanuel%, [place] 2 - 9 % 7 Eos%, [place] 0 - 6 % 2 Baso%, [place] 0 - 2 % 1 Abs Neut, [place] 2 - 8 k/uL 6.7 Abs Lymp, [place] 1 - 6 k/uL 1.9 Abs Emanuel, [place] 0 - 1 k/uL 0.7 Abs Eos, [place] 0 - 1 k/uL 0.2 Abs Baso, [place] 0 - 1 k/uL 0.1 Latest Ref Rng & Units 07/27/2022 01/18/2023 10/10/2023 CMP Creatinine mg/dL 28 42 42 Imaging: MRI Spine Report MRI CERVICAL SPINE WO IVCON Exam End: 02/06/2024 3:00 PM (Final result) Narrative: * * *Final Report* * * DATE OF EXAM: Feb 06 2024 3:00PM [facility] [id number] - MRI CERVICAL SPINE WO IVCON / PROCEDURE REASON: multiple diagnoses * * * * Physician Interpretation * * * * EXAMINATION: MRI CERVICAL SPINE WO IVCON CLINICAL HISTORY: Spinal stenosis of cervical region DDD (degenerative disc disease), cervical TECHNIQUE: Routine cervical spine MR protocol without gadolinium. MQ: [id number] COMPARISON: None. RESULT: Counting reference: Craniocervical junction. Anatomic Variants: None. Localizer images: Unremarkable. Alignment: There is straightening of the normal cervical spine curvature. Craniocervical junction: Craniocervical junction is normal. Cord: The visualized cord is within normal limits of signal intensity and morphology. Bone marrow signal/fracture: No evidence of pathologic marrow infiltration. No evidence of prior fracture. Cervical soft tissues: The paraspinal soft tissues are within normal limits. C2-3: The central canal is maintained. There is mild left foraminal stenosis secondary to facet and uncovertebral joint hypertrophy. The right neural foramen is patent. C3-4: There is mild facet hypertrophy. No significant central canal or foraminal stenosis. C4-5: Unremarkable. C5-6: There is a subtle disc bulge indenting the thecal sac. The central canal is maintained. There is mild to moderate left foraminal stenosis secondary to facet and uncovertebral joint hypertrophy. The right neural foramen is patent. C6-7: There is a disc bulge indenting the thecal sac. The central canal is maintained. Foramina widely patent. C7-T1: Unremarkable. Impression: IMPRESSION: Mild spondylosis resulting in foraminal narrowing of varying degrees as outlined above. No evidence of a focal disc herniation or high-grade central canal stenosis at any level. Intrinsic cord signal is normal. Anatomic Variant: None. Assume 7 cervical vertebrae with counting from the craniocervical junction. [employer] Supervisor: [facility] Transcribe Date/Time: Feb 07 2024 7:52A Dictated by : ANNE VYAS MD This examination was interpreted and the report reviewed and electronically signed by: ANNE VYAS MD on Feb 07 2024 7:54AM EST Data Review: Personal review of medical records: I reviewed the [facility] chart. Personal review of image, tracing or specimen: Lindsay Jewell MD Assessment & Plan 38yo female with axial neck pain with occasional radiation to her upper extremities. She has no signs of radiculopathy. Her cervical MRI revealed no signs of high grade stenosis. I don't believe there is a role for surgery in her case. I believe that most of his pain is myofascial in nature. Myofascial pain syndrome is a disorder in which pressure on sensitive points in the muscles causes pain in seemingly unrelated body parts. The syndrome often happens after repeated injury or muscle overuse. Symptoms include persistent pain or a tender muscle knot. Treatments include physical therapy, medications to relieve pain, local needling or injections, and relaxation techniques. I will refer her back to pain management and PT for conservative treatment Recommendations: As above Medicines: No Change Instructions: Continue present activity Physician [id number] time was 20 minutes with > 50% devoted to counseling or co-ordination of care. Approximately 10 minutes were spent reviewing medical records. No resident was available to participate in this visit. I saw and evaluated the patient. Medical Decision Making: Problems: Moderate: 2+ stable chronic illnesses Data: Unique source(s) for external note(s) reviewed: 2 Unique test result(s) reviewed: 2 Medical Decision Making Level: 4 - Moderate Lindsay Cota MD 5:36 PM 04/10/2024 [facility] documented in this encounter [facility] 04-10-2024 Nurse Note 38 y/o female presents to office with concerns of ongoing neck pain. Recently completed PT. CAITLIN completed a few weeks ago that hasn't provided relief. Xrays completed today. Denies accident or trauma. [facility] 04-10-2024 Nurse Note 38 y/o female presents to office with concerns of ongoing neck pain. Recently completed PT. CAITLIN completed a few weeks ago that hasn't provided relief. Xrays completed today. Denies accident or trauma. documented in this encounter [facility] 04-09-2024 Telephone encounter Note Spoke to patient I informed her to have x-rays done before seeing Dr Jewell on 04-10-24, She will do so [facility] 04-09-2024 Miscellaneous Notes Spoke to patient I informed her to have x-rays done before seeing Dr Jewell on 04-10-24, She will do so documented in this encounter [facility] 03-28-2024 Telephone encounter Note The following approved medication requests have been transmitted electronically. Requested Prescriptions Signed Prescriptions Disp Refills baclofen 20 mg tablet 90 tablet 0 Sig: Take 1 tablet by mouth three times a day as needed. Authorizing Provider: DANIELLE MITCHELL PA-C [facility] 03-28-2024 Miscellaneous Notes The following approved medication requests have been transmitted electronically. Requested Prescriptions Signed Prescriptions Disp Refills baclofen 20 mg tablet 90 tablet 0 Sig: Take 1 tablet by mouth three times a day as needed. Authorizing Provider: DANIELLE MITCHELL PA-C Patient phones requesting refills as follows: Requested Prescriptions Pending Prescriptions Disp Refills baclofen 20 mg tablet 90 tablet 2 Sig: Take 1 tablet by mouth three times a day as needed. Last UDS: last uds 01/18/23-consistent pain contract 02/28/23 Summary Report Date Value Ref Range Status 10/10/2023 FINAL Final Comment: ==== Tramadol, MS, Ur RFX Acetaminophen, MS, Ur RFX ToxAssure Flex 23, Ur ==== Test Result Flag Units Drug Present Tramadol >32743 ng/mg creat O-Desmethyltramadol >17097 ng/mg creat N-Desmethyltramadol >02189 ng/mg creat Source of tramadol is a prescription medication. O-desmethyltramadol and N-desmethyltramadol are expected metabolites of tramadol. Acetaminophen PRESENT ==== Test Result Flag Units Ref Range Creatinine 42 mg/dL >=20 ==== Declared Medications: Medication list was not provided. ==== For clinical consultation, please call . ==== No results found for: UQNOTE, OPIATEPNMGT, DRUGSCRPAIN Urine Panel: No results found for: UQCANN, UQBNZL, [id number], UQAMPH, UQMAMP, UQBUPRE, UQNORBUP, UQMTHD, UQEDDP, UQTRAM, UQDTRM, UQFNTL, UQNFTL, UQCODE, UQMORP, UQDCDN, UQHCOD, UQOXYC, UQHMOR, UQOXYM, UQCREA, UQPH, UQSPGR, UQOXID, UQSPQ @FLOW([id number])@ Lab Results Component Value Date SUMM FINAL 10/10/2023 No results found for: SUMMAR Last Opioid agreement effective date: 02/26/2024 Please review and advise. Clare Carmona RN documented in this encounter [facility] 03-28-2024 Telephone encounter Note Patient phones requesting refills as follows: Requested Prescriptions Pending Prescriptions Disp Refills baclofen 20 mg tablet 90 tablet 2 Sig: Take 1 tablet by mouth three times a day as needed. Last UDS: last uds 01/18/23-consistent pain contract 02/28/23 Summary Report Date Value Ref Range Status 10/10/2023 FINAL Final Comment: ==== Tramadol, MS, Ur RFX Acetaminophen, MS, Ur RFX ToxAssure Flex 23, Ur ==== Test Result Flag Units Drug Present Tramadol >25464 ng/mg creat O-Desmethyltramadol >51103 ng/mg creat N-Desmethyltramadol >92683 ng/mg creat Source of tramadol is a prescription medication. O-desmethyltramadol and N-desmethyltramadol are expected metabolites of tramadol. Acetaminophen PRESENT ==== Test Result Flag Units Ref Range Creatinine 42 mg/dL >=20 ==== Declared Medications: Medication list was not provided. ==== For clinical consultation, please call . ==== No results found for: UQNOTE, OPIATEPNMGT, DRUGSCRPAIN Urine Panel: No results found for: UQCANN, UQBNZL, [id number], UQAMPH, UQMAMP, UQBUPRE, UQNORBUP, UQMTHD, UQEDDP, UQTRAM, UQDTRM, UQFNTL, UQNFTL, UQCODE, UQMORP, UQDCDN, UQHCOD, UQOXYC, UQHMOR, UQOXYM, UQCREA, UQPH, UQSPGR, UQOXID, UQSPQ @FLOW([id number])@ Lab Results Component Value Date SUMM FINAL 10/10/2023 No results found for: SUMMAR Last Opioid agreement effective date: 02/26/2024 Please review and advise. Clare Carmona RN [facility] 03-17-2024 Surgery Surgical operation note PROCEDURE: Cervical Epidural Steroid Injection DATE OF SERVICE: March 17, 2024 PREPROCEDURE DIAGNOSIS: Cervical DDD, cervical DJD, cervical foraminal stenosis, cervical spondylosis, cervical facet arthropathy, cervical pain, cervical radiculitis CONFIRMED NO BLOOD THINNERS NOTE: Prior to today's procedure, explained to the patient that there was no guarantee as to whether or not today's injection will provide her benefit. She voiced understanding but nonetheless was to proceed. Preprocedurally we did speak about a referral to see a surgeon. See below. ALLERGIES: see chart ANESTHESIA: Local COMPLICATIONS: None CONSENT: Risks of the procedure including bleeding, infection, nerve damage, seizure, abscess formation, hematoma formation, headache, failure of the pain to improve and potential worsening of the pain, were explained in full to the patient who verbalized understanding and wishes to proceed with the injection at this time. Written informed consent was thereby obtained. BRIEF HISTORY: See Flavio's note of 10/11/2023 and cervical MRI of 02/07/2024. DESCRIPTION OF PROCEDURE: After informed consent was obtained, the patient was taken to the operating room and placed in the sitting position. The patient was prepped and draped in sterile fashion with Chloraprep. The skin and subcutaneous tissues were infiltrated with 1 % Lidocaine using a 25-guage 1 1/2 inch needle. The C6-C7 interspace was identified with aid of fluoroscopy in the view and a 20 g T needle was advanced under the aid of fluoroscopy using iyty-go-gdpetbhglh technique at C6-C7 space. Upon entering the epidural space, a characteristic ligamentous pop was felt and there was no cerebrospinal fluid, heme, or paresthesias. Position was confirmed under fluro guidance. After negative aspiration 10 mg of Decadron was slowly injected. The patient tolerated the procedure well and all needles were removed intact. Hemostasis was maintained, and there were no paresthesias or complications noted. The area was cleaned and a Band-Aid was placed as appropriate. The patient was transferred to the recovery room. After a period of observation, during which time the patient's vital signs remained stable, the patient was discharged with supervision to home in good condition. The patient remained neurovascularly intact both pre- and post-procedure. COMMENTS: Repeat as needed NOTE: Immediately after the procedure, the patient did feel somewhat lightheaded. She was placed in the supine position with her legs elevated. Vital signs remained entirely stable throughout. She also began to experience increased neck pain and pressure with the injectate. This lasted less than 10 minutes. She was alert and oriented during this entire time. Vital signs stable. She did not become hypotensive nor bradycardic. Neurologically she was entirely intact with 5/5 upper lower extremity strength and normal sensation to light touch. After 10 minutes, her symptoms entirely dissipated. Patient does take chronic tramadol from our office. I did give her Percocet for post procedural pain and she agreed to take this. I explained that while she is taking the Percocet, she should not take any tramadol. She voiced understanding. She also been asked for referral to surgeon in case today's injection does not provide her benefit. Consult placed for patient to see Dr. Jewell. [facility] Work Phone: 03-17-2024 Surgical operatio n note PROCEDURE: Cervical Epidural Steroid Injection DATE OF SERVICE: March 17, 2024 PREPROCEDURE DIAGNOSIS: Cervical DDD, cervical DJD, cervical foraminal stenosis, cervical spondylosis, cervical facet arthropathy, cervical pain, cervical radiculitis CONFIRMED NO BLOOD THINNERS NOTE: Prior to today's procedure, explained to the patient that there was no guarantee as to whether or not today's injection will provide her benefit. She voiced understanding but nonetheless was to proceed. Preprocedurally we did speak about a referral to see a surgeon. See below. ALLERGIES: see chart ANESTHESIA: Local COMPLICATIONS: None CONSENT: Risks of the procedure including bleeding, infection, nerve damage, seizure, abscess formation, hematoma formation, headache, failure of the pain to improve and potential worsening of the pain, were explained in full to the patient who verbalized understanding and wishes to proceed with the injection at this time. Written informed consent was thereby obtained. BRIEF HISTORY: See Flavio's note of 10/11/2023 and cervical MRI of 02/07/2024. DESCRIPTION OF PROCEDURE: After informed consent was obtained, the patient was taken to the operating room and placed in the sitting position. The patient was prepped and draped in sterile fashion with Chloraprep. The skin and subcutaneous tissues were infiltrated with 1 % Lidocaine using a 25-guage 1 1/2 inch needle. The C6-C7 interspace was identified with aid of fluoroscopy in the view and a 20 g T needle was advanced under the aid of fluoroscopy using [id number] technique at C6-C7 space. Upon entering the epidural space, a characteristic ligamentous pop was felt and there was no cerebrospinal fluid, heme, or paresthesias. Position was confirmed under fluro guidance. After negative aspiration 10 mg of Decadron was slowly injected. The patient tolerated the procedure well and all needles were removed intact. Hemostasis was maintained, and there were no paresthesias or complications noted. The area was cleaned and a Band-Aid was placed as appropriate. The patient was transferred to the recovery room. After a period of observation, during which time the patient's vital signs remained stable, the patient was discharged with supervision to home in good condition. The patient remained neurovascularly intact both pre- and post-procedure. COMMENTS: Repeat as needed NOTE: Immediately after the procedure, the patient did feel somewhat lightheaded. She was placed in the supine position with her legs elevated. Vital signs remained entirely stable throughout. She also began to experience increased neck pain and pressure with the injectate. This lasted less than 10 minutes. She was alert and oriented during this entire time. Vital signs stable. She did not become hypotensive nor bradycardic. Neurologically she was entirely intact with 5/5 upper lower extremity strength and normal sensation to light touch. After 10 minutes, her symptoms entirely dissipated. Patient does take chronic tramadol from our office. I did give her Percocet for post procedural pain and she agreed to take this. I explained that while she is taking the Percocet, she should not take any tramadol. She voiced understanding. She also been asked for referral to surgeon in case today's injection does not provide her benefit. Consult placed for patient to see Dr. Jewell. documented in this encounter [facility] 03-10-2024 Telephone encounter Note Summary: Pre Procedure Call Pre- Procedure Telephone Instructions Patient called to remind them of their appointment on 03/17/2024 with Patient instructed to arrive at 1:00 PM Spoke with: Patient Instructions given: 1. A utility worker driver must be present who can drive you home. If you are coming by medical transport, you must have a responsible person other than the manager transportation planning with you. 2. Do you take any Blood Thinners? Last dose date and time If you take blood thinners and have questions about/if and when to hold, please contact our office. 3. If you take insulin, contact your prescribing physician for specific instructions if adjustments need to be made. 4. Take routine medications, including heart, blood pressure, or seizure medications with water. 5. Are you currently taking Antibiotics: Yes or No 6. Please reschedule if you are ill, have an infection, a fever, or cannot make the appointment by calling [phone] (Option 5) [facility] 03-10-2024 Miscellaneous Notes Summary: Pre Procedure Call Pre- Procedure Telephone Instructions Patient called to remind them of their appointment on 03/17/2024 with Patient instructed to arrive at 1:00 PM Spoke with: Patient Instructions given: 1. A utility worker driver must be present who can drive you home. If you are coming by medical transport, you must have a responsible person other than the manager transportation planning with you. 2. Do you take any Blood Thinners? Last dose date and time If you take blood thinners and have questions about/if and when to hold, please contact our office. 3. If you take insulin, contact your prescribing physician for specific instructions if adjustments need to be made. 4. Take routine medications, including heart, blood pressure, or seizure medications with water. 5. Are you currently taking Antibiotics: Yes or No 6. Please reschedule if you are ill, have an infection, a fever, or cannot make the appointment by calling [phone] (Option 5) documented in this encounter [facility] 02-28-2024 Telephone encounter Note Pt talked to her [facility] pharmacy in [place] and they are not closing. Pt asking for tramadol to go to [facility] instead. RX attached with corrected pharmacy. Polly Lopez RN February 28, 2024 2:20 PM [facility] 02-28-2024 Miscellaneous Notes Pt talked to her [facility] pharmacy in [place] and they are not closing. Pt asking for tramadol to go to [facility] instead. RX attached with corrected pharmacy. Polly Lopez RN February 28, 2024 2:20 PM documented in this encounter [facility] 02-26-2024 Instructions Mai Davis APRN.METAL FLOW COORDINATOR - 02/26/2024 11:12 AM EDT Oarrs checked UDS consistent Based on imaging and symptoms Patient completed PT of 12 visits from mid October to end of November 2023 without any improvement in pain. Patient continues to have neck pain with radiation into bilateral upper extremities Reviewed cervical MRI with patient in office today. Based on symptoms I recommend the patient undergo C7-T1 cervical epidural injection. Patient to schedule this procedure prior to leaving the office. Continue Tramadol as prescribed Increase baclofen to 20 mg 3 times a day as needed. Consider repeat trigger point injections in the future (with steroids). Patient to notify office with any questions or concerns Patient to follow up with me in office in 3 months. documented in this encounter [facility] 02-26-2024 History of Presen t illness Narrative Chief Complaint: Pain ___ History of Present Illness: Chelsea Wyman is a 38 year old year old female being seen at [facility] for a evaluation and/or management of their chronic pain. She states that since the last visit symptoms have been persistent. I last saw this patient in December 2023. The plan following her last appointment was for the patient to undergo a cervical MRI. Patient has undergone the cervical MRI which I have reviewed. Patient reports that she continues to experience pain in her neck with radiation to bilateral upper extremities that she rates a 5-6 out of 10. Patient does currently take tramadol and baclofen for chronic pain and tolerates this medication without any side effects. Patient reports this medication is partially effective. Last UDS: Reviewed, consistent. Summary Report Date Value Ref Range Status 10/10/2023 FINAL Final Comment: ==== Tramadol, MS, Ur RFX Acetaminophen, MS, Ur RFX ToxAssure Flex 23, Ur ==== Test Result Flag Units Drug Present Tramadol >12981 ng/mg creat O-Desmethyltramadol >94393 ng/mg creat N-Desmethyltramadol >69254 ng/mg creat Source of tramadol is a prescription medication. O-desmethyltramadol and N-desmethyltramadol are expected metabolites of tramadol. Acetaminophen PRESENT ==== Test Result Flag Units Ref Range Creatinine 42 mg/dL >=20 ==== Declared Medications: Medication list was not provided. ==== For clinical consultation, please call . ==== Lab Results Component Value Date SUMM FINAL 10/10/2023 No results found for: [facility] checked and validated. OARRS report reviewed on February 26, 2024 by Mai Davis APRN.METAL FLOW COORDINATOR and is consistent with the patients medical history and medication intake. ROS: Review of Systems Constitutional: Negative. Cardiovascular: Negative. Respiratory: Negative. Musculoskeletal: Positive for neck pain and stiffness. Neurological: Negative. Psychiatric/Behavioral: Negative. 07/25/2023 02/26/2024 Pain Disability Index Family/Home Responsibilities: This category includes chores or duties performed around the house (e.g. yard work), errands or favors for other family members (e.g. driving the children to school) 7 2 Recreation: This category includes hobbies, sports, and other similar leisure time activities 7 2 Social Activity: This category refers to activities which involve participation with friends and acquaintances, other than family members. It includes parties, theater, concerts, dinning out, and other social functions 7 2 Occupation: This category refers to activities that are a part of or directly related to ones' job. This includes non-paying jobs as well, such as that of a housewife or volunteer worker 0 No disability 2 Sexual Behavior: This category refers to the frequency and quality of one's sex life 7 2 Self Care: This category includes activities which involve personal maintenance and independent daily living (e.g. taking a shower, driving, getting dress, etc) 7 2 Life Support Activity: This category refers to basic-life supporting behaviors such as eating, sleeping, and breathing 7 2 PDI Score 42 14 PAST MEDICAL HISTORY No date: Anemia No date: Arthritis No date: Asthma No date: Depression PAST SURGICAL HISTORY No date: INJECTION Comment: right hip- numbing injection 2008: TUBAL LIGATION, FAMILY HISTORY Problem Relation Age of Onset Diabetes Father Heart Father Heart Attack Father Colon Cancer Mother Heart Maternal Grandmother Diabetes Maternal Grandmother Diabetes Paternal Grandmother Diabetes Other Social History Tobacco Use Smoking status: Former Types: Cigarettes Smokeless tobacco: Current Tobacco comments: vape patient smokes 1-2 cigarettes/day since she became , used to smoke 1 ppd Substance Use Topics Alcohol use: No Drug use: No Allergies: Codeine Swelling Penicillins Vomiting Septra [Sulfamethox* Comment:faint, dizziness Sulfamethoxazole Unknown Current Outpatient Medications Medication Sig cefdinir (OMNICEF) 300 mg capsule Take 1 capsule by mouth every 12 hours. traMADol (ULTRAM) 50 mg tablet Take 1 tablet by mouth as directed for 30 days. q4-6 hr prn max 5 day rosuvastatin (CRESTOR) 5 mg tablet baclofen 20 mg tablet Take 1 tablet by mouth three times a day as needed. lidocaine (LIDODERM) 5 % Apply to affected area. loratadine (CLARITIN) 10 mg tablet Take by mouth. piroxicam (FELDENE) 10 mg capsule Take by mouth. levothyroxine (SYNTHROID) 50 mcg tablet Take 50 mcg by mouth once daily. DULoxetine (CYMBALTA) 60 mg capsule No current facility-administered medications for this visit. PHYSICAL EXAMINATION: Physical Exam Constitutional: General: She is not in acute distress. Appearance: Normal appearance. She is not ill-appearing, toxic-appearing or diaphoretic. Cardiovascular: Rate and Rhythm: Normal rate and regular rhythm. Pulses: Normal pulses. Heart sounds: Normal heart sounds. No murmur heard. Pulmonary: Effort: Pulmonary effort is normal. No respiratory distress. Breath sounds: Normal breath sounds. Abdominal: General: Bowel sounds are normal. Palpations: Abdomen is soft. Musculoskeletal: Comments: Spinal deformity. Patient does have tenderness upon palpation to cervical paraspinals bilaterally. Negative Spurling test bilaterally. Patient does have neck pain with radiation into bilateral upper extremities. Patient has good range of motion of the cervical spine. 5 out of 5 strength in bilateral upper extremities Skin: General: Skin is warm and dry. Capillary Refill: Capillary refill takes less than 2 seconds. Neurological: General: No focal deficit present. Mental Status: She is alert and oriented to person, place, and time. Cranial Nerves: No cranial nerve deficit. Sensory: No sensory deficit. Motor: No weakness. Coordination: Coordination normal. Gait: Gait normal. Deep Tendon Reflexes: Reflexes normal. Psychiatric: Mood and Affect: Mood normal. Behavior: Behavior normal. Thought Content: Thought content normal. Judgment: Judgment normal. ASSESSMENT: Patient is stable. Chronic pain is persistent. Medications are helping Chelsea Wyman to have an improved quality of life. Patient compliance with Opioid Contract: patient is compliant Encounter Diagnosis ICD-10-CM 1. Other chronic pain G89.29 2. Radiculopathy, cervical region M54.12 SURGICAL REQUEST - ELECTIVE (02/2020) 3. DDD (degenerative disc disease), cervical M50.30 4. Neck pain M54.2 5. Chronic pain syndrome G89.4 traMADol (ULTRAM) 50 mg tablet 6. High risk medication use Z79.899 PLAN: The patient understands the goal of our treatment is a reduction in pain and/or an improved level of functioning with activities of daily living. If at any time the patient does not feel the medications are helping them to achieve these goals, the medications may be discontinued. The patient reports a reduction in pain and/or an improved level of functioning with activities of daily living, denies any significant adverse effects, is compliant with the pain management agreement and there are no signs of medication misuse, abuse or diversion; therefore, the medications will be continued. Oarrs checked UDS consistent Based on imaging and symptoms Patient completed PT of 12 visits from mid October to end of November 2023 without any improvement in pain. Patient continues to have neck pain with radiation into bilateral upper extremities Reviewed cervical MRI with patient in office today. Based on symptoms I recommend the patient undergo C7-T1 cervical epidural injection. Patient to schedule this procedure prior to leaving the office. Continue Tramadol as prescribed Continue baclofen 20 mg 3 times a day as needed. Consider repeat trigger point injections in the future (with steroids). Patient to notify office with any questions or concerns Patient to follow up with me in office in 3 months. Mai Davis APRN.METAL FLOW COORDINATOR documented in this encounter [facility] 02-12-2024 Telephone encounter Note Patient phones requesting refills as follows: Requested Prescriptions Pending Prescriptions Disp Refills traMADol (ULTRAM) 50 mg tablet 150 tablet 0 Sig: Take 1 tablet by mouth as directed for 30 days. q4-6 hr prn max 5 day Last UDS: last uds 01/18/23-consistent pain contract 02/28/23 Summary Report Date Value Ref Range Status 10/10/2023 FINAL Final Comment: ==== Tramadol, MS, Ur RFX Acetaminophen, MS, Ur RFX ToxAssure Flex 23, Ur ==== Test Result Flag Units Drug Present Tramadol >11506 ng/mg creat O-Desmethyltramadol >45537 ng/mg creat N-Desmethyltramadol >99828 ng/mg creat Source of tramadol is a prescription medication. O-desmethyltramadol and N-desmethyltramadol are expected metabolites of tramadol. Acetaminophen PRESENT ==== Test Result Flag Units Ref Range Creatinine 42 mg/dL >=20 ==== Declared Medications: Medication list was not provided. ==== For clinical consultation, please call . ==== No results found for: UQNOTE, OPIATEPNMGT, DRUGSCRPAIN Urine Panel: No results found for: UQCANN, UQBNZL, BPG1CYR, UQAMPH, UQMAMP, UQBUPRE, UQNORBUP, UQMTHD, UQEDDP, UQTRAM, UQDTRM, UQFNTL, UQNFTL, UQCODE, UQMORP, UQDCDN, UQHCOD, UQOXYC, UQHMOR, UQOXYM, UQCREA, UQPH, UQSPGR, UQOXID, UQSPQ @FLOW([id number])@ Lab Results Component Value Date SUMM FINAL 10/10/2023 No results found for: SUMMAR Last Opioid agreement effective date: 02/28/2023 Please review and advise. Kaylyn Sepulveda RN [facility] 02-12-2024 Miscellaneous Notes Patient phones requesting refills as follows: Requested Prescriptions Pending Prescriptions Disp Refills traMADol (ULTRAM) 50 mg tablet 150 tablet 0 Sig: Take 1 tablet by mouth as directed for 30 days. q4-6 hr prn max 5 day Last UDS: last uds 01/18/23-consistent pain contract 02/28/23 Summary Report Date Value Ref Range Status 10/10/2023 FINAL Final Comment: ==== Tramadol, MS, Ur RFX Acetaminophen, MS, Ur RFX ToxAssure Flex 23, Ur ==== Test Result Flag Units Drug Present Tramadol >42565 ng/mg creat O-Desmethyltramadol >15309 ng/mg creat N-Desmethyltramadol >56420 ng/mg creat Source of tramadol is a prescription medication. O-desmethyltramadol and N-desmethyltramadol are expected metabolites of tramadol. Acetaminophen PRESENT ==== Test Result Flag Units Ref Range Creatinine 42 mg/dL >=20 ==== Declared Medications: Medication list was not provided. ==== For clinical consultation, please call . ==== No results found for: UQNOTE, OPIATEPNMGT, DRUGSCRPAIN Urine Panel: No results found for: UQCANN, UQBNZL, CLP3MHX, UQAMPH, UQMAMP, UQBUPRE, UQNORBUP, UQMTHD, UQEDDP, UQTRAM, UQDTRM, UQFNTL, UQNFTL, UQCODE, UQMORP, UQDCDN, UQHCOD, UQOXYC, UQHMOR, UQOXYM, UQCREA, UQPH, UQSPGR, UQOXID, UQSPQ @FLOW([id number])@ Lab Results Component Value Date SUMM FINAL 10/10/2023 No results found for: SUMMAR Last Opioid agreement effective date: 02/28/2023 Please review and advise. Kaylyn Sepulveda RN documented in this encounter [facility] 02-08-2024 Telephone encounter Note LM in detail of message below. Polly Lopez RN February 08, 2024 3:15 PM [facility] 02-08-2024 Miscellaneous Notes LM in detail of message below. Polly Lopez RN February 08, 2024 3:15 PM There is nothing that needs immediate attention. She can discuss at her appointment. Pt left message on careline asking for results of cervical MRI done 02/05. Next OV is 03/11 with Flavio. Please advise. Kaylyn Sepulveda RN February 08, 2024 1:08 PM documented in this encounter [facility] 02-08-2024 Telephone encounter Note There is nothing that needs immediate attention. She can discuss at her appointment. [facility] Work Phone: 02-08-2024 Telephone encounter Note Pt left message on careline asking for results of cervical MRI done 02/05. Next OV is 03/11 with Flavio. Please advise. Kaylyn Sepulveda RN February 08, 2024 1:08 PM [facility] 02-06-2024 History of Presen t illness Narrative Radiology Service Progress Note PATIENT NAME: Chelsea Wyman DATE OF SERVICE: February 06, 2024 TIME: 2:24 PM PATIENT IDENTITY VERIFICATION COMPLETED USING TWO (2) IDENTIFIERS: Name and Date of confirmed by patient verbally. FALL SCREENING: Has the patient had 2 falls in the last year or 1 fall with injury or currently using an Ambulatory Assistive Device (Walker, Cane, Wheelchair, Crutches, etc.)? No PATIENT GENDER DATA: Female. status: : No status: NO. PATIENT RELEVANT IMPLANT DATA REVIEWED: Yes PATIENT PRESENTS WITH AN IMPLANTABLE OR ATTACHED MANAGER COMMISSION: No RADIOLOGY DEPARTMENT: MR; Exam(s) Completed: Spine: Cervical spine PERIPHERAL IV DATA: Not applicable SIGNED BY: Shilpa Ivey RDMS, RVT- Sheila ([employer]) February 06, 2024 2:24 PM documented in this encounter [facility] 02-06-2024 Note HNO ID: [id number] Author: SHILPA IVEY RT(R) Service: ? Author Type: Technologist Type: Progress Notes Filed: 02/06/2024 14:24 Note Text: Radiology Service Progress Note PATIENT NAME: Chelsea Wyman DATE OF SERVICE: February 06, 2024 TIME: 2:24 PM PATIENT IDENTITY VERIFICATION COMPLETED USING TWO (2) IDENTIFIERS: Name and Date of confirmed by patient verbally. FALL SCREENING: Has the patient had 2 falls in the last year or 1 fall with injury or currently using an Ambulatory Assistive Device (Walker, Cane, Wheelchair, Crutches, etc.)? No PATIENT GENDER DATA: Female. status: : No status: NO. PATIENT RELEVANT IMPLANT DATA REVIEWED: Yes PATIENT PRESENTS WITH AN IMPLANTABLE OR ATTACHED MANAGER COMMISSION: No RADIOLOGY DEPARTMENT: MR; Exam(s) Completed: Spine: Cervical spine PERIPHERAL IV DATA: Not applicable SIGNED BY: Shilpa Ivey RDMS, RVT- Sheila ([employer]) February 06, 2024 2:24 PM [facility] 01-01-2024 Instructions Mai Davis APRN.METAL FLOW COORDINATOR - 01/01/2024 10:01 AM EDT Oarrs checked UDS consistent Patient completed PT of 12 visit from mid October to end of November 2023 without any improvement in pain. Patient continues to have neck pain with radiation into bilateral upper extremities Due to persistent symptoms I recommend the patient undergo a Cervical MRI without contrast. Order placed Plan is to treat with injections pending imaging. Patient to call [phone] to schedule. Continue Tramadol as prescribed Increase baclofen to 20 mg 3 times a day as needed. Consider repeat trigger point injections in the future (with steroids). Patient to notify office with any questions or concerns Patient to follow up with me in office in 2 months. documented in this encounter [facility] 01-01-2024 History of Presen t illness Narrative Chief Complaint: Pain ___ History of Present Illness: Chelsea Wyman is a 38 year old year old female being seen at [facility] for a evaluation and/or management of their chronic pain. She states that since the last visit symptoms have been persistent. I last saw this patient in September 2023. The plan following her last appointment was for the patient to undergo physical therapy for her neck pain. If neck pain did not improve with physical therapy then the plan would be to obtain a cervical MRI for further evaluation. Patient continues to have neck pain that radiates into bilateral upper extremities despite completion of physical therapy. Patient underwent 12 sessions of physical therapy from mid October 2023 until the end of November 2023 without any significant improvement in her pain. Patient did follow with Dr. Dubon prior to establishing with Dr. Torres in July 2023. Patient has been taking tramadol 50 mg by mouth 5 times a day as needed for pain. Patient reports that this medication is partially effective. Patient is also currently taking baclofen 10 mg by mouth 3 times a day as needed. She is tolerating this medication without any side effects. Last UDS: Ordered. Summary Report Date Value Ref Range Status 10/10/2023 FINAL Final Comment: ==== Tramadol, MS, Ur RFX Acetaminophen, MS, Ur RFX ToxAssure Flex 23, Ur ==== Test Result Flag Units Drug Present Tramadol >20479 ng/mg creat O-Desmethyltramadol >45012 ng/mg creat N-Desmethyltramadol >18865 ng/mg creat Source of tramadol is a prescription medication. O-desmethyltramadol and N-desmethyltramadol are expected metabolites of tramadol. Acetaminophen PRESENT ==== Test Result Flag Units Ref Range Creatinine 42 mg/dL >=20 ==== Declared Medications: Medication list was not provided. ==== For clinical consultation, please call . ==== Lab Results Component Value Date SUMM FINAL 10/10/2023 No results found for: SUMMAR PDMP website checked and validated. OARRS report reviewed on January 01, 2024 by Mai Davis APRN.CNP and is consistent with the patients medical history and medication intake. ROS: Review of Systems Constitutional: Negative. Cardiovascular: Negative. Respiratory: Negative. Musculoskeletal: Positive for neck pain and stiffness. Neurological: Negative. Psychiatric/Behavioral: Negative. 04/23/2023 07/25/2023 Pain Disability Index Family/Home Responsibilities: This category includes chores or duties performed around the house (e.g. yard work), errands or favors for other family members (e.g. driving the children to school) 4 7 Recreation: This category includes hobbies, sports, and other similar leisure time activities 5 7 Social Activity: This category refers to activities which involve participation with friends and acquaintances, other than family members. It includes parties, theater, concerts, dinning out, and other social functions 4 7 Occupation: This category refers to activities that are a part of or directly related to ones' job. This includes non-paying jobs as well, such as that of a housewife or volunteer worker 2 0 No disability Sexual Behavior: This category refers to the frequency and quality of one's sex life 0 No disability 7 Self Care: This category includes activities which involve personal maintenance and independent daily living (e.g. taking a shower, driving, getting dress, etc) 0 No disability 7 Life Support Activity: This category refers to basic-life supporting behaviors such as eating, sleeping, and breathing 0 No disability 7 PDI Score 15 42 PAST MEDICAL HISTORY Diagnosis Date Anemia Arthritis Asthma Depression PAST SURGICAL HISTORY Procedure Laterality Date INJECTION right hip- numbing injection TUBAL LIGATION, 2007 FAMILY HISTORY Problem Relation Age of Onset Diabetes Father Heart Father Heart Attack Father Colon Cancer Mother Heart Maternal Grandmother Diabetes Maternal Grandmother Diabetes Paternal Grandmother Diabetes Other Social History Tobacco Use Smoking status: Former Types: Cigarettes Smokeless tobacco: Current Tobacco comments: vape patient smokes 1-2 cigarettes/day since she became , used to smoke 1 ppd Substance Use Topics Alcohol use: No Drug use: No Allergies: Codeine Swelling Penicillins Vomiting Septra [Sulfamethox* Comment:faint, dizziness Sulfamethoxazole Unknown Current Outpatient Medications Medication Sig traMADol (ULTRAM) 50 mg tablet Take 1 tablet by mouth as directed for 30 days. q4-6 hr prn max 5 day Do not start before December 15, 2023. baclofen 10 mg tablet Take 1 tablet by mouth three times a day as needed. lidocaine (LIDODERM) 5 % Apply to affected area. loratadine (CLARITIN) 10 mg tablet Take by mouth. piroxicam (FELDENE) 10 mg capsule Take by mouth. levothyroxine (SYNTHROID) 50 mcg tablet Take 50 mcg by mouth once daily. DULoxetine (CYMBALTA) 60 mg capsule No current facility-administered medications for this visit. PHYSICAL EXAMINATION: Physical Exam Constitutional: General: She is not in acute distress. Appearance: Normal appearance. She is not ill-appearing, toxic-appearing or diaphoretic. Cardiovascular: Rate and Rhythm: Normal rate and regular rhythm. Pulses: Normal pulses. Heart sounds: Normal heart sounds. No murmur heard. Pulmonary: Effort: Pulmonary effort is normal. No respiratory distress. Breath sounds: Normal breath sounds. Musculoskeletal: Comments: Spinal deformity. Patient does have tenderness upon palpation to cervical paraspinals bilaterally. Negative Spurling test bilaterally. Patient has good range of motion of the cervical spine. 5 out of 5 strength in bilateral upper extremities Skin: General: Skin is warm and dry. Capillary Refill: Capillary refill takes less than 2 seconds. Neurological: General: No focal deficit present. Mental Status: She is alert and oriented to person, place, and time. Cranial Nerves: No cranial nerve deficit. Sensory: No sensory deficit. Motor: No weakness. Coordination: Coordination normal. Gait: Gait normal. Deep Tendon Reflexes: Reflexes normal. Psychiatric: Mood and Affect: Mood normal. Behavior: Behavior normal. Thought Content: Thought content normal. Judgment: Judgment normal. ASSESSMENT: Patient is stable. Chronic pain is persistent. Medications are helping Chelsea Wyman to have an improved quality of life. Patient compliance with Opioid Contract: patient is compliant Encounter Diagnosis ICD-10-CM 1. Other chronic pain G89.29 2. Radiculopathy, cervical region M54.12 3. Chronic pain syndrome G89.4 traMADol (ULTRAM) 50 mg tablet baclofen 20 mg tablet 4. Spinal stenosis of cervical region M48.02 MRI CERVICAL SPINE WO IVCON baclofen 20 mg tablet 5. DDD (degenerative disc disease), cervical M50.30 MRI CERVICAL SPINE WO IVCON baclofen 20 mg tablet 6. High risk medication use Z79.899 PLAN: The patient understands the goal of our treatment is a reduction in pain and/or an improved level of functioning with activities of daily living. If at any time the patient does not feel the medications are helping them to achieve these goals, the medications may be discontinued. The patient reports a reduction in pain and/or an improved level of functioning with activities of daily living, denies any significant adverse effects, is compliant with the pain management agreement and there are no signs of medication misuse, abuse or diversion; therefore, the medications will be continued. Oarrs checked UDS consistent Patient completed PT of 12 visits from mid October to end of November 2023 without any improvement in pain. Patient continues to have neck pain with radiation into bilateral upper extremities Due to persistent symptoms I recommend the patient undergo a Cervical MRI without contrast. Order placed Plan is to treat with injections pending imaging. Patient to call [phone] to schedule. Continue Tramadol as prescribed Increase baclofen to 20 mg 3 times a day as needed. Consider repeat trigger point injections in the future (with steroids). Patient to notify office with any questions or concerns Patient to follow up with me in office in 2 months. Mai Davis APRN.METAL FLOW COORDINATOR documented in this encounter [facility] 12-11-2023 Telephone encounter Note Patient phones requesting refills as follows: Requested Prescriptions Pending Prescriptions Disp Refills traMADol (ULTRAM) 50 mg tablet 150 tablet 0 Sig: Take 1 tablet by mouth as directed for 30 days. q4-6 hr prn max 5 day Last UDS: last uds 01/18/23-consistent pain contract 02/28/23 Summary Report Date Value Ref Range Status 10/10/2023 FINAL Final Comment: ==== Tramadol, MS, Ur RFX Acetaminophen, MS, Ur RFX ToxAssure Flex 23, Ur ==== Test Result Flag Units Drug Present Tramadol >89368 ng/mg creat O-Desmethyltramadol >74098 ng/mg creat N-Desmethyltramadol >46342 ng/mg creat Source of tramadol is a prescription medication. O-desmethyltramadol and N-desmethyltramadol are expected metabolites of tramadol. Acetaminophen PRESENT ==== Test Result Flag Units Ref Range Creatinine 42 mg/dL >=20 ==== Declared Medications: Medication list was not provided. ==== For clinical consultation, please call . ==== No results found for: UQNOTE, OPIATEPNMGT, DRUGSCRPAIN Urine Panel: No results found for: UQCANN, UQBNZL, [id number], UQAMPH, UQMAMP, UQBUPRE, UQNORBUP, UQMTHD, UQEDDP, UQTRAM, UQDTRM, UQFNTL, UQNFTL, UQCODE, UQMORP, UQDCDN, UQHCOD, UQOXYC, UQHMOR, UQOXYM, UQCREA, UQPH, UQSPGR, UQOXID, UQSPQ @FLOW([id number])@ Lab Results Component Value Date SUMM FINAL 10/10/2023 No results found for: SUMMAR Last Opioid agreement effective date: 02/28/2023 Please review and advise. Polly Lopez RN [facility] 12-11-2023 Miscellaneous Notes Patient phones requesting refills as follows: Requested Prescriptions Pending Prescriptions Disp Refills traMADol (ULTRAM) 50 mg tablet 150 tablet 0 Sig: Take 1 tablet by mouth as directed for 30 days. q4-6 hr prn max 5 day Last UDS: last uds 01/18/23-consistent pain contract 02/28/23 Summary Report Date Value Ref Range Status 10/10/2023 FINAL Final Comment: ==== Tramadol, MS, Ur RFX Acetaminophen, MS, Ur RFX ToxAssure Flex 23, Ur ==== Test Result Flag Units Drug Present Tramadol >68863 ng/mg creat O-Desmethyltramadol >66168 ng/mg creat N-Desmethyltramadol >82387 ng/mg creat Source of tramadol is a prescription medication. O-desmethyltramadol and N-desmethyltramadol are expected metabolites of tramadol. Acetaminophen PRESENT ==== Test Result Flag Units Ref Range Creatinine 42 mg/dL >=20 ==== Declared Medications: Medication list was not provided. ==== For clinical consultation, please call . ==== No results found for: UQNOTE, OPIATEPNMGT, DRUGSCRPAIN Urine Panel: No results found for: UQCANN, UQBNZL, [id number], UQAMPH, UQMAMP, UQBUPRE, UQNORBUP, UQMTHD, UQEDDP, UQTRAM, UQDTRM, UQFNTL, UQNFTL, UQCODE, UQMORP, UQDCDN, UQHCOD, UQOXYC, UQHMOR, UQOXYM, UQCREA, UQPH, UQSPGR, UQOXID, UQSPQ @FLOW([id number])@ Lab Results Component Value Date SUMM FINAL 10/10/2023 No results found for: SUMMAR Last Opioid agreement effective date: 02/28/2023 Please review and advise. Polly Lopez RN documented in this encounter [facility] 11-14-2023 Telephone encounter Note Items addressed in this encounter: Prior Authorization Tramadol approved from October 20, 2023 to May 12, 2024 Able to close encounter. Sania Aviles MA November 14, 2023 12:42 PM 12:42 PM [facility] 11-14-2023 Miscellaneous Notes Items addressed in this encounter: Prior Authorization Tramadol approved from October 20, 2023 to May 12, 2024 Able to close encounter. Sania Aviles MA November 14, 2023 12:42 PM 12:42 PM documented in this encounter [facility] 11-14-2023 Telephone encounter Note Items addressed in this encounter: Prior Authorization Tramadol pa sent through the hub Able to close encounter. José Manuel West MA November 14, 2023 11:38 AM 11:38 AM [facility] 11-14-2023 Miscellaneous Notes Items addressed in this encounter: Prior Authorization Tramadol pa sent through the hub Able to close encounter. José Manuel West MA November 14, 2023 11:38 AM 11:38 AM documented in this encounter [facility] 11-14-2023 Telephone encounter Note Patient phones requesting refills as follows: Requested Prescriptions Pending Prescriptions Disp Refills traMADol (ULTRAM) 50 mg tablet 150 tablet 0 Sig: Take 1 tablet by mouth as directed for 30 days. q4-6 hr prn max 5 day baclofen 10 mg tablet 90 tablet 2 Sig: Take 1 tablet by mouth three times a day as needed. Last UDS: last uds 01/18/23-consistent pain contract 02/28/23 Summary Report Date Value Ref Range Status 10/10/2023 FINAL Final Comment: ==== Tramadol, MS, Ur RFX Acetaminophen, MS, Ur RFX ToxAssure Flex 23, Ur ==== Test Result Flag Units Drug Present Tramadol >73277 ng/mg creat O-Desmethyltramadol >47518 ng/mg creat N-Desmethyltramadol >56268 ng/mg creat Source of tramadol is a prescription medication. O-desmethyltramadol and N-desmethyltramadol are expected metabolites of tramadol. Acetaminophen PRESENT ==== Test Result Flag Units Ref Range Creatinine 42 mg/dL >=20 ==== Declared Medications: Medication list was not provided. ==== For clinical consultation, please call . ==== No results found for: UQNOTE, OPIATEPNMGT, DRUGSCRPAIN Urine Panel: No results found for: UQCANN, UQBNZL, [id number], UQAMPH, UQMAMP, UQBUPRE, UQNORBUP, UQMTHD, UQEDDP, UQTRAM, UQDTRM, UQFNTL, UQNFTL, UQCODE, UQMORP, UQDCDN, UQHCOD, UQOXYC, UQHMOR, UQOXYM, UQCREA, UQPH, UQSPGR, UQOXID, UQSPQ @FLOW([id number])@ Lab Results Component Value Date SUMM FINAL 10/10/2023 No results found for: SUMMAR Last Opioid agreement effective date: 02/28/2023 Please review and advise. Polly Lopez RN [facility] 11-14-2023 Miscellaneous Notes Patient phones requesting refills as follows: Requested Prescriptions Pending Prescriptions Disp Refills traMADol (ULTRAM) 50 mg tablet 150 tablet 0 Sig: Take 1 tablet by mouth as directed for 30 days. q4-6 hr prn max 5 day baclofen 10 mg tablet 90 tablet 2 Sig: Take 1 tablet by mouth three times a day as needed. Last UDS: last uds 01/18/23-consistent pain contract 02/28/23 Summary Report Date Value Ref Range Status 10/10/2023 FINAL Final Comment: ==== Tramadol, MS, Ur RFX Acetaminophen, MS, Ur RFX ToxAssure Flex 23, Ur ==== Test Result Flag Units Drug Present Tramadol >65356 ng/mg creat O-Desmethyltramadol >46146 ng/mg creat N-Desmethyltramadol >55432 ng/mg creat Source of tramadol is a prescription medication. O-desmethyltramadol and N-desmethyltramadol are expected metabolites of tramadol. Acetaminophen PRESENT ==== Test Result Flag Units Ref Range Creatinine 42 mg/dL >=20 ==== Declared Medications: Medication list was not provided. ==== For clinical consultation, please call . ==== No results found for: UQNOTE, OPIATEPNMGT, DRUGSCRPAIN Urine Panel: No results found for: UQCANN, UQBNZL, [id number], UQAMPH, UQMAMP, UQBUPRE, UQNORBUP, UQMTHD, UQEDDP, UQTRAM, UQDTRM, UQFNTL, UQNFTL, UQCODE, UQMORP, UQDCDN, UQHCOD, UQOXYC, UQHMOR, UQOXYM, UQCREA, UQPH, UQSPGR, UQOXID, UQSPQ @FLOW([id number])@ Lab Results Component Value Date SUMM FINAL 10/10/2023 No results found for: SUMMAR Last Opioid agreement effective date: 02/28/2023 Please review and advise. Polly Lopez RN documented in this encounter [facility] 10-10-2023 Instructions Mai Davis APRN.METAL FLOW COORDINATOR - 10/10/2023 4:54 PM EDT Patient to undergo PT for neck pain If neck pain does improve with PT we will obtain MRI of cervical spine Continue Tramadol as prescribed Continue baclofen Consider repeat trigger point injections in the future (with steroids). Patient to notify office when she select PT group so order can sent to PT group Patient to notify office with any questions or concerns Patient to follow up with me in office in 3 months. documented in this encounter [facility] 10-10-2023 History of Presen t illness Narrative Chief Complaint: Pain ___ History of Present Illness: Chelsea Wyman is a 38 year old year old female being seen at [facility] for a evaluation and/or management of their chronic pain. She states that since the last visit symptoms have been persistent. Patient last saw Dr. Torres in July 2023. The plan at that time was for the patient to undergo a cervical MRI however this has been denied by her insurance company as the patient has not completed physical therapy. Patient also underwent trigger point injections that were performed without steroids and patient reports that she did not get any significant relief for longer than several days following the trigger point injections. Patient continues to have neck pain that radiates into bilateral upper extremities. Patient did follow with Dr. Dubon prior to establishing with Dr. Torres in July 2023. Patient has been taking tramadol 50 mg by mouth 5 times a day as needed for pain. Patient reports that this medication is partially effective. She is tolerating this medication without any side effects. Last UDS: Ordered. Summary Report Date Value Ref Range Status 01/18/2023 FINAL Final Comment: ==== Tapentadol, MS, Ur, RFX Tramadol, MS, Ur RFX Acetaminophen, MS, Ur RFX ToxAssure Flex 23, Ur ==== Test Result Flag Units Drug Present Tramadol >01817 ng/mg creat O-Desmethyltramadol >64513 ng/mg creat N-Desmethyltramadol >79530 ng/mg creat Source of tramadol is a prescription medication. O-desmethyltramadol and N-desmethyltramadol are expected metabolites of tramadol. Acetaminophen PRESENT ==== Test Result Flag Units Ref Range Creatinine 42 mg/dL >=20 ==== Declared Medications: Medication list was not provided. ==== For clinical consultation, please call . ==== Lab Results Component Value Date SUMM FINAL 01/18/2023 No results found for: SUMMAR PDMP website checked and validated. [place]AR[place] report reviewed on October 10, 2023 by Mai Davis APRN.CNP and is consistent with the patients medical history and medication intake. ROS: Review of Systems Constitutional: Negative. Cardiovascular: Negative. Respiratory: Negative. Musculoskeletal: Positive for neck pain and stiffness. Neurological: Negative. Psychiatric/Behavioral: Negative. 04/23/2023 07/25/2023 Pain Disability Index Family/Home Responsibilities: This category includes chores or duties performed around the house (e.g. yard work), errands or favors for other family members (e.g. driving the children to school) 4 7 Recreation: This category includes hobbies, sports, and other similar leisure time activities 5 7 Social Activity: This category refers to activities which involve participation with friends and acquaintances, other than family members. It includes parties, theater, concerts, dinning out, and other social functions 4 7 Occupation: This category refers to activities that are a part of or directly related to ones' job. This includes non-paying jobs as well, such as that of a housewife or volunteer worker 2 0 No disability Sexual Behavior: This category refers to the frequency and quality of one's sex life 0 No disability 7 Self Care: This category includes activities which involve personal maintenance and independent daily living (e.g. taking a shower, driving, getting dress, etc) 0 No disability 7 Life Support Activity: This category refers to basic-life supporting behaviors such as eating, sleeping, and breathing 0 No disability 7 PDI Score 15 42 PAST MEDICAL HISTORY Diagnosis Date Anemia Arthritis Asthma Depression PAST SURGICAL HISTORY Procedure Laterality Date INJECTION right hip- numbing injection TUBAL LIGATION, 2007 FAMILY HISTORY Problem Relation Age of Onset Diabetes Father Heart Father Heart Attack Father Colon Cancer Mother Heart Maternal Grandmother Diabetes Maternal Grandmother Diabetes Paternal Grandmother Diabetes Other Social History Tobacco Use Smoking status: Former Types: Cigarettes Smokeless tobacco: Current Tobacco comments: vape patient smokes 1-2 cigarettes/day since she became , used to smoke 1 ppd Substance Use Topics Alcohol use: No Drug use: No Allergies: Codeine Swelling Penicillins Vomiting Septra [Sulfamethox* Comment:faint, dizziness Sulfamethoxazole Unknown Current Outpatient Medications Medication Sig traMADol (ULTRAM) 50 mg tablet Take 1 tablet by mouth as directed for 30 days. q4-6 hr prn max 5 day baclofen 10 mg tablet Take 1 tablet by mouth three times a day as needed. lidocaine (LIDODERM) 5 % Apply to affected area. loratadine (CLARITIN) 10 mg tablet Take by mouth. piroxicam (FELDENE) 10 mg capsule Take by mouth. levothyroxine (SYNTHROID) 50 mcg tablet Take 50 mcg by mouth once daily. DULoxetine (CYMBALTA) 60 mg capsule No current facility-administered medications for this visit. PHYSICAL EXAMINATION: Physical Exam Constitutional: Appearance: Normal appearance. Cardiovascular: Rate and Rhythm: Normal rate and regular rhythm. Pulses: Normal pulses. Heart sounds: Normal heart sounds. No murmur heard. Pulmonary: Effort: Pulmonary effort is normal. No respiratory distress. Breath sounds: Normal breath sounds. Musculoskeletal: Comments: Spinal deformity. Patient does have tenderness upon palpation to cervical paraspinals bilaterally. Negative Spurling test bilaterally. Patient has good range of motion of the cervical spine. Skin: General: Skin is warm and dry. Capillary Refill: Capillary refill takes less than 2 seconds. Neurological: General: No focal deficit present. Mental Status: She is alert and oriented to person, place, and time. Psychiatric: Mood and Affect: Mood normal. Behavior: Behavior normal. Thought Content: Thought content normal. Judgment: Judgment normal. ASSESSMENT: Patient is stable. Chronic pain is persistent. Medications are helping Chelsea Wyman to have an improved quality of life. Patient compliance with Opioid Contract: patient is compliant Encounter Diagnosis ICD-10-CM 1. Other chronic pain G89.29 2. Chronic pain syndrome G89.4 traMADol (ULTRAM) 50 mg tablet 3. Neck pain M54.2 CONSULT TO PHYSICAL THERAPY 4. Encounter for therapeutic drug level monitoring Z51.81 TOXASSURE FLEX 23, URINE 5. Myofascial pain syndrome M79.18 6. High risk medication use Z79.899 PLAN: The patient understands the goal of our treatment is a reduction in pain and/or an improved level of functioning with activities of daily living. If at any time the patient does not feel the medications are helping them to achieve these goals, the medications may be discontinued. The patient reports a reduction in pain and/or an improved level of functioning with activities of daily living, denies any significant adverse effects, is compliant with the pain management agreement and there are no signs of medication misuse, abuse or diversion; therefore, the medications will be continued. Oarrs checked Obtain UDS Patient to undergo PT for neck pain If neck pain does improve with PT we will obtain MRI of cervical spine Continue Tramadol as prescribed Continue baclofen Consider repeat trigger point injections in the future (with steroids). Patient to notify office when she select PT group so order can sent to PT group Patient to notify office with any questions or concerns Patient to follow up with me in office in 3 months. Mai Davis APRN.METAL FLOW COORDINATOR documented in this encounter [facility] 09-14-2023 Miscellaneous Notes Patient phones requesting refills as follows: Requested Prescriptions Pending Prescriptions Disp Refills traMADol (ULTRAM) 50 mg tablet 150 tablet 0 Sig: Take 1 tablet by mouth as directed for 30 days. q4-6 hr prn max 5 day Last UDS: No specialty comments available. Summary Report Date Value Ref Range Status 01/18/2023 FINAL Final Comment: ==== Tapentadol, MS, Ur, RFX Tramadol, MS, Ur RFX Acetaminophen, MS, Ur RFX ToxAssure Flex 23, Ur ==== Test Result Flag Units Drug Present Tramadol >23424 ng/mg creat O-Desmethyltramadol >69328 ng/mg creat N-Desmethyltramadol >47386 ng/mg creat Source of tramadol is a prescription medication. O-desmethyltramadol and N-desmethyltramadol are expected metabolites of tramadol. Acetaminophen PRESENT ==== Test Result Flag Units Ref Range Creatinine 42 mg/dL >=20 ==== Declared Medications: Medication list was not provided. ==== For clinical consultation, please call . ==== No results found for: UQNOTE, OPIATEPNMGT, DRUGSCRPAIN Urine Panel: No results found for: UQCANN, UQBNZL, [id number], UQAMPH, UQMAMP, UQBUPRE, UQNORBUP, UQMTHD, UQEDDP, UQTRAM, UQDTRM, UQFNTL, UQNFTL, UQCODE, UQMORP, UQDCDN, UQHCOD, UQOXYC, UQHMOR, UQOXYM, UQCREA, UQPH, UQSPGR, UQOXID, UQSPQ @FLOW([id number])@ Lab Results Component Value Date SUMM FINAL 01/18/2023 No results found for: SUMMAR Last Opioid agreement effective date: 02/28/2023 Please review and advise. Clare Carmona, RN documented in this encounter [facility] 07-03-2023 Miscellaneous Notes ordered Pt calling asking if she would be able to get scheduled for TPI. She had last TPI with Dr Dubon on 03/21/23. Pt noted that she has been getting headaches due to the stiffness in her neck area. Pt was transferred to to schedule MRI that Dr Dubon ordered at last office visit on 04/23/23. Polly Lopez RN July 03, 2023 1:38 PM documented in this encounter [facility] 06-18-2023 Miscellaneous Notes Patient phones requesting refills as follows: Requested [...] Ref Range Status 01/18/2023 FINAL Final Comment: ==== Tapentadol, MS, Ur, RFX Tramadol, MS, Ur RFX Acetaminophen, MS, Ur RFX ToxAssure Flex 23, Ur ==== Test Result Flag Units Drug Present Tramadol >77426 ng/mg creat O-Desmethyltramadol >69646 ng/mg creat N-Desmethyltramadol >03535 ng/mg creat Source of tramadol is a prescription medication. O-desmethyltramadol and N-desmethyltramadol are expected metabolites of tramadol. Acetaminophen PRESENT ==== Test Result Flag Units Ref Range Creatinine 42 mg/dL >=20 ==== Declared Medications: Medication list was not provided. ==== For clinical consultation, please call . ==== @FLOW([id number])@ Lab Results Component Value Date SUMM FINAL 01/18/2023 No results found for: SUMMAR Please review and advise. Dea Nielson RN documented in this encounter [facility] 05-20-2023 Miscellaneous Notes The following approved medication requests have been transmitted electronically. Requested Prescriptions Pending Prescriptions Disp Refills traMADol (ULTRAM) 50 mg tablet 150 tablet 0 Sig: Take 1 tablet by mouth as directed for 30 days. q4-6 hr prn max 5 day Jaren Dubon DO Patient phones requesting refills as follows: Requested Prescriptions Pending Prescriptions Disp Refills traMADol (ULTRAM) 50 mg tablet 150 tablet 0 Sig: Take 1 tablet by mouth as directed for 30 days. q4-6 hr prn max 5 day Last UDS: No specialty comments available. Summary Report Date Value Ref Range Status 01/18/2023 FINAL Final Comment: ==== Tapentadol, MS, Ur, RFX Tramadol, MS, Ur RFX Acetaminophen, MS, Ur RFX ToxAssure Flex 23, Ur ==== Test Result Flag Units Drug Present Tramadol >73146 ng/mg creat O-Desmethyltramadol >55703 ng/mg creat N-Desmethyltramadol >58653 ng/mg creat Source of tramadol is a prescription medication. O-desmethyltramadol and N-desmethyltramadol are expected metabolites of tramadol. Acetaminophen PRESENT ==== Test Result Flag Units Ref Range Creatinine 42 mg/dL >=20 ==== Declared Medications: Medication list was not provided. ==== For clinical consultation, please call . ==== @FLOW([id number])@ Lab Results Component Value Date SUMM FINAL 01/18/2023 No results found for: SUMMAR Please review and advise. Dea Nielson RN documented in this encounter [facility] 04-20-2023 Miscellaneous Notes Items addressed in this encounter: Prior Authorization Tramadol approval letter indexed Able to close encounter. José Manuel West MA April 20, 2023 1:39 PM 1:39 PM documented in this encounter [facility] 03-21-2023 Surgical operatio n note Summary: [...] this encounter was entered by Jessica Young clinical specialist medical device, for Dr. Jaren Dubon on March 21, 2023. I, Dr. Jaren Dubon, personally performed the services described in this documentation. All medical record entries made by the scribe were at my direction and in my presence. I have reviewed the chart and discharge instructions and agree that the record reflects my personal performance and is accurate and complete. Electronically Signed: Dr. Dubon. March 21, 2023. documented in this encounter [facility] 02-28-2023 Instructions Mecca Guaman APRN.[employer] - 02/28/2023 1:48 PM EDT Continue Tramadol, [...] in 3 months documented in this encounter [facility] 02-28-2023 History of Presen t illness Narrative SUBJECTIVE: Chelsea Wyman presents to [facility] Pain Management Department for a follow-up [...] letter for private care source which is [facility]. Denies any ED visits or hospitalizations since [...] agreement with the above and verbalized understanding. Mecca Guaman APRN.[employer] February 28, 2023 documented in this encounter [facility] 02-22-2023 Miscellaneous Notes The following approved medication requests have been transmitted electronically. Requested Prescriptions Signed Prescriptions Disp Refills baclofen 10 mg tablet 90 tablet 0 Sig: Take 1 tablet by mouth three times daily as needed. YAS alarcon Authorizing Provider: MECCA GUAMAN APRN.CNS Patient phones requesting refills as follows: Requested Prescriptions Pending Prescriptions Disp Refills baclofen 10 mg tablet 90 tablet 0 Sig: Take 1 tablet by mouth three times daily as needed. YAS alarcon Last UDS: Summary Report Date Value Ref Range Status 01/18/2023 FINAL Final Comment: ==== Tapentadol, MS, Ur, RFX Tramadol, MS, Ur RFX Acetaminophen, MS, Ur RFX ToxAssure Flex 23, Ur ==== Test Result Flag Units Drug Present Tramadol >81446 ng/mg creat O-Desmethyltramadol >81861 ng/mg creat N-Desmethyltramadol >47826 ng/mg creat Source of tramadol is a prescription medication. O-desmethyltramadol and N-desmethyltramadol are expected metabolites of tramadol. Acetaminophen PRESENT ==== Test Result Flag Units Ref Range Creatinine 42 mg/dL >=20 ==== Declared Medications: Medication list was not provided. ==== For clinical consultation, please call . ==== @FLOW([id number])@ Lab Results Component Value Date SUMM FINAL 01/18/2023 No results found for: SUMMAR Please review and advise. Polly Lopez RN documented in this encounter [facility] 02-22-2023 Miscellaneous Notes Pt called and notified. Call transferred to materials scheduler. Polly Lopez RN February 22, 2023 1:47 [...] 2023 1:11 PM documented in this encounter [facility] 02-16-2023 Miscellaneous Notes The following approved medication requests have been transmitted electronically. Requested Prescriptions Signed Prescriptions Disp Refills traMADol (ULTRAM) 50 mg tablet 150 tablet 0 Sig: Take 1 tablet by mouth as directed for 30 days. q4-6 hr prn max 5 day Do not start before February 20, 2023. Authorizing Provider: MECCA GUAMAN APRN.[employer] Patient phones requesting refills as follows: Requested Prescriptions Pending Prescriptions Disp Refills traMADol (ULTRAM) 50 mg tablet 150 tablet 0 Sig: Take 1 tablet by mouth as directed for 30 days. q4-6 hr prn max 5 day Last UDS: Summary Report Date Value Ref Range Status 01/18/2023 FINAL Final Comment: ==== Tapentadol, MS, Ur, RFX Tramadol, MS, Ur RFX Acetaminophen, MS, Ur RFX ToxAssure Flex 23, Ur ==== Test Result Flag Units Drug Present Tramadol >07945 ng/mg creat O-Desmethyltramadol >31817 ng/mg creat N-Desmethyltramadol >73094 ng/mg creat Source of tramadol is a prescription medication. O-desmethyltramadol and N-desmethyltramadol are expected metabolites of tramadol. Acetaminophen PRESENT ==== Test Result Flag Units Ref Range Creatinine 42 mg/dL >=20 ==== Declared Medications: Medication list was not provided. ==== For clinical consultation, please call . ==== @FLOW([id number])@ Lab Results Component Value Date SUMM FINAL 01/18/2023 No results found for: SUMMAR Please review and advise. Polly Lopez RN documented in this encounter [facility] 01-18-2023 History of Presen t illness [...] 2023 12:09 PM documented in this encounter [facility] 01-18-2023 Instructions Mecca Guaman APRN.[employer] - 01/18/2023 11:07 AM EDT Continue Tramadol, [...] in 2-3 months documented in this encounter [facility] 01-18-2023 History of Presen t illness Narrative SUBJECTIVE: Chelsea Wyman presents to [facility] Pain Management Department for a follow-up [...] agreement with the above and verbalized understanding. Mecca Guaman APRN.CNS January 18, 2023 documented in this encounter [facility] 12-20-2022 Miscellaneous Notes The following approved medication requests have been transmitted electronically. Requested Prescriptions Signed Prescriptions Disp Refills traMADol (ULTRAM) 50 mg tablet 150 tablet 0 Sig: Take 1 tablet by mouth as directed for 30 days. q4-6 hr prn max 5 day Do not start before December 22, 2022. Authorizing Provider: MECCA GUAMAN APRN.CNS Patient phones requesting refills as follows: Requested Prescriptions Pending Prescriptions Disp Refills traMADol (ULTRAM) 50 mg tablet 150 tablet 0 Sig: Take 1 tablet by mouth as directed for 30 days. q4-6 hr prn max 5 day Last UDS: Summary Report Date Value Ref Range Status 07/27/2022 FINAL Final Comment: ==== Tapentadol, MS, Ur, RFX Tramadol, MS, Ur RFX ToxAssure Flex 23, Ur ==== Test Result Flag Units Drug Present Tramadol >61235 ng/mg creat O-Desmethyltramadol >43020 ng/mg creat N-Desmethyltramadol >04204 ng/mg creat Source of tramadol is a prescription medication. O-desmethyltramadol and N-desmethyltramadol are expected metabolites of tramadol. ==== Test Result Flag Units Ref Range Creatinine 28 mg/dL >=20 ==== Declared Medications: Medication list was not provided. ==== For clinical consultation, please call . ==== @FLOW([id number])@ Lab Results Component Value Date SUMM FINAL 07/27/2022 No results found for: SUMMAR Please review and advise. Mirna Dierick, RN documented in this encounter [facility] 10-18-2022 Instructions Mecca Guaman APRN.[employer] - 10/18/2022 10:33 AM EDT Continue Tramadol, max 5 tabs per day. This helps patient perform ADL, interact with familly and friends. No misuse or aberrant behaviors detected. OARRS reviewed and consistent. UDS reviewed and consistent Continue Cymbalta.from PCP Continue TENS use Continue Zanaflex 4 mg TID PRN. Followup in 3 months documented in this encounter [facility] 10-18-2022 History of Presen t illness Narrative SUBJECTIVE: Chelsea Wyman presents to [facility] Pain Management Department for a follow-up [...] agreement with the above and verbalized understanding. Mecca Guaman APRN.[employer] October 18, 2022 documented in this encounter [facility] 10-12-2022 Surgical operatio n note Summary: Trigger Point Injections Physician Signature: Jaren Dubon DO PROCEDURE: Trigger point injection at ___B/L [...] this encounter was entered by Jessica Young, clinical specialist medical device, for Dr. Jaren Dubon on October 12, 2022. I, Dr. Jaren Dubon, personally performed the services described in this documentation. All medical record entries made by the scribe were at my direction and in my presence. I have reviewed the chart and discharge instructions and agree that the record reflects my personal performance and is accurate and complete. Electronically Signed: Dr. Dubon. October 12, 2022. documented in this encounter [facility] 2022 Miscellaneous Notes TPI built Becky Wing received appeal approval for TPI's please build a case so she can be added for October 12 at 1:00. Thank you, Vivien 2022 8:24 AM documented in this encounter [facility] 09-20-2022 Miscellaneous Notes The following approved medication requests have been transmitted electronically. Requested Prescriptions Signed Prescriptions Disp Refills traMADol (ULTRAM) 50 mg tablet 150 tablet 0 Sig: Take 1 tablet by mouth as directed for 30 days. q4-6 hr prn max 5 day Do not start before September 23, 2022. Authorizing Provider: MECCA GUAMAN APRN.CNS Patient phones requesting refills as follows: Requested Prescriptions Pending Prescriptions Disp Refills traMADol (ULTRAM) 50 mg tablet 150 tablet 0 Sig: Take 1 tablet by mouth as directed for 30 days. q4-6 hr prn max 5 day Last UDS: Summary Report Date Value Ref Range Status 07/27/2022 FINAL Final Comment: ==== Tapentadol, MS, Ur, RFX Tramadol, MS, Ur RFX ToxAssure Flex 23, Ur ==== Test Result Flag Units Drug Present Tramadol >54703 ng/mg creat O-Desmethyltramadol >50513 ng/mg creat N-Desmethyltramadol >88149 ng/mg creat Source of tramadol is a prescription medication. O-desmethyltramadol and N-desmethyltramadol are expected metabolites of tramadol. ==== Test Result Flag Units Ref Range Creatinine 28 mg/dL >=20 ==== Declared Medications: Medication list was not provided. ==== For clinical consultation, please call . ==== @FLOW(,)@ Lab Results Component Value Date SUMM FINAL 07/27/2022 No results found for: SUMMAR Please review and advise. Tiara Guaman RN documented in this encounter [facility] 07-27-2022 Instructions Mecca Guaman APRN.[employer] - 07/27/2022 1:23 PM EST Continue Tramadol, [...] in 3 months documented in this encounter [facility] 07-27-2022 History of Presen t illness Narrative SUBJECTIVE: Chelsea Wyman presents to [facility] Pain Management Department for a follow-up [...] agreement with the above and verbalized understanding. Mecca Guaman APRN.CNS July 27, 2022 documented in this encounter [facility] 07-25-2022 Miscellaneous Notes The following approved medication requests have been transmitted electronically. Requested Prescriptions Signed Prescriptions Disp Refills traMADol (ULTRAM) 50 mg tablet 150 tablet 0 Sig: Take 1 tablet by mouth as directed for 30 days. q4-6 hr prn max 5 day Authorizing Provider: MECCA GUAMAN APRN.CNS Patient phones requesting refills as follows: Requested Prescriptions Pending Prescriptions Disp Refills traMADol (ULTRAM) 50 mg tablet 75 tablet 0 Sig: Take 1 tablet by mouth as directed for 15 days. q4-6 hr prn max 5 day Please review and advise. Tiara Guaman RN documented in this encounter [facility] 07-13-2022 Miscellaneous Notes Please contact the patient and let her know that her insurance is denying the trigger point injection because she has not had a physical exam within 3 months of her request for trigger point. Therefore, when she sees Mecca in the office on July 27 this can be addressed. Please asked the patient to file a complaint against her insurance company that is truly delaying her medical care. Per Dr. Dubon Pt notified of the above information, TPI's cancelled for 07/26/22. Mirna Ralph RN July 13, 2022 1:15 PM documented in this encounter [facility] 07-05-2022 Miscellaneous Notes The following approved medication requests have been transmitted electronically. Requested Prescriptions Signed Prescriptions Disp Refills traMADol (ULTRAM) 50 mg tablet 75 tablet 0 Sig: Take 1 tablet by mouth as directed for 15 days. q4-6 hr prn max 5 day Do not start before July 10, 2022. Authorizing Provider: MECCA GUAMAN APRN.[employer] Patient phones requesting refills as follows: Requested Prescriptions Pending Prescriptions Disp Refills traMADol (ULTRAM) 50 mg tablet 75 tablet 0 Sig: Take 1 tablet by mouth as directed for 15 days. q4-6 hr prn max 5 day Please review and advise. Polly Lopez RN documented in this encounter [facility] 06-21-2022 Miscellaneous Notes The following approved medication requests have been transmitted electronically. Requested Prescriptions Signed Prescriptions Disp Refills traMADol (ULTRAM) 50 mg tablet 75 tablet 0 Sig: Take 1 tablet by mouth as directed for 15 days. q4-6 hr prn max 5 day Do not start before June 25, 2022. Authorizing Provider: MECCA GUAMAN APRN.[employer] Patient phones requesting refills as follows: Requested Prescriptions Pending Prescriptions Disp Refills traMADol (ULTRAM) 50 mg tablet 75 tablet 0 Sig: Take 1 tablet by mouth as directed for 15 days. q4-6 hr prn max 5 day Please review and advise. Dea Nielson RN documented in this encounter [facility] 06-21-2022 Miscellaneous Notes Case put in for TPI with Dr Dubon Summary: call from pt Pt states that she has had 50% improvement until this week and is currently @ 20% improvement from 02-15-22 TPI with steroids. She is requesting to have another TPI. Please place order if within POC. Thank you. Shayna Rodas RN documented in this encounter [facility] 06-07-2022 Miscellaneous Notes The following approved medication requests have been transmitted electronically. Requested Prescriptions Signed Prescriptions Disp Refills traMADol (ULTRAM) 50 mg tablet 75 tablet 0 Sig: Take 1 tablet by mouth as directed for 15 days. q4-6 hr prn max 5 day Do not start before June 10, 2022. Authorizing Provider: MECCA GUAMAN APRN.[employer] Patient phones requesting refills as follows: Requested Prescriptions Pending Prescriptions Disp Refills traMADol (ULTRAM) 50 mg tablet 150 tablet 0 Sig: Take 1 tablet by mouth as directed for 30 days. q4-6 hr prn max 5 day Please review and advise. Polly Lopez RN documented in this encounter [facility] 06-06-2022 Miscellaneous Notes Left voicemail for patient to call to reschedule appointment that was cancelled for 06/29/22 due to Provider Mecca Guaman will be out of office. Jeannie Candelario MA June 06, 2022 1:22 PM documented in this encounter [facility] 05-08-2022 Miscellaneous Notes The following approved medication requests have been transmitted electronically. Requested Prescriptions Signed Prescriptions Disp Refills traMADol (ULTRAM) 50 mg tablet 150 tablet 0 Sig: Take 1 tablet by mouth as directed for 30 days. q4-6 hr prn max 5 day Authorizing Provider: MECCA GUAMAN APRN.CNS Patient called the office stating she has [...] Tiara Guaman RN documented in this encounter [facility] 03-13-2022 Miscellaneous Notes The following approved medication requests have been transmitted electronically. Requested Prescriptions Signed Prescriptions Disp Refills traMADol (ULTRAM) 50 mg tablet 90 tablet 1 Sig: Take 1 tablet by mouth as directed for 15 days. q4-6 hr prn max 5 day Do not start before March 19, 2022. Authorizing Provider: MECCA GUAMAN APRN.CNS Patient phones requesting refills as follows: Requested Prescriptions Pending Prescriptions Disp Refills traMADol (ULTRAM) 50 mg tablet 90 tablet 1 Sig: Take 1 tablet by mouth as directed for 15 days. q4-6 hr prn max 5 day Please review and advise. Clare Carmona RN documented in this encounter [facility] 02-20-2022 Miscellaneous Notes noted Segun pharmacist from [facility] called to say that he updated OARRS for the extra 90 tablets of Tramadol patient received from the refill on 02/13/22 script. Patient will not be due for refill until 02/17/22. Clare Carmona RN documented in this encounter [facility] 02-14-2022 Miscellaneous Notes Noted Segun from [facility] called in today just wanting you to know that he thinks the pt. Received an extra Tramadol fill of 90 tabs, he is going to call the pt and will let our office know. Pt received 90 tabs on 01/13, 01/26, 01/31 and 02/13. Just FYI. Mirna Ralph RN documented in this encounter [facility] 02-13-2022 Miscellaneous Notes The following approved medication requests have been transmitted electronically. Signed Prescriptions Disp Refills traMADol (ULTRAM) 50 mg tablet 90 tablet 1 Sig: Take 1 tablet by mouth as directed for 15 days. q4-6 hr prn max 5 day BELLA Class: C-IV Authorizing Provider: MECCA GUAMAN APRN.[employer] Patient phones requesting refills as follows: Pending Prescriptions Disp Refills TRAMADOL 50 MG TABLET 90 tablet 1 Sig: Take 1 tablet by mouth as directed for 15 days. q4-6 hr prn max 5 day BELLA Class: C-IV Please review and advise. Clare Carmona RN documented in this encounter [facility] 07-31-2016 History of Past i llness Narrative Problem Noted Date Diagnosed Date Resolved Date Encounter for long-term methadone use 07/31/2016 02/28/2023 documented as of this encounter (statuses as of 02/28/2023) [facility] History of Past illness Narrative* Problem Noted Date Diagnosed Date Resolved Date Encounter for long-term methadone use 07/31/2016 02/28/2023 documented as of this encounter (statuses as of 03/22/2023) [facility] History of Past illness Narrative* Problem Noted Date Diagnosed Date Resolved Date Encounter for long-term methadone use 07/31/2016 02/28/2023 documented as of this encounter (statuses as of 04/21/2023) [facility] History of Past illness Narrative* Problem Noted Date Diagnosed Date Resolved Date Encounter for long-term methadone use 07/31/2016 02/28/2023 documented as of this encounter (statuses as of 04/21/2023) [facility] History of Past illness Narrative* Problem Noted Date Diagnosed Date Resolved Date Encounter for long-term methadone use 07/31/2016 02/28/2023 documented as of this encounter (statuses as of 05/20/2023) [facility] History of Past illness Narrative* Problem Noted Date Diagnosed Date Resolved Date Encounter for long-term methadone use 07/31/2016 02/28/2023 documented as of this encounter (statuses as of 06/19/2023) [facility] History of Past illness Narrative* Problem Noted Date Diagnosed Date Resolved Date Encounter for long-term methadone use 07/31/2016 02/28/2023 documented as of this encounter (statuses as of 07/04/2023) [facility] History of Past illness Narrative* Problem Noted Date Diagnosed Date Resolved Date Encounter for long-term methadone use 07/31/2016 02/28/2023 documented as of this encounter (statuses as of 09/14/2023) [facility] Chronic pain syndrome- Primary Myofascial pain syndrome Mylagia and myositis, unspecified [facility] Chronic [facility] syndrome [facility] Diagnosis Chronic pain syndrome documented in this encounter [facility] noteNo assessment information availableWC[facility] Work Phone: Evaluation note* Diagnosis Chronic pain syndrome documented in this encounter [facility] note* Diagnosis Myofascial pain syndrome- Primary Mylagia and myositis, unspecified Myofascial pain syndrome Mylagia and myositis, unspecified documented in this encounter [facility] note* Diagnosis Chronic pain syndrome Myofascial pain syndrome Mylagia and myositis, unspecified [facility]* Diagnosis DDD (degenerative disc disease), lumbar- Primary Degeneration of lumbar or lumbosacral intervertebral disc Myofascial pain syndrome Mylagia and myositis, unspecified Radiculopathy, lumbar region Thoracic or lumbosacral neuritis or radiculitis, unspecified Chronic pain syndrome High risk medication use Encounter for long-term (current) use of other medications Myofascial pain syndrome Mylagia and myositis, unspecified documented in this encounter [facility] note* Diagnosis Myofascial pain syndrome- Primary Mylagia and myositis, unspecified Myofascial pain syndrome Mylagia and myositis, unspecified documented in this encounter [facility] note* Diagnosis DDD (degenerative disc disease), lumbar- Primary Degeneration of lumbar or lumbosacral intervertebral disc Lumbar facet arthropathy Lumbosacral spondylosis without myelopathy Radiculopathy, lumbar region Thoracic or lumbosacral neuritis or radiculitis, unspecified Chronic pain syndrome Myofascial pain syndrome Mylagia and myositis, unspecified High risk medication use Encounter for long-term (current) use of other medications [facility]* Diagnosis Chronic pain syndrome documented in this encounter [facility] note* Diagnosis Cervicalgia Cervical radiculopathy Brachial neuritis or radiculitis nos Chronic pain syndrome High risk medication use Encounter for long-term (current) use of other medications [facility]* Diagnosis Cervicalgia Cervical radiculopathy Brachial neuritis or radiculitis nos [facility]* Diagnosis Chronic pain syndrome [facility] Diagnosis Arthropathy of cervical facet joint Cervical spondylosis without myelopathy Cervical radiculopathy Brachial neuritis or radiculitis nos Myofascial pain syndrome Mylagia and myositis, unspecified Chronic pain syndrome High risk medication use Encounter for long-term (current) use of other medications Myofascial pain syndrome Mylagia and myositis, unspecified [facility] Diagnosis Chronic pain syndrome [facility] Diagnosis Myofascial pain syndrome- Primary Mylagia and myositis, unspecified [facility] Diagnosis Chronic pain syndrome [facility] Diagnosis Other chronic pain- Primary Chronic pain syndrome Neck pain Cervicalgia Encounter for therapeutic drug level monitoring Encounter for therapeutic drug monitoring Myofascial pain syndrome Mylagia and myositis, unspecified High risk medication use Encounter for long-term (current) use of other medications [facility] Diagnosis Chronic pain syndrome [facility] Diagnosis Other chronic pain- Primary Radiculopathy, cervical region Brachial neuritis or radiculitis nos Chronic pain syndrome Spinal stenosis of cervical region Spinal stenosis in cervical region DDD (degenerative disc disease), cervical Degeneration of cervical intervertebral disc High risk medication use Encounter for long-term (current) use of other medications [facility] Diagnosis Spinal stenosis of cervical region Spinal stenosis in cervical region DDD (degenerative disc disease), cervical Degeneration of cervical intervertebral disc [facility] Diagnosis Chronic pain syndrome [facility] Diagnosis Other chronic pain- Primary Radiculopathy, cervical region Brachial neuritis or radiculitis nos DDD (degenerative disc disease), cervical Degeneration of cervical intervertebral disc Neck pain Cervicalgia Chronic pain syndrome High risk medication use Encounter for long-term (current) use of other medications Radiculopathy, cervical region Brachial neuritis or radiculitis nos [facility] Diagnosis Chronic pain syndrome Radiculopathy, cervical region Brachial neuritis or radiculitis nos documented in this [facility] Diagnosis Cervical disc disorder with radiculopathy- Primary Brachial neuritis or radiculitis nos documented [facility] Diagnosis Chronic pain syndrome Spinal stenosis of cervical region Spinal stenosis in cervical region DDD (degenerative disc disease), cervical Degeneration of cervical intervertebral disc [facility] Diagnosis Cervical disc disorder with radiculopathy Brachial neuritis or radiculitis nos documented in this encounter [facility] note* Diagnosis Radiculopathy, cervical region Brachial neuritis or radiculitis nos [facility] Diagnosis Chronic pain syndrome [facility] Diagnosis Chronic pain syndrome Spinal stenosis of cervical region Spinal stenosis in cervical region DDD (degenerative disc disease), cervical Degeneration of cervical intervertebral disc [facility] Diagnosis Chronic pain syndrome [facility] Diagnosis Other chronic pain- Primary Chronic pain syndrome Myofascial pain syndrome Mylagia and myositis, unspecified Encounter for therapeutic drug level monitoring Encounter for therapeutic drug monitoring Radiculopathy, cervical region Brachial neuritis or radiculitis nos DDD (degenerative disc disease), cervical Degeneration of cervical intervertebral disc High risk medication use Encounter for long-term (current) use of other medications Myofascial pain syndrome Mylagia and myositis, unspecified [facility] this [facility] Diagnosis Chronic pain syndrome Spinal stenosis of cervical region Spinal stenosis in cervical region DDD (degenerative disc disease), cervical Degeneration of cervical intervertebral disc [facility] Diagnosis Chronic pain syndrome [facility] Diagnosis Other chronic pain- Primary Radiculopathy, cervical region Brachial neuritis or radiculitis nos Chronic pain syndrome Spinal stenosis of cervical region Spinal stenosis in cervical region DDD (degenerative disc disease), cervical Degeneration of cervical intervertebral disc High risk medication use Encounter for long-term (current) use of other medications Radiculopathy, cervical region Brachial neuritis or radiculitis nos documented [facility] this [facility] Diagnosis Other chronic pain- Primary Chronic pain syndrome Sacroiliitis Sacroiliitis, not elsewhere classified Radiculopathy, cervical region Brachial neuritis or radiculitis nos Arthropathy of cervical facet joint Cervical spondylosis without myelopathy DDD (degenerative disc disease), cervical Degeneration of cervical intervertebral disc High risk medication use Encounter for long-term (current) use of other medications Sacroiliitis Sacroiliitis, not elsewhere classified documented [facility] this [facility]* Diagnosis Chronic pain syndrome Sacroiliitis Sacroiliitis, not elsewhere classified [facility] Diagnosis Chronic pain syndrome Sacroiliitis Sacroiliitis, not elsewhere classified [facility] Diagnosis Chronic pain syndrome Spinal stenosis of cervical region Spinal stenosis in cervical region DDD (degenerative disc disease), cervical Degeneration of cervical intervertebral disc Sacroiliitis Sacroiliitis, not elsewhere classified documented in this encounter [facility] for referral (narrative)* Diagnostic Procedure Only (Routine) - Closed Specialty Diagnoses / Procedures Referred By Contac t Referred To Contact XR IMAGING Diagnoses Cervicalgia Cervical radiculopathy Procedures XR CERV OTHER 4V AP/LAT/FLX/EXT RADEX SPINE CERVICAL 4 OR 5 VIEWS Mecca Guaman APRN.[employer] [address] [place] [address] Xr Imaging Referral ID Status Reason Start Date Expiration Date V isits Requested Visits Authorized [id number] Closed Auto-Generate d Referral 01/18/2023 02/17/2024 1 1 [facility] for referral (narrative)* Diagnostic Procedure Only (Routine) - Closed Specialty Diagnoses / Procedures Referred By Contac t Referred To Contact XR IMAGING Diagnoses Cervicalgia Cervical radiculopathy Procedures XR CERV OTHER 4V AP/LAT/FLX/EXT RADEX SPINE CERVICAL 4 OR 5 VIEWS Mecca Guaman APRN.[employer] [address] [place] [address] Xr Imaging Referral ID Status Reason Start Date Expiration Date V isits Requested Visits Authorized [id number] Closed Auto-Generate d Referral 01/18/2023 02/17/2024 1 1 [facility] for referral (narrative)No reason for referral information [facility]: Reason for visit Narrative* Diagnostic Procedure Only (Routine) - Closed Specialty Diagnoses / Procedures Referred By Contac t Referred To Contact XR IMAGING Diagnoses Cervicalgia Cervical radiculopathy Procedures XR CERV OTHER 4V AP/LAT/FLX/EXT RADEX SPINE CERVICAL 4 OR 5 VIEWS Mecca Guaman CLASSROOM TECHNOLOGY COACH.[employer] [address] [place] [place] [id number] Xr Imaging Referral ID Status Reason Start Date Expiration Date V isits Requested Visits Authorized [id number] Closed Auto-Generate d Referral 01/18/2023 02/17/2024 1 1 [facility] for visit Narrative* Diagnostic Procedure Only (Routine) - Waiting for Response Specialty Diagnoses / Procedures Referred By Contac t Referred To Contact XR IMAGING Diagnoses Radiculopathy, cervical region Procedures XR CERV OTHER 4V AP/LAT/FLX/EXT RADEX SPINE CERVICAL 4 OR 5 VIEWS Lindsay Jewell MD [address] [facility] [address] [place] [address] [place] [address] Referral ID Status Reason Start Date Expiration Date Visits Requested Visits Authorized [id number] Waiting for Response Auto-Generate d Referral Clearance Not Met -Financial Clearance Bypassed 04/04/2024 05/04/2025 1 1 [facility] Summary Purpose Family History No Family History Records FoundNo Family History Records FoundNo Family History Records FoundNo Family History Records Found Advance Directives No Advanced Directives Records FoundDocuments on File Type Date Recorded 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 Advance Directive(s) 01/26/2022 9:32 AM Documents on File Type Date Recorded 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 Advance Directive(s) 01/26/2022 9:32 AM Advance Directive Response Recorded Date/ Time Advance Directives No December 08 4 11:12am Living Will No December 08, 2013 1 1:12am Power of Pipeline Executive No December 08, 2013 11:12am Advance Directive Response Recorded Date/ Time Advance Directives No December 08 10:12am Living Will No August 03 12:32am Power of Pipeline Executive No August 03, 2018 12:32am Advance Directive Response Recorded Date/ Time Advance Directives No December 08 11:12am Reason for Referral Specialty Diagnoses / Procedures Referred By Contac t Referred To Contact Diagnoses Chronic pain syndrome Mecca Guaman, CLASSROOM TECHNOLOGY COACH.[facility] [address] [facility] [address] [address] Referral ID Status Reason Start Date Expiration Date Visits Re quested Visits Authorized [id number] Closed 1 1 Referral ID Status Reason Start Date Expiration Date Visits Re quested Visits Authorized [id number] Closed 1 1 Specialty Diagnoses / Procedures Referred By Contac t Referred To Contact [facility] Diagnoses Neck pain Procedures CONSULT TO PHYSICAL THERAPY PHYSICAL THERAPY EVALUATION HIGH COMPLEX 45 MINS Mai Davis, CLASSROOM TECHNOLOGY COACH.METAL FLOW COORDINATOR [address] [place] [address] [facility] [place] [facility] [place] [address] Referral ID Status Reason Start Date Expiration Date Visits Requested Visits Authorized [id number] Pending Review Auto-Generat ed Referral 10/10/2023 10/09/2024 1 1 Specialty Diagnoses / Procedures Referred By Contac t Referred To Contact Diagnoses Chronic pain syndrome Mai Davis, CLASSROOM TECHNOLOGY COACH.METAL FLOW COORDINATOR [address] [place] [address] Referral ID Status Reason Start Date Expiration Date V isits Requested Visits Authorized [id number] Authorized 10/20/2023 05/12/2024 1 1 Specialty Diagnoses / Procedures Referred By Contac t Referred To Contact MR IMAGING Diagnoses Spinal stenosis of cervical region DDD (degenerative disc disease), cervical Procedures MRI CERVICAL SPINE WO IVCON MRI SPINAL CANAL CERVICAL W/O CONTRAST MATRL Mai Davis CLASSROOM TECHNOLOGY COACH.METAL FLOW COORDINATOR [address] [place] [address] [place] [id number] Referral ID Status Reason Start Date Expiration Date Visits Requested Visits Authorized [id number] Pending Review Auto-Generat ed Referral 01/01/2024 01/30/2025 1 1 Specialty Diagnoses / Procedures Referred By Contac t Referred To Contact Neurosurgery Diagnoses Cervical disc disorder with radiculopathy Procedures CONSULT TO NEUROSURGERY OFFICE/OUTPATIENT [facility] 60 MINUTES Connor Torres MD [address] [place] [address] Referral ID Status Reason Start Date Expiration Date Visits Requested Visits Authorized [id number] Pending Review PCP Requested Referral 03/17/2024 03/17/2025 1 1 Referral ID Status Reason Start Date Expiration Date V isits Requested Visits Authorized [id number] Authorized 04/27/2024 11/25/2024 1 1 Additional Source Comments Source Comments (unrecognize d section and content) In the event this informatio n is protected by the Federal Confidentiality of Alcohol and Drug Abuse Patient Records regulations: The Federal rules restrict any use of the information to criminally investigate or prosecute any alcohol or drug abuse patient.[facility] the event this information is protected by the Federal Confidentiality of Alcohol and Drug Abuse Patient Records regulations: The Federal rules restrict any use of the information to criminally investigate or prosecute any alcohol or drug abuse patient.[facility] the event this information is protected by the Federal Confidentiality of Alcohol and Drug Abuse Patient Records regulations: The Federal rules restrict any use of the information to criminally investigate or prosecute any alcohol or drug abuse patient.[facility] HospitalIn the event this information is protected by the Federal Confidentiality of Alcohol and Drug Abuse Patient Records regulations: The Federal rules restrict any use of the information to criminally investigate or prosecute any alcohol or drug abuse patient.[facility] HospitalIn the event this information is protected by the Federal Confidentiality of Alcohol and Drug Abuse Patient Records regulations: The Federal rules restrict any use of the information to criminally investigate or prosecute any alcohol or drug abuse patient.[facility] HospitalIn the event this information is protected by the Federal Confidentiality of Alcohol and Drug Abuse Patient Records regulations: The Federal rules restrict any use of the information to criminally investigate or prosecute any alcohol or drug abuse patient.[facility] HospitalIn the event this information is protected by the Federal Confidentiality of Alcohol and Drug Abuse Patient Records regulations: The Federal rules restrict any use of the information to criminally investigate or prosecute any alcohol or drug abuse patient.[facility] HospitalIn the event this information is protected by the Federal Confidentiality of Alcohol and Drug Abuse Patient Records regulations: The Federal rules restrict any use of the information to criminally investigate or prosecute any alcohol or drug abuse patient.[facility] HospitalIn the event this information is protected by the Federal Confidentiality of Alcohol and Drug Abuse Patient Records regulations: The Federal rules restrict any use of the information to criminally investigate or prosecute any alcohol or drug abuse patient.[facility] HospitalIn the event this information is protected by the Federal Confidentiality of Alcohol and Drug Abuse Patient Records regulations: The Federal rules restrict any use of the information to criminally investigate or prosecute any alcohol or drug abuse patient.[facility] HospitalIn the event this information is protected by the Federal Confidentiality of Alcohol and Drug Abuse Patient Records regulations: The Federal rules restrict any use of the information to criminally investigate or prosecute any alcohol or drug abuse patient.[facility] HospitalIn the event this information is protected by the Federal Confidentiality of Alcohol and Drug Abuse Patient Records regulations: The Federal rules restrict any use of the information to criminally investigate or prosecute any alcohol or drug abuse patient.[facility] HospitalIn the event this information is protected by the Federal Confidentiality of Alcohol and Drug Abuse Patient Records regulations: The Federal rules restrict any use of the information to criminally investigate or prosecute any alcohol or drug abuse patient.[facility] HospitalIn the event this information is protected by the Federal Confidentiality of Alcohol and Drug Abuse Patient Records regulations: The Federal rules restrict any use of the information to criminally investigate or prosecute any alcohol or drug abuse patient.[facility] HospitalIn the event this information is protected by the Federal Confidentiality of Alcohol and Drug Abuse Patient Records regulations: The Federal rules restrict any use of the information to criminally investigate or prosecute any alcohol or drug abuse patient.[facility] HospitalIn the event this information is protected by the Federal Confidentiality of Alcohol and Drug Abuse Patient Records regulations: The Federal rules restrict any use of the information to criminally investigate or prosecute any alcohol or drug abuse patient.[facility] HospitalIn the event this information is protected by the Federal Confidentiality of Alcohol and Drug Abuse Patient Records regulations: The Federal rules restrict any use of the information to criminally investigate or prosecute any alcohol or drug abuse patient.[facility] HospitalIn the event this information is protected by the Federal Confidentiality of Alcohol and Drug Abuse Patient Records regulations: The Federal rules restrict any use of the information to criminally investigate or prosecute any alcohol or drug abuse patient.[facility] HospitalIn the event this information is protected by the Federal Confidentiality of Alcohol and Drug Abuse Patient Records regulations: The Federal rules restrict any use of the information to criminally investigate or prosecute any alcohol or drug abuse patient.[facility] HospitalIn the event this information is protected by the Federal Confidentiality of Alcohol and Drug Abuse Patient Records regulations: The Federal rules restrict any use of the information to criminally investigate or prosecute any alcohol or drug abuse patient.[facility] HospitalIn the event this information is protected by the Federal Confidentiality of Alcohol and Drug Abuse Patient Records regulations: The Federal rules restrict any use of the information to criminally investigate or prosecute any alcohol or drug abuse patient.[facility] HospitalIn the event this information is protected by the Federal Confidentiality of Alcohol and Drug Abuse Patient Records regulations: The Federal rules restrict any use of the information to criminally investigate or prosecute any alcohol or drug abuse patient.[facility] HospitalIn the event this information is protected by the Federal Confidentiality of Alcohol and Drug Abuse Patient Records regulations: The Federal rules restrict any use of the information to criminally investigate or prosecute any alcohol or drug abuse patient.[facility] HospitalIn the event this information is protected by the Federal Confidentiality of Alcohol and Drug Abuse Patient Records regulations: The Federal rules restrict any use of the information to criminally investigate or prosecute any alcohol or drug abuse patient.[facility] HospitalIn the event this information is protected by the Federal Confidentiality of Alcohol and Drug Abuse Patient Records regulations: The Federal rules restrict any use of the information to criminally investigate or prosecute any alcohol or drug abuse patient.[facility] HospitalIn the event this information is protected by the Federal Confidentiality of Alcohol and Drug Abuse Patient Records regulations: The Federal rules restrict any use of the information to criminally investigate or prosecute any alcohol or drug abuse patient.[facility] HospitalIn the event this information is protected by the Federal Confidentiality of Alcohol and Drug Abuse Patient Records regulations: The Federal rules restrict any use of the information to criminally investigate or prosecute any alcohol or drug abuse patient.[facility] HospitalIn the event this information is protected by the Federal Confidentiality of Alcohol and Drug Abuse Patient Records regulations: The Federal rules restrict any use of the information to criminally investigate or prosecute any alcohol or drug abuse patient.[facility] HospitalIn the event this information is protected by the Federal Confidentiality of Alcohol and Drug Abuse Patient Records regulations: The Federal rules restrict any use of the information to criminally investigate or prosecute any alcohol or drug abuse patient.[facility] HospitalIn the event this information is protected by the Federal Confidentiality of Alcohol and Drug Abuse Patient Records regulations: The Federal rules restrict any use of the information to criminally investigate or prosecute any alcohol or drug abuse patient.[facility] HospitalIn the event this information is protected by the Federal Confidentiality of Alcohol and Drug Abuse Patient Records regulations: The Federal rules restrict any use of the information to criminally investigate or prosecute any alcohol or drug abuse patient.[facility] HospitalIn the event this information is protected by the Federal Confidentiality of Alcohol and Drug Abuse Patient Records regulations: The Federal rules restrict any use of the information to criminally investigate or prosecute any alcohol or drug abuse patient.[facility] HospitalIn the event this information is protected by the Federal Confidentiality of Alcohol and Drug Abuse Patient Records regulations: The Federal rules restrict any use of the information to criminally investigate or prosecute any alcohol or drug abuse patient.[facility] HospitalIn the event this information is protected by the Federal Confidentiality of Alcohol and Drug Abuse Patient Records regulations: The Federal rules restrict any use of the information to criminally investigate or prosecute any alcohol or drug abuse patient.[facility] HospitalIn the event this information is protected by the Federal Confidentiality of Alcohol and Drug Abuse Patient Records regulations: The Federal rules restrict any use of the information to criminally investigate or prosecute any alcohol or drug abuse patient.[facility] HospitalIn the event this information is protected by the Federal Confidentiality of Alcohol and Drug Abuse Patient Records regulations: The Federal rules restrict any use of the information to criminally investigate or prosecute any alcohol or drug abuse patient.[facility] HospitalIn the event this information is protected by the Federal Confidentiality of Alcohol and Drug Abuse Patient Records regulations: The Federal rules restrict any use of the information to criminally investigate or prosecute any alcohol or drug abuse patient.[facility] HospitalIn the event this information is protected by the Federal Confidentiality of Alcohol and Drug Abuse Patient Records regulations: The Federal rules restrict any use of the information to criminally investigate or prosecute any alcohol or drug abuse patient.[facility] HospitalIn the event this information is protected by the Federal Confidentiality of Alcohol and Drug Abuse Patient Records regulations: The Federal rules restrict any use of the information to criminally investigate or prosecute any alcohol or drug abuse patient.[facility] HospitalIn the event this information is protected by the Federal Confidentiality of Alcohol and Drug Abuse Patient Records regulations: The Federal rules restrict any use of the information to criminally investigate or prosecute any alcohol or drug abuse patient.[facility] HospitalIn the event this information is protected by the Federal Confidentiality of Alcohol and Drug Abuse Patient Records regulations: The Federal rules restrict any use of the information to criminally investigate or prosecute any alcohol or drug abuse patient.[facility] HospitalIn the event this information is protected by the Federal Confidentiality of Alcohol and Drug Abuse Patient Records regulations: The Federal rules restrict any use of the information to criminally investigate or prosecute any alcohol or drug abuse patient.[facility] HospitalIn the event this information is protected by the Federal Confidentiality of Alcohol and Drug Abuse Patient Records regulations: The Federal rules restrict any use of the information to criminally investigate or prosecute any alcohol or drug abuse patient.[facility] HospitalIn the event this information is protected by the Federal Confidentiality of Alcohol and Drug Abuse Patient Records regulations: The Federal rules restrict any use of the information to criminally investigate or prosecute any alcohol or drug abuse patient.[facility] HospitalIn the event this information is protected by the Federal Confidentiality of Alcohol and Drug Abuse Patient Records regulations: The Federal rules restrict any use of the information to criminally investigate or prosecute any alcohol or drug abuse patient.[facility] HospitalIn the event this information is protected by the Federal Confidentiality of Alcohol and Drug Abuse Patient Records regulations: The Federal rules restrict any use of the information to criminally investigate or prosecute any alcohol or drug abuse patient.[facility] HospitalIn the event this information is protected by the Federal Confidentiality of Alcohol and Drug Abuse Patient Records regulations: The Federal rules restrict any use of the information to criminally investigate or prosecute any alcohol or drug abuse patient.[facility] HospitalIn the event this information is protected by the Federal Confidentiality of Alcohol and Drug Abuse Patient Records regulations: The Federal rules restrict any use of the information to criminally investigate or prosecute any alcohol or drug abuse patient.[facility] HospitalIn the event this information is protected by the Federal Confidentiality of Alcohol and Drug Abuse Patient Records regulations: The Federal rules restrict any use of the information to criminally investigate or prosecute any alcohol or drug abuse patient.[facility] HospitalIn the event this information is protected by the Federal Confidentiality of Alcohol and Drug Abuse Patient Records regulations: The Federal rules restrict any use of the information to criminally investigate or prosecute any alcohol or drug abuse patient.[facility] HospitalIn the event this information is protected by the Federal Confidentiality of Alcohol and Drug Abuse Patient Records regulations: The Federal rules restrict any use of the information to criminally investigate or prosecute any alcohol or drug abuse patient.[facility] HospitalIn the event this information is protected by the Federal Confidentiality of Alcohol and Drug Abuse Patient Records regulations: The Federal rules restrict any use of the information to criminally investigate or prosecute any alcohol or drug abuse patient.[facility] HospitalIn the event this information is protected by the Federal Confidentiality of Alcohol and Drug Abuse Patient Records regulations: The Federal rules restrict any use of the information to criminally investigate or prosecute any alcohol or drug abuse patient.[facility] HospitalIn the event this information is protected by the Federal Confidentiality of Alcohol and Drug Abuse Patient Records regulations: The Federal rules restrict any use of the information to criminally investigate or prosecute any alcohol or drug abuse patient.[facility] HospitalIn the event this information is protected by the Federal Confidentiality of Alcohol and Drug Abuse Patient Records regulations: The Federal rules restrict any use of the information to criminally investigate or prosecute any alcohol or drug abuse patient.[facility] HospitalIn the event this information is protected by the Federal Confidentiality of Alcohol and Drug Abuse Patient Records regulations: The Federal rules restrict any use of the information to criminally investigate or prosecute any alcohol or drug abuse patient.[facility] HospitalIn the event this information is protected by the Federal Confidentiality of Alcohol and Drug Abuse Patient Records regulations: The Federal rules restrict any use of the information to criminally investigate or prosecute any alcohol or drug abuse patient.[facility] HospitalIn the event this information is protected by the Federal Confidentiality of Alcohol and Drug Abuse Patient Records regulations: The Federal rules restrict any use of the information to criminally investigate or prosecute any alcohol or drug abuse patient.[facility] HospitalIn the event this information is protected by the Federal Confidentiality of Alcohol and Drug Abuse Patient Records regulations: The Federal rules restrict any use of the information to criminally investigate or prosecute any alcohol or drug abuse patient.[facility] HospitalIn the event this information is protected by the Federal Confidentiality of Alcohol and Drug Abuse Patient Records regulations: The Federal rules restrict any use of the information to criminally investigate or prosecute any alcohol or drug abuse patient.[facility] HospitalIn the event this information is protected by the Federal Confidentiality of Alcohol and Drug Abuse Patient Records regulations: The Federal rules restrict any use of the information to criminally investigate or prosecute any alcohol or drug abuse patient.[facility] HospitalIn the event this information is protected by the Federal Confidentiality of Alcohol and Drug Abuse Patient Records regulations: The Federal rules restrict any use of the information to criminally investigate or prosecute any alcohol or drug abuse patient.[facility] HospitalIn the event this information is protected by the Federal Confidentiality of Alcohol and Drug Abuse Patient Records regulations: The Federal rules restrict any use of the information to criminally investigate or prosecute any alcohol or drug abuse patient.[facility] HospitalIn the event this information is protected by the Federal Confidentiality of Alcohol and Drug Abuse Patient Records regulations: The Federal rules restrict any use of the information to criminally investigate or prosecute any alcohol or drug abuse patient.[facility] HospitalIn the event this information is protected by the Federal Confidentiality of Alcohol and Drug Abuse Patient Records regulations: The Federal rules restrict any use of the information to criminally investigate or prosecute any alcohol or drug abuse patient.[facility] HospitalIn the event this information is protected by the Federal Confidentiality of Alcohol and Drug Abuse Patient Records regulations: The Federal rules restrict any use of the information to criminally investigate or prosecute any alcohol or drug abuse patient.[facility] HospitalIn the event this information is protected by the Federal Confidentiality of Alcohol and Drug Abuse Patient Records regulations: The Federal rules restrict any use of the information to criminally investigate or prosecute any alcohol or drug abuse patient.[facility] HospitalIn the event this information is protected by the Federal Confidentiality of Alcohol and Drug Abuse Patient Records regulations: The Federal rules restrict any use of the information to criminally investigate or prosecute any alcohol or drug abuse patient.[facility] HospitalIn the event this information is protected by the Federal Confidentiality of Alcohol and Drug Abuse Patient Records regulations: The Federal rules restrict any use of the information to criminally investigate or prosecute any alcohol or drug abuse patient.[facility] HospitalIn the event this information is protected by the Federal Confidentiality of Alcohol and Drug Abuse Patient Records regulations: The Federal rules restrict any use of the information to criminally investigate or prosecute any alcohol or drug abuse patient.[facility] HospitalIn the event this information is protected by the Federal Confidentiality of Alcohol and Drug Abuse Patient Records regulations: The Federal rules restrict any use of the information to criminally investigate or prosecute any alcohol or drug abuse patient.[facility] HospitalIn the event this information is protected by the Federal Confidentiality of Alcohol and Drug Abuse Patient Records regulations: The Federal rules restrict any use of the information to criminally investigate or prosecute any alcohol or drug abuse patient.[facility] HospitalIn the event this information is protected by the Federal Confidentiality of Alcohol and Drug Abuse Patient Records regulations: The Federal rules restrict any use of the information to criminally investigate or prosecute any alcohol or drug abuse patient.[facility] HospitalIn the event this information is protected by the Federal Confidentiality of Alcohol and Drug Abuse Patient Records regulations: The Federal rules restrict any use of the information to criminally investigate or prosecute any alcohol or drug abuse patient.[facility] HospitalIn the event this information is protected by the Federal Confidentiality of Alcohol and Drug Abuse Patient Records regulations: The Federal rules restrict any use of the information to criminally investigate or prosecute any alcohol or drug abuse patient.[facility] Care Teams (unrecognized sec tion and content) Radio Mechanic Apprentice Relationship Specialty Start Date End Date Dyllan Wyman MD PCP - General 03/01/05 Radio Mechanic Apprentice Relationship Specialty Start Date End Date Dyllan Wyman MD PCP - General 03/01/05 Radio Mechanic Apprentice Relationship Specialty Start Date End Date Dyllan Wyman MD PCP - General 03/01/05 Radio Mechanic Apprentice Relationship Specialty Start Date End Date Dyllan Wyman MD PCP - General 03/01/05 Radio Mechanic Apprentice Relationship Specialty Start Date End Date Dyllan Wyman MD PCP - General 03/01/05 Radio Mechanic Apprentice Relationship Specialty Start Date End Date Dyllan Wyman MD PCP - General 03/01/05 Radio Mechanic Apprentice Relationship Specialty Start Date End Date Dyllan Wyman MD PCP - General 03/01/05 Radio Mechanic Apprentice Relationship Specialty Start Date End Date Dyllan Wyman MD PCP - General 03/01/05 Radio Mechanic Apprentice Relationship Specialty Start Date End Date Dyllan Wyman MD PCP - General 03/01/05 Radio Mechanic Apprentice Relationship Specialty Start Date End Date Dyllan Wyman MD PCP - General 03/01/05 Radio Mechanic Apprentice Relationship Specialty Start Date End Date Dyllan Wyman MD PCP - General 03/01/05 Team Status: Active Member Role Status Dates Dr. Dyllan Wyman MD Family Provider Active Sania Pérez DO Primary Care Provider Active Team Status: Inactive Member Role Status Dates Sania Pérez DO Primary Care Provider, Attending Provider Active Radio Mechanic Apprentice Relationship Specialty Start Date End Date Matt Forrest MD [address] [place] [address] PCP - General Internal Medicine 05/30/24 Radio Mechanic Apprentice Relationship Specialty Start Date End Date Matt Forrest MD [address] [place] [address] PCP - General Internal Medicine 05/30/24 Radio Mechanic Apprentice Relationship Specialty Start Date End Date Matt Forrest MD [address] [place] [address] PCP - General Internal Medicine 05/30/24 Radio Mechanic Apprentice Relationship Specialty Start Date End Date Matt Forrest MD [address] [place] [address] PCP - General Internal Medicine 05/30/24 Radio Mechanic Apprentice Relationship Specialty Start Date End Date Matt Forrest MD [address] [place] [address] PCP - General Internal Medicine 05/30/24 Radio Mechanic Apprentice Relationship Specialty Start Date End Date Matt Forrest MD [address] [place] [address] PCP - General Internal Medicine 05/30/24 Radio Mechanic Apprentice Relationship Specialty Start Date End Date Matt Forrest MD [address] [place] [address] PCP - General Internal Medicine 05/30/24 Radio Mechanic Apprentice Relationship Specialty Start Date End Date Matt Forrest MD [address] [place] [address] PCP - General Internal Medicine 05/30/24 Radio Mechanic Apprentice Relationship Specialty Start Date End Date Matt Forrest MD [address] [facility] [address] [place] [address] PCP - General Internal Medicine 05/30/24 Radio Mechanic Apprentice Relationship Specialty Start Date End Date Matt Forrest MD [address] [facility] [address] [place] [address] PCP - General Internal Medicine 05/30/24 Team Status: Active Member Role/Relationship Status Dates Dr. Dyllan Wyman MD Family Provider Active Matt Forrest MD Primary Care Provider Active Team Status: Inactive Member Role/Relationship Status Dates Matt Forrest MD Primary Care Provider Active St art: February 06, 2025 End: February 06, 2025 Matt Forrest MD Attending Provider Active Start : February 06, 2025 End: February 06, 2025 Matt Forrest MD Referring Provider Active Start : February 06, 2025 End: February 06, 2025 Radio Mechanic Apprentice Relationship Specialty Start Date End Date Matt Forrest MD [address] [facility] [address] [place] [address] PCP - General Internal Medicine 05/30/24 INFORMATION SOURCE (unrecogn ized section and content) DATE CREATED AUTHOR 08/30/2021 Keren Mcclendon [facility] DATE CREATED AUTHOR AUTHOR'S ORGANIZ ATION 02/10/2024 [facility] DATE CREATED AUTHOR AUTHOR'S ORGANIZ ATION 02/12/2025 [facility] DATE CREATED AUTHOR AUTHOR'S ORGANIZ ATION 04/30/2025 [facility] Minoo Mcclendon ntg[place]meet Reason for Visit (unrecogniz ed section and content) Reason Onset Date Comments Refill Request 02/13/2022 Reason Comments Medication Problem Reason Comments Patient [...] Needed Specialty Diagnoses / Procedures Referred By Contac t Referred To Contact Diagnoses Myofascial pain syndrome Procedures TRIGGER POINT INJECTION MULTI 3+ MUSCLE GRP INJECTION TRIGGER POINT THREE OR MORE MUSCLES [facility] [address] [place] [address] Referral ID Status Reason Start Date Expiration Date Visits Re quested Visits Authorized [id number] 1 1 Reason Comments Back Pain Reason Onset Date Comments Refill Request 12/20/2022 Reason Comments Neck Pain Pain (Shoulder Pain) Reason Onset Date Comments Refill Request 02/16/2023 Reason Comments pt inquiring about getting TPI Reason Onset Date Comments Refill Request 02/22/2023 Reason Comments Neck Pain Referral ID Status Reason Start Date Expiration Date Visits Re quested Visits Authorized [id number] 1 1 Reason Comments indexed tramadol approval letter Reason Onset Date Comments Refill Request 05/18/2023 Reason Onset Date Comments Refill Request 06/18/2023 Reason Comments Pt asking for TPI Reason Onset Date Comments Refill Request 09/14/2023 Reason Comments Pain Specialty Diagnoses / Procedures Referred By Contac t Referred To Contact PAIN MANAGEMENT Diagnoses Encounter for general adult medical examination without abnormal findings Procedures EST PATIENT VISIT LEVEL 1 Connor Torres MD [address] [place] [address] Pain [facility] [address] [place] [address] Referral ID Status Reason Start Date Expiration Date Visits Requested Visits Authorized [id number] Pending Review OON/Self Pay Override 07/25/2023 11/01/2024 1 1 Reason Onset Date Comments Refill Request 11/14/2023 Reason Comments tramadol pa Reason Comments Other Tramadol approved fr om October 20, 2023 to May 12, 2024 Reason Onset Date Comments Refill Request 12/11/2023 Specialty Diagnoses / Procedures Referred By Contac t Referred To Contact RADIO MRI Diagnoses Spinal stenosis of cervical region DDD (degenerative disc disease), cervical Procedures MRI CERVICAL SPINE WO IVCON MRI SPINAL CANAL CERVICAL W/O CONTRAST MATRL Ryan, Jefferie M, CLASSROOM TECHNOLOGY COACH.METAL FLOW COORDINATOR [address] [place] [address] Radio [facility] [address] [facility] [address] Referral ID Status Reason Start Date Expiration Date V isits Requested Visits Authorized [id number] Closed Auto-Generate d Referral OON/Self Pay Override 01/10/2024 03/10/2024 1 1 Reason Comments Results Reason Onset Date Comments Refill Request 02/12/2024 Specialty Diagnoses / Procedures Referred By Contac t Referred To Contact Diagnoses Radiculopathy, cervical region Procedures NJX DX/THER SBST INTRLMNR CRV/THRC W/IMG GDN CERVICAL EPIDURAL BLOCK W/INJECTION(S) NON NEUROLYTIC SUBSTANCE(S) W/IMAGE GUIDANCE [facility] [address] [place], [place] [address] [place] [address] Referral ID Status Reason Start Date Expiration Date Visits Re quested Visits Authorized [id number] 1 1 Reason Onset Date Comments Refill Request 03/28/2024 Reason Comments New Patient Neck pain Specialty Diagnoses / Procedures Referred By Contac t Referred To Contact Neurosurgery / NEUROSURGERY Diagnoses Cervical disc disorder with radiculopathy Procedures CONSULT TO NEUROSURGERY OFFICE/OUTPATIENT NEW HIGH MDM 60 MINUTES Connor Torres MD [address] [facility] [place] [address] Neus [facility] [address] [place] [address] Referral ID Status Reason Start Date Expiration Date Visits Requested Visits Authorized [id number] Authorized PCP Requested Referral OON/Self Pay Override 03/21/2024 07/22/2024 99 99 Reason Onset Date Comments Refill Request 04/14/2024 Reason Onset Date Comments Refill Request 04/23/2024 Reason Onset Date Comments Refill Request 05/16/2024 Reason Comments Neck Pain Pain (Shoulder Pain) B/l Specialty Diagnoses / Procedures Referred By Contac t Referred To Contact PAIN MANAGEMENT Diagnoses Encounter for general adult medical examination without abnormal findings Procedures EST PATIENT VISIT LEVEL 1 Mai Davis, CLASSROOM TECHNOLOGY COACH.METAL FLOW COORDINATOR [address] [id number] [facility] [address] [id number] Referral ID Status Reason Start Date Expiration Date Visits Requested Visits Authorized [id number] New Request OON/Self Pay Override 02/26/2024 06/05/2025 99 99 Reason Comments tramadol approved Reason Comments Pre-procedure call Reason Comments Refill Request Reason Onset Date Comments Refill Request 07/21/2024 Reason Onset Date Comments Refill Request 09/12/2024 Reason Comments Chronic Pain Specialty Diagnoses / Procedures Referred By Contac t Referred To Contact PAIN MANAGEMENT Diagnoses Encounter for general adult medical examination without abnormal findings Procedures EST PATIENT VISIT LEVEL 1 oCnnor Torres MD [address] [place] [address] Phone: tel: fax: Pain Management [facility] [place] [address] Phone: tel: fax: Referral ID Status Reason Start Date Expiration Date Visits Requested Visits Authorized [id number] Pending Review OON/Self Pay Override 07/25/2023 11/01/2024 1 1 Reason Comments Chronic Pain Specialty Diagnoses / Procedures Referred By Contac t Referred To Contact PAIN MANAGEMENT Diagnoses Other chronic pain Procedures EST PATIENT VISIT LEVEL 1 Mai Davis, CLASSROOM TECHNOLOGY COACH.METAL FLOW COORDINATOR [address] [place] [id number] Phone: tel: fax: Pain Management [place] [place] [id number] Phone: tel: fax: Referral ID Status Reason Start Date Expiration Date Visits Requested Visits Authorized [id number] New Request OON/Self Pay Override 10/09/2024 01/17/2026 99 99 Reason Comments pa submitted tramadol Reason Comments tramadol PA approval Reason Comments Med Change Request Reason Comments Patient Update Medication Problem Reason Onset Date Comments Refill Request 03/09/2025 Reason Comments April 08 procedure denied Goals (unrecognized section and content) Goals may be documented in a n alternate sectionGoals may be documented in an alternate sectionGoals may be documented in an alternate section PRN Active and Recently Administ ered Medications (unrecognized section and content) Medication Order 10/10/2022 10/11/2022 10/12/2022 BUPivacaine HCl injection (SENSORCAINE) (CANCELED) X (OR/PROCEDURE) PRN, Starting on Sun10/12/22 at 1340, Until Marycruz 10/12/22 at 1341, Intraprocedure 1340 (Given - Provid er: Jaren Dubon DO) triamcinolone acetonide injection (KeNALog 40) (CANCELED) X (OR/PROCEDURE) PRN, Starting on Marycruz 10/12/22 at 1328, Until Marycruz 10/12/22 at 1339, Intraprocedure 1328 (Given - Provid er: Jaren Dubon DO) PRN Medication Order 03/19/2023 03/20/2023 03/21/2023 bupivacaine (PF) 0.25 % (2.5 mg/mL) injection (SENSORCAINE MPF) (CANCELED) X (OR/PROCEDURE) PRN, Starting on Sun03/21/23 at 1400, Until Sun03/21/23 at 1401, Intraprocedure 1400 (Given - Provid er: Jaren Dubon DO) triamcinolone acetonide injection (KeNALog 40) (CANCELED) X (OR/PROCEDURE) PRN, Starting on Sun03/21/23 at 1400, Until Sun03/21/23 at 1401, Intraprocedure 1400 (Given - Provid er: Jaren Dubon DO) Scheduled Medication Order 03/15/2024 03/16/2024 03/17/2024 ALPRAZolam 1.5 mg tab(s) (XANAX) (COMPLETED) 1.5 mg, ORAL, ONCE, 1 dose, On Sun03/17/24 at 1400 1340 (Given - Provid er: Cass Egan RN) PRN Medication Order 03/15/2024 03/16/2024 03/17/2024 dexAMETHasone sodium phosphate injection (DECADRON) (CANCELED) X (OR/PROCEDURE) PRN, Starting on Sun03/17/24 at 1449, Until Sun03/17/24 at 1458, Intraprocedure 1449 (Given - Provid er: Connor Torres MD) FOR RECORDS PERTAINING TO PATIENTS WHO ARE [...] BE BASED ON THE PRIMARY CLINICAL RECORDS. [employer] provides no warranty or guarantee of the accuracy or completeness of information in this document.
[2025-06-26] MEDS: Ciprofloxacin 0.3% 2.5ml Bottle 2 DRP RIGHT EYE (23:50)
[2025-06-27 00:15] VITALS: BP 146/72; PULSE 79; RESP 18; TEMP 36.7; O2SAT 100
--- NOTE | 2025-06-27 00:33 | EDS_ITS ---
HPI History of Present Illness Chief Complaint: Eye Problem Narrative Narrative: Patient was seen and examined after presenting to ED for right eye injury she was playing with her dog her dog accidentally scratched her in the right eye she does not wear contacts she just wears glasses this occurred earlier in the night. PFSH PFSH Home Medications ?Medication ?Instructions ?Recorded ?Last Taken ?Type duloxetine 60 mg capsule,delayed 120 mg PO DAILY 04/17 Unknown History release tramadol 50 mg tablet 50 mg PO Q4H 04/17/15 Unknow n History baclofen 20 mg tablet 20 mg PO TID PRN PRN arthrit is 06/26/25 Unknown History Allergy/AdvReac Type Severity Reaction Status Date / Time amoxicillin (Amoxicillin) Allergy Rash Verified 06/26/25 23:05 Penicillins Allergy Unknown Verified 06/26/25 23:05 sulfamethoxazole (From Allergy Unknown Verified 06/26/25 23:05 Septra) trimethoprim (From ) Allergy Unknown Verified 06/26/25 23:05 Social History Smoking Status: Current every day smoker tobacco type: e-cigarettes ROS ROS ED ROS Narrative Pertinent Positives: Right eye pain after dog scratch to the right eye Pertinent Negatives: Contact use fevers inability to see The remainder of review of systems negative unless otherwise stated in the HPI above. Systems reviewed including constitutional, psychiatric, cardiovascular, respiratory, integument, HENT, gastrointestinal. EXAM Physical Exam Narrative Exam Narrative: Afebrile hemodynamically stable she is normocephalic atraumatic using a slit lamp I was able to perform an exam her pupils are equal round reactive to light she does have a corneal abrasion in the 10 o'clock position of her right eye on the cornea no hyphema or hypopyon negative Sidel sign. Difficulty to perform visual acuity secondary to pain Const Vital Signs: 06/26/25 23:03 06/27/25 00:15 Temperature 97.8 F 98.0 F Temperature Source Oral Pulse Rate 90 79 Respiratory Rate 18 18 Blood Pressure 146/72 H Blood Pressure Mean 96 Pulse Ox 100 100 Oxygen Delivery Method Room Air MDM MDM MDM Narrative Medical decision making narrative: Nursing notes, triage notes, available previous documentation, and vital signs w ere reviewed. Any discrepancies noted were addressed. Differential Diagnoses: Corneal abrasion not a globe rupture or ulceration not compartment syndrome of the eye Interventions: Antibiotics Given: Ciprofloxacin eyedrop Previous Documentation Reviewed: None available or applicable at this time. ED Course: Patient presenting with dog scratch to the right eye she was given ciprofloxacin eyedrops she is found to have a corneal abrasion she has an eye doctor but they are closed on the first Sunday of every month so she was unable to get into them for tomorrow but she will follow-up with them next week she is given strict return precautions follow-up recommendations she is stable for discharge home. This note was made utilizing voice recognition software. All attempts were made to correct spelling or other errors prior to note completion. However, due to the fast-paced nature of emergency medicine, some errors may still be present. Discharge Plan Triage Chief Complaint: Eye Problem ED Provider: Patrick Blackwell Dx/Rx/DC Orders Clinical Impression: Corneal abrasion, Animal scratch, Right eye injury Instructions: ED Corneal Abrasion Prescriptions: No Action tramadol 50 MG tablet 50 mg PO Q4H duloxetine 60 MG capsule 120 mg PO DAILY baclofen 20 mg tablet 20 mg PO TID PRN PRN (Reason: arthritis) Primary Care Provider: Matt Forrest Referrals: Matt Forrest MD [Primary Care Provider, Family Practice] Activity Restrictions/Additional Instructions: Take the eyedrop that we are providing you as follows: 2 drops every 6 hours for 5 days. Be sure to follow-up with your eye doctor please return if you are having any worsening symptoms. Print Language: Luxembourger Disposition Disposition: Home, Self Care Discharge Date/Time: 06/27/25 00:16
== END 2025-06-27 00:16 | disposition home or self-care (01) ==
PROVIDERS: Emergency Provider Specialist/Technologist Athletic Trainer; PCP Family Medicine; Visit Provider Specialist/Technologist Athletic Trainer
DX: S05.01XA Injury of conjunctiva and corneal abrasion without foreign body, right eye, initial encounter (principal); W54.8XXA Other contact with dog, initial encounter; F17.290 Nicotine dependence, other tobacco product, uncomplicated; Z23 Encounter for immunization
CPT/HCPCS: 90471; 90715; 99283